=== PATIENT | female | born 1970 | race Caucasian/White ===

== ENCOUNTER → 2017-10-08 16:13 | Outpatient (CLI) | payer BC, SELFPAY ==
--- NOTE | 2017-10-08 16:16 | MM_ITS ---
MM Dig mamm DX BI implant CAD CAD Screening ORDERING PHYSICIAN : Robert Duke MD PATIENT AGE: 47 years GENDER: Female COMPARISON: Previous mammograms: July INDICATION: TECHNIQUE:. Corine technique utilized. CC & MLO images were obtained of the breast tissue overlying implant, as well as a second set of images including the breast implant. Mammography is inherently limited due to the implants is a could obscure areas of breast R2 CAD reviewed. FINDINGS: Moderate breast density overlying the implants appear stable. No significant new findings no change when compared to 2016 nor 2011 study. CAD computer review highlights no areas of concern either . Areas of mild asymmetry previously noted appear stable . Bilateral Breast Implants appear stable as well. Stable numerous moderate size axillary lymph nodes bilateral IMPRESSION: No significant new areas of concern Overall Stable bilateral mammogram. With Stable Bilateral breast implants.. BI-RADS Category: 2 Benign Finding(s) RECOMMENDED FOLLOW-UP: 1YR - 1 YEAR FOLLOW-UP (A letter has been sent to the patient regarding results of the study.)
== END ==
PROVIDERS: Family Provider Family Medicine; PCP Family Medicine; Visit Provider Nurse Practitioner Obstetrics & Gynecology
DX: Z12.13 Encounter for screening for malignant neoplasm of small intestine (principal)
CPT/HCPCS: 77066

== ENCOUNTER → 2018-07-06 15:05 | Outpatient (POV) | payer BC, SELFPAY | PROVIDERS: Visit Provider Dermatology | DX: Z00.00 Encounter for general adult medical examination without abnormal findings (principal) ==

== ENCOUNTER → 2019-06-06 15:50 | Outpatient (CLI) | payer BC, SELFPAY ==
--- NOTE | 2019-06-06 15:54 | MM_ITS ---
PROCEDURE: MM DIG SC MAMM IMPLANT BI CAD Patient Age:48Y CLINICAL INDICATION: SCREENING routine screening. Estradiol patch. No new complaints.. Family history.:. Sister with breast cancer age 52 Bilateral mammogram. Emanuel technique utilized due to breast implants COMPARISON: DIGMAMMS MAMMOGRAM SCREEN-ASSISTANT MANAGER QUALITY MANAGEMENT N/C from 08/08/2009 DIGMAMMDX MAMMOGRAM DX-ASSISTANT MANAGER QUALITY MANAGEMENT N/C from 08/21/2009 DMSI DIGITAL MAMM-SCREEN IMPLANT from 04/07/2012 DMSI DIG MAMM-SCREEN IMPLANT W/CAD from 08/18/2016 DMBAV DIG MAMM- JOLYNN ADD VIEWS W/CAD from 09/11/2016 BL US BREAST-LT COMPLETE W/AXILLA from 09/11/2016 DXIMPBI MM Dig mamm DX BI implant CAD from 10/08/2017 TECHNIQUE: . Emanuel technique utilized due to breast implants CC and MLO images were obtained both with and without implant included. The Emanuel images without implant images attempted image overlying breast tissue but however mammography is somewhat limited in the presence of implants is areas breast can be obscured. R2 CAD reviewed. FINDINGS: Moderately dense slightly heterogeneous asymmetric breast tissue seen overlying the bilateral breast implants . Right breast. No new areas of significant concern. Follow-up in 1 year recommended Left breast. Stable mild asymmetry no significant new findings but Left breast stable again noting area of mild asymmetric density at the inferior left breast. This is been noted on present since 2011 with no discrete change and can be followed. IMPRESSION: 1.Stable bilateral mammogram. No new areas of significant concern either breast. 2.Bilateral follow-up 1 year recommended; and self-breast examination may be of benefit 3..Bilateral Breast Implants/thus Emanuel technique utilized. The implants along moderately dense mild asymmetric and heterogeneous breast tissue does somewhat decrease sensitivity of mammography, but I see no significant new findings of concern.. Stable breast BI-RAD Category: 2 Benign Finding(s) FOLLOW-UP: 1YR 1 Year Follow-up (A letter has been sent to the patient regarding results of the study.) Dictated by: Harjinder Robledo MD 06/10/2019 13:39 Electronically signed by Harjinder Robledo MD in [place] 06/10/2019 13:39
== END ==
PROVIDERS: PCP Family Medicine; Visit Provider Obstetrics & Gynecology
DX: Z00.00 Encounter for general adult medical examination without abnormal findings (principal)
CPT/HCPCS: 77067

== ENCOUNTER → 2019-07-07 16:29 | Outpatient (CLI) | payer BC, SELFPAY ==
--- NOTE | 2019-07-07 16:33 | XR_ITS ---
PROCEDURE: XR FOOT WT BEARING RT 3V CLINICAL INDICATION: comparison views COMPARISON: FTR3 FOOT-RT-3 VIEWS from 12/04/2014 FINDINGS: No fracture or dislocation. No lytic or blastic change. There is normal mineralization. The joint spaces are well-preserved. No significant degenerative/arthritic changes. No erosive changes evident. Other findings:There is a prominent posterior talar process and there are mild hypertrophic changes at the base of the 1st metatarsal laterally. There is normal alignment. IMPRESSION: No acute findings. Dictated by: Geovani Anaya MD 07/07/2019 17:48 Electronically signed by Geovani Anaya MD in [place] 07/07/2019 17:48
--- NOTE | 2019-07-07 16:33 | XR_ITS ---
PROCEDURE: XR FOOT WT BEARING LT 3V CLINICAL INDICATION: painful knot on left foot. COMPARISON: FTR3 FOOT-RT-3 VIEWS from 12/04/2014 XR FOOT WT BEARING RT 3V from 07/07/2019 FINDINGS: No fracture or dislocation. No lytic or blastic change. There is normal mineralization. The joint spaces are well-preserved. No significant degenerative/arthritic changes. No erosive changes evident. There is mild soft tissue swelling along the dorsal aspect of the foot at the cuneiform region IMPRESSION: Mild soft tissue swelling along the dorsal aspect of the foot. No bony anomalies evident. Dictated by: Geovani Anaya MD 07/07/2019 17:50 Electronically signed by Geovani Anaya MD in [place] 07/07/2019 17:50
== END ==
PROVIDERS: PCP Family Medicine; Visit Provider Podiatrist
DX: M79.672 Pain in left foot (principal); M85.672 Other cyst of bone, left ankle and foot
CPT/HCPCS: 73630

== ENCOUNTER → 2019-11-22 14:44 | Outpatient (CLI) | payer BC, SELFPAY ==
--- NOTE | 2019-11-22 14:49 | XR_ITS ---
PROCEDURE: XR HIP RT 2-3V W/PELVIS CLINICAL INDICATION: RT HIP PAIN Recurrence right hip pain COMPARISON: No exams were available for comparison FINDINGS: No fracture or dislocation is evident. No significant degenerative change. No lytic or blastic change. Unremarkable soft tissues. Pain pump is present overlying the right lower quadrant IMPRESSION: No acute findings. Dictated by: Geovani Anaya MD 11/22/2019 15:10 Electronically signed by Geovani Anaya MD in [place] 11/22/2019 15:10
== END ==
PROVIDERS: PCP Family Medicine; Visit Provider Family Medicine
DX: M25.551 Pain in right hip (principal)
CPT/HCPCS: 73502

== ENCOUNTER → 2020-04-30 12:45 | Outpatient (CLI) | payer BC, SELFPAY ==
--- NOTE | 2020-04-30 12:45 | US_ITS ---
PROCEDURE: US EXTREMITY LT LIMITED CLINICAL INDICATION: Cyst of left foot. Follow-up drainage of foot cyst COMPARISON: No exams were available for comparison FINDINGS: A cystic areas present along the dorsal aspect of the foot corresponding to the palpable abnormality measuring 7 x 5 mm. There is some thickening of the posterior wall of this cyst. IMPRESSION: Complex cystic lesion dorsal aspect of foot 7 x 5 mm with posterior thickened wall corresponding to palpable abnormality Dictated by: Geovani Anaya MD 04/30/2020 18:19 Geovani Anaya MD in [place] 04/30/2020 18:19
== END ==
PROVIDERS: PCP Family Medicine; Visit Provider Podiatrist
DX: M67.472 Ganglion, left ankle and foot (principal)
CPT/HCPCS: 76882

== ENCOUNTER → 2020-07-06 16:24 | Outpatient (CLI) | payer BC, SELFPAY ==
--- NOTE | 2020-07-06 | XR_ITS ---
PROCEDURE: XR CHEST 2V CLINICAL HISTORY: COUGH COMPARISON: CR XR CHEST PORTABLE from 09/17/2019 FINDINGS: The cardiomediastinal silhouette and pulmonary vascularity are within normal limits. The lungs are clear without infiltrates, suspicious nodules, or pleural effusions. There is a neurostimulator electrode seen in the lower thoracic spinal canal. No acute bony abnormalities. IMPRESSION: No acute findings. Dictated by: Dr. Leonidas Yates MD 07/06/2020 19:16 Dr. Leonidas Yates MD in [place] 07/06/2020 19:16
[2020-07-06 18:06] LABS: Basophils # 0.1 K/mm3 (0-0.2); Basophils % 0.7 % (0.1-2.0); Eosinophils # 0.3 K/mm3 (0.0-0.4); Eosinophils % 2.2 % (0.1-12.0); Hematocrit 53.7 % (37.0-47.0); Hemoglobin 17.3 g/dL (12.2-16.2); Lymphocytes % 25.9 % (10-50); Mean Corpuscular HGB Conc 32.3 g/dL (31.8-35.4); Mean Corpuscular Hemoglobin 31.4 pg (27.0-31.2); Mean Corpuscular Volume 97.2 fl (81-99); Monocytes # 0.5 K/mm3 (0.1-1.0); Monocytes % 4.1 % (1.7-9.3); Neutrophils # 7.8 K/mm3 (1.8-7.8); Neutrophils % 67.1 % (37.0-80.0); Platelet Count 252 K/mm3 (142-424); Red Blood Count 5.52 M/mm3 (4.20-5.40); Red Cell Distribution Width 13.2 % (11.5-17.5); White Blood Count 11.7 K/mm3 (4.8-10.8)
[2020-07-06 18:38] LABS: Alanine Aminotransferase 20 U/L (12-78); Albumin Level 4.5 g/dl (3.5-5.0); Albumin/Globulin Ratio 1.7 (1.1-1.8); Alkaline Phosphatase 58 U/L (38-126); Anion Gap 11.6 mEq/L (5-15); Aspartate Amino Transferase 26 U/L (14-36); Bilirubin,Total 0.5 mg/dl (0.2-1.3); Blood Urea Nitrogen 13 mg/dl (7-17); Calcium 10.1 mg/dl (8.4-10.2); Carbon Dioxide 29 mmol/L (22.0-30.0); Chloride 101 mmol/L (98-107); Estimated Glomerular Filt Rate 88 ml/min (>60); GFR (African American) 107 ML/MIN (>60); Globulin 2.6 g/dL (1.3-3.2); Glucose 132 mg/dl (74-100); Potassium 4.6 mmoL/L (3.5-5.1); Sodium 137 mmol/L (136-145); Total Protein,Serum 7.1 g/dl (6.3-8.2)
== END ==
PROVIDERS: PCP Family Medicine; Visit Provider Podiatrist
DX: Z01.818 Encounter for other preprocedural examination (principal); M85.672 Other cyst of bone, left ankle and foot
CPT/HCPCS: 36415; 71046; 80053; 85025; 93005

== ENCOUNTER → 2020-07-12 11:03 | Outpatient (CLI) | payer BC, SELFPAY ==
[2020-07-12 13:19] LABS: Coronavirus 19 IgG Antibody Negative (Negative); Coronavirus 19 IgM Antibody Negative (Negative)
== END ==
PROVIDERS: Visit Provider Podiatrist
DX: Z01.812 Encounter for preprocedural laboratory examination (principal); Z11.52 Encounter for screening for COVID-19; M79.672 Pain in left foot; M67.472 Ganglion, left ankle and foot
CPT/HCPCS: 36415; 86328

== ENCOUNTER 2020-07-13 06:07 | Day surgery (SDC) | payer BC, SELFPAY ==
--- NOTE | 2020-07-06 16:39 | ECG_ITS ---
APPROVED REPORT Exam: Resting ECG HR:75 bpm ECG Measurements Heart Rate 75 AXES IL 144 P 71 QRSd 86 QRS 54 QT 382 T 67 QTc 426 Conclusion Normal sinus rhythm Normal ECG Electronically signed by : Alexander Michael, 07/06/2020 21:05:03
[2020-07-10 12:44] VITALS: BMI 27.7
[2020-07-13] VITALS (14 sets, daily range): BP systolic 125–156; BP diastolic 77–102; PULSE 85–107; RESP 12–20; TEMP 36.2–43; O2SAT 95–98
--- NOTE | 2020-07-13 06:58 | P.PN_ITS ---
[facility] Anesthesia Checklist - Patient Identification Patient Identification: Arm Band, Verbal (Name & ) - Structural Data Admitted From: Home Planned Operative Procedure/s: ex mass Consent for Planned Operative Procedure(s) Verified: Yes Verified Documents: History and Physical - NPO Status Verified Time NPO: 00:00 - Chart Verification Results Verified: CBC, BMP - Additional verifications Patient : No Anesthesia Reactions: No Hx Blood Transfusions: No Blood Transfusion Reaction: No Cephalosporin Allergy: No Previous Colonoscopy: No - Cardiovascular Assessment Heart Sounds: S1 & S2 Pulse Strength: Baseline Pulse Rhythm: Regular Peripheral Edema: No - Airway Assessment C-Spine Mobility Assessed: Yes TMJ Mobility Assessed: Yes Dentition: Good Dentition - Neurological Assessment Level of Consciousness: Awake, Alert, Appropriate Hx Seizures: No Numbness or tingling in extremities: No - Anesthesia Plan Anesthesia Risk discussed: Yes Anesthesia Plan: Verified ASA Class: III Anesthesia Type: General [facility] History I have reviewed the patient's past medical history: Yes Medical History: Reports:: Anxiety, Hypertension Denies:: Cancer, Diabetes Mellitus Type 1, Diabetes Mellitus Type 2, MRSA, Seizures *Have you ever received a pneumonia vaccine?: No *Have you received a flu vaccine this season?: No Other Medical History: Reports: Arthritis, Other. Denies: Blood Transfusion Reaction Anesthesia experience/problems:: none Other Surgeries: Yes: Cholecystectomy, Hysterectomy-Total, Other Amputation: No Fractures: No - *Social History Last grade of school completed: Some college Smoking Status: Current every day smoker Tobacco Type: cigarettes # Packs/Day (cigarettes): 1 Alcohol Intake: current Alcohol Intake Frequency:: holidays/special occasions only Substance Use Type: denies use *Occupational Status:: unemployed Housing: house Household Members: family *Travel in the last 8 weeks: None - Psychiatric History Pschychiatric History:: Reports:: Anxiety Family Hx:: Cancer, Hyperlipidemia, Hypertension
--- NOTE | 2020-07-13 08:15 | HMH.OPNOTE ---
Date of procedure: 07/13/20 Pre-op Diagnosis:: 1. Left foot exostosis 2. Left foot soft tissue mass (suspected ganglion cyst) Post-op Diagnosis:: Same Procedure performed:: 1. Left foot exostectomy 2. Left foot soft tissue mass excision Surgeon:: Rocio Berry DPM AIRFIELD ENGINEER OFFICER:: Alexander Correia Anesthesia: GETA, local (25cc 0.5% marcaine plain) Estimated blood loss (mL): 10 Clinical Note:: Ms. Dempsey is a 49-year-old female who presents with left dorsal foot pain and soft tissue mass overlying bone spur. Conservative treatment included ice, elevation, NSAIDs, strapping, taping, modification of shoe gear, and aspiration. It also included modification of shoe gear, modification of activity, steroid injections which did not help. Patient unable to get MRI due to spinal cord stimulator incompatibility. She had a left foot ultrasound 04/30/2020 which showed: Complex cystic lesion dorsal aspect of foot 7 x 5 mm with posterior thickened wall corresponding to palpable abnormality. Conservative treatment discussed but has been exhausted. We discussed surgery for excision of the soft tissue mass with exostectomy. Patient is having no pain to the bunion, will not address surgically at this time. All risks and benefits were discussed including but not limited to: recurrence of the mass, damage to blood vessels and nerves, bleeding, infection, wound complications, need for further surgery, prolonged swelling of the extremity, prolonged pain, RSD/CRPS, DVT, and anesthetic complications including . No guarantees were given. All questions fully answered. The patient verbalized understanding and agreed to proceed with surgery. Consent was obtained. Necessary labs and pre-op testing ordered: cbc, cmp, ekg, chest x-ray, covid. Patient is under the care of pain management. Will contact the [facility] regarding surgery. She takes Fellows and Nucynta for chronic back pain. She understands for the immediate post op period, she will need stronger meds due to her tolerance. Will need Rx Percocet, Zofran, Motrin, discussed Toradol. She will need fracture boot and crutches. Medical clearance per PCP-Dr. Carty. Operative findings:: Left foot dorsal midfoot soft tissue mass located over the second?third tarsometatarsal joint. Mass had generally more consistent with ganglion cyst and measured approximately 0.5 x 0.7 cm. No signs of malignancy or deep infection noted. Dorsal spurring under the mass over the TMT joints. Operative note:: On this date and time, the patient was deemed an appropriate surgical candidate. With informed consent signed, the patient was taken to the operating theater. The patient was positioned supine. General anesthesia was induced. Tourniquet was applied to the LEFT mid calf. The LEFT lower extremity was prepped and draped in normal sterile fashion. LEFT EXCISION OF GANGLION CYST/SOFT TISSUE MASS: The tourniquet was inflated at 225 mmHg. Attention was directed to the dorsal foot where the lazy S incision was mapped out extending over the 2-3rd tarsometatarsal joints. Dissection was carried through skin to subcutaneous tissue with care taken to maintain surgical hemostasis and safely retract neurovascular structures. The extensor tendons were visualized and soft tissue mass noted over the extensor just superior to the joint. The soft tissue mass suspected ganglion cyst was dissected and was approximately 0.5 x 0.7 cm, gently clear fluid noted. The ganglion cyst was excised and sent to pathology as a specimen. The wound was flushed with copious amounts normal sterile saline. LEFT FOOT EXOSTECTOMY: Dissection was then carried down to the level of the bone. Bony prominence noted over the 2-3rd metatarsal base and cuneiforms. Cartilage intact to the joints. Rondure was used to remove dorsal spur. Power reciprocating rasp then used to smooth down the area. Wound was flushed with copious amounts of normal sterile saline. 3-0 Vicryl was then used to reapproxima
--- NOTE | 2020-07-13 08:21 | HMH.ANESI ---
[facility] Anesthesia Record Part I Intake, IV Amount: 700 Estimated blood loss (mL): 5 Urine output (mL): 0 Blood Products used (#): none Blood Pressure: 137/89 SaO2: 95 Pulse Rate: 107 Respiratory Rate: 20 Temperature: 97.8 F Patient is:: Awake, Stable Stable to PACU at:: 08:16
--- NOTE | 2020-07-13 12:55 | P.PN_ITS ---
[facility] Anesthesia Record Part II Discharge Time: 08:46 Destination: Surgical Day Care (OP Surgery) PACU nurse assessment reviewed?: Yes Patient Condition:: Good Anesthesia Complications:: None Swallowing reflex intact?: Yes Cyanosis?: No Blood Pressure: 132/100 Pulse Rate: 94 Temperature: 97.2 F Mental Status: Alert & Oriented Pain level:: 3 Nausea and/or vomitting:: None Intake, IV Amount: 35
== END 2020-07-13 09:45 | disposition home or self-care (01) ==
LOC: OR 06:08
PROVIDERS: PCP Family Medicine; Visit Provider Podiatrist
PROC: (CPT 28090; principal; 2020-07-13 07:30)
DX: M25.775 Osteophyte, left foot (principal); M67.472 Ganglion, left ankle and foot; I10 Essential (primary) hypertension; M54.5 Low back pain; Z79.899 Other long term (current) drug therapy
CPT/HCPCS: 28090; 28104; 96374; J2405

== ENCOUNTER 2020-10-15 12:36 | Emergency (ER) | payer BC, SELFPAY ==
[2020-10-15 13:18] VITALS: RESP 16; TEMP 36.8; O2SAT 99; BMI 28.8
--- NOTE | 2020-10-15 13:19 | HMH.EDUTC ---
[facility] [place] Disposition Clinical Impression: At increased risk of exposure to COVID-19 virus Disposition: Home, Self-Care Condition on Discharge: Good Instructions: Preventing the Spread of Coronavirus Discharge Instructions Additional Instructions: Drink plenty of fluids. Take tylenol or ibuprofen for pain or fever. Follow up with your regular doctor. GO TO THE ER FOR ANY WORSENING SYMPTOMS Referrals: Zana Carty MD [Primary Care Provider] - Time of Disposition: 13:21 Medical Decision Making - Medical Records Medical records reviewed: No: I reviewed the patient's medical records. - Johann Inquiry Pt receiving controlled substance: No Vital Signs: 10/15/20 13:18 10/15/20 13:23 Temperature 98.2 F 98.2 F Temperature Source Oral Oral Pulse Rate 72 Respiratory Rate 16 16 Blood Pressure 147/88 H 02 Sat by Pulse Oximetry 99 Oxygen Delivery Method Room Air Room Air [facility] [place] HPI - General Stated complaint: covid test Time Seen by Provider: 10/15/20 13:19 - History of Present Illness Provider Complaint: She is here for a covid test. She has a medical procedure scheduled for 3 days from now and she need a negative covid test before having it done. She denies any symptoms. - Related Data Home Medications Medication Instructions Recorded Confirmed Hydrocodone/Acetaminophen 1 tab PO QIDP PRN 04/06/18 09/13/20 [Hydrocodone-Acetamin 7.5-325] estradioL [Estradiol (Twice 1 patch TRANSDERMA .biweekly 04/06/18 09/13/20 Weekly)] escitalopram oxalate 20 mg tablet 20 mg PO DAILY tab 04/10/20 09/13/20 omeprazole 40 mg capsule,delayed 40 mg PO DAILY PRN cap 04/10/20 09/13/20 release tapentadol 100 mg tablet,extended 100 mg PO BID tab 04/10/20 09/13/20 release,12 hr meloxicam 15 mg tablet 15 mg PO DAILY tab 05/10/20 09/13/20 lidocaine 5 % topical ointment 1 applic TOPICAL DAILY PRN g 06/14/20 09/13/20 lisinopril 20 mg tablet 20 mg PO DAILY tab 06/14/20 09/13/20 Previous Rx's Medication Instructions Recorded diclofenac sodium 1 % topical gel 4 g TOPICAL QID PRN 90 Days #100 g 05/10/20 ketorolac 10 mg tablet 10 mg PO Q6H PRN 5 Days #20 tab 07/12/20 ondansetron 4 mg disintegrating 4 mg PO Q6H PRN 7 Days #30 tab 07/12/20 tablet oxycodone-acetaminophen 7.5 mg-325 1 tab PO Q4-6H PRN 7 Days #40 tab 07/12/20 mg tablet triamcinolone acetonide 0.025 % 1 applic TOPICAL BID #15 g 08/02/20 topical ointment Allergies Allergy/AdvReac Type Severity Reaction Status Date / Time baclofen Allergy Verified 09/13/20 13:44 [facility] History - Hepatitis A Screen Attestation statement:: This patient has been screened for Hepatitis A risk factors. I have reviewed the patient's past medical history: Yes Medical History: Reports:: Anxiety, Hypertension Denies:: Cancer, Diabetes Mellitus Type 1, Diabetes Mellitus Type 2, MRSA, Seizures Other Medical History: Reports: Arthritis, Other. Denies: Blood Transfusion Reaction Other Surgeries: Yes: Cholecystectomy, Hysterectomy-Total, Other Amputation: No Fractures: No Comment: Bladder Enlargement. Neck Surgery. Cyst removed from her back - Social History Smoking Status: Current every day smoker Tobacco Type: cigarettes # Packs/Day (cigarettes): 1 Alcohol Intake: current Alcohol Intake Frequency:: holidays/special occasions only Substance Use Type: denies use Occupational Status: unemployed Housing: house Household Members: family - Psychiatric History Pschychiatric History:: Reports:: Anxiety Family Hx:: Cancer, Hyperlipidemia, Hypertension ROS Obtained: Yes All systems reviewed & no additional complaints - Constitutional Constitutional: Reports system reviewed and no additional complaints, except as docu - Eyes Eyes: Reports system reviewed and no additional complaints, except as docu - ENT Ears, Nose, Mouth, and Throat: Reports system reviewed and no additional complaints, except as docu - Cardiovascular Cardiovas
[2020-10-15 13:23] VITALS: BP 147/88; PULSE 72; RESP 16; TEMP 36.8; O2SAT 97
== END 2020-10-15 13:26 | disposition home or self-care (01) ==
PROVIDERS: Emergency Provider Nurse Practitioner Family; PCP Family Medicine
DX: Z11.52 Encounter for screening for COVID-19 (principal)
CPT/HCPCS: 99202; G0463; U0003

== ENCOUNTER → 2021-04-23 13:30 | Outpatient (CLI) | payer BC, SELFPAY ==
--- NOTE | 2021-04-23 13:33 | MM_ITS ---
PROCEDURE INFORMATION: Exam: MG Bilateral Screening 3D Mammography Exam date and time: 04/23/2021 1:33 PM Age: 50 years old Clinical indication: Screening mammogram TECHNIQUE: Imaging protocol: Bilateral screening tomosynthesis and 2D mammography including computer-aided detection (CAD) when performed. COMPARISON: 1. MG MM DIG SC MAMM IMPLANT BI CAD 06/06/2019 4:03 PM 2. MG DXIMPBI MM Dig mamm DX BI implant CAD 10/08/2017 4:25 PM 3. MG DMBAV DIG MAMM- JOLYNN ADD VIEWS W/CAD 09/11/2016 1:43 PM 4. MG DMSI DIG MAMM-SCREEN IMPLANT W/CAD 08/18/2016 9:45 AM FINDINGS: MAMMOGRAPHY: Breast composition: The breast tissue is heterogeneously dense, which may obscure small masses. Mass: Stable benign-appearing subcentimeter nodules are present in the bilateral breasts. No new or morphologically suspicious nodule has developed to suggest malignancy. Architectural distortion: No new or suspicious architectural distortion. Calcifications: No new or suspicious calcifications are present Asymmetric density: No new or suspicious asymmetric density is present Skin thickening: None. Axillary adenopathy: None. Implants: Subpectoral the augmentation implants are present. IMPRESSION: No mammographic evidence of malignancy. Recommend annual screening mammography unless otherwise clinically indicated. ASSESSMENT: BI-RADS category 2: Benign
== END ==
PROVIDERS: PCP Family Medicine; Visit Provider Family Medicine
DX: Z12.31 Encounter for screening mammogram for malignant neoplasm of breast (principal)
CPT/HCPCS: 77063; 77067

== ENCOUNTER → 2021-04-26 10:31 | Outpatient (CLI) | payer BC, SELFPAY | PROVIDERS: Visit Provider Orthopaedic Surgery Orthopaedic Surgery of the Spine | DX: Z01.818 Encounter for other preprocedural examination (principal); Z11.52 Encounter for screening for COVID-19 | CPT/HCPCS: C9803; U0003; U0005 ==

== ENCOUNTER 2021-08-21 14:04 | Emergency (ER) | payer BC, SELFPAY ==
[2021-08-21 14:26] VITALS: BP 166/102; PULSE 94; RESP 20; TEMP 36.7; O2SAT 97; BMI 28.6
--- NOTE | 2021-08-21 14:38 | HMH.EDUTC ---
[facility] Dis[place] Clinical Impression: Cellulitis and abscess of face Disposition: Home, Self-Care Condition on Discharge: Good Instructions: Clindamycin, Mupirocin, DI for Skin Abscess Additional Instructions: *Start antibiotic(s) immediately and be sure to take as ordered for the FULL length of time although you may be feeling better or start to see improvement in the next 24-48 hours *Monitor closely. Outlined redness so that you can monitor easier. Follow up immediately for new or worsening symptoms including but not limited to redness, swelling, streaking from site fever or chills. *Warm compress 15 minutes 3-4 times day *Never squeeze or pop these on your own. Seek immediate medical attention next time this occurs *Monitor Temp. Tylenol every 4 hours as needed and ibuprofen every 6 hours as needed (as long as your primary care doctor has told you that it is ok to take both. For fever, aches, pain. ER if no less that 101 despite Tylenol and ibuprofen Follow up with your family doctor/primary care physician in the next 48-72 hours if no improvement Prescriptions: Mupirocin [Bactroban 2% Ointment 22gm tube] 1 applicatio TP TID #22 gm Transmission Status: Pending to [facility] # clindamycin HCL [Cleocin HCl] 300 mg PO Q8H 7 Days #21 cap Transmission Status: Pending to [facility] # Referrals: Keshia Moy MD [Primary Care Provider] - As needed Time of Disposition: 14:46 Medical Decision Making - Johann Inquiry Pt receiving controlled substance: No Johann was queried for this patient: No Vital Signs: 08/21/21 14:26 Temperature 98.0 F Temperature Source Oral Pulse Rate [Right Brachial] 94 H Respiratory Rate 20 Blood Pressure [Right Arm] 166/102 H Blood Pressure Mean [Right Arm] 123 Blood Pressure Source [Right Arm] Automatic Cuff Blood Pressure Position [Right Arm] Sitting 02 Sat by Pulse Oximetry 97 Oxygen Delivery Method Room Air [facility] HPI - General Stated complaint: possible inf on face Time Seen by Provider: 08/21/21 14:38 Mode of Arrival: Ambulatory Source of Information: Patient Limitations: No Limitations Description of Symptoms (Recalled from Triage Doc. by RN): acne flar, swollen lymph node HEENT Symptoms (Recalled from RN notes): No Resp Symptoms (Recalled from RN notes): No Skin Symptoms (Recalled from RN notes): No MS Symptoms (Recalled from RN notes): No Functional Status (Recalled from RN notes): wnl - History of Present Illness Provider Complaint: Patient states that she started with a pimple on the left side of her nose and she busted it then she started having swelling on the left side of her face States that she thinks she may have infection in the left side of her face since the swelling has continued to get worse so she came in - Related Data Home Medications Medication Instructions Recorded Confirmed Hydrocodone/Acetaminophen 1 tab PO QIDP PRN 04/06/18 09/13/20 [Hydrocodone-Acetamin 7.5-325] estradioL [Estradiol (Twice 1 patch TRANSDERMA .biweekly 04/06/18 09/13/20 Weekly)] escitalopram oxalate 20 mg tablet 20 mg PO DAILY tab 04/10/20 09/13/20 omeprazole 40 mg capsule,delayed 40 mg PO DAILY PRN cap 04/10/20 09/13/20 release tapentadol 100 mg tablet,extended 100 mg PO BID tab 04/10/20 09/13/20 release,12 hr meloxicam 15 mg tablet 15 mg PO DAILY tab 05/10/20 09/13/20 lidocaine 5 % topical ointment 1 applic TOPICAL DAILY PRN g 06/14/20 09/13/20 lisinopril 20 mg tablet 20 mg PO DAILY tab 06/14/20 09/13/20 Previous Rx's Medication Instructions Recorded diclofenac sodium 1 % topical gel 4 g TOPICAL QID PRN 90 Days #100 g 05/10/20 ketorolac 10 mg tablet 10 mg PO Q6H PRN 5 Days #20 tab 07/12/20 ondansetron 4 mg disintegrating 4 mg PO Q6H PRN 7 Days #30 tab 07/12/20 tablet oxycodone-acetaminophen 7.5 mg-325 1 tab PO Q4-6H PRN 7 Days #40 tab 07/12/20 mg tablet triamcinolone acetonide 0.025 % 1 applic TOPICAL BID #15 g 02
[2021-08-21 14:51] VITALS: BP 166/102; PULSE 94; RESP 20; TEMP 36.7; O2SAT 97
== END 2021-08-21 14:51 | disposition home or self-care (01) ==
PROVIDERS: Emergency Provider Nurse Practitioner; PCP Family Medicine
DX: L03.211 Cellulitis of face (principal)
CPT/HCPCS: 99202; G0463

== ENCOUNTER → 2021-09-10 13:22 | Outpatient (POV) | payer BC, SELFPAY | PROVIDERS: Visit Provider Dermatology | DX: Z00.00 Encounter for general adult medical examination without abnormal findings (principal) ==

== ENCOUNTER → 2021-10-17 15:08 | Outpatient (CLI) | payer BC, SELFPAY ==
[2021-10-17 17:50] LABS: Anion Gap 10.6 mEq/L (5-15); Blood Urea Nitrogen 21 mg/dl (7-17); Carbon Dioxide 26 mmol/L (22.0-30.0); Chloride 104 mmol/L (98-107); Estimated Glomerular Filt Rate 88 ml/min (>60); GFR (African American) 106 ML/MIN (>60); Glucose 89 mg/dl (74-100); Potassium 5.6 mmoL/L (3.5-5.1); Sodium 135 mmol/L (136-145)
== END ==
PROVIDERS: Visit Provider Dermatology
DX: L70.0 Acne vulgaris (principal); Z79.899 Other long term (current) drug therapy
CPT/HCPCS: 36415; 80048

== ENCOUNTER → 2022-06-11 14:32 | Outpatient (CLI) | payer BC, SELFPAY ==
--- NOTE | 2022-06-11 14:34 | MM_ITS ---
PROCEDURE INFORMATION: Exam: MG Bilateral Screening 3D Mammography Exam date and time: 06/11/2022 2:25 PM Age: 51 years old Clinical indication: Screening examination TECHNIQUE: Imaging protocol: Bilateral Screening tomosynthesis and 2D mammography including computer-aided detection (CAD) when performed. COMPARISON: 1. MG MM DIG SC MAMM IMPLANT BI CAD 04/23/2021 1:45 PM 2. MG MM DIG SC MAMM IMPLANT BI CAD 06/06/2019 4:03 PM FINDINGS: MAMMOGRAPHY: Breast composition: The breasts are heterogeneously dense, which may obscure small masses. Mass: None. Architectural distortion: None. Calcifications: No suspicious calcifications. Asymmetric density: None. Skin thickening: None. Axillary adenopathy: None. Subpectoral silicone breast implants are present. The contours are smooth. IMPRESSION: No mammographic evidence of malignancy. Annual screening is recommended unless otherwise clinically indicated. ASSESSMENT: BI-RADS Category 1: Negative
== END ==
PROVIDERS: PCP Family Medicine; Visit Provider Family Medicine
DX: Z12.31 Encounter for screening mammogram for malignant neoplasm of breast (principal)
CPT/HCPCS: 77063; 77067

== ENCOUNTER 2022-11-10 16:42 | Emergency (ER) | payer BC, SELFPAY ==
[2022-11-10 16:50] VITALS: BP 181/103; PULSE 71; RESP 22; TEMP 36.7; O2SAT 96; BMI 27.7
--- NOTE | 2022-11-10 16:56 | EXP.UTC ---
Discharge Plan Disposition Patient Disposition: Home, Self-Care Condition: Good Prescriptions Prescriptions: New benzonatate [benzonatate] 100 mg capsule 100 mg PO TIDP PRN (Reason: Cough) Qty: 30 0RF methylprednisolone 4 mg Tablets,Dose Pack 4 mg PO DIRECTED Qty: 21 0RF amoxicillin-pot clavulanate 875-125 mg Tablet 1 tab PO Q12H Qty: 20 0RF No Action omeprazole 40 mg capsule,delayed release(DR/EC) 40 mg PO DAILY PRN (Reason: Acid Reflux) tapentadol 100 mg tablet extended release 12 hr 100 mg PO BID Label Comments: TAKE 1 TABLET BY MOUTH TWICE A DAY escitalopram oxalate 20 mg tablet 20 mg PO DAILY meloxicam 15 mg tablet 15 mg PO DAILY Label Comments: TAKE 1 TABLET BY MOUTH EVERY DAY diclofenac sodium [Voltaren Arthritis Pain] 1 % gel 4 g TOPICAL QID PRN (Reason: pain) 90 Days Qty: 100 2RF Rx Instructions: apply to single knee, ankle, foot; for foot includes sole/toes/top of foot lisinopril 20 mg tablet 20 mg PO DAILY lidocaine 5 % ointment 1 applic TOPICAL DAILY PRN (Reason: pain) Label Comments: APPLY TO THE AFFECTED AREAS DIRECTED oxycodone-acetaminophen 7.5-325 mg tablet 1 tab PO Q4-6H PRN (Reason: pain) 7 Days Qty: 40 0RF ondansetron 4 mg tablet,disintegrating 4 mg PO Q6H PRN (Reason: nausea and vomiting) 7 Days Qty: 30 2RF ketorolac 10 mg tablet 10 mg PO Q6H PRN (Reason: pain) 5 Days Qty: 20 0RF triamcinolone acetonide 0.025 % ointment 1 applic TOPICAL BID Qty: 15 0RF hydrocodone-acetaminophen 7.5-325 tablet 1 tab PO QIDP PRN (Reason: pain) estradiol 1 EACH patch semiweekly 1 patch TRANSDERMA .biweekly clindamycin HCl 300 MG capsule 300 mg PO Q8H 7 Days Qty: 21 0RF mupirocin 22 GM ointment 1 applicatio TP TID Qty: 22 0RF Rx Instructions: apply directly to lesion on side of nose as directed Referrals Follow up/Referrals: John Paul Hampton MD [Primary Care Provider] - See instructions Activity Restrictions/Add. Instructions Additional Instructions/Restrictions: Drink plenty of fluids. Take tylenol or ibuprofen for pain or fever. Take the medications as directed. Follow up with your regular doctor. GO TO THE ER FOR ANY WORSENING SYMPTOMS Don't start the oral steroids until tomorrow, since you had the shot here today. Clinical Impressions Clinical Impression: Sinusitis Instructions Patient Instructions: Sinusitis, DI for Sinusitis Discharge ED Provider[place] Alcides C[place] [facility] [place] General Stated complaint: runny nose, h/a, sore throat Time Seen by Provider: 11/10/22 16:56 History of Present Illness Provider Complaint: She states that for the past 1 week she has had sore throat, sinus congestion, and low grade fever. Related Data Home Medications Medication Instructions Recorded Confirmed estradiol 0.1 mg/24 hr semiweekly 1 patch transdermal .biweekly 04/06/18 09/13/20 transdermal patch hormones hydrocodone 7.5 mg-acetaminophen 1 tab PO QIDP PRN pain 04/06/18 09/13/20 325 mg tablet escitalopram oxalate 20 mg tablet 20 mg PO DAILY Depression 04/10/20 09/13/20 omeprazole 40 mg capsule,delayed 40 mg PO DAILY PRN Acid Reflux 04/10/20 09/13/20 release tapentadol 100 mg tablet,extended 100 mg PO BID * 04/10/20 09/13/20 release,12 hr meloxicam 15 mg tablet 15 mg PO DAILY Pain 05/10/20 09/13/20 lidocaine 5 % topical ointment 1 applic topical DAILY PRN pain 06/14/20 09/13/20 lisinopril 20 mg tablet 20 mg PO DAILY bp 06/14/20 09/13/20 Previous Rx's Medication Instructions Recorded diclofenac sodium 1 % topical gel 4 g topical QID PRN pain 90 days 05/10/20 (Voltaren Arthritis Pain) #100 grams ketorolac 10 mg tablet 10 mg PO Q6H PRN pain 5 days #20 07/12/20 tabs ondansetron 4 mg disintegrating 4 mg PO Q6H PRN nausea and 07/12/20 tablet vomiting 1 week #30 tabs oxycodone-acetaminophen 7.5 mg-325 1 tab PO Q4-6H PRN pain 1 week
[2022-11-10 17:05] LABS: UTC Strep Screen (Rapid) Negative (Negative)
[2022-11-10 17:29] VITALS: BP 181/103; PULSE 71; RESP 22; TEMP 36.7; O2SAT 96
== END 2022-11-10 17:38 | disposition home or self-care (01) ==
PROVIDERS: Emergency Provider Nurse Practitioner Family; PCP Family Medicine
DX: J01.90 Acute sinusitis, unspecified (principal); R07.0 Pain in throat; F17.210 Nicotine dependence, cigarettes, uncomplicated
CPT/HCPCS: 87880; 96372; 99212; 99214; G0463; J0696

== ENCOUNTER → 2023-01-30 10:44 | Outpatient (CLI) | payer BC, SELFPAY ==
[2023-02-02 20:25] LABS: Pancreatic Elastase, Fecal 266 (>200)
== END ==
PROVIDERS: PCP Family Medicine; Visit Provider Nurse Practitioner Family
DX: R10.11 Right upper quadrant pain (principal); R10.13 Epigastric pain; R11.0 Nausea; K21.9 Gastro-esophageal reflux disease without esophagitis; R19.4 Change in bowel habit; R15.2 Fecal urgency; R19.7 Diarrhea, unspecified; R15.0 Incomplete defecation; Z79.1 Long term (current) use of non-steroidal anti-inflammatories (NSAID)
CPT/HCPCS: 82656

== ENCOUNTER → 2023-02-17 15:37 | Outpatient (POV) | payer BC, SELFPAY | PROVIDERS: Visit Provider Dermatology | DX: Z00.00 Encounter for general adult medical examination without abnormal findings (principal) ==

== ENCOUNTER → 2023-03-07 10:41 | Outpatient (CLI) | payer BC, SELFPAY ==
[2023-03-11 16:29] LABS: Calprotectin, Fecal 17 ug/g (0-120)
== END ==
PROVIDERS: PCP Family Medicine; Visit Provider Internal Medicine Gastroenterology
DX: R10.11 Right upper quadrant pain (principal); R19.4 Change in bowel habit; R19.7 Diarrhea, unspecified
CPT/HCPCS: 83993

== ENCOUNTER 2023-04-29 15:06 | Emergency (ER) | payer BC, SELFPAY ==
[2023-04-29 15:15] VITALS: BP 152/99; PULSE 82; RESP 21; TEMP 36.8; O2SAT 97; BMI 27.7
--- NOTE | 2023-04-29 15:23 | EXP.UTC ---
Discharge Plan Disposition Patient Disposition: Home, Self-Care Condition: Good Prescriptions Prescriptions: No Action omeprazole 40 mg capsule,delayed release(DR/EC) 40 mg PO DAILY PRN (Reason: Acid Reflux) tapentadol 100 mg tablet extended release 12 hr 100 mg PO BID Patient Comments: TAKE 1 TABLET BY MOUTH TWICE A DAY escitalopram oxalate 20 mg tablet 20 mg PO DAILY meloxicam 15 mg tablet 15 mg PO DAILY Patient Comments: TAKE 1 TABLET BY MOUTH EVERY DAY diclofenac sodium [Voltaren Arthritis Pain] 1 % gel 4 g TOPICAL QID PRN (Reason: pain) 90 Days Qty: 100 2RF Rx Instructions: apply to single knee, ankle, foot; for foot includes sole/toes/top of foot lisinopril 20 mg tablet 20 mg PO DAILY lidocaine 5 % ointment 1 applic TOPICAL DAILY PRN (Reason: pain) Patient Comments: APPLY TO THE AFFECTED AREAS DIRECTED oxycodone-acetaminophen 7.5-325 mg tablet 1 tab PO Q4-6H PRN (Reason: pain) 7 Days Qty: 40 0RF ondansetron 4 mg tablet,disintegrating 4 mg PO Q6H PRN (Reason: nausea and vomiting) 7 Days Qty: 30 2RF ketorolac 10 mg tablet 10 mg PO Q6H PRN (Reason: pain) 5 Days Qty: 20 0RF triamcinolone acetonide 0.025 % ointment 1 applic TOPICAL BID Qty: 15 0RF hydrocodone-acetaminophen 7.5-325 tablet 1 tab PO QIDP PRN (Reason: pain) estradiol 1 EACH patch semiweekly 1 patch TRANSDERMA .biweekly clindamycin HCl 300 MG capsule 300 mg PO Q8H 7 Days Qty: 21 0RF mupirocin 22 GM ointment 1 applicatio TP TID Qty: 22 0RF Rx Instructions: apply directly to lesion on side of nose as directed benzonatate [benzonatate] 100 mg capsule 100 mg PO TIDP PRN (Reason: Cough) Qty: 30 0RF methylprednisolone 4 mg Tablets,Dose Pack 4 mg PO DIRECTED Qty: 21 0RF amoxicillin-pot clavulanate 875-125 mg Tablet 1 tab PO Q12H Qty: 20 0RF Referrals Follow up/Referrals: Zana Carty MD [Primary Care Provider] - See instructions Activity Restrictions/Add. Instructions Additional Instructions/Restrictions: *weight bearing as tolerated *RICE, Rest the extremity, Ice 15-20 minutes 3-4 times daily, Compress- wear the rey wrap as discussed as much as possible to help reduce swelling and pain, Elevate the extremity when at rest *Rey wrap is for support and help control swelling, use it except in the shower. Be sure that is not to tight but not to loose either *Elevate when resting? *Ibuprofen 600-800mg every 6-8 hours as needed for pain an inflammation. If need something more can take Tylenol in between doses of Ibuprofen to help Immediately follow up with your family doctor for new or worsening of symptoms, or no noticeable improvement over the next 3-5 days Clinical Impressions Clinical Impression: Ankle sprain Qualifiers: Encounter type: initial encounter Involved ligament of ankle: unspecified ligament Laterality: right Qualified Code(s): S93.401A - Sprain of unspecified ligament of right ankle, initial encounter Instructions Patient Instructions: Ankle Sprain, DI for Ankle Sprain, How To Perform RICE (Rest, Ice, Compress, Elevate) Discharge ED Provider: Gloria Hassan [facility] [place] HPI General Stated complaint: AO fall 04/29, right ankle pain Mode of Arrival: Ambulatory Source of Information: Patient and Spouse Limitations: No Limitations Time Seen by Provider: 04/29/23 15:23 Description of Symptoms (Recalled from Triage Doc. by RN): PATIENT STATES SHE FELL TODAY AND INJURED HER RIGHT ANKLE HEENT Symptoms (Recalled from RN notes): No Resp Symptoms (Recalled from RN notes): No Skin Symptoms (Recalled from RN notes): No MS Symptoms (Recalled from RN notes): Yes Functional Status (Recalled from RN notes): WNL History of Present Illness Provider Complaint: Patient states that she was walking down the steps today and she missed a step and rolled her right ankle States that she has been having man
--- NOTE | 2023-04-29 15:25 | XR_ITS ---
FINAL REPORT CLINICAL HISTORY: fall on steps, lateral pain FINDINGS: Right ankle Three views were obtained. There is no acute fracture or dislocation. The joint spaces appear normal. There is lateral soft tissue swelling. IMPRESSION: No acute process. Reviewed, Interpreted and Dictated by Omega Solorio III, MD Transcribed by Charley Sin Authenticated and [facility]
[2023-04-29 16:49] VITALS: BP 152/99; PULSE 82; RESP 21; TEMP 36.8; O2SAT 97
== END 2023-04-29 16:52 | disposition home or self-care (01) ==
PROVIDERS: Emergency Provider Nurse Practitioner; PCP Family Medicine
DX: S93.401A Sprain of unspecified ligament of right ankle, initial encounter (principal); F17.210 Nicotine dependence, cigarettes, uncomplicated; I10 Essential (primary) hypertension; E78.5 Hyperlipidemia, unspecified; J45.909 Unspecified asthma, uncomplicated; W10.8XXA Fall (on) (from) other stairs and steps, initial encounter
CPT/HCPCS: 73610; 99212; 99214; G0463

== ENCOUNTER → 2023-06-03 11:58 | Outpatient (CLI) | payer BC, SELFPAY ==
--- NOTE | 2023-06-03 12:02 | XR_ITS ---
FINAL REPORT CLINICAL HISTORY: Foot Pain COMPARISON: None FINDINGS: RIGHT FOOT: Three views of the right foot were obtained. There is no acute fracture or dislocation. The joint spaces are intact. There is no soft tissue abnormality. IMPRESSION: No acute bony abnormality. Reviewed, Interpreted and Dictated by Omega Solorio III, MD Transcribed by Mar Barber Authenticated and [facility]
--- NOTE | 2023-06-03 12:02 | XR_ITS ---
FINAL REPORT CLINICAL HISTORY: Foot Pain COMPARISON: None FINDINGS: LEFT FOOT: Three views of the left foot were obtained. There is no acute fracture or dislocation. The joint spaces are intact. There is no soft tissue abnormality. IMPRESSION: No acute bony abnormality. Reviewed, Interpreted and Dictated by Omega Solorio III, MD Transcribed by Mar Barber Authenticated and [facility]
--- NOTE | 2023-06-03 12:02 | XR_ITS ---
FINAL REPORT CLINICAL HISTORY: Ankle Pain -- Fall on April 29 COMPARISON: None FINDINGS: LEFT ANKLE: Three views of the left ankle were obtained. There is no acute fracture or dislocation. The joint spaces and mortise are intact. There is no soft tissue abnormality. IMPRESSION: No acute bony abnormality. Reviewed, Interpreted and Dictated by Omega Solorio III, MD Transcribed by Mar Barber Authenticated and [facility]
--- NOTE | 2023-06-03 12:02 | XR_ITS ---
FINAL REPORT CLINICAL HISTORY: Ankle Pain COMPARISON: None FINDINGS: RIGHT ANKLE: Three views of the right ankle were obtained. There is no acute fracture or dislocation. The joint spaces and mortise are intact. There is no soft tissue abnormality. IMPRESSION: No acute bony abnormality. Reviewed, Interpreted and Dictated by Omega Solorio III, MD Transcribed by Mar Barber Authenticated and [facility]
== END ==
PROVIDERS: PCP Family Medicine; Visit Provider Nurse Practitioner Family
DX: S93.401A Sprain of unspecified ligament of right ankle, initial encounter (principal); M79.671 Pain in right foot; M25.571 Pain in right ankle and joints of right foot; M79.672 Pain in left foot; M25.572 Pain in left ankle and joints of left foot
CPT/HCPCS: 73610; 73630

== ENCOUNTER 2023-09-24 07:52 | Outpatient (CLI) | payer BC, SELFPAY ==
--- NOTE | 2023-09-24 07:55 | US_ITS ---
FINAL REPORT CLINICAL HISTORY: ABD PAIN,ALTERED BOWEL FUNCTION,DYSPEPSIA COMPARISON: None FINDINGS: Sonographic images of the right upper quadrant were obtained. The pancreas is partially obscured.The liver has an unremarkable appearance. The gallbladder has been surgically resected. The common duct measures 8 mm, prominent however this may represent postsurgical change.. Multiple renal cysts are noted measuring up to 1.9 cm in greatest diameter. IMPRESSION: Common bile duct prominent, however post cholecystectomy this likely represents postoperative change. Multiple right renal cysts are present. Reviewed, Interpreted and Dictated by Mathew Odell MD Transcribed by Mar Barber Authenticated and [facility]
== END 2023-09-24 23:59 ==
LOC: RAD 07:52
PROVIDERS: PCP Nurse Practitioner Family; Visit Provider Nurse Practitioner Family
DX: R10.11 Right upper quadrant pain (principal); R19.4 Change in bowel habit; K30 Functional dyspepsia; K58.9 Irritable bowel syndrome, unspecified; R15.0 Incomplete defecation
CPT/HCPCS: 76705

== ENCOUNTER 2023-10-07 13:17 | Outpatient (CLI) | payer BC, SELFPAY ==
[2023-10-07 13:44] LABS: Basophils # 0.1 K/mm3 (0-0.2); Basophils % 1.6 % (0.1-2.0); Eosinophils # 0.3 K/mm3 (0.0-0.4); Hematocrit 53.3 % (37.0-47.0); Hemoglobin 17.1 g/dL (12.2-16.2); Lymphocytes # 2.4 K/mm3 (0.7-4.5); Lymphocytes % 28.3 % (10-50); Mean Corpuscular HGB Conc 32.1 g/dL (31.8-35.4); Mean Corpuscular Hemoglobin 32.1 pg (27.0-31.2); Mean Corpuscular Volume 99.9 fl (81-99); Mean Platelet Volume 8.2 fl (7.4-10.4); Monocytes # 0.5 K/mm3 (0.1-1.0); Monocytes % 5.4 % (1.7-9.3); Neutrophils # 5.1 K/mm3 (1.8-7.8); Neutrophils % 60.6 % (37.0-80.0); Platelet Count 224 K/mm3 (142-424); Red Blood Count 5.34 M/mm3 (4.20-5.40); Red Cell Distribution Width 13.1 % (11.5-17.5); White Blood Count 8.4 K/mm3 (4.8-10.8)
[2023-10-07 14:12] LABS: Alanine Aminotransferase 20 U/L (12-78); Albumin Level 4.5 g/dl (3.5-5.0); Alkaline Phosphatase 70 U/L (38-126); Amylase 43 U/L (30-110); Anion Gap 8.8 mEq/L (5-15); Aspartate Amino Transferase 26 U/L (14-36); Bilirubin,Total 0.4 mg/dl (0.2-1.3); Blood Urea Nitrogen 13 mg/dl (7-17); Calcium 10.1 mg/dl (8.4-10.2); Carbon Dioxide 27 mmol/L (22.0-30.0); Chloride 107 mmol/L (98-107); Estimated Glomerular Filt Rate 87 ml/min (>60); GFR (African American) 105 ML/MIN (>60); Globulin 2.3 g/dL (1.3-3.2); Glucose 106 mg/dl (74-100); Lipase 67 U/L (23-300); Potassium 4.8 mmoL/L (3.5-5.1); Sodium 138 mmol/L (136-145); Total Protein,Serum 6.8 g/dl (6.3-8.2)
== END 2023-10-07 23:59 | disposition home or self-care (01) ==
LOC: LAB 13:18
PROVIDERS: PCP Family Medicine; Visit Provider Nurse Practitioner Family
DX: R10.11 Right upper quadrant pain (principal); R19.4 Change in bowel habit; K30 Functional dyspepsia; K58.9 Irritable bowel syndrome, unspecified; R15.0 Incomplete defecation
CPT/HCPCS: 36415; 80053; 82150; 83690; 85025

== ENCOUNTER 2024-07-28 15:19 | Outpatient (CLI) | payer BC, SELFPAY ==
--- NOTE | 2024-07-28 15:30 | ECG_ITS ---
APPROVED REPORT Exam: Resting ECG HR:67 bpm ECG Measurements Heart Rate 67 AXES MN 155 P 39 QRSd 91 QRS 16 QT 398 T 72 QTc 413 Conclusion SINUS RHYTHM NONSPECIFIC T-WAVE ABNORMALITY BORDERLINE ECG UNCONFIRMED REPORT Electronically signed by : Alexander Michael MD 07/29/2024 15:16:25
[2024-07-28 15:58] LABS: Creatine Kinase 107 U/L (30-135)
[2024-07-28 16:09] LABS: CKMB Relative Index 0.5 U/L (0-4.0); Creatine Kinase MB 0.5 ng/ml (0.0-2.03)
[2024-07-28 16:12] LABS: Troponin I < 0.01 ng/ml (0.00-0.034)
[2024-07-28 16:35] LABS: Ferritin 35.2 ng/ml (11.1-264)
[2024-07-29 14:26] LABS: Transferrin 286 mg/dL (192-364)
== END 2024-07-28 23:59 | disposition home or self-care (01) ==
LOC: RT 15:21
PROVIDERS: PCP Family Medicine; Visit Provider Physician Assistant
DX: R07.9 Chest pain, unspecified (principal); Z83.49 Family history of other endocrine, nutritional and metabolic diseases
CPT/HCPCS: 36415; 82550; 82553; 82728; 84466; 84484; 93005

== ENCOUNTER 2025-05-08 14:50 | Outpatient (CLI) | payer BC, SELFPAY ==
--- OUTSIDE RECORDS SUMMARY | 2025-03-15 14:00 | XMS_ITS | Encounter Summary ---
Author Organization Healthcare Address [address] [place] [address] Care Team Providers Care Inspector Final Assembly Conveyor Line Name Role Phone Zana Carty MD Primary Care Provider [phone]- [phone] Reason for Referral * Consultation (Routine) - Authorized Specialty Diagnoses / Procedures Referred By Qing calhoun Referred To Contact Urology Diagnoses Interstitial cystitis Shaneka Joshi, SAJAN [address] [place] [address] Phone: tel: fax: [facility] [address] [place] [address] Phone: tel: fax: Referral ID Status Reason Start Date Expiration Date Visits Requested Visits Authorized [id number] Authorized Specialty Services Required 03/17/2025 09/16/2026 1 1 Reason for Visit * Reason Comments Annual Exam Pt consents to:Pelvi c/Pap +STD -Breast + control complete hystCycles no bleedingConcerns+ recent UTI, confirm resolve rt continued s/s+ needs refills on patch and valium Encounter Details Date Type Department Care Team (Late st Contact Info) Description 03/15/2025 3:00 PM EDT Office Visit Obstetrics & Gynecology [address] [place] [address] Shaneka Joshi, EXERCISE PHYSIOLOGIST [address] [place] [address] Urinary pain (Primary Dx); Encounter for gynecological [...] Urology; Future * Progress Notes - Shaneka Jsohi APRN - 03/15/2025 3:00 PM EDT Gynecology [...] nursing note reviewed. Exam conducted with a manga artist present. Assessment Assessment & Plan Encounter for [...] 1:30 PM EST Appointment [facility] [address] [place] [address] 07/05/2025 2:30 PM EST Office Visit [facility] [address] [place] [address] Jeannie Riddle, SAJAN [address] [facility] [facility] [address] [place] [address] Scheduled Referrals Name Type Priority Associated Diagnoses [...] skin ny present. 03/17/2025 8:11 AM EDT [facility] Urine Urine specimen obtained by clean catch procedure / Unknown Non-blood Collection / Unknown 03/15/2025 3:39 PM EDT 03/15/2025 7:07 PM EDT us Shaneka Joshi APRN LAB MICROBIOLOGY - GENERAL ORDERABLES Final Result [facility] [address] [place] [address] * POCT Urinalysis Dipstick (03/15/2025 3:23 PM EDT) POCT Urine Color Yellow POCT Urine Clarity Clear POCT Glucose Urine Negative Negative mg/dL POCT Bilirubin, Urine Negative Negative POCT Ketones, Urine Negative Negative mg/dL POCT Specific [place], Urine 1.010 POCT Blood, Urine Negative Negative POCT pH, Urine 7.0 5.0 to 8.0 POCT Protein, Urine Negative Negative mg/dL POCT Urobilinogen, Urine 0.2 0.2, 1 E.U./dL POCT Nitrite, Urine Negative Negative POCT Leukocyte Esterase, Urine Negative Negative Test Strip Lot Number [id number] Test Strip Lot Expiration 05/23 Urine Urine [...] documented as of this encounter Care Teams Inspector Final Assembly Conveyor Line Relationship Specialty Start Date End Date Zana Carty MD [address] [place] [address] PCP - General 11/09/20 documented as of this encounter
[2025-05-08 14:48] LABS: Microscopic, Urine URINE MICROSCOPIC (MICROSCOPIC)
--- OUTSIDE RECORDS SUMMARY | 2025-05-08 15:05 | XMS_ITS | Encounter Summary ---
Author Organization Healthcare Address [address] [place] [address] Care Team Providers Care Decator Operator Name Role Phone Zana Carty MD Primary Care Provider [phone]- [phone] Encounter Details Date Type Department Care Team (Late st Contact Info) Description 03/17/2025 Results Follow-Up Obstetrics & Gynecology [address] [place] [address] Shaneka Joshi, GRINDING WHEEL DRESSER [address] [place] [address] Social History Tobacco Use Types Packs/Day Years Used Date Smoking Tobacco: Every Day Cigarettes 1 9.9 Started: 2016 Smokeless Tobacco: Never Alcohol Use Standard Drinks/Week [...] on file documented as of this encounter Plan of Treatment Upcoming Encounters Date Type Department Care Team (Late st Contact Info) Description 07/05/2025 1:30 PM EST Appointment [facility] [address] [address] 07/05/2025 2:30 PM EST Office Visit [facility] [address] [facility] [place] [address] Jeannie Riddle, GRINDING WHEEL DRESSER [address] [facility] Zahra Qureshi [facility] [address] [place] [address] documented as of this encounter Visit Diagnoses Not on filedocumented in this encounter Additional Health Concerns Assessment Noted Time A fall risk assessment has been complete d for the patient 03/15/2025 3:14 PM EDT A Body Mass Index follow-up plan has been documented for the patient 03/17/2025 2:31 PM EDT documented as of this encounter Care Teams Decator Operator Relationship Specialty Start Date End Date Zana Carty MD [address] [place] [address] PCP - General 11/09/20 documented as of this encounter
--- OUTSIDE RECORDS SUMMARY | 2025-05-08 15:05 | XMS_ITS | Encounter Summary ---
Author Organization [facility] Address [address] [place] [address] Care Team Providers Care Professor Of Industrial Technology Name Role Phone Zana Carty MD Primary Care Provider +1- [phone] Encounter Details Date Type Department Care Team (Latest Contact Info) Description 03/15/2025 Travel Social History Tobacco Use Types Packs/Day Years [...] on file documented as of this encounter Functional Status * Over the past 2 weeks, how often have you been bothered by any of the following problems? Question Answer Date of Assessment Author Little interest or pleasure in doing things Not at all 03/15/2025 3:14 PM EDT Nelsy Bruce RN Feeling down, depressed, or hopeless Not at all 03/15/2025 3:14 PM JUSTUST Nelsy Bruce RN Patient Health Questionnaire -2 Score 0 03/15/2025 3:14 PM EDT Nelsy Bruce RN * How difficult have these problems made it for you to do your work, take care of things at home, or get along with other people? Answer Date of Assessment Author Not difficult at all 03/15/2025 3:14 PM EDT Stephani andrewse, Nelsy Milan, RN documented as of this encounter Plan of Treatment Upcoming Encounters Date Type Department Care Team (Late st Contact Info) Description 07/05/2025 1:30 PM EST Appointment [facility] [address]ah[address] Qureshi [facility] [address] [place] [address] 07/05/2025 2:30 PM EST Office Visit [facility] [address] [facility]nd [place] [address] Jeannie Riddle, SERVICE CONTROL OPERATOR [address] [facility] [address] [place] [address] documented as of this encounter Visit Diagnoses Not on filedocumented in this encounter Additional Health Concerns Assessment Noted Time A fall risk assessment has been complete d for the patient 03/15/2025 3:14 PM EDT A Body Mass Index follow-up plan has been documented for the patient 03/17/2025 2:31 PM EDT documented as of this encounter Care Teams Professor Of Industrial Technology Relationship Specialty Start Date End Date Zana Carty MD [address] [place] [address] PCP - General 11/09/20 documented as of this encounter
--- OUTSIDE RECORDS SUMMARY | 2025-05-08 15:05 | XMS_ITS | Encounter Summary ---
Author Organization [facility] Address [address] [place] [address] Care Team Providers Care Hydrogeology Professor Name Role Phone Zana Craty MD Primary Care Provider +1- [phone] Reason for Visit * Reason Comments Med Refill Encounter Details Date Type Department Care Team (Late st Contact Info) Description 07/17/2021 Refill [place] EYELET PUNCH OPERATOR [address] [place] [address] Lauren Morales, NURSING CLERK [address] [facility] [address] [place] [address] Social History Tobacco Use Types Packs/Day Years Used Date Smoking Tobacco: Every Day Cigarettes Smokeless Tobacco: Never Alcohol Use Standard Drinks/Week Comments Yes 0 (1 standard drink = 0.6 oz pur e alcohol) Social alcohol use Comments Unknown Sex and Gender Information Value Date Recorded Sex Assigned at Not on file Legal Sex Female 8:05 PM EDT Gender Identity Not on file Sexual Orientation Not on file documented as of this encounter Plan of Treatment Upcoming Encounters Date Type Department Care Team (Late st Contact Info) Description 07/05/2025 1:30 PM EST Appointment [facility] [place] [address] Zahra Greerrickson [facility] [address] [place] [address] 07/05/2025 2:30 PM EST Office Visit [facility] [address] [facility] [place] [address] Jeannie Riddle, NURSING CLERK [address] Yolanda Cabrera [facility] [address] [place] [address] documented as of this encounter Visit Diagnoses Not on filedocumented in this encounter Care Teams Hydrogeology Professor Relationship Specialty Start Date End Date Zana Carty MD [address] [place] [address] PCP - General 11/09/20 documented as of this encounter
--- OUTSIDE RECORDS SUMMARY | 2025-05-08 15:05 | XMS_ITS | Encounter Summary ---
Author Organization [facility] Address [address] [place] [address] Care Team Providers Care Information Resources Manager Name Role Phone Zana Carty MD Primary Care Provider +1- [phone] Reason for Visit * Reason Onset Date Comments Med Refill 04/20/2025 Encounter Details Date Type Department Care Team (Late st Contact Info) Description 04/20/2025 Refill Obstetrics & Gynecology [address] [place] [address] Anastasia Winters MD [address] [place] [address] Social History Tobacco Use Types [...] Info) Description 07/05/2025 1:30 PM EST Appointment [facility] Breast [facility] [address] [address] 07/05/2025 2:30 PM EST Office Visit [facility] [address] [facility]nd [place] [address] Jeannie Riddle, WHEEL CLEANER [address] [facility] Zahra Qureshi [facility] [address] [place] [address] documented as of this encounter Visit Diagnoses Not on filedocumented in this encounter Additional Health Concerns Assessment Noted Time A fall risk assessment has been complete d for the patient 03/15/2025 3:14 PM EDT A Body Mass Index follow-up plan has been documented for the patient 03/17/2025 2:31 PM EDT documented as of this encounter Care Teams Information Resources Manager Relationship Specialty Start Date End Date Zana Carty MD [address] [place] [address] PCP - General 11/09/20 documented as of this encounter
--- OUTSIDE RECORDS SUMMARY | 2025-05-08 15:05 | XMS_ITS | Encounter Summary ---
Author Organization [facility] Address [address] [place] [address] Care Team Providers Care Retouching Operator Name Role Phone Zana Carty MD Primary Care Provider +1- [phone] Reason for Visit * Reason Comments Med Refill Encounter Details Date Type Department Care Team ([facility] st Contact Info) Description 10/09/2021 Refill [place] FIELD MECHANIC [address] [place] [address] Lauren Morales S, GIN POLE OPERATOR [address] [facility] [address] [place] [address] Social History Tobacco Use Types [...] on file documented as of this encounter Miscellaneous Notes * Telephone Encounter - Radhika Vásquez RN - 10/10/2021 11:18 AM EDT Called pt on 10/10/21 at 1115. Spoke to pt. Informed pt that we cannot refill this medication for her because Lauren has not seen her since 2019; however, informed pt she could contact Adeola Jerez's office for refills since she did see her 01/2021. Pt agreed. Had no further questions or concerns. * Telephone Encounter - GuajardoRodney - 10/10/2021 11:03 AM EDT Patient Phone Message Reason for Call: pt is calling to get a refill on her estradiol Best contact number and optimal time of day to reach caller: Note: Please do not reply to this message. Follow-up communication and further actions as a result of this message need to be communicated with the patient directly, if the patient is not active onMyChart. If the patient is active on MyChart, they will receive notification of the communication/outcome via MyChart. documented in this encounter Plan of Treatment Upcoming Encounters Date Type Department Care Team (Late st Contact Info) Description 07/05/2025 1:30 PM EST Appointment [facility] [place] [facility] [place] [address] Zahra Qurehsi [facility] [address] [place] [address] 07/05/2025 2:30 PM EST Office Visit [facility] Breast [facility] [address] [facility], [address] [place] [address] Jeannie Riddle, GIN POLE OPERATOR [address] [facility] [address] [place] [address] documented as of this encounter Visit Diagnoses Not on filedocumented in this encounter Care Teams Retouching Operator Relationship Specialty Start Date End Date Zana Carty MD [address] [place] [address] PCP - General 11/09/20 documented as of this encounter
--- OUTSIDE RECORDS SUMMARY | 2025-05-08 15:05 | XMS_ITS | Clinical Summary ---
Author Organization [facility] Address [address] [place] [address] Care Team Providers Care Wheel Buffer Name Role Phone Zana Carty MD Primary Care Provider +1- [phone] Allergies Active Allergy Reactions Criticality Noted Date Comments Baclofen Unknown - Patient states they do not know rxn details Low 02/25/2023 Shiitake Mushroom (Obsolete) Unknown - Patient states they do not know rxn details Low 03/25/2023 Allergic to all mushrooms Medications escitalopram (Lexapro) 20 MG tablet Take 1 tablet (20 mg) by mouth 1 (one) time each day. 2 Active omeprazole (PriLOSEC) [address] capsule 2 Active lisinopril 20 MG tablet Take 1 tablet (20 mg) by mouth 1 (one) time each day. Active albuterol 108 (90 Base) MCG/ACT inhaler INHALE 2 PUFFS BY MOUTH EVERY 8 HOURS AND EVERY 2 HOURS IF NEEDED 3 Active HYDROcodone-miguel taminophen (Morris) 10-325 MG tablet TAKE 1 TABLET BY MOUTH FOUR TIMES A DAY NEEDED 3 Active Dicyclomine HCl (BENTYL PO) Take by mouth 3 (three) times a day if needed. Active naloxone (Narcan) 4 mg/0.1 mL nasal spray 1. Give 1 spray in nostril for no/slow breathing or cannot wake after opioid use 2. Call 911 3. Repeat in other nostril if symptoms continue 1 each 5 Active morphine CR (MS Contin) 15 MG 12 hr tablet 5 Active estradiol (Vivelle-DOT) 0.1 MG/24HRIndicati ons:Hormone replacement therapy (HRT) Place 1 patch on the skin 2 times a week. 24 patch 3 5 026 Active diazePAM (Valium) 2 MG tablet Diazepam/Lidoca ine 2mg 2% vaginal suppository 15 tablet 5 Active diazePAM (Valium) 2 MG tablet Diazepam/Lidoca ine 2mg 2% vaginal suppository 15 tablet 5 025 Discontin ued(Reord er) Active Problems Problem Noted Date Diagnosed Date Family history of breast cancer 02/25/2023 On hormone replacement therapy 02/24/2022 Vaginal dryness 02/07/2021 Anal irritation 02/07/2021 Encounter for gynecological examination without abnormal finding 02/07/2021 Assessment & Plan (03/17/2025 1:33 PM EDT): Post-menopausal bleeding 01/02/2020 Interstitial cystitis 02/15/2016 Assessment & Plan (03/17/2025 1:33 PM EDT): Orders: Ambulatory referral to Urology; Future Menopausal state 02/15/2016 Back pain, chronic 02/15/2016 Hip pain, chronic 02/15/2016 Resolved Problems Problem Noted Date Diagnosed Date Resolved Date Weight loss 03/14/2024 03/19/2025 Other fatigue 03/14/2024 03/19/2025 Tobacco use disorder 12/14/2023 024 Vaginal pain 02/07/2021 03/19/2025 Encounters Date Type Department Care Team Description 04/20/2025 Refill Obstetrics & Gynecology [address] [place] [address] Anastasia Winters MD 03/17/2025 Results Follow-Up Obstetrics & Gynecology [address] [place] [address] Shaneka Joshi APRN 03/15/2025 3:00 PM EDT Office Visit Obstetrics & Gynecology [address] [place] [address] Shaneka Joshi APRN Urinary pain (Primary Dx); Encounter for gynecological examination without abnormal finding; Interstitial cystitis; Dyspareunia in female; Hormone replacement therapy (HRT) 03/15/2025 Travel 03/08/2025 Orders Only Obstetrics & Gynecology [address] [place] [address] Anastasia Winters MD 03/08/2025 Telephone Obstetrics & Gynecology [address] [place] [address] Anastasia Winters MD 03/06/2025 Refill Obstetrics & Gynecology [address] [place] [address] Anastasia Winters MD from Last 3 Months Family History Medical History Relation Name Comments Thyroid disease Daughter Arthritis Father Conversions - Other Father Paget's bone disease Hyperlipidemia Father Hypertension Father Melanoma Father No Known Problems Father's Brother No Known Problems Maternal Grandfather No Known Problems Maternal Grandmother Arthritis Mother Breast cancer Mother Hyperlipidemia Mother Hypertension Mother Emphysema Mother's Brother 1 Heart disease Mother's Brother 1 Heart disease Mother's Brother 2 Diabetes Mother's Sister Heart disease Mother's Sister Rheum arthritis Mother's Sister No Known Problems Paternal Grandfather Cervical cancer Paternal Grandmother Breast cancer Sister Crohn's disease Sister Heart disease Sister Relation Name Status Comments Daughter Alive Father Alive Father's Brother Alive Maternal Grandfather Maternal Grandmother Mother Alive Mother's Brother 1 Alive Mother's Brother 2 Mother's Sister Other Paternal Grandfather Paternal Grandmother Sister Alive Social History Tobacco Use Types Packs/Day Years Used Date Smoking Tobacco: Every Day Cigarettes 1 9.9 Started: 2015 Smokeless Tobacco: Never Tobacco Cessation:Ready to Q uit: Not Asked; Counseling Given: Not Answered Alcohol Use Standard Drinks/Week Comments Yes 0 [...] on file Sexual Orientation Not on file Last Filed Vital Signs Vital Sign Reading Time Taken Comments Blood Pressure 138/84 03/15/2025 3:39 PM EDT Pulse 82 03/15/2025 3:12 PM EDT Temperature 36.6 C (97.8 F) 03/15/2025 3:12 PM EDT Respiratory Rate 17 01/11/2025 12:51 PM EDT Oxygen Saturation 96% 03/15/2025 3:12 PM EDT Inhaled Oxygen Concentration - - Weight 74.9 kg (165 lb 1.6 oz) 03/15/2025 3:12 P M EDT Height 162.6 cm (5' 4 ) 07/01/2024 2:19 PM EST Body Mass Index 28.34 07/01/2024 2:19 PM EST Plan of Treatment Upcoming Encounters Date Type Department Care Team (Late st Contact Info) Description 07/05/2025 1:30 PM EST Appointment [facility] [place] [address] [facility] [facility] [address] [place] [address] 07/05/2025 2:30 PM EST Office Visit [facility] Breast Care Center [address] [facility], 2nd [place] [address] Jeannie Riddle, DATA CONSULTANT [address] [facility] Zahra [facility]ures[facility] [address] [place] [address] Health Maintenance Due Date Last Done Comments [facility]-HIV Screening 1968 [facility]-Hepatitis C Screening 1968 [facility]-/Child/Adol SDOH Screenings 1968 [facility]- SDOH Screenings 1986 [facility]-Adult SDOH Screenings 1986 [facility]-DTaP,Tdap,and Td Vaccine s (1 - Tdap) 09/25/1987 [facility]-Hepatitis B Vaccines (1 of 3 - 19+ 3-dose series) 09/25/1987 [facility]-Pneumococcal Vaccine: 50 + Years (1 of 2 - PCV) 09/25/1987 [facility]-Zoster Vaccines (1 of 2) 09/25/1987 CT Colonography 2013 Colonoscopy 2013 FIT-DNA 2013 FIT 2013 FOBT 2013 Sigmoidoscopy 2013 [facility]-Colorectal Cancer Screening 2013 HNT-ODRTY-21 Vaccine (2 - Aliya risk series) 10/31/2020 10/03/2020 [facility]-Influenza Vaccine (#1) 2025 [facility]-Depression Screening 03/15/2026 03/15/2025 [facility]-Breast Cancer Screening 07/01/2026 07/01/2024 [facility]-Diabetes: Hemoglobin A1C Discontinued 03/14/2024 [facility]-Obesity Intervention Completed 025, 03/14/2024, 07/24/2023 HPV Vaccines Aged Out No longer eligi ble based on patient's age to complete this topic [facility]-HIB Vaccines Aged Out No longer e ligible based on patient's age to complete this topic [facility]-Hepatitis A Vaccines Aged Out No longer eligible based on patient's age to complete this topic [facility]-IPV Vaccines Aged Out No longer e ligible based on patient's age to complete this topic [facility]-Rotavirus Vaccines Aged Out No lo nger eligible based on patient's age to complete this topic Medical Devices Implanted Type Area Digital Media Analyst Device Identifier Shelf Expiration Date Model / Serial / Lot Breast Breast Bilateral: Breast Procedures Procedure Name Priority Date/Time Associated Diagnosis Comments URINE CULTURE Routine 03/15/2025 3:39 PM EDT Urinary pain POCT URINALYSIS DIPSTICK Routine 03/15/2025 3:23 PM EDT Urinary pain MAMMOGRAPHY BREAST SCREENING TOMOSYNTHESIS BILATERAL Routine 07/01/2024 1:03 PM EST Family history of breast cancer At high risk for breast cancer Screening mammogram, encounter for HEMOGLOBIN A1C Routine 03/14/2024 4:16 PM EDT Weight loss Other fatigue from Last 3 Months or Most Recently Relevant to Health Maintenance Results * Urine Culture (03/15/2025 3:39 PM EDT) Culture <10,000 CFU/mL Mixed urogenital, fecal, or skin ny present. 03/17/2025 8:11 AM EDT [facility] Urine Urine specimen obtained by clean catch procedure / Unknown Non-blood Collection / Unknown 03/15/2025 3:39 PM EDT 03/15/2025 7:07 PM EDT us Shaneka Joshi APRN LAB MICROBIOLOGY - GENERAL ORDERABLES Final Result [facility] [address] [place] [address] * POCT Urinalysis Dipstick (03/15/2025 3:23 PM EDT) POCT Urine Color Yellow POCT Urine Clarity Clear POCT Glucose Urine Negative Negative mg/dL POCT Bilirubin, Urine Negative Negative POCT Ketones, Urine Negative Negative mg/dL POCT Specific Hawkins, Urine 1.010 POCT Blood, Urine Negative Negative POCT pH, Urine 7.0 5.0 to 8.0 POCT Protein, Urine Negative Negative mg/dL POCT Urobilinogen, Urine 0.2 0.2, 1 E.U./dL POCT Nitrite, Urine Negative Negative POCT Leukocyte Esterase, Urine Negative Negative Test Strip Lot Number [id number] Test Strip Lot Expiration 05/23 Urine Urine specimen obtained by clean catch procedure / Unknown 03/15/2025 3:23 PM EDT us Shaneka Joshi APRN POINT OF CARE TEST ENTER/ED IT ORDERABLES Final Result * (ABNORMAL) Mammography Breast Screening Tomosynthesis Bilateral (07/01/2024 1:03 PM EST) Anatomical Region Laterality Modality Breast Bilateral Mammography Impressions 07/05/2024 4:03 PM EST Findings indicate additional imaging studies of the left breast are required for a complete evaluation. BI-RADS CATEGORY: Overall: 0 - Incomplete: Needs Additional Imaging Evaluation RECOMMENDATION: - Additional Imaging Diagnostic Mammogram with Possible Ultrasound. Patient Lifetime Risk Score of Breast Malignancy: 31.0% This risk assessment is calculated using the Ritu Risk Assessment model which may underestimate the lifetime risk of breast malignancy. COMMUNICATION: Computer-aided detection (CAD) and tomosynthesis were utilized by the radiologist in the interpretation of this examination. The results and recommendations will be sent to the patient in a printed lay language version of the imaging report. Narrative 07/05/2024 4:03 PM EST EXAM: Mammography Breast Screening with Tomosynthesis REASON FOR EXAM: Screening Mammogram HISTORY: Patient is 53 y.o. Family medical history includes breast cancer in 2 relatives (mother, sister) and no known problems in 4 relatives (father's brother, maternal grandfather, maternal grandmother, paternal grandfather). Hormone history includes other (estradiol). Surgical and procedural history include hysterectomy and bilateral breast enhancement/implants, 2010. COMPARISON STUDIES: Compared to: 06/06/2019 Mammography Outside Images Upload at [facility] 04/23/2021 Mammography Outside Images Upload at [facility] 06/11/2022 Mammography Outside Images Upload at [facility] 03/25/2023 Mammography Breast Diagnostic Tomosynthesis Left at [facility] 12/14/2023 Mammography Breast Diagnostic Tomosynthesis Left at [facility] BREAST COMPOSITION: The breasts are heterogeneously dense, which may obscure small masses. FINDINGS: RIGHT: No suspicious masses, microcalcifications or areas of architectural distortion are seen. LEFT: Finding 1, possible asymmetry, 12mm in the inferior region of the breast with a posterior depth 5 cm from the nipple. Referenced Soren slice(s) MLO#16 There are retro-pectoral implant(s) present in bilateral breasts. us Jeannie Riddle APRN IMG BI PROCEDURES Final Re sult * (ABNORMAL) Hemoglobin A1c (03/14/2024 4:16 PM EDT) Hemoglobin A1c 5.8(H) <5.7 % 03/14/2024 7:32 PM EDT [facility] Blood Venous blood specimen / Unknown Venipuncture / Unknown 03/14/2024 4:16 PM EDT 03/14/2024 6:15 PM EDT Narrative [facility] - 03/14/2024 7:32 PM EDT HA1C Interpretive Data: Diagnosis of Diabetes: Diabetic > or = 6.5% Pre-diabetic 5.7 to 6.4% Non-diabetic < or = 5.6% Glycemic Targets for Type I and Type II Diabetics: Non- Adults <7.0% Adults <6.0% Children and Adolescents <7.5% Source: [place] [employer]. Standards of medical care in diabetes,2017. Diabetes Care.2017:40 (suppl 1):S1-S135. HbA1c assay performed by an ion-exchange chromatography method that is certified traceable to the DCCT. us Anastasia Winters MD LAB BLOOD ORDERABLES Fin al Result [facility] [address] [place] [address] from Last 3 Months or Most Recently Relevant to Health Maintenance Insurance [address] [place] [id number] [facility] [place] [address] Care Teams Wheel Buffer Relationship Specialty Start Date End Date Zana Carty MD [address] [place] [address] PCP - General 11/09/20
--- OUTSIDE RECORDS SUMMARY | 2025-05-08 15:05 | XMS_ITS | Encounter Summary ---
Author Organization Healthcare Address [address] [place] [address] Care Team Providers Care Dev Ops Engineer Name Role Phone Zana Carty MD Primary Care Provider +1- [phone] Encounter Details Date Type Department Care Team (Late st Contact Info) Description 03/08/2025 Orders Only Obstetrics & Gynecology [facility] [place] [address] Anastasia Winters MD [address] [place] [address] Social History Tobacco Use Types Packs/Day Years Used Date Smoking Tobacco: Every Day Cigarettes 1 9.9 Started: 2015 Smokeless Tobacco: Never Alcohol Use Standard Drinks/Week Comments Yes 0 (1 standard drink = 0.6 oz pur e alcohol) Social alcohol use PHQ-2 Answer Date Recorded Patient Health Questionnaire-2 Score 0 07/01/2024 PHQ-2A Answer Date Recorded Patient Health Questionnaire-2 [...] [facility] [address] [address] 07/05/2025 2:30 PM EST Office Visit [facility] [address] [facility], [address]nd [place] [address] Jeannie Riddle, DONOR RELATIONS COORDINATOR [address] [facility] Zahra Qureshi [facility] [address] [place] [address] documented as of this encounter Visit Diagnoses Not on filedocumented in this encounter Additional Health Concerns Assessment Noted Time A fall risk assessment has been complete d for the patient 01/11/2025 12:51 PM EDT A Body Mass Index follow-up plan has been documented for the patient 03/14/2024 5:15 PM EDT documented as of this encounter Care Teams Dev Ops Engineer Relationship Specialty Start Date End Date Zana Carty MD [address] [place] [address] PCP - General 11/09/20 documented as of this encounter
--- OUTSIDE RECORDS SUMMARY | 2025-05-08 15:05 | XMS_ITS | Encounter Summary ---
Author Organization Healthcare Address [address] [place] [address] Care Team Providers Care Tub Operator Name Role Phone Zana Carty MD Primary Care Provider +1- [phone] Reason for Visit * Reason Comments Med Refill Encounter Details Date Type Department Care Team (Late st Contact Info) Description 01/31/2023 Refill Obstetrics & Gynecology [address] [place] [address] Adeola Jerez, JOB SETTER, [facility] [address] [place] [address] On hormone replacement therapy Social History Tobacco Use Types Packs/Day Years Used Date Smoking Tobacco: Every Day Cigarettes 1 7 Smokeless Tobacco: Never Alcohol Use Standard Drinks/Week Comments Yes 0 (1 standard drink = 0.6 oz pur e alcohol) Social alcohol use Comments No Sex and Gender Information Value [...] [facility] [place] [address] Zahra Greerrickson [facility] [address] [place] [address] 07/05/2025 2:30 PM EST Office Visit [facility] [address] [facility], [address]nd [place] [address] Jeannie Riddle, JOB SETTER [address] [facility] Zahra Qureshi [facility] [address] [place] [address] documented as of this encounter Visit Diagnoses Diagnosis On hormone replacement therapy documented in this encounter Care Teams Tub Operator Relationship Specialty Start Date End Date Zana Carty MD [address] [place] [address] PCP - General 11/09/20 documented as of this encounter
--- OUTSIDE RECORDS SUMMARY | 2025-05-08 15:05 | XMS_ITS | Encounter Summary ---
Author Organization [facility] Address [address] [place] [address] Care Team Providers Care Purchasing Coordinator Name Role Phone Zana Carty MD Primary Care Provider +1- [phone] Reason for Visit * Reason Comments Med Refill Encounter Details Date Type Department Care Team (Late st Contact Info) Description 01/30/2021 Refill [facility] [employer]ODUCTION GRIND[employer] [address] [place] [address] Lauren Morales, BUSINESS SUPPORT ASSOCIATE [address] [facility] [address] [place] [address] Social History Tobacco Use Types Packs/Day Years Used Date Smoking Tobacco: Every Day Alcohol Use Standard Drinks/Week Comments Yes 0 (1 standard drink = 0.6 oz pure alcohol) Alcoholic Drinks/day: Social alcohol use Comments Unknown Sex and [...] Breast Care [facility] [address] Zahra Qureshi [facility] [place] [address] [place] [address] 07/05/2025 2:30 PM EST Office Visit [facility] [address] [facility], [address]nd [place] [address] Jeannie Riddle, BUSINESS SUPPORT ASSOCIATE [address] [facility] Zahra Qureshi [facility] [address] [place] [address] documented as of this encounter Visit Diagnoses Not on filedocumented in this encounter Care Teams Purchasing Coordinator Relationship Specialty Start Date End Date Zana Carty MD [address] [place] [address] PCP - General 11/09/20 documented as of this encounter
--- OUTSIDE RECORDS SUMMARY | 2025-05-08 15:05 | XMS_ITS | Encounter Summary ---
Author Organization Healthcare Address [address] [place] [address] Care Team Providers Care Plush Cutter Name Role Phone Zana Carty MD Primary Care Provider +1- [phone] Encounter Details Date Type Department Care Team (Late Contact Info) Description 03/08/2025 Telephone Obstetrics & Gynecology [address] [place] [address] Anastasia Winters MD [address] [place] [address] Social History Tobacco Use Types [...] [facility] [address] [address] 07/05/2025 2:30 PM EST Office Visit [facility] [address] [facility], [address]nd [place] [address] Jeannie Riddle, NURSE MIDWIFE [address] [facility] Zahra Qureshi [facility] [address] [place] [address] documented as of this encounter Visit Diagnoses Not on filedocumented in this encounter Additional Health Concerns Assessment Noted Time A fall risk assessment has been complete d for the patient 01/11/2025 12:51 PM EDT A Body Mass Index follow-up plan has been documented for the patient 03/14/2024 5:15 PM EDT documented as of this encounter Care Teams Plush Cutter Relationship Specialty Start Date End Date Zana Carty MD [address] [place] [address] PCP - General 11/09/20 documented as of this encounter
[2025-05-08 15:49] LABS: Bilirubin,Urine Negative (Negative); Color,Urine YELLOW (Yellow); Glucose,Urine (UA) Negative (Negative); Ketones,Urine Negative (Negative); Leukocyte Esterase,Urine Negative (Negative); PH,Urine 6.5 (5.0-8.5); Protein,Urine Negative (Negative); Specific Gravity, Urine 1.010 (1.005-1.030); Urobilinogen,Urine 0.2 EU/dl (0.2)
[2025-05-08 23:03] LABS: Bacteria,Urine 3+ /lpf; RBC,Urine Occasional #/hpf (0-3); WBC,Urine Occasional #/hpf (0-3)
[2025-05-11 13:42] LABS: Atopobium vaginae NOTORDERABLE Low - 0 Score (.); BVAB2 Low - 0 Score (.); Candida albicans NAA Negative (Negative); Candida glabrata Positive (Negative); HSV 1 NAA Negative (Negative); HSV 2 NAA Negative (Negative)
== END 2025-05-08 23:59 | disposition home or self-care (01) ==
LOC: LAB.DROPOF 14:51
PROVIDERS: PCP Family Medicine; Visit Provider Urology
DX: N95.2 Postmenopausal atrophic vaginitis (principal); N39.0 Urinary tract infection, site not specified
CPT/HCPCS: 81001; 87086; 87491; 87529; 87563; 87591; 87661; 87798; 87801

== ENCOUNTER 2025-05-11 07:28 | Outpatient (CLI) | payer BC, SELFPAY ==
--- OUTSIDE RECORDS SUMMARY | 2023-12-15 11:30 | XMS_ITS ---
[facility] Address [address] [facility] [address] [place] [id number] Care Team Providers Care Retail Service Specialist Name Role Phone John Paul Hampton Primary Care Provider Mehrdad Carty [phone] Allergies Allergen (clinical drug ingredient) Drug/Non Drug Allergy documented on EMR Reaction Allergy Type Onset Date Status Penicillin Rash Drug Allergy Active REASON FOR VISIT earache Medications Medication SIG (Take, Route, Frequency, Duration) Notes Start Date End Date Status Cephalexin 500 MG 1 capsule Orally Two times a day 12/15/2023 Active Escitalopram Oxalate 20 mg TAKE 1 TABLET DAILY Active dexAMETHasone 2 MG 1 tablet Orally ever y 12 hrs 12/15/2023 Active Pantoprazole Sodium 40 MG 1 tab(s) orall y once a day; Duration: 30 day(s) 10/08/2022 Not-Taking Nucynta ER 100 MG 1 tab(s) orally 2 times a day; Duration: 30 day(s) Active Lisinopril 30 MG 1 tab(s) orally once a day; Duration: 30 day(s) Active Albuterol Sulfate HFA 108 (90 Base) MCG/ACT 2 puff(s) inhaled every 8 hours and q2h prn 06/30/2022 Active Methocarbamol 500 MG 1 tab Orally three times a day as needed 05/20/2023 Active Ofloxacin 0.3 % 5 drops into affecte d ear Otic Two times a day 12/15/2023 Active Medrol 4 MG as directed Orally 08/20/2023 Not-Taking Meloxicam 15 MG 1 tab(s) orally once a day, prn 12/28/2017 Not-Taking HYDROcodone-Acetaminophen 10-325 MG 1 tab(s) Orally qid Active Estradiol 0.1 MG/24HR 1 PATCH applied topically 2 times a week Active Problems Problem Type SNOMED Code ICD Code Onset Dates Problem Status W/U Status Risk Notes Problem Otitis externa (9670317) Otitis externa (H60.90) Active confirmed Vital Signs Weight 165.8 lbs 12/15/2023 Blood pressure systolic 154 mm Hg 12/15/19 24 Blood pressure diastolic 104 mm Hg 024 Heart Rate 76 /min 12/15/2023 Height 65 in 12/15/2023 BMI 27.59 kg/m2 12/15/2023 Encounters Encounter Location Date Provider Diagnosis [facility] [address] [place] [id number] 12/15/2023 Mehrdad Carty Otitis externa H60.9 0 Assessments Encounter Date Diagnosis (ICD Code) Assessment Notes Treatment Notes Treatment Clinical Notes Section Notes 12/15/2023 Otitis externa (ICD-10 - H60.90) Plan Of Treatment Medication Medication Name Sig Start Date Stop Date Notes Cephalexin 500 MG 1 capsule Orally Two times a day 024 dexAMETHasone 2 MG 1 tablet Orally every 12 hrs 12/15/2023 Ofloxacin 0.3 % 5 drops into affecte d ear Otic Two times a day 12/15/2023 Next Appt Details Follow Up: 1 Week, prn, Reas on: Progress Notes * SONYA HESSDOB:1970 ( 54 yo F)Acc No.[id number]:12/15/2023 Progress Notes Patient: SONYA KELLER Provider: Mehrdad Carty M.D. :1970 A ge:53 Y S ex:Female Date:12/15/2023 Address:[facility] [place] [id number] Pcp:John Paul Hampton Subjective: * Chief Complaints: * 1 . Earache. * HPI: E NT/respiratory: Pt presents today with c/o pain in the right ear. She started a few days ago with soreness around the external canal while she was in [place]. This morning she awoke with more severe pain and tenderness around the ear. No drainage. Denies : sore throat. D enies : cough. D enies : nasal congestion. D enies : Fever. * ROS: D ERMATOLOGY: no R kisha. n o H za. G ASTROENTEROLOGY: no N ausea. n o V omiting. U ROLOGY: no B lood in urine. n o F requent urination. ? * Medical History: A bdominal Adhesions, Chronic Abdominal Pain, Anxiety, Hypertriglyceridemia, Allergic Rhinitis, Hearing Loss, Endometriosis, Interstitial Cystitis. * Surgical History: H ysterectomy 1998, Cholecystectomy 1999, Adominal Adhesion Removal x 4 , Endoscopy 07/2006, ERCP 07/2007, Breast Augmentation 10/2009, [place] Teeth Extractions 08/2010, Cononoscopy, Banded Hemrrhiods 01/17/2011, Spinal Cord Stimulator 04/2011, Urethra Exploratory 04/16/2012, Cysto w/ Botox 09/16/2012, Bladder Expansion 02/2014, Nerve block 08/2015, Nerve Block 08/2017. * Hospitalization/Major Diagno stic Procedure: R t Arm Injury, Fall- [facility] ER 11/28/2007, Dizziness- [facility] 12/2016, Strep- [facility] 05/2017. * Family History: F ather: alive, HBP. M other: alive, HBP. 2 daughter(s) . . * Social History: C URRENT TOBACCO USE S moking Status: Patient does smoke, number of cigarettes per day: 2.?Caffeine: yes, frequency:. Exercise: no. Home smoke detector use: yes. Marital Status: . Past smoking status: yes, PPD: 1 ppd , years: 3 ,determination:,. Alcohol: no. * Medications: T aking HYDROcodone-Acetaminophen 10-325 MG Tablet 1 tab(s) Orally qid , Taking Estradiol 0.1 MG/24HR Patch Twice Weekly 1 PATCH applied topically 2 times a week , Taking Nucynta ER 100 MG Tablet Extended Release 12 Hour 1 tab(s) orally 2 times a day , Taking Lisinopril 30 MG Tablet 1 tab(s) orally once a day , Taking Albuterol Sulfate HFA 108 (90 Base) MCG/ACT Aerosol Solution 2 puff(s) inhaled every 8 hours and q2h prn , Taking Methocarbamol 500 MG Tablet 1 tab Orally three times a day as needed , Taking Escitalopram Oxalate 20 mg Tablet TAKE 1 TABLET DAILY , Not- Taking Pantoprazole Sodium 40 MG Tablet Delayed Release 1 tab(s) orally once a day , Not-Taking Medrol 4 MG Tablet Therapy Pack as directed Orally , Not-Taking Meloxicam 15 MG Tablet 1 tab(s) orally once a day, prn , Discontinued busPIRone HCl 5 MG Tablet 1 tablet Orally Twice a day , Medication List reviewed and reconciled with the patient * Allergies: P enicillin: Rash. Objective: * Vitals: W t:165.8, Temp:98.4, BP:154/104, HR:76, O2 Sat:96% on RA, Nurse:NADJA, Ht: 65, BMI:27.59. * Examination: E NT/Respiratory: Ears: T ragus of the right ear is swollen markedly tender.? Opening to the external canal is red and indurated. TM is normal.. ? Assessment: * Assessment: 1. O titis externa - H60.90 (Primary) Plan: * Treatment: * Procedure Codes: 9 4760 PULSE OX * Follow Up: 1 Week, prn * Images: Billing Information: * Visit Code: 66451 Office Visit, Est Pt., Level 3. * Procedure Codes: 60300 PULSE OX. * Electronic signature of Mehrdad Carty MD on 05/11/2025 at 07:31 AM EST Sign off status: Pending * Provider: Mehrdad Carty M.D. Date: 0 12/15/2023 Generated for Summer correa/Esther/eTransmitting on: 07/11/2024 07:31 AM EST History and Physical Notes * HPI (History of Present Illness) Category Sub-Category Detail Notes Category Not es ENT/respiratory sore throat cough Fever nasal congestion Examination Category Sub-Category Detail Notes Category Not es ENT/Respiratory Ears: Tragus of the ri ght ear is swollen markedly tender. Opening to the external canal is red and indurated. TM is normal.
--- OUTSIDE RECORDS SUMMARY | 2024-02-09 08:15 | XMS_ITS ---
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 Name Role Phone [place] John Paul Primary Care Provider Marlys Pearl [phone] Allergies Allergen (clinical drug ingredient) Drug/Non Drug Allergy documented on EMR Reaction Allergy Type Onset Date Status Penicillin Rash Drug Allergy Active Results Component Value Reference Range Notes Rapid Strep- Inhouse Reviewed date:02/09/2024 01:57:42 PM Interpretation:Positive Performing Lab: Notes/Report: Positive strep test pos REASON FOR VISIT possible strep Medications Medication SIG (Take, Route, Frequency, Duration) Notes Start Date End Date Status Pantoprazole Sodium 40 MG 1 tab(s) orall y once a day; Duration: 30 day(s) 10/08/2022 Not-Taking Cephalexin 500 MG 1 capsule Orally Two times a day 12/15/2023 Active Medrol 4 MG as directed Orally 08/20/2023 Not-Taking Meloxicam 15 MG 1 tab(s) orally once a day, prn 12/28/2017 Not-Taking Ofloxacin 0.3 % 5 drops into affecte d ear Otic Two times a day 12/15/2023 Active Amoxicillin 500 MG 1 capsule Orally darian ry 8 hrs; Duration: 10 day(s) 02/09/2024 Active Methocarbamol 500 MG 1 tab Orally three times a day as needed 05/20/2023 Active Escitalopram Oxalate 20 mg TAKE 1 TABLET DAILY Active Albuterol Sulfate HFA 108 (90 Base) MCG/ACT 2 puff(s) inhaled every 8 hours and q2h prn 06/30/2022 Active Nucynta ER 100 MG 1 tab(s) orally 2 times a day; Duration: 30 day(s) Active Lisinopril 30 MG 1 tab(s) orally once a day; Duration: 30 day(s) Active HYDROcodone-Acetaminophen 10-325 MG 1 tab(s) Orally qid Active Estradiol 0.1 MG/24HR 1 PATCH applied topically 2 times a week Active Vital Signs Weight 163.6 lbs 02/09/2024 Blood pressure systolic 118 mm Hg 02/09/20 24 Blood pressure diastolic 80 mm Hg 024 Heart Rate 70 /min 02/09/2024 Height 65 in 02/09/2024 BMI 27.22 kg/m2 02/09/2024 Encounters Encounter Location Date Provider Diagnosis [facility] [address], [place] [phone] 02/09/2024 Marlys Pearl Strep pharyngitis J02.0 Assessments Encounter Date Diagnosis (ICD Code) Assessment Notes Treatment Notes Treatment Clinical Notes Section Notes 02/09/2024 Strep pharyngitis (ICD-10 - J02.0) fluids, rest, supportive measures for fever/symptom relief, gargles q2h while awake with hot salt water, finish abx; gargle q2h prn; infectious precautions; change toothbrush in 3-4 days; good water intake with tylenol/motrin prn; brush teeth with water swish and spit x3 tid Plan Of Treatment Medication Medication Name Sig Start Date Stop Date Notes Amoxicillin 500 MG 1 capsule Orally darian ry 8 hrs; Duration: 10 day(s) 02/09/2024 Treatment Notes Assessment Notes Strep pharyngitis fluids, rest, suppor tive measures for fever/symptom relief, gargles q2h while awake with hot salt water, finish abx; gargle q2h prn; infectious precautions; change toothbrush in 3-4 days; good water intake with tylenol/motrin prn; brush teeth with water swish and spit x3 tid Next Appt Details Follow Up: prn, Reason: Progress Notes * DAV HESS:1970 ( 54 yo F)Acc No.[id number]:02/09/2024 Progress Notes Patient: SONYA KELLER Provider: ELZA Lewis :1970 A ge:53 Y S ex:Female Date:02/09/2024 Address:[place], [id number] Pcp:John Paul Hampton Subjective: * Chief Complaints: * 1 . Possible strep. * HPI: E NT/respiratory: 53 year old female presents with c/o sore throat P t presents today with c/o sore throat. Pt sts that she has a small cough. Pt sts that her throat has been hurting since Thursday. Pt sts that she does have some pain in her right ear as well. c/o cough?slight. c/o Fever. c/o ear pain r ight ear. c/o smoking ! PPD. Denies : nasal congestion. D enies : rhinorrhea. D enies : Short of Breath. D enies : headache. D enies : body aches. nausea ; motrin prn. L ower back: c/o Low Back Pain. c/o previous therapy. c/o previous pain clinic g oes to Pain clinic regularly. c/o sleeping well. has chronic cystitis as well; declines UA. * ROS: D ERMATOLOGY: no R kisha. n o H za. G ASTROENTEROLOGY: no N ausea. n o V omiting. n o D iarrhea.? U ROLOGY: no D ifficulty urinating. n o B lood in urine. * Medical History: A bdominal Adhesions, Chronic Abdominal Pain, Anxiety, Hypertriglyceridemia, Allergic Rhinitis, Hearing Loss, Endometriosis, Interstitial Cystitis. * Surgical History: H ysterectomy 1998, Cholecystectomy 1999, Adominal Adhesion Removal x 4 , Endoscopy 07/2006, ERCP 07/2007, Breast Augmentation 10/2009, [place] Teeth Extractions 08/2010, Cononoscopy, Banded Hemrrhiods 01/17/2011, Spinal Cord Stimulator 04/2011, Urethra Exploratory 04/16/2012, Cysto w/ Botox 09/16/2012, Bladder Expansion 02/2014, Nerve block 08/2015, Nerve Block 08/2017. * Hospitalization/Major Diagno stic Procedure: R t Arm Injury, Fall- [facility] 11/28/2007, Dizziness- [facility] 12/2016, Strep- [facility] 05/2017. * Family History: F ather: [...] mg Tablet TAKE 1 TABLET DAILY , Taking Ofloxacin 0.3 % Solution 5 drops into affected ear Otic Two times a day , Taking Cephalexin 500 MG Capsule 1 capsule Orally Two times a day , Not-Taking Pantoprazole Sodium 40 MG Tablet Delayed Release 1 tab(s) orally once a day , Not-Taking Medrol 4 MG Tablet Therapy Pack as directed Orally , Not-Taking Meloxicam 15 MG Tablet 1 tab(s) orally once a day, prn , Discontinued dexAMETHasone 2 MG Tablet 1 tablet Orally every 12 hrs , Medication List reviewed and reconciled with the patient * Allergies: P enicillin: Rash. Objective: * Vitals: W t:163.6, Temp:98.6, BP:118/80, HR:70, Nurse:NADJA, Ht: 65, BMI:27.22. * Examination: E NT/Respiratory: General Appearance: NAD, alert, active; hydrated. E yes: sclera and conjunctiva clear. E ars: auditory canals normal bilaterally, tympanic membranes normal bilaterally. O ral cavity : OP erythema. N nayely : supple, no cervical lymphadenopathy. H eart : RRR. L ungs: CTAB A&P. ? Assessment: * Assessment: 1. S trep pharyngitis - J02.0 (Primary) Plan: * Treatment: * Labs: * L ab: Rapid Strep- Inhouse (Collection Date & Time - 02/09/2024) P ositive Value Reference Range s trep test pos * Nancy Avila 02/09/2024 1:31 :36 PM >Provider reviewed results while patient in office.Marlys Pearl 02/09/2024 1:57:49 PM > * Procedure Codes: 8 7880 STREP A ASSAY W/OPTIC, Modifiers: QW * Follow Up: p rn * Images: Billing Information: * Visit Code: 59595 Office Visit, Est Pt., Level 3. * Procedure Codes: 52344 STREP A ASSAY W/OPTIC. Modifiers: QW * Electronic signature of Chasity Pearl APRN on 05/11/2025 at 07:31 AM EST Sign off status: Pending * Provider: ELZA Lewis Date: 0 02/09/2024 Generated for Summer correa/[place]/eTransmitting on: 1 07/11/2024 07:31 AM EST History and Physical Notes * HPI (History of Present Illness) Category Sub-Category Detail Notes Category Not es ENT/respiratory sore throat Pt presents toda y with c/o sore throat. Pt sts that she has a small cough. Pt sts that her throat has been hurting since Thursday. Pt sts that she does have some pain in her right ear as well nausea ; motrin prn ear pain right ear Short of Breath cough slight Fever headache rhinorrhea nasal congestion smoking ! PPD body aches Lower back Low Back Pain has chronic cy stitis as well; declines UA previous therapy previous pain clinic goes to Pain clinic regularly sleeping well Examination Category Sub-Category Detail Notes Category Not es ENT/Respiratory Oral cavity : OP erythema Ears: auditory canals norm al bilaterally, tympanic membranes normal bilaterally Neck : supple, no cervical lymphadenopathy Heart : RRR Lungs: CTAB A&P General Appearance: NAD, alert, active; hydrated Eyes: sclera and conjuncti va clear
--- OUTSIDE RECORDS SUMMARY | 2024-03-02 11:30 | XMS_ITS ---
Author Organization [facility] Address [address] [facility] [address] [place] [place] [id number] Care Team Providers Care Promotions Executive Producer Name Role Phone [place] John Paul Primary Care Provider Lise English Unavailable [phone] Allergies Allergen (clinical drug ingredient) Drug/Non Drug Allergy documented on EMR Reaction Allergy Type Onset Date Status Penicillin Rash Drug Allergy Active Results Component Value Reference Range Notes Influenza Screen (in house) Reviewed date:03/02/2024 04:58:08 PM Interpretation: Performing Lab: Notes/Report: results Neg CBC Fingerstick (in house) Reviewed date:03/02/2024 04:48:57 PM Interpretation: Performing Lab: Notes/Report: wbc 14.2 3.5 - 10 lym 30.2% 15 - 50 mid 7.8% 2 - 15 gran 62.0% 35 - 80 rbc 5.26 3.5 - 5.5 hgb 16.3 11.5 - 16.5 hct 50.1 35 - 55 mcv 95.1 75 - 100 mch 30.9 25 - 35 mchc 32.5 31 - 38 plat 220 100 - 400 Covid test (in house) Reviewed date:03/02/2024 04:58:00 PM Interpretation: Performing Lab: Notes/Report: Result: Neg REASON FOR VISIT possible bronchitis Medications Medication SIG (Take, Route, Frequency, Duration) Notes Start Date End Date Status HYDROcodone-Acetaminophen 10-325 MG 1 tab(s) Orally qid Active Estradiol 0.1 MG/24HR 1 PATCH applied topically 2 times a week Active Zithromax Z-Neto 250 MG 2 pills first day then one daily for 4 days orally as directed; Duration: 5 days 03/02/2024 Active Albuterol Sulfate HFA 108 (90 Base) MCG/ACT 1 puff Inhalation every 4 hrs, prn 03/02/2024 Active Meloxicam 15 MG 1 tab(s) orally once a day, prn 12/28/2017 Not-Taking Pantoprazole Sodium 40 MG 1 tab(s) orall y once a day; Duration: 30 day(s) 10/08/2022 Not-Taking Medrol 4 MG as directed Orally 08/20/2023 Not-Taking BENZONATATE 200 mg 1 cap(s) orally 3 times a day prn; Duration: 10 day(s) 05/06/2022 Active Medrol 4 MG as directed orally daily; Duration: 6 days 03/02/2024 Active Escitalopram Oxalate 20 mg TAKE 1 TABLET DAILY Active Albuterol Sulfate HFA 108 (90 Base) MCG/ACT 2 puff(s) inhaled every 8 hours and q2h prn 06/30/2022 Active Methocarbamol 500 MG 1 tab Orally three times a day as needed 05/20/2023 Active Nucynta ER 100 MG 1 tab(s) orally 2 times a day; Duration: 30 day(s) Active Lisinopril 30 MG 1 tab(s) orally once a day; Duration: 30 day(s) Active Vital Signs Weight 164.2 lbs 03/02/2024 Blood pressure systolic 142 mm Hg 03/02/20 24 Blood pressure diastolic 100 mm Hg 024 Heart Rate 77 /min 03/02/2024 Height 65 in 03/02/2024 BMI 27.32 kg/m2 03/02/2024 Encounters Encounter Location Date Provider Diagnosis [facility] [address] [facility] [address] [place], [place] [id number] 03/02/2024 Lise English Bronchitis J40 Assessments Encounter Date Diagnosis (ICD Code) Assessment Notes Treatment Notes Treatment Clinical Notes Section Notes 03/02/2024 Bronchitis (ICD-10 - J40) Plan Of Treatment Medication Medication Name Sig Start Date Stop Date Notes Zithromax Z-Neto 250 MG 2 pills first day then one daily for 4 days orally as directed; Duration: 5 days 03/02/2024 Albuterol Sulfate HFA 108 (9 0 Base) MCG/ACT 1 puff Inhalation every 4 hrs, prn 03/02/2024 Medrol 4 MG as directed orally d aily; Duration: 6 days 03/02/2024 Next Appt Details Follow Up: prn, Reason: Progress Notes * SONYA HESSDOB:1970 ( 54 yo F)Acc No.[id number]:03/02/2024 Progress Notes Patient: SONYA KELLER Provider: ZARIA Jiang :1970 A ge:53 Y S ex:Female Date:03/02/2024 Address:[address] [place] [address], [place], [id number] Pcp:John Paul Hampton Subjective: * Chief Complaints: * 1 . Possible bronchitis. * HPI: E NT/respiratory: The patient is here today with c/o cough, fever, and shortness of breath for about 3 weeks. Pt states her temp was 100.0. 53 year old female presents with c/o cough. c/o Fever.? c/o Short of Breath. Denies : sore throat. D enies : ear pain. D enies : Chest Pain. * ROS: D ERMATOLOGY: no R kisha. [...] Endoscopy 07/2006, ERCP 07/2007, Breast Augmentation 10/2009, [place] Teeth Extractions 08/2010, Cononoscopy, Banded Hemrrhiods 01/17/2011, Spinal Cord Stimulator 04/2011, Urethra Exploratory 04/16/2012, Cysto w/ Botox 09/16/2012, Bladder Expansion 02/2014, Nerve block 08/2015, Nerve Block 08/2017. * Hospitalization/Major Diagno stic Procedure: R t Arm Injury, Fall- [facility] ER 11/28/2007, Dizziness- [facility] 12/2016, Strep- [facility] 05/2017. * Family [...] Tablet TAKE 1 TABLET DAILY , Taking BENZONATATE 200 mg capsule 1 cap(s) orally 3 times a day prn , Not-Taking Pantoprazole Sodium 40 MG Tablet Delayed Release 1 tab(s) orally once a day , Not-Taking Medrol 4 MG Tablet Therapy Pack as directed Orally , Not-Taking Meloxicam 15 MG Tablet 1 tab(s) orally once a day, prn , Discontinued Ofloxacin 0.3 % Solution 5 drops into affected ear Otic Two times a day , Discontinued Cephalexin 500 MG Capsule 1 capsule Orally Two times a day , Discontinued Amoxicillin 500 MG Capsule 1 capsule Orally every 8 hrs , Medication List reviewed and reconciled with the patient * Allergies: P enicillin: Rash. Objective: * Vitals: W t:164.2, Temp:98.2, BP:142/100, HR:77, Nurse:JENNIFER, Ht: 65, BMI:27.32. * Examination: E NT/Respiratory: General Appearance: Does not appear to feel well. E ars: a uditory canals normal bilaterally, TM's WNL. N ose : turbinates red, congested.?Sinuses : non tender bilaterally. O ral cavity : n o erythema or exudate seen on pharynx. N nayely : n o cervical lymphadenopathy. H eart : R RR, normal S1 S2, no murmurs. L ungs: expiratory wheezes, no rales. Assessment: * Assessment: 1. B anjelica - J40 (Primary) Plan: * Treatment: Value Reference Range r esults Neg * Fallon Ellison 03/02/2024 4:51:56 PM > , Provider reviewed results while patient in office.Lise English 03/02/2024 4:58:06 PM > ?LAB: CBC Fingerstick (in house) (Collection Date & Time - 03/02/2024)* Value Reference Range w bc 14.2 3.5 - 10 * l ym 30.2% 15 - 50 * m id 7.8% 2 - 15 * g ran 62.0% 35 - 80 * r bc 5.26 3.5 - 5.5 * h gb 16.3 11.5 - 16.5 * h ct 50.1 35 - 55 * m cv 95.1 75 - 100 * m ch 30.9 25 - 35 * m chc 32.5 31 - 38 * p lat 220 100 - 400 * Fallon Ellison 03/02/2024 4:44:57 PM > , Provider reviewed results while patient in office.Lise English 03/02/2024 4:48:53 PM > ?LAB: Covid test (in house) (Collection Date & Time - 03/02/2024)* Value Reference Range R esult: Neg * Fallon Ellison 03/02/2024 4:52:17 PM > , Provider reviewed results while patient in office.Lise English 03/02/2024 4:57:57 PM > * Procedure Codes: 3 6416 CAPILLARY BLOOD DRAW, 42846 CBC WITH AUTO DIFF, 54944 Flu Test- Nasal Swab, Modifiers: QW , 18497 COVID TEST IN HOUSE, Modifiers: QW * Follow Up: p rn * Images: Billing Information: * Visit Code: 20262 Office Visit, Est Pt., Level 3. * Procedure Codes: 47079 CAPILLARY BLOOD DRAW. 18234 CBC WITH AUTO DIFF. 92249 Flu Test- Nasal Swab. Modifiers: QW 62486 COVID TEST IN HOUSE. Modifiers: QW * Electronic signature of ZARIA Wagner on 05/11/2025 at 07:31 AM EST Sign off status: Pending * Provider: ZARIA Jiang Date: 0 03/02/2024 Generated for Printi ng/Faxing/eTransmitting on: 1 07/11/2024 07:31 AM EST History and Physical Notes * HPI (History of Present Illness) Category Sub-Category Detail Notes Category Not es ENT/respiratory sore throat ear pain Short of Breath Chest Pain cough Fever Examination Category Sub-Category Detail Notes Category Not es ENT/Respiratory Oral cavity : no erythema or exudate s een on pharynx Sinuses : non tender bilateral ly Ears: auditory canals norm al bilaterally, TM's WNL Neck : no cervical lymphade nopathy Heart : RRR, normal S1 S2, n o murmurs Lungs: expiratory wheezes, no rales General Appearance: Does not appear to f eel well Nose : turbinates red, parisa ested
--- OUTSIDE RECORDS SUMMARY | 2024-07-28 09:30 | XMS_ITS ---
Author Organization [facility] Address [address] [place] [id number] Care Team Providers Care Associate Professor Of Psychology Name Role Phone VintondalePaolo tateian Primary Care Provider Lise English [phone] Allergies Allergen (clinical drug ingredient) Drug/Non Drug Allergy documented on EMR Reaction Allergy Type Onset Date Status Penicillin Rash Drug Allergy Active Results Component Value Reference Range Notes H-Ferritin Reviewed date:07/29/2024 10:03:35 AM Interpretation: Performing Lab: Notes/Report: KAYODE 35.2 11.1-264 ng/ml H-Transferrin Reviewed date:08/03/2024 02:57:45 PM Interpretation: Performing Lab: Notes/Report: TRANS 286 192-364 mg/dL Performed at: [address] [id number] Director Of Career Services: Fernando Palencia PhD, Phone: [phone] H-Cardiac Enzymes Reviewed date:07/29/2024 10:03:52 AM Interpretation: Performing Lab: Notes/Report: CK 107 30-135 U/L CKMB 0.5 0.0-2.03 ng/ml CKMB INDEX 0.5 0-4.0 U/L TROP < 0.01 0.00-0.034 ng/ml <0.012-0.034 ng/mL NORMAL 0.035 - >0.120 ng/mL ELEVATED* *Serial testing recommended. A rise and fall with peak greater than 0.6 ng/mL may indicate acute myocardial infarction, but is not independently diagnostic. Clinical correlation is necessary. *ALERT* High levels of Biotin can falsely depress Troponin results. Many dietary supplements promoted for hair, skin, and nail benefits contain biotin levels up to 650 times the recommended daily intake of biotin. In addition to dietary supplements, Biotin is occasionally prescribed for medical conditions. EKG with rhythm strip Reviewed date:08/03/2024 12:36:15 PM Interpretation: Performing Lab: Notes/Report: REASON FOR VISIT B/P running high Medications Medication SIG (Take, Route, Frequency, Duration) Notes Start Date End Date Status Methocarbamol 500 MG TAKE 1 TABLET BY [facility] THREE TIMES DAILY NEEDED; Duration: 10 Active Lisinopril 40 MG 1 tablet Orally Once a day; Duration: 30 day(s) 07/28/2024 Active HYDROcodone-Acetaminophen 10-325 MG 1 tab(s) Orally qid Active Albuterol Sulfate HFA 108 (90 Base) MCG/ACT 1 puff Inhalation every 4 hrs, prn 03/02/2024 Active Escitalopram Oxalate 20 mg 1 tablet Oral ly Once a day; Duration: 90 days Active Albuterol Sulfate HFA 108 (90 Base) MCG/ACT 2 puff(s) inhaled every 8 hours and q2h prn 06/30/2022 Active BENZONATATE 200 mg 1 cap(s) orally 3 ti mes a day prn; Duration: 10 day(s) 05/06/2022 Active Estradiol 0.1 MG/24HR 1 PATCH applied topically 2 times a week Active Nucynta ER 100 MG 1 tab(s) orally 2 ti mes a day; Duration: 30 day(s) Active Lisinopril 20 MG 1 tab(s) Orally once a day Active Vital Signs Weight 167.4 lbs 07/28/2024 Blood pressure systolic 120 mm Hg 07/28/19 25 Blood pressure diastolic 78 mm Hg 025 Heart Rate 76 /min 07/28/2024 Height 65 in 07/28/2024 BMI 27.85 kg/m2 07/28/2024 Encounters Encounter Location Date Provider Diagnosis [facility] [address] [facility] [address] [place], [place] [address], [place] [id number] 07/28/2024 Lise English Essential hypertensi on I10 ; FHx: hemochromatosis Z83.49 and Chest pain, unspecified type R07.9 Assessments Encounter Date Diagnosis (ICD Code) Assessment Notes Treatment Notes Treatment Clinical Notes Section Notes 07/28/2024 Essential hypertension (ICD-10 - I10) 07/28/2024 FHx: hemochromatosis (ICD-10 - Z83.49) 07/28/2024 Chest pain, unspecified type (ICD-10 - R07.9) EKG and enzymes showed nothing acute. Will increase BP medication. May need outpatient stress test if chest pain continues. Plan Of Treatment Medication Medication Name Sig Start Date Stop Date Notes Lisinopril 40 MG 1 tablet Orally Once a day; Duration: 30 day(s) 07/28/2024 Treatment Notes Assessment Notes Chest pain, unspecified type EKG and enz ymes showed nothing acute. Will increase BP medication. May need outpatient stress test if chest pain continues. Next Appt Details Follow Up: via phone to repo rt test results, Reason: Progress Notes * SONYA HESSDOB:1970 ( 54 yo F)Acc No.[id number]:07/28/2024 Progress Notes Patient: SONYA KELLER Provider: ZARIA Jiang :1970 A ge:53 Y S ex:Female Date:07/28/2024 Address:[facility] [address] [place], [id number] Pcp:John Paul Hampton Subjective: * Chief Complaints: * 1 . B/P running high. * HPI: C ardiology: 53 year old female presents with c/o Chest Pain H ad chest pain last night that went up into her neck, still has a dull ache in the chest today. c/o Blood Pressure Elevated P t sts her BP has been high recently. Pt sts she does check it at home and sts that she may need blood work done. * ROS: D ERMATOLOGY: no R kisha. [...] Endoscopy 07/2006, ERCP 07/2007, Breast Augmentation 10/2009, [place] Teeth Extractions 08/2010, Cononoscopy, Banded Hemrrhiods 01/17/2011, Spinal Cord Stimulator 04/2011, Urethra Exploratory 04/16/2012, Cysto w/ Botox 09/16/2012, Bladder Expansion 02/2014, Nerve block 08/2015, Nerve Block 08/2017. * Hospitalization/Major Diagno stic Procedure: R t Arm Injury, Fall- [facility] ER 11/28/2007, Dizziness- UTC 12/2016, Strep- [facility] 05/2017. * Family [...] 2 times a day , Taking Lisinopril 20 MG Tablet 1 tab(s) Orally once a day , Taking Albuterol Sulfate HFA 108 (90 Base) MCG/ACT Aerosol Solution 2 puff(s) inhaled every 8 hours and q2h prn , Taking BENZONATATE 200 mg capsule 1 cap(s) orally 3 times a day prn , Taking Albuterol Sulfate HFA 108 (90 Base) MCG/ACT Aerosol Solution 1 puff Inhalation every 4 hrs, prn , Taking Escitalopram Oxalate 20 mg Tablet 1 tablet Orally Once a day , Taking Methocarbamol 500 MG Tablet TAKE 1 TABLET BY MOUTH THREE TIMES DAILY NEEDED , Medication List reviewed and reconciled with the patient * Allergies: P enicillin: Rash. Objective: * Vitals: W t:167.4, Temp:98.4, BP:120/78, HR:76, Nurse:[facility], Ht: 65, Repeat BP:140/92, BMI:27.85. * Examination: G eneral Examination: General Appearance: N AD. H EENT: u nremarkable.?Oral cavity: n o lesions, mucosa moist and WNL, no erythema. N nayely: s upple, no lymphadenopathy. C hest: n ormal shape and expansion. H eart: R SR. L ungs: c lear to auscultation. A bdomen: bowel sounds present, soft and nontender, no organomegaly or masses, no guarding or rigidity. N eurologic Exam: I ntact, gait normal. S kin: n ormal, no rash. P eripheral pulses: n ormal (2+) bilaterally. E xtremities: n o leg edema. Assessment: * Assessment: 1. E ssential hypertension - I10 (Primary) 2 . F Hx: hemochromatosis - Z83.49 3 . C hest pain, unspecified type - R07.9 Plan: * Treatment: 2. F Hx: hemochromatosis L AB: H-Ferritin (Collection Date & Time - 07/28/2024 03:33 PM) Value Reference Range F ER 35.2 11.1-264 - ng/ml * Lise English 07/29/2024 10 :03:29 AM > discussed with patient ?LAB: H-Transferrin (Collection Date & Time - 07/28/2024 03:33 PM)* Value Reference Range T RANS 286 192-364 - mg/dL * Lise English 08/03/2024 12: 36:28 PM > please let patient know this was normalZahra Ribeiro 08/03/2024 2:57:38 PM > pt informed 3.?Chest pain, unspecified type?LAB: H-Cardiac Enzymes (Collection Date & Time - 07/28/2024 03:33 PM)* Value Reference Range C K 107 30-135 - U/L * C KMB 0.5 0.0-2.03 - ng/ml * C KMB INDEX 0.5 0-4.0 - U/L * T ROP < 0.01 0.00-0.034 - ng/ml * Lise English 07/29/2024 10 :03:46 AM > discussed with patient ?Imaging: EKG with rhythm strip (Performed Date - 07/28/2024)* Lise English 08/03/2024 12: 36:08 PM > already discussed with patient Notes: EKG and enzymes showed nothing acute. Will increase BP medication. May need outpatient stress test if chest pain continues.?? * Follow Up: v ia phone to report test results * Images: Billing Information: * Visit Code: 92978 Office Visit, Est Pt., Level 4. * Procedure Codes: * Electronic signature of ZARIA Wagner on 05/11/2025 at 07:32 AM EST Sign off status: Pending * Provider: ZARIA Jiang Date: 0 07/28/2024 Generated for Summer correa/Esther/eTransmitting on: 07/11/2024 07:32 AM EST History and Physical Notes * HPI (History of Present Illness) Category Sub-Category Detail Notes Category Not es Cardiology Chest Pain Had chest pain l ast night that went up into her neck, still has a dull ache in the chest today Blood Pressure Elevated Pt sts her BP alejandro s been high recently. Pt sts she does check it at home and sts that she may need blood work done Examination Category Sub-Category Detail Notes Category Not es General Examination HEENT: unremarkable Heart: RSR Lungs: clear to auscultatio n Abdomen: bowel sounds present , soft and nontender, no organomegaly or masses, no guarding or rigidity Extremities: no leg edema General Appearance: NAD Skin: normal, no rash Neurologic Exam: Intact, gait normal Neck: supple, no lymphaden opathy Oral cavity: no lesions, mucosa m oist and WNL, no erythema Peripheral pulses: normal (2+) bilatera lly Chest: normal shape and exp ansion
--- OUTSIDE RECORDS SUMMARY | 2024-09-05 08:15 | XMS_ITS ---
[facility] Address [address] [facility] [address] [place] [id number] Care Team Providers Care Microsoft Bi Consultant Name Role Phone Sunshine John Paul Primary Care Provider Marlys Pearl [phone] Allergies Allergen (clinical drug ingredient) Drug/Non Drug Allergy documented on EMR Reaction Allergy Type Onset Date Status Penicillin Rash Drug Allergy Active REASON FOR VISIT Hip Pain Medications Medication SIG (Take, Route, Frequency, Duration) Notes Start Date End Date Status Albuterol Sulfate HFA 108 (90 Base) MCG/ACT 2 puff(s) inhaled every 8 hours and q2h prn 06/30/2022 Active Lisinopril 20 MG 1 tab(s) Orally once a day Active Nucynta ER 100 MG 1 tab(s) orally 2 ti mes a day; Duration: 30 day(s) Active Estradiol 0.1 MG/24HR 1 PATCH applied topically 2 times a week Active Medrol 4 MG as directed orally daily; Duration: 6 days 09/05/2024 Active Doxycycline Hyclate 100 MG 1 capsule Ora lly Twice a day; Duration: 7 day(s) 09/05/2024 Active Escitalopram Oxalate 20 mg 1 tablet Oral ly Once a day; Duration: 90 days Active Methocarbamol 500 MG TAKE 1 TABLET BY [facility] THREE TIMES DAILY NEEDED; Duration: 10 Active HYDROcodone-Acetaminophen 10-325 MG 1 tab(s) Orally qid Active Lisinopril 40 MG 1 tablet Orally Once a day; Duration: 90 day(s) 07/28/2024 Active Albuterol Sulfate HFA 108 (90 Base) MCG/ACT 1 puff Inhalation every 4 hrs, prn 03/02/2024 Active BENZONATATE 200 mg 1 cap(s) orally 3 ti mes a day prn; Duration: 10 day(s) 05/06/2022 Active Problems Problem Type SNOMED Code ICD Code Onset Dates Problem Status W/U Status Risk Notes Problem Hypertension (65064869) HTN (hypertens ion) (I10) Active confirmed Vital Signs Weight 165.4 lbs 09/05/2024 Blood pressure systolic 120 mm Hg 09/06/19 25 Blood pressure diastolic 76 mm Hg 025 Heart Rate 87 /min 09/05/2024 Height 65 in 09/05/2024 BMI 27.52 kg/m2 09/05/2024 Encounters Encounter Location Date Provider Diagnosis [facility] [address] [facility] [address] [place] [id number] 09/05/2024 Marlys Pearl Hip pain, right M25.551 ; Acne L70.9 and HTN (hypertension) I10 Assessments Encounter Date Diagnosis (ICD Code) Assessment Notes Treatment Notes Treatment Clinical Notes Section Notes 09/05/2024 Hip pain, right (ICD-10 - M25.551) heat/cold application prn; OTC anti inflammatory creams prn may need PT 09/05/2024 Acne (ICD-10 - L70.9) face breaks out with any steriod RX 09/05/2024 HTN (hypertension) (ICD-10 - I10) has lab work done q 3months with pain management; have not reorts or access to; [facility] Plan Of Treatment Medication Medication Name Sig Start Date Stop Date Notes Medrol 4 MG as directed orally d aily; Duration: 6 days 09/05/2024 Doxycycline Hyclate 100 MG 1 capsule Ora lly Twice a day; Duration: 7 day(s) 09/05/2024 HYDROcodone-Acetaminophen 10-325 MG 1 tab(s) Orally qid Lisinopril 40 MG 1 tablet Orally Once a day; Duration: 90 day(s) 07/28/2024 Treatment Notes Assessment Notes Hip pain, right heat/cold application prn; OTC anti inflammatory creams prn may need PT Acne face breaks out with any steriod RX HTN (hypertension) has lab work done q 3months with pain management; have not reorts or access to; she states kidnety function has been good Next Appt Details Follow Up: prn, Reason: Medications Administered Medication Instructions Date of Administration Dosage Notes Depo- Medrol 40 mg/ml 09/05/2024 1 mL Progress Notes * SONYA HESSDOB:1970 ( 54 yo F)Acc No.[id number]:09/05/2024 Progress Notes Patient: SONYA KELLER Provider: ELZA Lewis :1970 A ge:53 Y S ex:Female Date:09/05/2024 Address:[facility] [address] , [place], [id number] Pcp:JohnP aul Hampton Subjective: * Chief Complaints: * 1 . Hip Pain. * HPI: H ip/Thigh: 53 year old female presents with c/o hip pain P t is here today for a c/o hip pain on the rt side. Pt sts the pain does stay in the hip area. Pt sts it has been hurting her for over a week off and on. Pt sts the pain is worse when sitting and walking or standing. * ROS: C ARDIOLOGY: no C hest pain. n o L eg edema. n o S hortness of breath. D ERMATOLOGY: no R kisha. n o [...] Endoscopy 07/2006, ERCP 07/2007, Breast Augmentation 10/2009, [place] Teeth Extractions 08/2010, Cononoscopy, Banded Hemrrhiods 01/17/2011, Spinal Cord Stimulator 04/2011, Urethra Exploratory 04/16/2012, Cysto w/ Botox 09/16/2012, Bladder Expansion 02/2014, Nerve block 08/2015, Nerve Block 08/2017. * Hospitalization/Major Diagno stic Procedure: R t Arm Injury, Fall- [facility] ER 11/28/2007, Dizziness- UTC 12/2016, Strep- [facility] [...] Inhalation every 4 hrs, prn , Taking Methocarbamol 500 MG Tablet TAKE 1 TABLET BY MOUTH THREE TIMES DAILY NEEDED , Taking Lisinopril 40 MG Tablet 1 tablet Orally Once a day , Taking Escitalopram Oxalate 20 mg Tablet 1 tablet Orally Once a day , Medication List reviewed and reconciled with the patient * Allergies: P enicillin: Rash. Objective: * Vitals: W t:165.4, Temp:98.5, BP:120/76, HR:87, O2 Sat:97% on RA, Nurse:yasmin, Ht: 65, BMI:27.52. * Examination: G eneral Examination: General Appearance: NAD, appears healthy, alert. H eart: RRR. L ungs: CTAB A&P. N eurologic Exam: alert and oriented. ? H ip / Thigh: Hip joint: r ight. I nspection: no effusion, ecchymosis or deformities. P alpation: tenderness on trochanteric bursa posterior. R bob of motion: normal flexion, extension & rotation. G ait: normal. Assessment: * Assessment: 1. H ip pain, right - M25.551 (Primary) 2 . A cne - L70.9 3 . H TN (hypertension) - I10 Plan: * Treatment: 2. A cne Start Doxycycline Hyclate Capsule, 100 MG, 1 capsule, Orally, Twice a day, 7 day(s), 14 Capsule.? Notes: face breaks out with any steriod RX 3. H TN (hypertension) Refill Lisinopril Tablet, 40 MG, 1 tablet, Orally, Once a day, 90 day(s), 90 Tablet, Refills 1.? Notes: has lab work done q 3months with pain management; have not reorts or access to; she states kidnety function has been good * Therapeutic Injections: Depo- Medrol 40 mg/ml : 1 mL (Route: Intramuscular) given by YASMIN Ontiveros on right gluteus (Hip pain, right) * Procedure Codes: J 1010 Inj, methylpred acetate 1 mg, 43249 ADMINISTRATION OF INJECTION, 3074F SYST BP LT 130 MM HG, 3078F DIAST BP < 80 MM HG * Follow Up: p rn * Images: Billing Information: * Visit Code: 59428 Office Visit, Est Pt., Level 3. Modifiers: 25 * Procedure Codes: J1010 Inj, methylpred acetate 1 mg. 76295 ADMINISTRATION OF INJECTION. 3074F SYST BP LT 130 MM HG. 3078F DIAST BP < 80 MM HG. * Electronic signature of Chasity Pearl APRN on 05/11/2025 at 07:33 AM EST Sign off status: Pending * Provider: ELZA Lewis Date: 0 09/05/2024 Generated for Summer correa/Esther/Deniz on: 07/11/2024 07:33 AM EST History and Physical Notes * HPI (History of Present Illness) Category Sub-Category Detail Notes Category Not es Hip/Thigh hip pain Pt is here today for a c/o hip pain on the rt side. Pt sts the pain does stay in the hip area. Pt sts it has been hurting her for over a week off and on. Pt sts the pain is worse when sitting and walking or standing Examination Category Sub-Category Detail Notes Category Not es General Examination Heart: RRR Lungs: CTAB A&P General Appearance: NAD, appears healthy , alert Neurologic Exam: alert and oriented Hip / Thigh Gait: normal Range of motion: normal flexion, exte nsion & rotation Hip joint: right Inspection: no effusion, ecchymo sis or deformities Palpation: tenderness on trocha nteric bursa posterior
--- OUTSIDE RECORDS SUMMARY | 2024-12-09 09:15 | XMS_ITS ---
Author Organization [facility] Address [address] [facility] [address] [place] [id number] Care Team Providers Care Communications Field Technician Name Role Phone [place] John Paul Primary Care Provider [phone] Lise English [phone] Allergies Allergen (clinical drug ingredient) Drug/Non Drug Allergy documented on EMR Reaction Allergy Type Onset Date Status Penicillin Rash Drug Allergy Active Results Component Value Reference Range Notes Urinalysis - Inhouse Reviewed date:12/11/2024 11:22:55 PM Interpretation: Performing Lab: Notes/Report: Color/Clarity yellow Leuk neg Nitrite neg Urobili 3.2 Protein neg pH 6.5 Blood neg Sp. Gr. 1.005 Ketone neg Bili neg Gluc neg TEN-UTI panel Reviewed date:12/13/2024 02:23:42 PM Interpretation:Negative Performing Lab: Notes/Report: Negative REASON FOR VISIT poos UTI or kidney stones Medications Medication SIG (Take, Route, Frequency, Duration) Notes Start Date End Date Status Medrol 4 MG as directed orally daily; Duration: 6 days 09/05/2024 Not-Taking Lisinopril 20 MG 1 tab(s) Orally once a day Active BENZONATATE 200 mg 1 cap(s) orally 3 times a day prn; Duration: 10 day(s) 05/06/2022 Active Albuterol Sulfate HFA 108 (90 Base) MCG/ACT 2 puff(s) inhaled every 8 hours and q2h prn 06/30/2022 Active Albuterol Sulfate HFA 108 (90 Base) MCG/ACT 1 puff Inhalation every 4 hrs, prn 03/02/2024 Active Nucynta ER 100 MG 1 tab(s) orally 2 times a day; Duration: 30 day(s) Active Estradiol 0.1 MG/24HR 1 PATCH applied topically 2 times a week Active Escitalopram Oxalate 20 mg 1 tablet Oral ly Once a day; Duration: 90 days Active Pyridium 200 MG 1 tablet after meals Orally Three times a day, prn 12/09/2024 Active Ondansetron 4 MG 1 tablet on the tong ue and allow to dissolve Orally 3 times a day, prn 12/09/2024 Active HYDROcodone-Acetaminophen 10-325 MG 1 tab(s) Orally qid Active Lisinopril 40 MG 1 tablet Orally Once a day; Duration: 90 day(s) 07/28/2024 Active Doxycycline Hyclate 100 MG 1 capsule Ora lly Twice a day; Duration: 7 day(s) 09/05/2024 Not-Taking Methocarbamol 500 MG TAKE 1 TABLET BY [facility] THREE TIMES DAILY NEEDED; Duration: 10 Active Vital Signs Weight 166.2 lbs 12/09/2024 Blood pressure systolic 140 mm Hg 12/10/19 25 Blood pressure diastolic 98 mm Hg 025 Heart Rate 74 /min 12/09/2024 Height 65 in 12/09/2024 BMI 27.65 kg/m2 12/09/2024 Encounters Encounter Location Date Provider Diagnosis [facility] [address], [place] [phone] 12/09/2024 Lise English Dysuria R30.0 Assessments Encounter Date Diagnosis (ICD Code) Assessment Notes Treatment Notes Treatment Clinical Notes Section Notes 12/09/2024 Dysuria (ICD-10 - R30.0) Plan Of Treatment Medication Medication Name Sig Start Date Stop Date Notes Pyridium 200 MG 1 tablet after meals Orally Three times a day, prn 12/09/2024 Ondansetron 4 MG 1 tablet on the tong ue and allow to dissolve Orally 3 times a day, prn 12/09/2024 Next Appt Details Follow Up: via phone to repo rt test results, Reason: Progress Notes * DAV HESS:1970 ( 54 yo F)Acc No.[id number]:12/09/2024 Progress Notes Patient: SONYA KELLER Provider: ZARIA Jiang :1970 A ge:54 Y S ex:Female Date:12/09/2024 Address:[place], [id number] Pcp:John Paul Hampton Subjective: * Chief Complaints: * 1 . poos UTI or kidney stones. * HPI: U rology: 54 year old female presents with c/o frequent urination P t sts her symptoms started on Thursday and sts they have gotten worse. Sts she has burning and difficulty urinating.. c/o urgency. c/o flank pain. * ROS: C ARDIOLOGY: no C hest [...] Endoscopy 07/2006, ERCP 07/2007, Breast Augmentation 10/2009, [place] Teeth Extractions 08/2010, Cononoscopy, Banded Hemrrhiods 01/17/2011, Spinal Cord Stimulator 04/2011, Urethra Exploratory 04/16/2012, Cysto w/ Botox 09/16/2012, Bladder Expansion 02/2014, Nerve block 08/2015, Nerve Block 08/2017. * Hospitalization/Major Diagno stic Procedure: R t Arm Injury, Fall- [facility] ER 11/28/2007, Dizziness- UTC 12/2016, Strep- [facility] [...] ,determination:,. Alcohol: no. * Medications: T aking Estradiol 0.1 MG/24HR Patch Twice Weekly 1 [...] Inhalation every 4 hrs, prn , Taking Lisinopril 40 MG Tablet 1 tablet Orally Once a day , Taking HYDROcodone-Acetaminophen 10-325 MG Tablet 1 tab(s) Orally qid , Taking Methocarbamol 500 MG Tablet TAKE 1 TABLET BY MOUTH THREE TIMES DAILY NEEDED , Taking Escitalopram Oxalate 20 mg Tablet 1 tablet Orally Once a day , Not-Taking Medrol 4 MG Tablet Therapy Pack as directed orally daily , Not-Taking Doxycycline Hyclate 100 MG Capsule 1 capsule Orally Twice a day , Medication List reviewed and reconciled with the patient * Allergies: P enicillin: Rash. Objective: * Vitals: W t: 166.2, Temp: 98.6, BP: 140/98, HR: 74, Nurse: [facility], Ht: 65, Repeat BP: 120/80, BMI:27.65. * Examination: G eneral Examination: General Appearance: N AD. O ral cavity: n o lesions, mucosa moist and WNL, no erythema. N nayely: s upple, no lymphadenopathy. C hest: n ormal shape and expansion. H eart: R SR. L ungs: c lear to auscultation. A bdomen: b owel sounds present, soft and nontender. B ack: m ild C VA tenderness on right.? Assessment: * Assessment: 1. D ysuria - R30.0 (Primary) Plan: * Treatment: Value Reference Range C olor/Clarity yellow * L euk neg * N itrite neg * U robili 3.2 * P rotein neg * p H 6.5 * B lood neg * S p. Gr. 1.005 * K etone neg * B apurva neg * G angel neg * Adelaide Garza 12/09/2024 02:2 4:54 PM EDT > Provider reviewed results while patient in office. ?LAB: TEN-UTI panel (Collection Date & Time - 12/09/2024)?Negative* Fallon Ellison 12/13/2024 02:22: 56 PM EDT > Pt informed * Procedure Codes: 8 1002 Urinalysis, no micro * Follow Up: v ia phone to report test results * Images: Billing Information: * Visit Code: 91218 Office Visit, Est Pt., Level 3. * Procedure Codes: 07800 Urinalysis, no micro. * Electronic signature of ZARIA Wagner on 05/11/2025 at 07:32 AM EST Sign off status: Pending * Provider: ZARIA Jiang Date: 0 12/09/2024 Generated for Lashauni madeline/Esther/eTransmitting on: 1 07/11/2024 07:32 AM EST History and Physical Notes * HPI (History of Present Illness) Category Sub-Category Detail Notes Category Not es Urology frequent urination Pt sts her sy mptoms started on Thursday and sts they have gotten worse. Sts she has burning and difficulty urinating. flank pain urgency Examination Category Sub-Category Detail Notes Category Not es General Examination Heart: RSR Lungs: clear to auscultatio n Abdomen: bowel sounds present , soft and nontender General Appearance: NAD Neck: supple, no lymphaden opathy Oral cavity: no lesions, mucosa m oist and WNL, no erythema Back: mild CVA tenderness on right Chest: normal shape and exp ansion
--- OUTSIDE RECORDS SUMMARY | 2025-02-28 10:00 | XMS_ITS ---
Author Organization [facility] Address [address] [facility] [address] [place] [id number] Care Team Providers Care Clinical Veterinarian Name Role Phone Paolo Hamptonian Primary Care Provider Mehrdad Carty [phone] Allergies Allergen (clinical drug ingredient) Drug/Non Drug Allergy documented on EMR Reaction Allergy Type Onset Date Status Penicillin Rash Drug Allergy Active Results Component Value Reference Range Notes Urinalysis - Inhouse Reviewed date:02/28/2025 09:54:27 PM Interpretation: Performing Lab: Notes/Report: Color/Clarity yellow Leuk neg Nitrite neg Urobili 3.2 Protein neg pH 6.0 Blood neg Sp. Gr. <=1.005 Ketone neg Bili neg Gluc neg REASON FOR VISIT poss.UTI Medications Medication SIG (Take, Route, Frequency, Duration) Notes Start Date End Date Status Estradiol 0.1 MG/24HR 1 PATCH applied topically 2 times a week Active Escitalopram Oxalate 20 mg 1 tablet Oral ly Once a day; Duration: 90 days Active Doxycycline Hyclate 100 MG 1 capsule Ora lly twice a day 02/28/2025 Active Ondansetron 4 MG 1 tablet on the tong ue and allow to dissolve Orally 3 times a day, prn 12/09/2024 Active Lisinopril 40 MG 1 tablet Orally Once a day; Duration: 90 days Active Methocarbamol 500 MG TAKE 1 TABLET BY [facility] THREE TIMES DAILY NEEDED; Duration: 10 Active Pyridium 200 MG 1 tablet after meals Orally Three times a day, prn 12/09/2024 Active HYDROcodone-Acetaminophen 10-325 MG 1 tab(s) Orally qid Active Lisinopril 20 MG 1 tab(s) Orally once a day Active Albuterol Sulfate HFA 108 (90 Base) MCG/ACT 2 puff(s) inhaled every 8 hours and q2h prn 06/30/2022 Active Nucynta ER 100 MG 1 tab(s) orally 2 ti mes a day; Duration: 30 day(s) Active BENZONATATE 200 mg 1 cap(s) orally 3 ti mes a day prn; Duration: 10 day(s) 05/06/2022 Active Albuterol Sulfate HFA 108 (90 Base) MCG/ACT 1 puff Inhalation every 4 hrs, prn 03/02/2024 Active Vital Signs Weight 167.6 lbs 02/28/2025 Blood pressure systolic 140 mm Hg 02/29/20 25 Blood pressure diastolic 90 mm Hg 025 Heart Rate 70 /min 02/28/2025 Height 65 in 02/28/2025 BMI 27.89 kg/m2 02/28/2025 Encounters Encounter Location Date Provider Diagnosis [facility] [address] [place] [id number] 02/28/2025 Mehrdad Carty Dysuria R30.0 Assessments Encounter Date Diagnosis (ICD Code) Assessment Notes Treatment Notes Treatment Clinical Notes Section Notes 02/28/2025 Dysuria (ICD-10 - R30.0) Symptoms are consistent with UTI although urinalysis is unremarkable. Plan Of Treatment Medication Medication Name Sig Start Date Stop Date Notes Doxycycline Hyclate 100 MG 1 capsule Orally twice a day Treatment Notes Assessment Notes Dysuria Symptoms are consist ent with UTI although urinalysis is unremarkable. Next Appt Details Follow Up: 2 - 3 Days,prn, Mehrdad villa: Progress Notes * SONYA HESSDOB:1970 ( 54 yo F)Acc No.[id number]:02/28/2025 Progress Notes Patient: SONYA KELLER Provider: Mehrdad Carty M.D. :1970 A ge:54 Y S ex:Female Date:02/28/2025 Address:[address] [place] [address], [place], [id number] Pcp:John Paul Hampton Subjective: * Chief Complaints: * 1 . poss.UTI. * HPI: U rology: Pt here for maybe UTI. Pt states the following symptoms since Thursday, and they are getting worse. 54 year old female presents with c/o frequent urination s mall amount but sometimes its large amount. c/o burning sensation a fter urination, before urination. c/o flank pain r ight-sided. c/o Pressure. Denies : fever. D enies : Urine Odor. D enies : Vaginal Itching. She has a history of interstitial cystitis but states her current symptoms feel different. No change in her bowel habits. No nausea or vomiting. * ROS: D ERMATOLOGY: no R kisha. [...] Endoscopy 07/2006, ERCP 07/2007, Breast Augmentation 10/2009, Dime Box Teeth Extractions 08/2010, Cononoscopy, Banded Hemrrhiods 01/17/2011, Spinal Cord Stimulator 04/2011, Urethra Exploratory 04/16/2012, Cysto w/ Botox 09/16/2012, Bladder Expansion 02/2014, Nerve block 08/2015, Nerve Block 08/2017. * Hospitalization/Major Diagno stic Procedure: R t Arm Injury, Fall- [facility] ER 11/28/2007, Dizziness- [facility] 12/2016, Strep- [...] Inhalation every 4 hrs, prn , Taking HYDROcodone-Acetaminophen 10-325 MG Tablet 1 tab(s) Orally qid , Taking Methocarbamol 500 MG Tablet TAKE 1 TABLET BY MOUTH THREE TIMES DAILY NEEDED , Taking Pyridium 200 MG Tablet 1 tablet after meals Orally Three times a day, prn , Taking Ondansetron 4 MG Tablet Disintegrating 1 tablet on the tongue and allow to dissolve Orally 3 times a day, prn , Taking Lisinopril 40 MG Tablet 1 tablet Orally Once a day , Taking Escitalopram Oxalate 20 mg Tablet 1 tablet Orally Once a day , Discontinued Medrol 4 MG Tablet Therapy Pack as directed orally daily , Discontinued Doxycycline Hyclate 100 MG Capsule 1 capsule Orally Twice a day , Medication List reviewed and reconciled with the patient * Allergies: P enicillin: Rash. Objective: * Vitals: W t: 167.6, Temp: 98.5, BP: 140/90, HR: 70, Nurse: ronnie, Ht: 65, BMI:27.89. * Examination: G eneral Examination: General Appearance: A ppears uncomfortable but no acute distress. A bdomen: s oft, not distended,no CVA tenderness. Mild suprapubic tenderness. Assessment: * Assessment: 1. D ysuria - R30.0 (Primary) Plan: * Treatment: * Labs: * L ab: Urinalysis - Inhouse (Collection Date & Time - 02/28/2025) Value Reference Range C olor/Clarity yellow * L euk neg * N itrite neg * U robili 3.2 * P rotein neg * p H 6.0 * B lood neg * S p. Gr. <=1.005 * K etone neg * B apurva neg * G angel neg * Anamaria Pollock 02/28/2025 03 :27:29 PM EDT > Provider reviewed results while patient in office. * Procedure Codes: 8 1002 Urinalysis, no micro * Follow Up: 2 - 3 Days,prn * Images: Billing Information: * Visit Code: 25527 Office Visit, Est Pt., Level 3. * Procedure Codes: 47489 Urinalysis, no micro. * Electronic signature of Mehrdad Carty MD on 05/11/2025 at 07:32 AM EST Sign off status: Pending * Provider: Mehrdad Carty M.D. Date: 0 02/28/2025 Generated for Summer correa/Esther/Deniz on: 07/11/2024 07:32 AM EST History and Physical Notes * HPI (History of Present Illness) Category Sub-Category Detail Notes Category Not es Urology frequent urination small amount but sometimes its large amount She has a history of interstitial cystitis but states her current symptoms feel different. No change in her bowel habits. No nausea or vomiting. burning sensation after urination, bef ore urination flank pain right-sided fever Urine Odor Vaginal Itching Pressure Examination Category Sub-Category Detail Notes Category Not es General Examination Abdomen: soft, not di stended, no CVA tenderness. Mild suprapubic tenderness General Appearance: Appears uncomfortabl e but no acute distress
--- OUTSIDE RECORDS SUMMARY | 2025-03-15 14:00 | XMS_ITS | Encounter Summary ---
Author Organization Healthcare Address [address] [place] [address] Care Team Providers Care Ham Sawyer Name Role Phone Zana Carty MD Primary Care Provider [phone] Reason for Referral * Consultation (Routine) - Authorized Specialty Diagnoses / Procedures Referred By Qing calhoun Referred To Contact Urology Diagnoses Interstitial cystitis Shaneka Joshi, SAJAN [address] [place] [address] Phone: tel: fax: [facility] [address] [place] [address] Phone: tel: fax: Referral ID Status Reason Start Date Expiration Date Visits Requested Visits Authorized [id number] Authorized Specialty Services Required 03/17/2025 09/16/2026 1 1 Reason for Visit * Reason Comments Annual Exam Pt consents to:Pelvi c/Pap +STD -Breast + control complete hystCycles no bleedingConcerns+ recent UTI, confirm resolve rt continued s/s+ needs refills on patch and valium Encounter Details Date Type Department Care Team (Late st Contact Info) Description 03/15/2025 3:00 PM EDT Office Visit Obstetrics & Gynecology [address] [place] [address] Shaneka Joshi, PATTERN MAKER [address] [place] [address] Urinary pain (Primary Dx); Encounter for gynecological examination without abnormal finding; Interstitial cystitis; Dyspareunia in female; Hormone replacement therapy (HRT) Social History Tobacco Use Types Packs/Day Years Used Date Smoking Tobacco: Every Day Cigarettes 1 9.9 Started: 2015 Smokeless Tobacco: Never Alcohol Use Standard Drinks/Week Comments Yes 0 (1 standard drink = 0.6 oz pur e alcohol) Social alcohol use PHQ-2 Answer Date Recorded Patient Health Questionnaire-2 Score 0 03/15/2025 PHQ-2A Answer Date Recorded Patient Health Questionnaire-2 Score 0 02/25/2023 Comments No Sex and Gender Information Value Date Recorded Sex Assigned at Not on file Legal Sex Female 8:05 PM EDT Gender Identity Not on file Sexual Orientation Not on file documented as of this encounter Last Filed Vital Signs Vital Sign Reading Time Taken Comments Blood Pressure 138/84 03/15/2025 3:39 PM EDT Pulse 82 03/15/2025 3:12 PM EDT Temperature 36.6 C (97.8 F) 03/15/2025 3:12 PM EDT Respiratory Rate - - Oxygen Saturation 96% 03/15/2025 3:12 PM EDT Inhaled Oxygen Concentration - - Weight 74.9 kg (165 lb 1.6 oz) 03/15/2025 3:12 P M EDT Height - - Body Mass Index 28.34 07/01/2024 2:19 PM EST documented in this encounter Functional Status * Over the past 2 weeks, how often have you been bothered by any of the following problems? Question Answer Date of Assessment Author Little interest or pleasure in doing things Not at all 03/15/2025 3:14 PM EDT Nelsy Bruce RN Feeling down, depressed, or hopeless Not at all 03/15/2025 3:14 PM EDT Nelsy Bruce RN Patient Health Questionnaire -2 Score 0 03/15/2025 3:14 PM EDT Nelsy Bruce RN * How difficult have these problems made it for you to do your work, take care of things at home, or get along with other people? Answer Date of Assessment Author Not difficult at all 03/15/2025 3:14 PM EDT Stephani hodge, Nelsy Milan RN documented as of this encounter Miscellaneous Notes * Assessment & Plan Note - Shaneka Joshi APRN - 03/15/2025 3:00 PM EDT Associated Problem(s): Encounter for gynecological examination without abnormal finding * Assessment & Plan Note - Shaneka Joshi APRN - 03/15/2025 3:00 PM EDT Associated Problem(s): Interstitial cystitis Orders: Ambulatory referral to Urology; Future * Progress Notes - Shaneka Joshi APRN - 03/15/2025 3:00 PM EDT Gynecology Health Maintenance Note Subjective Sophie Dempsey is a 54 y.o. here for a routine gynecology health maintenance visit. The following chart sections have been reviewed and updated: Allergies Meds OB Status Here today for annual exam. Denies history of abnormal pap smear screenings in the past. Denies breast concerns. Denies bowel/bladder issues. Denies vaginal concerns including itch/odor/burn/discharge. Declines STD screening today. Denies immediate family history of breast, ovarian, or uterine cancers. S/p hysterectomy w/ BSO in 1998 d/t endometriosis MMG: UTD Colon: UTD C/o dysuria. Denies urinary frequency, urgency, flank pain, and fever. Hx of IC- requests referral to urology. Uses vaginal valium prn for pain w/ intercourse and pain associated w/ IC- requests RF today. Doing well on HRT. Symptoms well controlled. Requests RF today. Denies hx of DVT/PE, uncontrolled HTN, migraines w/ aura, liver disease, and smoking. Review of Systems Constitutional: Negative. HENT: Negative. Eyes: Negative. Respiratory: Negative. Cardiovascular: Negative. Gastrointestinal: Negative. Endocrine: Negative. Genitourinary: Positive for dysuria and vaginal pain. Negative for frequency, urgency and vaginal discharge. Musculoskeletal: Negative. Skin: Negative. Allergic/Immunologic: Negative. Neurological: Negative. Hematological: Negative. Psychiatric/Behavioral: Negative. Objective Visit Vitals BP 138/84 Pulse 82 Temp 36.6 ??C (97.8 ??F) Body mass index is 28.34 kg/m??. Physical Exam Constitutional: Appearance: Normal appearance. Genitourinary: Vulva, bladder, rectum and urethral meatus normal. Right Labia: No rash, tenderness, lesions or skin changes. Left Labia: No tenderness, lesions, skin changes or rash. No vaginal discharge, tenderness or bleeding. Right Adnexa: not tender and no mass present. Left Adnexa: not tender and no mass present. Cervix is absent. Uterus is absent. Breasts: Right: Normal. Left: Normal. HENT: Head: Normocephalic and atraumatic. Right Ear: External ear normal. Left Ear: External ear normal. Nose: Nose normal. Cardiovascular: Rate and Rhythm: Normal rate. Pulmonary: Effort: Pulmonary effort is normal. Abdominal: General: Abdomen is flat. Palpations: Abdomen is soft. Musculoskeletal: General: Normal range of motion. Cervical back: Normal range of motion. Neurological: General: No focal deficit present. Mental Status: She is alert and oriented to person, place, and time. Skin: General: Skin is warm and dry. Psychiatric: Mood and Affect: Mood normal. Behavior: Behavior normal. Thought Content: Thought content normal. Judgment: Judgment normal. Vitals and nursing note reviewed. Exam conducted with a crane hoist or lift operator present. Assessment Assessment & Plan Encounter for gynecological examination without abnormal finding Urinary pain Orders: ??? POCT Urinalysis Dipstick ??? Urine Culture; Future Interstitial cystitis Orders: ??? Ambulatory referral to Urology; Future Dyspareunia in female Hormone replacement therapy (HRT) Orders: ??? estradiol (Vivelle-DOT) 0.1 MG/24HR; Place 1 patch on the skin 2 times a week. - Pap deferred. - MMG and colonoscopy UTD - HRT RF x1 year. ACHES. - UA WNL, culture sent for confirmation. Referral to Urology for further evaluation and management. - Reviewed health maintenance including diet, regular exercise, dietary supplementation and periodic exams. - Answered all patient questions. Agreeable to plan of care - RTC prn or annually. documented in this encounter Plan of Treatment Upcoming Encounters Date Type Department Care Team (Late st Contact Info) Description 07/05/2025 1:30 PM EST Appointment [facility] [address] [place] [address] 07/05/2025 2:30 PM EST Office Visit [facility] [address] [facility] [place] [address] Jeannie Riddle, SAJAN [address] [facility] [address] [place] [address] Scheduled Referrals Name Type Priority Associated Diagnoses Order Schedule Ambulatory referral to Urology Outpatient Referral Routine Interstitial cystitis Expected: 03/17/2025 (Approximate), Expires: 09/18/2026 documented as of this encounter Procedures Procedure Name Priority Date/Time Associated Diagnosis Comments URINE CULTURE Routine 03/15/2025 3:39 PM EDT Urinary pain POCT URINALYSIS DIPSTICK Routine 03/15/2025 3:23 PM EDT Urinary pain documented in this encounter Results * Urine Culture (03/15/2025 3:39 PM EDT) Culture <10,000 CFU/mL Mixed urogenital, fecal, or skin ny present. 03/17/2025 8:11 AM EDT [facility] Urine Urine specimen obtained by clean catch procedure / Unknown Non-blood Collection / Unknown 03/15/2025 3:39 PM EDT 03/15/2025 7:07 PM EDT us Shaneka Joshi APRN LAB MICROBIOLOGY - GENERAL ORDERABLES Final Result [facility] [address] [place] [address] * POCT Urinalysis Dipstick (03/15/2025 3:23 PM EDT) POCT Urine Color Yellow POCT Urine Clarity Clear POCT Glucose Urine Negative Negative mg/dL POCT Bilirubin, Urine Negative Negative POCT Ketones, Urine Negative Negative mg/dL POCT Specific [place], Urine 1.010 POCT Blood, Urine Negative Negative POCT pH, Urine 7.0 5.0 to 8.0 POCT Protein, Urine Negative Negative mg/dL POCT Urobilinogen, Urine 0.2 0.2, 1 E.U./dL POCT Nitrite, Urine Negative Negative POCT Leukocyte Esterase, Urine Negative Negative Test Strip Lot Number [id number] Test Strip Lot Expiration 05/23 Urine Urine specimen obtained by clean catch procedure / Unknown 03/15/2025 3:23 PM EDT Shaneka Joshi APRN POINT OF CARE TEST ENTER/ED IT ORDERABLES Final Result documented in this encounter Visit Diagnoses Diagnosis Urinary pain- Primary Renal colic Encounter for gynecological examination without abnormal finding Interstitial cystitis Chronic interstitial cystitis Dyspareunia in female Hormone replacement therapy (HRT) documented in this encounter Additional Health Concerns Assessment Noted Time A fall risk assessment has been complete d for the patient 03/15/2025 3:14 PM EDT A Body Mass Index follow-up plan has been documented for the patient 03/17/2025 2:31 PM EDT documented as of this encounter Care Teams Ham Sawyer Relationship Specialty Start Date End Date Zana Carty MD [address] [place] [address] PCP - General 11/09/20 documented as of this encounter
--- OUTSIDE RECORDS SUMMARY | 2025-05-01 11:00 | XMS_ITS ---
Author Organization [facility] Address [address] [facility] [address] [place] [id number] Care Team Providers Care Bark Scaler Name Role Phone John Paul Hampton Primary Care Provider Marlys Pearl [phone] Allergies Allergen (clinical drug ingredient) Drug/Non Drug Allergy documented on EMR Reaction Allergy Type Onset Date Status Penicillin Rash Drug Allergy Active Results Component Value Reference Range Notes Urinalysis - Inhouse Reviewed date:05/02/2025 07:10:57 PM Interpretation: Performing Lab: Notes/Report: Color/Clarity yellow Leuk neg Nitrite neg Urobili 3.2 Protein neg pH 7.0 Blood neg Sp. Gr. 1.010 Ketone neg Bili neg Gluc neg P-Culture, Urine Reviewed date:05/08/2025 01:35:42 PM Interpretation:no growth Performing Lab: Notes/Report: Test performed by [facility] [address] [place] [address] , [place] [address] Jeffrey Schwab MD, Applied Statistician CLIA: [id number] Specimen Source Urine - Void Culture, Urine See Below Final Report : No growth REASON FOR VISIT poss UTI or kidney stone Medications Medication SIG (Take, Route, Frequency, Duration) Notes Start Date End Date Status Ondansetron 4 MG 1 tablet on the tongue and allow to dissolve Orally every 8 hours As needed 05/01/2025 Active Lisinopril 40 MG 1 tablet Orally Once a day; Duration: 90 days Active Escitalopram Oxalate 20 mg 1 tablet Oral ly Once a day; Duration: 90 days Active Benzonatate 200 MG 1 capsule as needed Orally 3 times a day As needed 05/01/2025 Active Ondansetron 4 MG 1 tablet on the tong ue and allow to dissolve Orally 3 times a day, prn 12/09/2024 Active Albuterol Sulfate HFA 108 (90 Base) MCG/ACT 1 puff Inhalation every 4 hrs, prn 03/02/2024 Active HYDROcodone-Acetaminophen 10-325 MG 1 tab(s) Orally qid Active Methocarbamol 500 MG TAKE 1 TABLET BY [facility] THREE TIMES DAILY NEEDED; Duration: 10 Active Pyridium 200 MG 1 tablet after meals Orally Three times a day, prn 12/09/2024 Not-Taking Lisinopril 20 MG 1 tab(s) Orally once a day Active Sulfamethoxazole-Trimethop rim 800-160 MG 1 tablet Orally Twice a day; Duration: 7 days 05/01/2025 Active Albuterol Sulfate HFA 108 (90 Base) MCG/ACT 2 puff(s) inhaled every 8 hours and q2h prn 06/30/2022 Active Pyridium 200 MG 1 tablet after meals Orally 3 times a day As needed 05/01/2025 Active BENZONATATE 200 mg 1 cap(s) orally 3 times a day prn; Duration: 10 day(s) 05/06/2022 Active Estradiol 0.1 MG/24HR 1 PATCH applied topically 2 times a week Active Nucynta ER 100 MG 1 tab(s) orally 2 times a day; Duration: 30 day(s) Active Problems Problem Type SNOMED Code ICD Code Onset Dates Problem Status W/U Status Risk Notes Problem Chronic cystitis (33666810) Other chronic cystitis without hematuria (N30.20) Active confirmed Vital Signs Weight 164 lbs 05/01/2025 Blood pressure systolic 130 mm Hg 05/01/20 25 Blood pressure diastolic 80 mm Hg 025 Heart Rate 73 /min 05/01/2025 Height 65 in 05/01/2025 BMI 27.29 kg/m2 05/01/2025 Encounters Encounter Location Date Provider Diagnosis [facility] [address] [facility] [address] [place], [place] [id number] 05/01/2025 Marlys Pearl Acute cough R05.1 ; Bladder pain R39.89 ; Nausea 787.02 and Other chronic cystitis without hematuria N30.20 Assessments Encounter Date Diagnosis (ICD Code) Assessment Notes Treatment Notes Treatment Clinical Notes Section Notes 05/01/2025 Acute cough (ICD-10 - R05.1) 05/01/2025 Bladder pain (ICD-10 - R39.89) good water intake; encouraged to pursue urology appt for her chronic cystitis 05/01/2025 Nausea (ICD-10 - 787.02) 05/01/2025 Other chronic cystitis without hematuria (ICD-10 - N30.20) Plan Of Treatment Medication Medication Name Sig Start Date Stop Date Notes Ondansetron 4 MG 1 tablet on the tong ue and allow to dissolve Orally every 8 hours 05/01/2025 Benzonatate 200 MG 1 capsule as needed Orally 3 times a day 05/01/2025 Sulfamethoxazole-Trimethopri m 800-160 MG 1 tablet Orally Twice a day; Duration: 7 days 05/01/2025 Pyridium 200 MG 1 tablet after meals Orally 3 times a day 05/01/2025 Treatment Notes Assessment Notes Bladder pain good water intake; e ncouraged to pursue urology appt for her chronic cystitis Next Appt Details Follow Up: prn, Reason: Progress Notes * SONYA HESSDOB:1970 ( 54 yo F)Acc No.[id number]:05/01/2025 Progress Notes Patient: SONYA KELLER Provider: ELZA Lewis :1970 A ge:54 Y S ex:Female Date:05/01/2025 Address:[facility] [place] , [place], [id number] Pcp:John Paul Hampton Subjective: * Chief Complaints: * 1 . poss UTI or kidney stone. * HPI: U rology: Pt states these symptoms started Thursday and not getting no better; she has been most uncomfortable. 54 year old female presents with c/o burning sensation b efore urination, during urination, after urination. c/o flank pain b ilateral. c/o suprapubic pain. c/o Pressure. Denies : frequent urination. D enies : hematuria. D enies : fever. D enies : Urine Odor. D enies : Vaginal Itching. * ROS: D ERMATOLOGY: no R kisha. [...] Endoscopy 07/2006, ERCP 07/2007, Breast Augmentation 10/2009, [place] Teeth Extractions 08/2010, Cononoscopy, Banded Hemrrhiods 01/17/2011, Spinal Cord Stimulator 04/2011, Urethra Exploratory 04/16/2012, Cysto w/ Botox 09/16/2012, Bladder Expansion 02/2014, Nerve block 08/2015, Nerve Block 08/2017. * Hospitalization/Major Diagno stic Procedure: R t Arm Injury, Fall- [facility] ER 11/28/2007, Dizziness- [facility] 12/2016, [facility]rep- [facility] 05/2017. * Family History: F ather: [...] MOUTH THREE TIMES DAILY NEEDED , Taking Ondansetron 4 MG Tablet Disintegrating 1 tablet on the tongue and allow to dissolve Orally 3 times a day, prn , Taking Lisinopril 40 MG Tablet 1 tablet Orally Once a day , Taking Escitalopram Oxalate 20 mg Tablet 1 tablet Orally Once a day , Not-Taking Pyridium 200 MG Tablet 1 tablet after meals Orally Three times a day, prn , Discontinued Doxycycline Hyclate 100 MG Capsule 1 capsule Orally twice a day , Medication List reviewed and reconciled with the patient * Allergies: P enicillin: Rash. Objective: * Vitals: W t: 164, Temp: 98.0, BP: 130/80, HR: 73, Nurse: ronnie, Ht: 65, BMI:27.29. * Examination: G eneral Examination: General Appearance: N AD, appears healthy, alert, pleasant, well nourished and hydrated. H eart: R RR. L ungs: C TAB A&P. A bdomen:?bowel sounds present; generally mildly tender, no CVA tenderness. N eurologic Exam: a lert and oriented. Assessment: * Assessment: 1. A cute cough - R05.1 (Primary) 2 . B ladder pain - R39.89 ?3. N ausea - 787.02 4 . O ther chronic cystitis without hematuria - N30.20 Plan: * Treatment: 2. B ladder pain Start Sulfamethoxazole-Trimethoprim Tablet, 800-160 MG, 1 tablet, Orally, Twice a day, 7 days, 14 Tablet; S tart Pyridium Tablet, 200 MG, 1 tablet after meals, Orally, 3 times a day As needed, 30, Refills 1. L AB: P-Culture, Urine (Collection Date & Time - 05/01/2025 03:24 PM) n o growth Value Reference Range C ulture, Urine See Below - * S pecimen Source Urine - Void - * Marlys Pearl 5 01:35:42 PM EST > ?LAB: Urinalysis - Inhouse (Collection Date & Time - 05/01/2025)* Value Reference Range C olor/Clarity yellow * L euk neg * N itrite neg * U robili 3.2 * P rotein neg * p H 7.0 * B lood neg * S p. Gr. 1.010 * K etone neg * B apurva neg * G angel neg * Anamaria Pollock 05/01/2025 0 4:22:43 PM EST > Provider reviewed results while patient in office.Marlys Pearl 05/02/2025 07:10:54 PM EST > Notes: good water intake; encouraged to pursue [facility]rology appt for her chronic cystitis??3.?Nausea? Start Ondansetron Tablet Disintegrating, 4 MG, 1 tablet on the tongue and allow to dissolve, Orally, every 8 hours As needed, 20, Refills 1.?? * Procedure Codes: 8 1002 Urinalysis, no micro * Follow Up: p rn * Images: Billing Information: * Visit Code: 81361 Office Visit, Est Pt., Level 3. * Procedure Codes: 12016 Urinalysis, no micro. * Electronic signature of Chasity Pearl APRN on 05/11/2025 at 07:31 AM EST Sign off status: Pending * Provider: ELZA Lewis Date: 07/01/2024 Generated for Summer correa/Esther/Deniz on: 07/11/2024 07:31 AM EST History and Physical Notes * HPI (History of Present Illness) Category Sub-Category Detail Notes Category Not es Urology frequent urination burning sensation before urination, du ring urination, after urination flank pain bilateral suprapubic pain hematuria fever Urine Odor Vaginal Itching Pressure Examination Category Sub-Category Detail Notes Category Not es General Examination Heart: RRR Lungs: CTAB A&P Abdomen: bowel sounds present ; generally mildly tender, no CVA tenderness General Appearance: NAD, appears healthy , alert, pleasant, well nourished and hydrated Neurologic Exam: alert and oriented
--- OUTSIDE RECORDS SUMMARY | 2025-05-04 10:45 | XMS_ITS ---
Author Organization [facility] Address [address] [facility] [address] [place] [id number] Care Team Providers Care Category Planner Name Role Phone Paolo Hamptonian Primary Care Provider Mehrdad Carty [phone] Allergies Allergen (clinical drug ingredient) Drug/Non Drug Allergy documented on EMR Reaction Allergy Type Onset Date Status Penicillin Rash Drug Allergy Active Results Component Value Reference Range Notes Urinalysis - Inhouse Reviewed date:05/05/2025 03:56:48 PM Interpretation: Performing Lab: Notes/Report: Color/Clarity yellow Leuk neg Nitrite neg Urobili 3.2 Protein neg pH 6.5 Blood neg Sp. Gr. <1.005 Ketone neg Bili neg Gluc neg REASON FOR VISIT poss kidney stone Medications Medication SIG (Take, Route, Frequency, Duration) Notes Start Date End Date Status Ondansetron 4 MG 1 tablet on the tongue and allow to dissolve Orally every 8 hours As needed 05/01/2025 Active Pyridium 200 MG 1 tablet after meals Orally 3 times a day As needed 05/01/2025 Active Sulfamethoxazole-Trimethopri m 800-160 MG 1 tablet Orally Twice a day; Duration: 7 days 05/01/2025 Active Benzonatate 200 MG 1 capsule as needed Orally 3 times a day As needed 05/01/2025 Active Escitalopram Oxalate 20 mg 1 tablet Oral ly Once a day; Duration: 90 days Active Lisinopril 40 MG 1 tablet Orally Once a day; Duration: 90 days Active HYDROcodone-Acetaminophen 10-325 MG 1 tab(s) Orally qid Active Ondansetron 4 MG 1 tablet on the tong ue and allow to dissolve Orally 3 times a day, prn 12/09/2024 Active Methocarbamol 500 MG TAKE 1 TABLET BY [facility] THREE TIMES DAILY NEEDED; Duration: 10 Active Albuterol Sulfate HFA 108 (90 Base) MCG/ACT 1 puff Inhalation every 4 hrs, prn 03/02/2024 Active Lisinopril 20 MG 1 tab(s) Orally once a day Active Nucynta ER 100 MG 1 tab(s) orally 2 ti mes a day; Duration: 30 day(s) Active BENZONATATE 200 mg 1 cap(s) orally 3 ti mes a day prn; Duration: 10 day(s) 05/06/2022 Active Albuterol Sulfate HFA 108 (90 Base) MCG/ACT 2 puff(s) inhaled every 8 hours and q2h prn 06/30/2022 Active Estradiol 0.1 MG/24HR 1 PATCH applied topically 2 times a week Active Problems Problem Type SNOMED Code ICD Code Onset Dates Problem Status W/U Status Risk Notes Problem Chronic interstitial cystitis (272446278) Interstitial cystitis (chronic) with hematuria (N30.11) Active confirmed Vital Signs Weight 165 lbs 05/04/2025 Blood pressure systolic 124 mm Hg 05/04/20 25 Blood pressure diastolic 78 mm Hg 025 Heart Rate 81 /min 05/04/2025 Height 65 in 05/04/2025 BMI 27.45 kg/m2 05/04/2025 Encounters Encounter Location Date Provider [facility] [address] [facility] [address] [facility] [address] [place] [phone] 05/04/2025 R Helder Carty Gross hematuria R31. 0 and Interstitial cystitis (chronic) with hematuria N30.11 Assessments Encounter Date Diagnosis (ICD Code) Assessment Notes Treatment Notes Treatment Clinical Notes Section Notes 05/04/2025 Gross hematuria (ICD-10 - R31.0) 05/04/2025 Interstitial cystitis (chronic) with hematuria (ICD-10 - N30.11) Plan Of Treatment Pending Test Test Name Order Date CT Scan : Abd and Pelvis, stone protocol 05/04/2025 Next Appt Details Follow Up: prn, Reason: Progress Notes * DAV HESS:1970 ( 54 yo F)Acc No.[id number]:05/04/2025 Progress Notes Patient: SONYA KELLER Provider: Mehrdad Carty M.D. :1970 A ge:54 Y S ex:Female Date:05/04/2025 Address:[facility] [place], [id number] Pcp:John Paul Hampton Subjective: * Chief Complaints: * 1 . Poss kidney stone. * HPI: U rology: She returns with no improvement in her symptoms and in fact had an episode of gross hematuria yesterday x 1. No fever. 54 year old female presents with c/o burning sensation a fter urination, during urination, before urination. c/o flank pain b ilateral. c/o Pressure. Denies : frequent urination. D enies : Urine Odor. D enies : Vaginal Itching. She is scheduled to see Dr. Krishna on Thursday. * ROS: D ERMATOLOGY: no R kisha. [...] Endoscopy 07/2006, ERCP 07/2007, Breast Augmentation 10/2009, [place] Teeth Extractions 08/2010, Cononoscopy, Banded Hemrrhiods 01/17/2011, Spinal Cord Stimulator 04/2011, Urethra Exploratory 04/16/2012, Cysto w/ Botox 09/16/2012, Bladder Expansion 02/2014, Nerve block 08/2015, Nerve Block 08/2017. * Hospitalization/Major Diagno stic Procedure: R t Arm Injury, Fall- [facility] ER 11/28/2007, Dizziness- [facility] 12/2016, Strep- [...] tablet Orally Once a day , Taking Benzonatate 200 MG Capsule 1 capsule as needed Orally 3 times a day As needed, Taking Sulfamethoxazole-Trimethoprim 800-160 MG Tablet 1 tablet Orally Twice a day , Taking Pyridium 200 MG Tablet 1 tablet after meals Orally 3 times a day As needed, Taking Ondansetron 4 MG Tablet Disintegrating 1 tablet on the tongue and allow to dissolve Orally every 8 hours As needed, Discontinued Pyridium 200 MG Tablet 1 tablet after meals Orally Three times a day, prn , Medication List reviewed and reconciled with the patient * Allergies: P enicillin: Rash. Objective: * Vitals: W t: 165, Temp: 97.7, BP: 124/78, HR: 81, Nurse: ronnie, Ht: 65, BMI:27.45. * Examination: G eneral Examination: General Appearance: A ppears mildly uncomfortable. A bdomen: M ild suprapubic tenderness. No rebound. No CVA tenderness. ? Assessment: * Assessment: 1. G ross hematuria - R31.0 (Primary) 2 . I nterstitial cystitis (chronic) with hematuria - N30.11 Plan: * Treatment: * Labs: * L ab: Urinalysis - Inhouse (Collection Date & Time - 05/04/2025) Value Reference Range C olor/Clarity yellow * L euk neg * N itrite neg * U robili 3.2 * P rotein neg * p H 6.5 * B lood neg * S p. Gr. <1.005 * K etone neg * B apurva neg * G angel neg * Anamaria Pollock 05/04/2025 0 3:50:22 PM EST > Provider reviewed results while patient in office. * Procedure Codes: 8 1002 Urinalysis, no micro * Follow Up: p rn * Images: Billing Information: * Visit Code: 08245 Office Visit, Est Pt., Level 3. * Procedure Codes: 84890 Urinalysis, no micro. * Electronic signature of Mehrdad Carty MD on 05/11/2025 at 07:31 AM EST Sign off status: Pending * Provider: Mehrdad Carty M.D. Date: 07/04/2024 Generated for Summer correa/Esther/eTmichaelasmitting on: 07/11/2024 07:31 AM EST History and Physical Notes * HPI (History of Present Illness) Category Sub-Category Detail Notes Category Not es Urology frequent urination She is sc heduled to see Dr. Krishna on Thursday burning sensation after urination, dur ing urination, before urination flank pain bilateral Urine Odor Vaginal Itching Pressure Examination Category Sub-Category Detail Notes Category Not es General Examination Abdomen: Mild suprapu bic tenderness. No rebound. No CVA tenderness General Appearance: Appears mildly uncom fortable
--- OUTSIDE RECORDS SUMMARY | 2025-05-11 07:30 | XMS_ITS | Encounter Summary ---
Author Organization [facility] Address [address] [place] [address] Care Team Providers Care Curb And Gutter Laborer Name Role Phone Zana Carty MD Primary Care Provider +1- [phone] Reason for Visit * Reason Comments Med Refill Encounter Details Date Type Department Care Team ([facility] st Contact Info) Description 10/09/2021 Refill [place] ICE SCRAPER [address] [place] [address] Lauren Morales S, ENTRY LEVEL AUTOMOTIVE TECHNICIAN [address] [facility] [address] [place] [address] Social History Tobacco Use Types [...] 1:30 PM EST Appointment [facility] [place] [facility] [place] [address] Zahra Qureshi [facility] [address] [place] [address] 07/05/2025 2:30 PM EST Office Visit [facility] Breast [facility] [address] [facility], [address]nd [place] [address] Jeannie Riddle, ENTRY LEVEL AUTOMOTIVE TECHNICIAN [address] [facility] [address] [place] [address] documented as of this encounter Visit Diagnoses Not on filedocumented in this encounter Care Teams Curb And Gutter Laborer Relationship Specialty Start Date End Date Zana Carty MD [address] [place] [address] PCP - General 11/09/20 documented as of this encounter
--- OUTSIDE RECORDS SUMMARY | 2025-05-11 07:31 | XMS_ITS | Encounter Summary ---
Author Organization Healthcare Address [address] [place] [address] Care Team Providers Care Fieldwork Coordinator Name Role Phone Zana Carty MD Primary Care Provider [phone]- [phone] Reason for Visit * Reason Comments Med Refill Encounter Details Date Type Department Care Team (Late st Contact Info) Description 01/31/2023 Refill Obstetrics & Gynecology [address] [place] [address] Adeola Jerez, HAIRSPRING FABRICATION SUPERVISOR, [facility] [address] [place] [address] On hormone replacement therapy Social History Tobacco [...] [facility] [place] [address] Zahra Greerrickson [facility] [address] [place] [address] 07/05/2025 2:30 PM EST Office Visit [facility] [address] [facility], 2nd [place] [address] Jeannie Riddle, HAIRSPRING FABRICATION SUPERVISOR [address] [facility] Zahra Qureshi [facility] [place] [address] [place] [address] documented as of this encounter Visit Diagnoses Diagnosis On hormone replacement therapy documented in this encounter Care Teams Fieldwork Coordinator Relationship Specialty Start Date End Date Zana Carty MD [address] [place] [address] [place] [address] PCP - General 11/09/20 documented as of this encounter
--- OUTSIDE RECORDS SUMMARY | 2025-05-11 07:31 | XMS_ITS | Patient Health Record ---
Author Organization [facility] Address [address] [facility] [address] [place] [id number] Care Team Providers Care Ecologist Name Role Phone John Paul [place] Primary Care Provider Mehrdad Carty Unavailable [phone] Marlys Pearl Unavailable [phone] Lise English Unavailable [phone] Allergies Allergen (clinical drug ingredient) Drug/Non Drug Allergy documented on EMR Reaction Allergy Type Onset Date Status Penicillin Rash Drug Allergy Active Results Component Value Reference Range Notes TEN-UTI panel Reviewed date:12/13/2024 02:23:42 PM Interpretation:Negative Performing Lab: Notes/Report: Negative H-Transferrin Reviewed date:08/03/2024 02:57:45 PM Interpretation: Performing Lab: Notes/Report: TRANS 286 192-364 mg/dL Performed at: [address] [id number] Application Systems Engineer: Fernando Palencia PhD, Phone: [phone] H-Ferritin Reviewed date:07/29/2024 10:03:35 AM Interpretation: Performing Lab: Notes/Report: KAYODE 35.2 11.1-264 ng/ml Urinalysis - Inhouse Reviewed date:12/11/2024 11:22:55 PM Interpretation: Performing Lab: Notes/Report: Color/Clarity yellow Leuk neg Nitrite neg Urobili 3.2 Protein neg pH 6.5 Blood neg Sp. Gr. 1.005 Ketone neg Bili neg Gluc neg Urinalysis - Inhouse Reviewed date:05/05/2025 03:56:48 PM Interpretation: Performing Lab: Notes/Report: Color/Clarity yellow Leuk neg Nitrite neg Urobili 3.2 Protein neg pH 6.5 Blood neg Sp. Gr. <1.005 Ketone neg Bili neg Gluc neg EKG with rhythm strip Reviewed date:08/03/2024 12:36:15 PM Interpretation: Performing Lab: Notes/Report: H-Cardiac Enzymes Reviewed date:07/29/2024 10:03:52 AM Interpretation: [...] Biotin is occasionally prescribed for medical conditions. Urinalysis - Inhouse Reviewed date:02/28/2025 09:54:27 PM Interpretation: Performing Lab: Notes/Report: Color/Clarity yellow Leuk neg Nitrite neg Urobili 3.2 Protein neg pH 6.0 Blood neg Sp. Gr. <=1.005 Ketone neg Bili neg Gluc neg Urinalysis - Inhouse Reviewed date:05/02/2025 07:10:57 PM Interpretation: Performing Lab: Notes/Report: Color/Clarity yellow Leuk neg Nitrite neg Urobili 3.2 Protein neg pH 7.0 Blood neg Sp. Gr. 1.010 Ketone neg Bili neg Gluc neg P-Culture, Urine Reviewed date:05/08/2025 01:35:42 PM Interpretation:no growth Performing Lab: Notes/Report: CLIA: [id number] Jeffrey Schwab MD, [facility] [address] [place] [address] , [address], [place] [address] Test performed by [employer], [employer] Specimen Source Urine - Void Culture, Urine See Below Final Report : No growth Medications Medication SIG (Take, Route, Frequency, Duration) [...] Once a day; Duration: 90 days Active Sulfamethoxazole-Trimethopri m 800-160 MG 1 tablet Orally Twice a day; Duration: 7 days 05/01/2025 Active Estradiol 0.1 MG/24HR 1 PATCH applied topically 2 times a week Active Benzonatate 200 MG 1 capsule as needed Orally 3 times a day As needed 05/01/2025 Active HYDROcodone-Acetaminophen 10-325 MG 1 tab(s) Orally qid Active Albuterol Sulfate HFA 108 (90 Base) MCG/ACT 1 puff Inhalation every 4 hrs, prn 03/02/2024 Active Ondansetron 4 MG 1 tablet on the tong ue and allow to dissolve Orally 3 times a day, prn 12/09/2024 Active Methocarbamol 500 MG TAKE 1 TABLET BY [facility] THREE TIMES DAILY NEEDED; Duration: 10 Active Lisinopril 20 MG 1 tab(s) Orally once a day Active Nucynta ER 100 MG 1 tab(s) orally 2 ti mes a day; Duration: 30 day(s) Active BENZONATATE 200 mg 1 cap(s) orally 3 ti mes a day prn; Duration: 10 day(s) 05/06/2022 Active Albuterol Sulfate HFA 108 (90 Base) MCG/ACT 2 puff(s) inhaled every 8 hours and q2h prn 06/30/2022 Active Immunizations Vaccine Route Administration Date Status Comme nts COVID 19 Aliya Unknown 10/03/2020 Administered Problems Problem Type SNOMED Code ICD Code Onset Dates Problem Status W/U Status Risk Notes Problem Hypertension (54182305) HTN (hypertension) (I10) Active confirmed Problem Essential hypertension (11052762) Essential hypertension (I10) Active confirmed Problem Otitis externa (4098615) Otitis externa (H60.90) Active confirmed Problem Sciatic nerve lesion (897647995) Piriformis syndrome of right side (G57.01) Active confirmed Problem Sciatica (08063341) Lumbago with sciatica, right side (M54.41) Active confirmed Problem Generalized anxiety disorder (43306264) Generalized anxiety disorder (F41.1) Active confirmed Problem Sciatica (99884961) Lumbago with sciatica, left side (M54.42) Active confirmed Problem Chronic interstitial cystitis (323482412) Interstitial cystitis (chronic) with hematuria (N30.11) Active confirmed Problem Chronic cystitis (63030201) Other chronic cystitis without hematuria (N30.20) Active confirmed Problem Gastroesophageal reflux disease (318148878) Gastroesophageal reflux disease, esophagitis presence not specified (K21.9) Active confirmed Problem Peptic ulcer disease (60530639) Peptic ulcer disease (K27.9) Active confirmed Problem Allergic rhinitis (67228407) Allergic rhinitis, unspecified allergic rhinitis trigger, unspecified rhinitis seasonality (J30.9) Active confirmed Problem Pure hypercholesterolemia (140921664) Pure hypercholesterolemia (E78.00) Active confirmed Problem Tobacco use (666674702) Tobacco use disorder (F17.200) Active confirmed Problem Peptic ulcer disease (92536399) PUD (peptic ulcer disease) (K27.9) Active confirmed Problem Gastroesophageal reflux disease (400479475) Gastroesophageal reflux disease, unspecified whether esophagitis present (K21.9) Active confirmed Vital Signs Heart Rate 81 /min 05/04/2025 Blood pressure diastolic 78 mm Hg 05/04/2025 Height 65 in 05/04/2025 Blood pressure systolic 124 mm Hg 05/04/2025 Weight 165 lbs 05/04/2025 BMI 27.45 kg/m2 05/04/2025 Encounters Encounter Location Date Provider Diagnosis [facility] [address] [facility] [address] [place] [id number] 07/28/2024 Lise English Essential hypertensi on I10 ; FHx: hemochromatosis Z83.49 and Chest pain, unspecified type R07.9 [facility] [address] [facility] [address] [place] [id number] 09/05/2024 Marlys Pearl Hip pain, right M25. 551 ; Acne L70.9 and HTN (hypertension) I10 [facility] [address] [place], [place] [id number] 12/09/2024 Lise English Dysuria R30.0 [facility] [address] [facility] [address] [facility] [address] [place] [id number] 02/28/2025 R Helder Carty Dysuria R30.0 [facility] [address] [facility] [address] [facility] [address] [place] [id number] 05/01/2025 Marlys Pearl Acute cough R05.1 ; Bladder pain R39.89 ; Nausea 787.02 and Other chronic cystitis without hematuria N30.20 [facility] [address] [facility] 36 [facility] [address] [place], [place] [id number] 05/04/2025 R Helder [place]ight[place] Gross hematuria R31. 0 and Interstitial cystitis (chronic) with hematuria N30.11 [facility] [address] [facility] [address] [place], [place] [id number] 09/28/2024 John Paul [place] [facility] [address] [facility] [address] [place], [place] [id number] 12/20/2024 John Paul [place] Assessments Encounter Date Diagnosis (ICD Code) Assessment Notes Treatment Notes Treatment Clinical Notes Section Notes 05/01/2025 Bladder pain (ICD-10 - R39.89) good water intake; encouraged to pursue [facility] appt for her chronic cystitis 05/01/2025 Acute cough (ICD-10 - R05.1) 05/04/2025 Interstitial cystitis (chronic) with hematuria (ICD-10 - N30.11) 05/04/2025 Gross hematuria (ICD-10 - R31.0) 07/28/2024 FHx: hemochromatosis (ICD-10 - Z83.49) 09/05/2024 Acne (ICD-10 - L70.9) face breaks out with any steriod RX 09/05/2024 Hip pain, right (ICD-10 - M25.551) heat/cold application prn; OTC anti inflammatory creams prn may need PT 12/09/2024 Dysuria (ICD-10 - R30.0) 02/28/2025 Dysuria (ICD-10 - R30.0) Symptoms are consistent with UTI although urinalysis is unremarkable. 07/28/2024 Essential hypertension (ICD-10 - I10) 07/28/2024 Chest pain, unspecified type (ICD-10 - R07.9) EKG and enzymes showed nothing acute. Will increase BP medication. May need outpatient stress test if chest pain continues. 05/01/2025 Nausea (ICD-10 - 787.02) 09/05/2024 HTN (hypertension) (ICD-10 - I10) has lab work done q 3months with pain management; have not reorts or access to; she states kidnety function has been good 05/01/2025 Other chronic cystitis without hematuria (ICD-10 - N30.20) Plan Of Treatment Pending Test Test Name Order Date CT Scan : Abd and Pelvis, stone protocol 05/04/2025 Insurance Providers Payer Name Payer Address Payer Phone Subscriber Number Group Number Insured Name Patient Relationship to Insured Coverage Start Date Coverage End Date [facility] [employer] [address] [place] [address] [phone] [id number] LEAHY Self - patient is the insured Medications Administered Medication Instructions Date of Administration Dosage Notes Depo- Medrol 40 mg/ml 05/11/2019 1.5 mL Depo- Medrol 40 mg/ml 09/05/2024 1 mL Dexamethasone 06/04/2021 1 mL Medical (General) History Medical History History ICD Code Abdominal Adhesions Chronic Abdominal Pain Anxiety Hypertriglyceridemia Allergic Rhinitis Hearing Loss Endometriosis Interstitial Cystitis Surgical History Surgery Date(Month/Year) Hysterectomy 1998 Cholecystectomy 1999 Adominal Adhesion Removal x 4 Endoscopy 07/2006 ERCP 07/2007 Breast Augmentation 10/2009 [place] Teeth Extractions 08/2010 Cononoscopy, Banded Hemrrhiods 1 Spinal Cord Stimulator 04/2011 Urethra Exploratory 04/16/2012 Cysto w/ Botox 09/16/2012 Bladder Expansion 02/2014 Nerve block 08/2015 Nerve Block 08/2017 Hospitalization History Reason Date(Month/Year) Strep- [facility] 05/2017 Dizziness- [facility] 12/2016 Rt Arm Injury, Fall- [facility] ER 11/28/2007
--- NOTE | 2025-05-11 07:32 | CT_ITS ---
FINAL REPORT TECHNIQUE: Noncontrast exam This study was performed with techniques to keep radiation doses as low as reasonably achievable, (ALARA). Individualized dose reduction techniques using automated exposure control or adjustment of mA and/or kV according to the patient''s size were employed. CLINICAL HISTORY: GROSS HEMATURIA COMPARISON: 08/02/2012 FINDINGS: Abdomen: Lung bases are clear. There is a hypodense mass in the central liver measuring 19 mm, previously measured 8 mm. This is probably a cyst. Patient is status postcholecystectomy. The spleen, pancreas and adrenal glands have a normal CT appearance in their limited unenhanced state. There is an enlarging soft tissue density mass in the anterior right kidney measuring 22 mm, previously measured 6 mm. There is an 11 mm hypodense mass of the lower pole left kidney. There is a 14 mm hypodense mass in the posterior left mid kidney. Both are new since prior exam. Right perinephric stranding is identified without hydronephrosis or obstructing change. Perinephric stranding can be seen with recent obstruction or infection. No ureteral stones are present. Pelvis: No distal ureteral stones are seen. Note is made of hysterectomy. Bladder is unremarkable. No fluid collection or adenopathy is seen. IMPRESSION: Right perinephric stranding which is new since prior which can be seen with recently passed stone or infection. No active obstruction identified. Bilateral renal lesions. Further investigation is recommended with CT or MR using renal mass protocol. Reviewed, Interpreted and Dictated by Keshia English MD Transcribed by Charley Sin Authenticated and [facility]
--- OUTSIDE RECORDS SUMMARY | 2025-05-11 07:32 | XMS_ITS | Clinical Summary ---
Author Organization [facility] Address [address] [place] [address] Care Team Providers Care Disk Operator Name Role Phone Zana Carty MD Primary Care Provider +1- [phone] Allergies Active Allergy Reactions Criticality Noted Date [...] HOURS IF NEEDED 3 Active HYDROcodone-miguel taminophen (Broad Top) 10-325 MG tablet TAKE 1 TABLET BY [...] Refill Obstetrics & Gynecology [address] [place] [address] Anastasia Winters MD 03/17/2025 Results Follow-Up Obstetrics & Gynecology [address] [place] [address] Shaneka Joshi APRN 03/15/2025 3:00 PM EDT Office Visit Obstetrics & Gynecology [address] [place] [address] Shaneka Joshi APRN Urinary pain (Primary Dx); Encounter for gynecological examination without abnormal finding; Interstitial cystitis; Dyspareunia in female; Hormone replacement therapy (HRT) 03/15/2025 Travel 03/08/2025 Orders Only Obstetrics & Gynecology [address] [place] [address] Anastasia Winters MD 03/08/2025 Telephone Obstetrics & Gynecology [address] [place] [address] Anastasia Winters MD 03/06/2025 Refill Obstetrics & Gynecology [address] [place] [address] Anastasia Winters MD from Last [...] [facility] [place] [address] Zahra Qureshi [facility] [address] [place] [address] 07/05/2025 2:30 PM EST Office Visit [facility] [address] [facility], 2nd [place] [address] Jeannie Riddle, FACILITIES PAINTER [address] [facility] Zahra Qureshi [facility] [address] [place] [address] Health Maintenance Due Date Last Done Comments [...] 2013 Sigmoidoscopy 2013 [facility]-Colorectal Cancer Screening 2013 [id number] Vaccine (2 - Aliya risk series) 10/31/2020 [...] this topic Medical Devices Implanted Type Area Computer Programming Manager Device Identifier Shelf Expiration Date Model / [...] skin ny present. 03/17/2025 8:11 AM EDT [facility] Urine Urine specimen obtained by clean catch procedure / Unknown Non-blood Collection / Unknown 03/15/2025 3:39 PM EDT 03/15/2025 7:07 PM EDT us Shaneka Joshi APRN LAB MICROBIOLOGY - GENERAL ORDERABLES Final Result [facility] [address] [place] [address] * POCT Urinalysis Dipstick (03/15/2025 3:23 PM EDT) POCT Urine Color Yellow POCT Urine Clarity Clear POCT Glucose Urine Negative Negative mg/dL POCT Bilirubin, Urine Negative Negative POCT Ketones, Urine Negative Negative mg/dL POCT Specific [place], Urine 1.010 POCT Blood, Urine Negative Negative POCT pH, Urine 7.0 5.0 to 8.0 POCT Protein, Urine Negative Negative mg/dL POCT Urobilinogen, Urine 0.2 0.2, 1 E.U./dL POCT Nitrite, Urine Negative Negative POCT Leukocyte Esterase, Urine Negative Negative Test Strip Lot Number [id number] Test Strip Lot Expiration 05/23 Urine Urine [...] to: 06/06/2019 Mammography Outside Images Upload at [facility] 04/23/2021 Mammography Outside Images Upload at [facility] 06/11/2022 Mammography Outside Images Upload at [facility] 03/25/2023 Mammography Breast Diagnostic Tomosynthesis Left at [facility] 12/14/2023 Mammography Breast Diagnostic Tomosynthesis Left at [facility] BREAST COMPOSITION: The breasts are heterogeneously dense, [...] 5.8(H) <5.7 % 03/14/2024 7:32 PM EDT [facility] Blood Venous blood specimen / Unknown Venipuncture / Unknown 03/14/2024 4:16 PM EDT 03/14/2024 6:15 PM EDT Narrative [facility] - 03/14/2024 7:32 PM EDT HA1C Interpretive Data: Diagnosis of Diabetes: Diabetic > or = 6.5% Pre-diabetic 5.7 to 6.4% Non-diabetic < or = 5.6% Glycemic Targets for Type I and Type II Diabetics: Non- Adults <7.0% Adults <6.0% Children and Adolescents <7.5% Source: [place] [employer]. Standards of medical care in diabetes,2017. Diabetes Care.2017:40 (suppl 1):S1-S135. HbA1c assay performed by an ion-exchange chromatography method that is certified traceable to the DCCT. us Anastasia Winters MD LAB BLOOD ORDERABLES Fin al Result [facility] [address] [place] [address] from Last 3 Months or Most Recently Relevant to Health Maintenance Insurance [address] [place] [id number] [facility] [place] [address] Care Teams Disk Operator Relationship Specialty Start Date End Date Zana Carty MD [address] [place] [address] [place] [address] PCP - General 11/09/20
--- OUTSIDE RECORDS SUMMARY | 2025-05-11 07:32 | XMS_ITS | Continuity of Care Document ---
Author Organization [facility] [address] [facility] Address [address] [place] [id number] Care Team Providers Care Processor Inspector Name Role Phone ALPA RIDLEY Primary Care Provider Assessment Encounter Date Assessment Date Assessment LastModified by Organization Details LastModified Time 05/09/2025 05/09/2025 Discussed options with Ms. Dempsey. It appears her MSContin is wearing off after about 8 hours. Because of this I have agreed to increasing her dose to TID (Q8hrs) with concomitant reduction in her hydrocodone to TID prn. No other change. Meds allow patient to remain active despite pain and without significant side effects. Able to complete ADLs and interact with friends and family. [email or web address] Not available 05/09/2025 09:46:22 Plan of Treatment Reminders Order Date Submit Date Provider Last Modified By Organization Details Last Modified Time Details Appointments Office Visit15 2024 08:45A Megan Neal DNP [employer] Not available Not available Not available Office Visit15 2025 11:30A Megan Neal DNP [employer] Not available Not available Not available OV Ext 30 2025 11:30A Megan Becerra MD Not available Not available Not available Lab None recorded. Referral None recorded. Procedures None recorded. Surgeries None recorded. Imaging None recorded. Medication Orders morphine ER 15 mg tablet,ex tended release [address] [facility]/Pharmacy #[id number], [address] [facility], [place], [address], 05/09/2025 09:49:07 hydrocodo ne 10 mg-acetam inophen 325 mg tablet [address] [facility]/Pharmacy #[id number], [address] [place], [address], 05/09/2025 09:49:08 Patient TargetsNo targets recorded. Patient InstructionsNo instructions recorded. Reason for Referral None Reported. Problems Name Problem SNOMED Code Status Onset Date Resolution Date Notes Provider Name and Address Organization Details Recorded Time Osteoporo sis 94085271 Active 2014 (733.00)O STEOPOROS IS NOS Not Available [facility] 22:02:43 Disorder of bone and articular cartilage 120278421 Active 2014 (733.90)B ONE & CARTILAGE DIS NOS Not Available [facility] 2 22:02:43 Malaise and fatigue 146863942 Active 2014 (780.79)M ALAISE AND FATIGUE NEC Not Available [facility] 2 22:02:43 Hyperhidr osis 116540738 Active 2014 (780.8)Ge neralized Hyperhidr osis Not Available [facility] 22:02:43 Reduced libido 7497898 Active 2014 (799.81)D ecreased Libido Not Available [facility] 2 22:02:44 Chronic interstit ial cystitis 916825240 Active 2014 (595.1)Ch ronic Interstit ial Cystitis Not Available [facility] 2 22:02:43 Functiona l disorder of urinary bladder 035589518 Active 2014 (596.59)O ther Bladder Dysfuncti on Not Available [facility] 2 22:02:43 Depressio n screening Active 2014 (V79.0)Sp ecial Screening Examinati on for Depressio n Not Available [facility] 2 22:02:45 Abdominal pain 87420478 Active 2014 (789.00)A bdominal Pain Site Not Otherwise Specified Not Available [facility] 2 22:02:43 Pelvic and perineal pain 662232333 Active 2014 (R10.2)Pe lvic and perineal pain Not Available [facility] 2 22:02:45 Long-term current use of opiate analgesic drug 72728398852 4108 Active 2014 (Z79.891) manager bench (current) use of opiate analgesic Not Available [facility] 2 22:02:45 Trigemina l neuralgia 86003022 Active 2015 (G50.0)Tr igeminal neuralgia Not Available [facility] 2 22:02:44 Screening for osteoporo sis Active 2015 (V82.81)S pecial Screening Examinati on for Osteoporo sis Not Available [facility] 2 22:02:45 Cervical spondylos is without myelopath y 946934049 Active 2016 (M47.812) Spondylos is without myelopath y or radiculop athy, cervical region Not Available [facility] 2 22:02:44 Cervicocr anial syndrome 86193786 Active 2016 (M53.0)Ce rvicocran ial syndrome Not Available [facility] 2 22:02:44 Cervical radiculop athy 90031271 Active 2016 (M54.12)R adiculopa thy, cervical region Not Available [facility] 2 22:02:44 Cervical spondylos is with radiculop athy Active 2016 (M47.22)O ther spondylos is with radiculop athy, cervical region Not Available [facility] 2 22:02:44 Headache 58491652 Active 2016 (R51)Head ache Not Available [facility] 2 22:02:45 Screening for disorder Active 2016 (Z13.89)E ncounter for screening for other disorder Not Available [facility] 2 22:02:45 Generaliz ed anxiety disorder 76852428 Active 2018 (F41.1)Ge neralized anxiety disorder Not Available [facility] 2 22:02:44 Tobacco dependenc e caused by cigarette s 83037689480 850166 Active 2018 (F17.210) Nicotine dependenc e, cigarette s, uncomplic ated Not Available [facility] 2 22:02:44 Migraine 98463716 Active 2019 (G43.909) Migraine, unspecifi ed, not intractab le, without status migrainos us Not Available [facility] 2 22:02:44 Muscle pain 04837453 Active 2019 (M79.1)My algia Not Available [facility] 2 22:02:45 Spondylos is without myelopath y 23559887 Active 2020 (M47.816) Spondylos is without myelopath y or radiculop athy, lumbar region Not Available [facility] 2 22:02:44 Cervicoge adriana headache 154779650 Active 2021 (G44.86)C ervicogen ic headache Not Available [facility] 2 22:02:44 Problem Notes None recorded. Medical Equipment None Reported. Allergies Allergen ID Allergen Name Allergen Category Reaction Reaction Severity Criticality Documentation Date Start Date Code Code System Note Provider Name and Address Organization Details Recorded Time 78972 baclofen Not available Not available Not available Not available 10/29/20212014 1292 RxNorm Not Available [facility] 2 22:02:34 Medications Name Sig Start Date Stop Date Status Note LastModified by Organization Details LastModified Time diazepam lidocaine 2mg 2% supposito ry # INSERT 1 SUPPOSIT ORY VAGINALL Y EVERY EVENING AT BEDTIME NEEDED FOR PAIN active Not Available Not Available No t Available amoxicill in 500 mg capsule TAKE 1 CAPSULE BY MOUTH THREE TIMES DAILY FOR 10 DAYS 09/08 completed Not Available Not Available Not Available methocarb jose 500 mg tablet TAKE 1 TABLET BY MOUTH THREE TIMES DAILY NEEDED active Not Available Not Available No t Available doxycycli ne hyclate 100 mg capsule TAKE ONE CAPSULE BY MOUTH TWICE DAILY -- FINISH ALL MEDICINE -- active Not Available Not Available No t Available clindamyc in HCl 300 mg capsule TAKE 1 CAPSULE BY MOUTH THREE TIMES DAILY FOR 10 DAYS 09/08 completed Not Available Not Available Not Available trazodone 50 mg tablet 1 - 2 po QHS prn 05/24 completed Not Available Not Available Not Available Topamax 25 mg tablet 1-2 po qhs 06/11 completed Not Available Not Available Not Available azithromy xin 250 mg tablet TAKE 2 TABLETS BY MOUTH ON DAY 1, THEN TAKE 1 TABLET DAILY ON DAYS 2-5 09/08 completed Not Available Not Available Not Available Lidocaine Viscous 2 % mucosal solution Swish and spit 5cc BID prn oral pain 09/12 completed Not Available Not Available Not Available fluconazo le 150 mg tablet 02/24 completed Not Available Not Available Not Available benzonata te 200 mg capsule TAKE ONE CAPSULE BY MOUTH THREE TIMES DAILY NEEDED -SWALLOW WHOLE. DO NOT CRUSH OR CHEW- active Not Available Not Available No t Available doxepin 25 mg capsule Take 1 daily 09/16 completed Not Available Not Available Not Available hydrocodo ne 5 mg-acetam inophen 325 mg tablet TAKE 2 TABLETS BY MOUTH FOUR TIMES A DAY 07/13 completed Not Available Not Available Not Available meloxicam 15 mg tablet TAKE 1 TABLET BY MOUTH EVERY DAY 02/18 completed Not Available Not Available Not Available phenazopy ridine 200 mg tablet TAKE ONE TABLET BY MOUTH THREE TIMES DAILY AFTER MEALS NEEDED MAY CAUSE DISCOLOR ATION OF URINE active Not Available Not Available No t Available lisinopri l 20 mg tablet 02/24 completed Not Available Not Available Not Available ondansetr on HCl 4 mg tablet TAKE 1 TABLET BY MOUTH EVERY 8 HOURS NEEDED 02/21 completed Not Available Not Available Not Available prednison e 20 mg tablet TAKE 3 TABLETS ONCE A DAY FOR 5 DAYS 02/21 completed Not Available Not Available Not Available spironola ctone 100 mg tablet TAKE 1 TABLET BY MOUTH EVERY DAY 02/18 completed Not Available Not Available Not Available Pyridium 100 mg tablet TAKE 1 TABLET BY MOUTH THREE TIMES DAILY AFTER MEALS 02/24 completed Not Available Not Available Not Available estradiol 0.1 mg/24 hr semiweekl y transderm al patch PLACE 1 PATCH ON THE SKIN 2 TIMES A WEEK. active Not Available Not Available No t Available Elmiron 100 mg capsule Take 1 three times a day 11/18 completed Not Available Not Available Not Available phentermi ne 37.5 mg tablet Take 1 tablet every day by oral route. 09/08 completed Not Available Not Available Not Available sulfameth oxazole 800 mg-trimet hoprim 160 mg tablet TAKE ONE TABLET BY MOUTH TWICE DAILY -- FINISH ALL MEDICINE -- active Not Available Not Available No t Available hydrocodo ne 10 mg-acetam inophen 325 mg tablet Take 1 tablet every 8 hours by oral route as needed for 30 days, for pain. 2024 active Not Available Not Available Not Avai lable omeprazol e 40 mg capsule,d elayed release 05/26 completed Not Available Not Available Not Available tramadol 50 mg tablet Take 1 three times a day prn 09/16 completed done Not Available Not Available Not Available ondansetr on 8 mg disintegr ating tablet DISSOLVE 1 TABLET ON THE TONGUE EVERY 8 HOURS active Not Available Not Available No t Available oxycodone -acetamin ophen 5 mg-325 mg tablet TAKE 1 TO 2 TABLET BY MOUT EVERY 4 TO 6 HOURS IF NEEDED FOR PAIN 09/08 completed Not Available Not Available Not Available ofloxacin 0.3 % ear drops INSTILL 5 DROPS INTO AFFECTED EAR TWICE DAILY DIRECTED 09/08 completed Not Available Not Available Not Available amoxicill in 875 mg tablet 1 po BID - 3 week course 06/11 completed old rx Not Available Not Available Not Available Lipitor 40 mg tablet Take 1 daily 02/21 completed Not Available Not Available Not Available Lidoderm 5 % topical patch Apply to affected area q12 on q12 off 11/07 completed Old RX Not Available Not Available Not Available oxycodone -acetamin ophen 10 mg-325 mg tablet Take 1 every 6 hours 12/06 completed Not Available Not Available Not Available benzonata te 100 mg capsule TAKE 1 CAPSULE BY MOUTH THREE TIMES DAILY NEEDED FOR COUGH. SWALLOW WHOLE DO NOT CHEW 09/08 completed Not Available Not Available Not Available dexametha sone 2 mg tablet TAKE ONE TABLET BY MOUTH EVERY TWELVE HOURS --TAKE WITH FOOD-- 09/08 completed Not Available Not Available Not Available hydrocodo ne 7.5 mg-acetam inophen 325 mg tablet TAKE 1 TABLET BY MOUTH EVERY 6 HOURS 02/18 completed Not Available Not Available Not Available cephalexi n 500 mg capsule TAKE ONE CAPSULE BY MOUTH TWICE DAILY -- FINISH ALL MEDICINE -- 09/08 completed Not Available Not Available Not Available pantopraz ole 40 mg tablet,de layed release TAKE 1 TABLET BY MOUTH EVERY DAY active Not Available Not Available No t Available oseltamiv ir 75 mg capsule TAKE 1 CAPSULE BY MOUTH ONCE DAILY FOR 7 DAYS TO PREVENT FLU 09/08 completed Not Available Not Available Not Available Neurontin 100 mg capsule Take 2 three times a day prn 05/15 completed E-miguel haji to pharmacy , made her drugged Not Available Not Available Not Available dexametha sone 4 mg tablet TAKE 1 TABLET BY MOUTH TWICE DAILY FOR 5 DAYS 02/18 completed Not Available Not Available Not Available buspirone 10 mg tablet active Not Available Not Available Not Available lisinopri l 30 mg tablet TAKE ONE TABLET BY MOUTH EVERY DAY 09/08 completed Not Available Not Available Not Available morphine ER 15 mg tablet,ex tended release Take 1 tablet 3 times a day by oral route as needed for 30 days, for chronic pain. 2024 active Not Available Not Available Not Avai lable mupirocin 2 % topical ointment APPLY TOPICALL Y THREE TIMES DAILY TO LESION ON SIDE OF NOSE DIRECTED 02/24 completed Not Available Not Available Not Available cefuroxim e axetil 500 mg tablet TAKE 1 TABLET BY MOUTH TWICE DAILY FOR 7 DAYS 02/18 completed Not Available Not Available Not Available levofloxa xin 500 mg tablet 02/21 completed Not Available Not Available Not Available levofloxa xin 750 mg tablet TAKE 1 TABLET BY MOUTH EVERY DAY 02/18 completed Not Available Not Available Not Available methylpre dnisolone 4 mg tablets in a dose pack TAKE ACCORDIN G TO PACKAGE INSTRUCT IONS --TAKE WITH FOOD-- -- FINISH ALL MEDICINE -- 09/08 completed Not Available Not Available Not Available albuterol sulfate HFA 90 mcg/actua tion aerosol inhaler INHALE 1 PUFF BY MOUTH EVERY 4 HOURS NEEDED active Not Available Not Available No t Available lisinopri l 40 mg tablet TAKE ONE TABLET BY MOUTH EVERY DAY active Not Available Not Available No t Available ondansetr on 4 mg disintegr ating tablet DISSOLVE ONE TABLET UNDER THE TONGUE EVERY 8 HOURS NEEDED active Not Available Not Available No t Available colestipo l 1 gram tablet 09/08 completed Not Available Not Available Not Available dicyclomi ne 10 mg capsule TAKE 1 CAPSULE BY MOUTH EVERY 6 HOURS NEEDED FOR PAIN 09/08 completed Not Available Not Available Not Available diazepam 5 mg tablet 1 PO daily 06/11 completed old rx Not Available Not Available Not Available metoclopr amide 10 mg tablet TAKE 1 TABLET BY MOUTH 30 MINUTES BEFORE A MEAL AND AT BEDTIME 09/08 completed Not Available Not Available Not Available amoxicill in 875 mg-potass ium clavulana te 125 mg tablet TAKE 1 TABLET BY MOUTH EVERY 12 HOURS FOR 10 DAYS 02/18 completed Not Available Not Available Not Available oxycodone 5 mg tablet 1 po q 8 - 12 hours prn post procedur e pain 07/19 completed OLD RX/RR Not Available Not Available Not Available clindamyc in 1 % lotion APPLY TOPICALL Y TO THE AFFECTED AREA EVERY DAY 09/08 completed Not Available Not Available Not Available escitalop william 20 mg tablet Take one tablet once daily active Not Available Not Available No t Available calcium 500 mg (as carbonate )-D3 2.5 mcg (100 unit) chewable tablet 02/24 completed Not Available Not Available Not Available duloxetin e 30 mg capsule,d elayed release Take 1 daily 09/16 completed Not Available Not Available Not Available duloxetin e 60 mg capsule,d elayed release TAKE 1 CAPSULE BY MOUTH EVERY DAY 02/21 completed Not Available Not Available Not Available tizanidin e 4 mg capsule Take 1 three times a day 12/06 completed Not Available Not Available Not Available Lyrica 50 mg capsule Take 1 tablet(s ) by mouth three times a day 05/15 completed old rx Not Available Not Available Not Available amitripty line Take 1 at bedtime 09/16 completed Not Available Not Available Not Available tramadol ER 200 mg tablet,ex tended release 24 hr Take 1 daily 09/15 completed old Not Available Not Available Not Available tramadol ER 100 mg tablet,ex tended release 24hr mphase Take 1 daily 01/13 completed Disconti nued by system because copied to new Rx. Not Available Not Available Not Available estradiol 10 mcg vaginal tablet 09/08 completed Not Available Not Available Not Available diclofena c 1.5 % topical drops 02/24 completed Not Available Not Available Not Available Uribel 118 mg-10 mg-40.8 mg-36 mg capsule TAKE 1 PO PRN 02/21 completed Not Available Not Available Not Available tramadol ER 100 mg capsule 24h,exten ded release(2 5-75) Take 1 daily x 6 then Take 2 daily 03/10 completed old rx Not Available Not Available Not Available tramadol ER 200 mg capsule 24h,exten ded release(2 5-75) Take 1 daily 06/11 completed old rx Not Available Not Available Not Available Nucynta ER 100 mg tablet,ex tended release TAKE 1 TABLET BY MOUTH TWICE A DAY 09/12 completed Not Available Not Available Not Available Nucynta ER 50 mg tablet,ex tended release 1 po bid 05/24 completed Not Available Not Available Not Available lidocaine 5 % topical ointment PRN 02/21 completed Not Available Not Available Not Available Myrbetriq 25 mg tablet,ex tended release 1qh 11/18 completed Not Available Not Available Not Available naloxone 4 mg/actuat ion nasal spray TAKE 2 SPRAYS BY NASAL ROUTE DIRECTED , FOR SUSPECTE D OPIOID OVERDOSE . active Not Available Not Available No t Available Plenvu 140 gram-9 gram-5.2 gram powder packs USE DIRECTED PER PROVIDER 09/08 completed Not Available Not Available Not Available Flowflex COVID-19 Antigen Home Test kit active Not Available Not Available Not Available Paxlovid 300 mg (150 mg x 2)-100 mg tablets in a dose pack FOLLOW PACKAGE DIRECTIO NS 03/13 /2025 completed Not Available Not Available Not Available Vitals Date Recorded Body height Body mass index (BMI) Body weight Body temperature Heart rate Respiratory rate Oxygen saturation Oxygen saturation in Arterial blood by Pulse oximetry Systolic And Diastolic Provider Name and Address Organization Details Last Updated DateTime 5 165.1 cm 27.3 kg/m2 32214.1 5 g 97.9 [degF] 75 /min 16 /min 96 % 96 % 143/90 mm[Hg] [facility] 5 09:00:20 Social History Question Answer Notes LastModified by Organizat ion Details LastModified Time Tobacco Smoking Status Current Every Day Smoker Leila [facility] 12/24/2021 14:28:34 What Is Your Level Of Caffeine Consumption? Occasional 2 Cups Coffee [email or web address] Information not available 12/24/2021 What Is Your Current Pack Years? 10packyears 7 YEARS [email or web address] Information not available 01/21/2022 How Much Tobacco Do You Smoke? 1 PPD [email or web address] Information not available 12/24/2021 Sex: Female Functional Status Question Answer Note LastModified by Organizat ion Details LastModified Time What is your level of alcohol consumption? Occasional [email or web address] Information not available 12/24/2021 What is your occupation? Disabled [email or web address] Information not available 10/29/2021 Mental Status None recorded. Family History Nothing Reported. Medical History No medical history recorded. Gynecological HistoryNo gynecological history recorded. Obstetrics History GPAL:G 0 P 0 0 0 0 Immunizations Vaccine Type Date Status Note Provider Nam e and Address Organization Details Recorded Time SARS-COV-2 (COVID-19) vaccine, UNSPECIFIED 07/22/2022 completed [facility] 07/22/2022 17:09:01 Past Encounters Encounter ID Performer Location Encounter Start Date Encounter Closed Date Diagnosis/Indication Diagnosis SNOMED-CT Code Diagnosis ICD10 Code Diagnosis IMO Codes Diagnosis Note [id number] Aniceto Becerra MD [address] [place] [address] [place] [address] 05/09/2025 08:46:25 05/09/2025 09:50:28 Cervicocranial syndrome 78460524 M53.0 Cervical radiculopathy 26203581 M47.812 Chronic in terstitial cystitis 901885789 N30.10 Health Concerns Section Related Observation LastModified by Organization Detai ls LastModified Time None Recorded Concern Status LastModified by Organization Details LastModified Time None Recorded Payers Encounter Date Sequence Insurance Name Policy Number Policy Hair Covered Member ID Hair Member ID Guarantor Name 05/09/2025 1 [place] [id number] A Francisco J Dempsey [id number] Sophie Ke Notes Date Note Type Note Provider Name and Address Organization Details Recorded Time 05/09/2025 text/html Returns today stating that she has done better with MSContin, but has found that it is wearing off between doses which has resulted in increased bouts of neck pain with radiation into head and face. Also has d/w low back pain, but is managing on current regimen. Denies side effects to medications. Is also being evaluated for worsened interstitial cystitis symptoms - burning, pain with urination, frequency. Seeing urologist in regards to this. Aniceto Becerra MD [address] [facility], [place], [address], [facility] 05/09/2025 09:49:45 OBGyn Episode No OBEpisode recorded.
--- OUTSIDE RECORDS SUMMARY | 2025-05-11 07:33 | XMS_ITS | Continuity of Care Document ---
Author Organization [facility] Address [address] [place] [address] Care Team Providers Care Drum Reel Cutter Name Role Phone ALPA RIDLEY Primary Care Provider [phone] Assessment No assessment recorded. Plan of Treatment Reminders Order Date Submit Date Provider Last Modified By Organization Details Last Modified Time Details Appointments Office Visit15 2024 08:45A Megan Neal DNP MACHINE II CUTTER Not available Not available Not available Office Visit15 2025 11:30A Megan Neal DNP MACHINE II CUTTER Not available Not available Not available OV Ext 30 2025 11:30A M Aniceto Becerra MD Not available Not available Not available Lab None recorded. Referral None recorded. Procedures None recorded. Surgeries None recorded. Imaging None recorded. Medication Orders hydrocodo ne 10 mg-acetam inophen 325 mg tablet 2024 025 [facility]/Pharmacy #[id number], [address] [place] [address], [id number], 04/05/2025 12:46:41 morphine ER 15 mg tablet,ex tended release 2024 025 [facility]/Pharmacy #[id number], [address] [place], [address], 04/05/2025 12:46:42 Patient TargetsNo targets recorded. Patient Instructions Encounter Date Encounter Id Patient Instructions Last Modified By Organization Details Last Modified Time 04/05/2025 [id number] 1. continue healthy lifestyles 2. stretching/yoga/w alking as tolerated 3. take pain medications as prescribed 4. call with any concerns Not available 04/05/2025 12:36:09 Patient seen today incident to a physician s previously established diagnosis and plan of care. Follow-up care provided today under the plan of care of: Aniceto Becerra MD and supervision of: Velma Savage MD. Not available 04/05/2025 12:36:23 Reason for Referral None Reported. Results Created Date Observation Date Name Description Value Unit Range Abnormal Flag Note LastModifiedBy Organization Detail LastModifiedTime 03/09/2003/09/2025 MORPH INE SULFA TE abnormal status abnormal Not Available Caroline Becerra MD [facility] ([facility] House [facility]) [address] [place] [address], [address], 03/22/2025 14:50:58 03/09/2003/09/2025 MORPH INE SULFA TE abnormal status high Not Available Caroline Becerra MD [facility] ([facility]) [address] [place] [address], [address], 03/22/2025 14:50:58 03/09/2003/22/2025 OPIAT E DEFIN ITIVE PANEL LC/MS codeine 0.0 NG/mL <75.0 Not Available Marlin Becerra MD [facility] ([facility] House [facility]) [address] [place] [address], [address], 03/22/2025 14:50:57 03/09/2003/22/2025 OPIAT E DEFIN ITIVE PANEL LC/MS morphine >5000 NG/mL <75.0 abnormal Not Available Marlin Becerra MD [facility] (In House Lab) [address] [place] [address], [address], 03/22/2025 14:50:57 03/09/2003/22/2025 OPIAT E DEFIN ITIVE PANEL LC/MS 6-BALDO 0 NG/mL <15.0 Not Available Marlin Becerra MD [facility] (In House Lab) [address] [place] [address], [address], 03/22/2025 14:50:57 03/09/2023 0303/22/2025 OPIAT E DEFIN ITIVE PANEL LC/MS hydromorphon e 1212.6 NG/mL <75.0 abnormal Not Available Caroline Becerra MD [facility] (In House Lab) [address] [place] [address], [address], 03/22/2025 14:50:57 03/09/20 25 03/22/2025 OPIAT E DEFIN ITIVE PANEL LC/MS hydrocodone 3456.2 NG/mL <75.0 abnormal Not Available Taran Becerra MD [facility] (In House Lab) [address] [place] [address], [address], 03/22/2025 14:50:57 03/09/2003/22/2025 OPIAT E DEFIN ITIVE PANEL LC/MS norhydrocodo ne 3932.0 NG/mL <75.0 abnormal Not Available Caroline Becerra MD [facility] (In House Lab) [address] [place] [address], [address], 03/22/2025 14:50:57 03/09/20 25 03/09/2025 D-PRE SUMPT MIRANDA URINE DRUG REPOR T amphetamine NEGATI VE NG/mL <1000. 0 Not Available Marlin Becerra MD [facility] (In House Lab) [address] [place] [address], [address], 03/22/2025 14:50:56 03/09/20 25 03/09/2025 D-PRE SUMPT MIRANDA URINE DRUG REPOR T benzodiazepi ne 79.0 NG/mL <200.0 Curre nt metho d may not detec t low level s of Klono pin Not Available Marlin Becerra MD [facility] (In House Lab) [address] [place] [address], [address], 03/22/2025 14:50:56 03/09/20 25 03/09/2025 D-PRE SUMPT MIRANDA URINE DRUG REPOR T buprenorphin e NEGATI VE NG/mL <10.0 Not Available Marlin Becerra MD [facility] (In House Lab) [address] [place] [address], [address], 03/22/2025 14:50:56 03/09/20 25 03/09/2025 D-PRE SUMPT MIRANDA URINE DRUG REPOR T cannabinoid NEGATI VE NG/mL <50.0 Not Available Marlin Becerra MD [facility] (In House Lab) [address] [place], [address], 03/22/2025 14:50:56 03/09/20 25 03/09/2025 D-PRE SUMPT MIRANDA URINE DRUG REPOR T cocaine NEGATI VE NG/mL <300.0 Not Available Marlin Becerra MD [facility] (In House Lab) [address] [place] [address], [address], 03/22/2025 14:50:56 03/09/20 25 03/09/2025 D-PRE SUMPT MIRANDA URINE DRUG REPOR T ethanol NEGATI VE mg/dL <50.0 Not Available Marlin Becerra MD [facility] (In House Lab) [address] [place] [address], [address], 03/22/2025 14:50:56 03/09/20 25 03/09/2025 D-PRE SUMPT MIRANDA URINE DRUG REPOR T methadone 16.0 NG/mL <300.0 Not Available Marlin Becerra MD [facility] (In House Lab) [address] [place] [address], [address], 03/22/2025 14:50:56 03/09/20 25 03/09/2025 D-PRE SUMPT MIRANDA URINE DRUG REPOR T opiates 1365.0 NG/mL <300.0 high Opiat es inclu torres Codei ne,Mo rphin e, [place] morph one,H ydroc odone Not Available Marlin Becerra MD [facility] (In House Lab) [address] [place] [address], [address], 03/22/2025 14:50:56 03/09/20 25 03/09/2025 D-PRE SUMPT MIRANDA URINE DRUG REPOR T oxycodone 38.0 NG/mL <300.0 Not Available Marlin Becerra MD [facility] (In [facility]) [address] [place], [address], 03/22/2025 14:50:56 03/09/20 25 03/09/2025 D-PRE SUMPT MIRANDA URINE DRUG REPOR T urine creatinine (validity test) 97.9 mg/dL 20.0 - 300.0 Not Available Marlin Becerra MD [facility] ([facility]) [address] [place], [address], 03/22/2025 14:50:56 Result Notes None recorded. Problems Name Problem SNOMED Code Status Onset Date Resolution Date Notes Provider Name and Address Organization Details Recorded Time Osteoporo sis 47070945 Active 2014 (733.00)O STEOPOROS IS NOS Not Available [facility] 2 22:02:43 Disorder of bone and articular cartilage 478543446 Active 2014 (733.90)B ONE & CARTILAGE DIS NOS Not Available [facility] 2 22:02:43 Malaise and fatigue 665186096 Active 2014 (780.79)M ALAISE AND FATIGUE NEC Not Available [facility] 2 22:02:43 Hyperhidr osis 762239274 Active 2014 (780.8)Ge neralized Hyperhidr osis Not Available [facility] 2 22:02:43 Reduced libido 1933259 Active 2014 (799.81)D ecreased Libido Not Available [facility] 2 22:02:44 Chronic interstit ial cystitis 524482140 Active 2014 (595.1)Ch ronic Interstit ial Cystitis Not Available [facility] 2 22:02:43 Functiona l disorder of urinary bladder 957760173 Active 2014 (596.59)O ther Bladder Dysfuncti on Not Available [facility] 2 22:02:43 Depressio n screening Active 2014 (V79.0)Sp ecial Screening Examinati on for Depressio n Not Available [facility] 2 22:02:45 Abdominal pain 03878429 Active 2014 (789.00)A bdominal Pain Site Not Otherwise Specified Not Available [facility] 2 22:02:43 Pelvic and perineal pain 933502951 Active 2014 (R10.2)Pe lvic and perineal pain Not Available [facility] 2 22:02:45 Long-term current use of opiate analgesic drug 09268283939 4108 Active 2014 (Z79.891) long term (current) use of opiate analgesic Not Available [facility] 2 22:02:45 Trigemina l neuralgia 04281607 Active 2015 (G50.0)Tr igeminal neuralgia Not Available [facility] 2 22:02:44 Screening for osteoporo sis Active 2015 (V82.81)S pecial Screening Examinati on for Osteoporo sis Not Available [facility] 2 22:02:45 Cervical spondylos is without myelopath y 321355152 Active 2016 (M47.812) Spondylos is without myelopath y or radiculop athy, cervical region Not Available [facility] 2 22:02:44 Cervicocr anial syndrome 15295504 Active 2016 (M53.0)Ce rvicocran ial syndrome Not Available [facility] 2 22:02:44 Cervical radiculop athy 26897077 Active 2016 (M54.12)R adiculopa thy, cervical region Not Available [facility] 2 22:02:44 Cervical spondylos is with radiculop athy Active 2016 (M47.22)O ther spondylos is with radiculop athy, cervical region Not Available [facility] 2 22:02:44 Headache 07647475 Active 2016 (R51)Head ache Not Available [facility] 2 22:02:45 Screening for disorder Active 2016 (Z13.89)E ncounter for screening for other disorder Not Available [facility] 2 22:02:45 Generaliz ed anxiety disorder 32649435 Active 2018 (F41.1)Ge neralized anxiety disorder Not Available [facility] 2 22:02:44 Tobacco dependenc e caused by cigarette s 02894529855 859426 Active 2018 (F17.210) Nicotine dependenc e, cigarette s, uncomplic ated Not Available [facility] 2 22:02:44 Migraine 58866508 Active 2019 (G43.909) Migraine, unspecifi ed, not intractab le, without status migrainos us Not Available [facility] 2 22:02:44 Muscle pain 67119589 Active 2019 (M79.1)My algia Not Available [facility] 2 22:02:45 Spondylos is without myelopath y 94030906 Active 2020 (M47.816) Spondylos is without myelopath y or radiculop athy, lumbar region Not Available [facility] 2 22:02:44 Cervicoge adriana headache 250929241 Active 2021 (G44.86)C ervicogen ic headache Not Available [facility] 2 22:02:44 Problem Notes None recorded. Medical Equipment None Reported. Allergies Allergen ID Allergen Name Allergen Category Reaction Reaction Severity Criticality Documentation Date Start Date Code Code System Note Provider Name and Address Organization Details Recorded Time 15160 baclofen Not available Not available Not available Not available 10/29/20212014 1292 RxNorm Not Available [facility] 2 22:02:34 Medications Name Sig Start Date [...] 2024 active Not Available Not Available Not Juarezai wesley mupirocin 2 % topical ointment APPLY TOPICALL [...] mg tablets in a dose pack TAKE ESSENCE Yousif TO PACKAGE INSTRUCT IONS --TAKE WITH FOOD-- [...] a dose pack FOLLOW PACKAGE DIRECTIO NS 09/08 completed Not Available Not Available Not Available Vitals Date Recorded Body height Respiratory rate Body mass index (BMI) Body weight Body temperature Heart rate Systolic And Diastolic Provider Name and Address Organization Details Last Updated DateTime 5 165.1 cm 16 /min 27.1 kg/m2 12613.5 6 g 98.2 [degF] 74 /min 154/87 mm[Hg] Naz Molina-Prasad eet [facility] 5 12:25:41 Social History Question Answer Notes LastModified by [employer] Details LastModified Time Tobacco Smoking Status Current Every Day Smoker [facility] 12/24/2021 14:28:34 What Is Your Level Of Caffeine Consumption? Occasional 2 Cups Coffee [email or web address] Information not available 12/24/2021 What Is Your Current Pack Years? 10packyears 7 YEARS [email or web address] Information not available 01/21/2022 How Much Tobacco Do You Smoke? 1 PPD [email or web address] Information not available 12/24/2021 Sex: Female Functional Status Question Answer Note LastModified by [employer] Details LastModified Time What is your level of alcohol consumption? Occasional [email or web address] Information not available 12/24/2021 What is your occupation? Disabled [email or web address] Information not available 10/29/2021 Mental Status None [...] ICD10 Code Diagnosis IMO Codes Diagnosis Note [id number] Jennifer Neal DNP MACHINE II CUTTER [address] [place] [address] 03/09/2025 09:08:35 03/09/2025 10:01:45 Long-term current use of opiate analgesic drug 4582169389 21865 Z79.891 Diagnostic /Lab: Order Presumptiv e UDT (necessary for rapid results) with Definitive confirmati on for chronic pain patient, to define treatment and reinforce therapeuti c compliance ; the following apply: [Presumpti ve UDT includes: (Amp, Rena, Heber, Bup, THC, HANNAH, ETOH, Meth, Opi, Oxy )] *-Patient is receiving controlled medication s. *-Presumpt miranda UDT to identify presence of illicit/no n-prescrib ed substance( s) - Confirm positive for ongoing safe prescribin g of controlled substances . *-Presumpt miranda UDT to identify presence of licit/pres cribed substance( s)-Confirm unexpected results, identify specific drug(s) in large class and ensure appropriat e use of prescribed medication (s). *-Definiti ve UDT inadequate ly detected by Presumptiv e UDT (gabapenti n, pregabalin , tramadol, fentanyl, tapentadol and carisoprod ol). Cervicocra nial syndrome 80844329 M53.0 Cervical s pondylosis with radiculopathy 894229423 M47.22 Cervical s pondylosis without myelopathy 361538991 M47.812 Cervical radiculopathy 91279319 M47.812 Global Risk Assessment Score:High Risk.High Risk Assessment : Multiple Opioid Medication Medication Regimen (>2 controlled substances ) High Doses of Opioids to Manage Pain (>30 mg Morphine or equivalent ) Abnormal UDMs (including presence of licit/illi cit meds not prescribed Abnormal PC/DS Abnormal PDMP Physical symptoms suggesting substance abuse-misu se at OV's Behavioral /psycholog ical symptoms suggesting substane abuse-misu se at OV's History of legal or illegal substane use including treatments for abuse or dependence Personal History of alcoholism , illicit drug abuse/dive rsion, ALC abuse/phys ical abuse Moderate Risk Assessment : Multiple Pain or Medical Conditions (i.e., back, head and fibromyalg ia) Multiple Physicians treating patients' conditions History of early refills History of previous pain clinics History of legal or illegal substance use by first degree relatives, including treatments for abuse or dependence History/Di agnosis of Mental Health/Psy chiatric illnesses that may impact the patient's treatment with controlled substances History/Di agnosis of Mental Health/Psy chiatric illnesses that may impact the patient's treatment with controlled substances Non [place] resident Difficulty in contacting the patient ( i.e. multiple residences , multiple phone numbers/no phone, frequent out of town travel/out -of-state work) ORT Score:Risk Score: Date of ORT: . Lab work reviewed:U DS of 01/06/2025 reviewed and is appropriat sapphire CANNON (prescript ion drug monitoring report):As of 03/09/2025 reviewed and is appropriat e Last fill 02/09/2025 Inappropri ate due to: . [id number] Jennifer Neal DNP MACHINE II CUTTER [address] [address] 04/05/2025 12:02:10 04/14/2025 10:31:57 Cervicocranial syndrome 06940414 M53.0 Cervical s pondylosis without myelopathy 648464163 M47.812 Cervicogenic headache 27 6479989 G44.86 Trigeminal neuralgia 316 15675 G50.0 Cervical radiculopathy 56260796 M47.812 Global Risk Assessment Score:High Risk.High Risk Assessment : Multiple Opioid Medication Medication Regimen (>2 controlled substances ) High Doses of Opioids to Manage Pain (>30 mg Morphine or equivalent ) Abnormal UDMs (including presence of licit/illi cit meds not prescribed Abnormal PC/DS Abnormal PDMP Physical symptoms suggesting substance abuse-misu se at OV's Behavioral /psycholog ical symptoms suggesting substane abuse-misu se at OV's History of legal or illegal substane use including treatments for abuse or dependence Personal History of alcoholism , illicit drug abuse/dive rsion, ALC abuse/phys ical abuse Moderate Risk Assessment : Multiple Pain or Medical Conditions (i.e., back, head and fibromyalg ia) Multiple Physicians treating patients' conditions History of early refills History of previous pain clinics History of legal or illegal substance use by first degree relatives, including treatments for abuse or dependence History/Di agnosis of Mental Health/Psy chiatric illnesses that may impact the patient's treatment with controlled substances History/Di agnosis of Mental Health/Psy chiatric illnesses that may impact the patient's treatment with controlled substances Non [place] resident Difficulty in contacting the patient ( i.e. multiple residences , multiple phone numbers/no phone, frequent out of town travel/out -of-state work) ORT Score:Risk Score: Date of ORT: . Lab work reviewed:U DS of 01/06/2025 reviewed and is appropriat e. DAVIS (prescript ion drug monitoring report):As of 03/09/2025 reviewed and is appropriat e Last fill 02/09/2025 Inappropri ate due to: . Health Concerns Section Related Observation LastModified by Organization Detai ls LastModified Time None Recorded Concern Status LastModified by Organization Details LastModified Time None Recorded Payers Encounter Date Sequence Insurance Name Policy Number Policy Hair Covered Member ID Hair Member ID Guarantor Name 04/05/2025 1 [place] [employer] [facility] [id number] A Francisco J Dempsey [id number] Sophie Dempsey Notes Date Note Type Note Provider Name and Address Organization Details Recorded Time 04/05/2025 text/html ROS as noted in the HPI Patient RTC for the management of her chronic cervical and trigeminal pain.Patient states has been about the same since last visit. Quality: throbbing, burning type pain.Improves with the pain medsAggravating factors: housework Patient is here for med refills today, reports compliance, states use of medication gives some relief and allows more physical function. Patient reports tolerating the medication well and denies any adverse effects including toxic effects, respiratory sedation, driving problems, or GI problems. Jennifre Neal, JANINE MACHINE II CUTTER [address] [facility], [place], [address], [facility] 04/10/2025 07:33:58 OBGyn Episode No OBEpisode recorded.
--- OUTSIDE RECORDS SUMMARY | 2025-05-11 07:33 | XMS_ITS | Encounter Summary ---
Author Organization Healthcare Address [address] [place] [address] Care Team Providers Care Retail Tire Sales Manager Name Role Phone Zana Carty MD Primary Care Provider [phone]- [phone] Encounter Details Date Type Department Care Team (Late st Contact Info) Description 03/08/2025 Orders Only Obstetrics & Gynecology [facility] [place] [address] Anastasia Winters MD [address] [place] [address] Social History Tobacco Use Types [...] [facility] [address] [address] 07/05/2025 2:30 PM EST Office Visit [facility] [address] [facility], [address] [place] [address] Jeannie Riddle, SYSTEMS DESIGN ENGINEER [address] Zahra Qureshi [facility] [address] [place] [address] documented as of this encounter Visit Diagnoses Not on filedocumented in this encounter Additional Health Concerns Assessment Noted Time A fall risk assessment has been complete d for the patient 01/11/2025 12:51 PM EDT A Body Mass Index follow-up plan has been documented for the patient 03/14/2024 5:15 PM EDT documented as of this encounter Care Teams Retail Tire Sales Manager Relationship Specialty Start Date End Date Zana Carty MD [address] [place] [address] PCP - General 11/09/20 documented as of this encounter
--- OUTSIDE RECORDS SUMMARY | 2025-05-11 07:33 | XMS_ITS | Encounter Summary ---
Author Organization [facility] Address [address] [place] [address] Care Team Providers Care Offset Lithographic Press Setter Name Role Phone Zana Carty MD Primary Care Provider [phone]- [phone] Reason for Visit * Reason Comments Med Refill Encounter Details Date Type Department Care Team (Late st Contact Info) Description 01/30/2021 Refill [place] MECHANICAL SPREADER OPERATOR [address] [place] [address] Lauren Morales, SET UP MECHANIC STAMPING MACHINES [address] [facility] [address] [place] [address] Social History Tobacco Use Types [...] [facility] [address] Zahra Qureshi [facility] [address] [place] [address] 07/05/2025 2:30 PM EST Office Visit [facility] [address] [facility] [place] [address] Jeannie Riddle, SET UP MECHANIC STAMPING MACHINES [address] [facility] Zahra Qureshi [facility] [address] [place] [address] documented as of this encounter Visit Diagnoses Not on filedocumented in this encounter Care Teams Offset Lithographic Press Setter Relationship Specialty Start Date End Date Zana Carty MD [address] [place] [address] PCP - General 11/09/20 documented as of this encounter
--- OUTSIDE RECORDS SUMMARY | 2025-05-11 07:33 | XMS_ITS | Encounter Summary ---
Author Organization [facility] Address [address] [place] [address] Care Team Providers Care Construction Rep Name Role Phone Zana Carty MD Primary Care Provider [phone]- [phone] Reason for Visit * Reason Onset Date Comments Med Refill 04/20/2025 Encounter Details Date Type Department Care Team (Late st Contact Info) Description 04/20/2025 Refill Obstetrics & Gynecology [address] [place] [address] Anastasia Winters MD [address] [place] [address] Social History Tobacco Use Types [...] Info) Description 07/05/2025 1:30 PM EST Appointment [facility] [address] [address] 07/05/2025 2:30 PM EST Office Visit [facility] [address] [facility], [address] [place] [address] Jeannie Riddle, FAST FOOD SUPERVISOR [address] [facility] Zahra Qrueshi [facility] [address] [place] [address] documented as of this encounter Visit Diagnoses Not on filedocumented in this encounter Additional Health Concerns Assessment Noted Time A fall risk assessment has been complete d for the patient 03/15/2025 3:14 PM EDT A Body Mass Index follow-up plan has been documented for the patient 03/17/2025 2:31 PM EDT documented as of this encounter Care Teams Construction Rep Relationship Specialty Start Date End Date Zana Carty MD [address] [place] [address] PCP - General 11/09/20 documented as of this encounter
--- OUTSIDE RECORDS SUMMARY | 2025-05-11 07:33 | XMS_ITS | Data Portability ---
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 Site Not Otherwise Specified Not Available [facility] 2 22:02:43 Pelvic and perineal pain 208368847 Active 2014 (R10.2)Pe lvic and perineal pain Not Available [facility] 2 22:02:45 Long-term current use of opiate analgesic drug 85520507902 4108 Active 2014 (Z79.891) 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 Not Available [facility] 2 22:02:45 Trigemina l neuralgia 77427476 Active 2015 (G50.0)Tr igeminal neuralgia Not Available [facility] 2 22:02:44 Screening for osteoporo sis Active 2015 (V82.81)S pecial Screening Examinati on for Osteoporo sis Not Available [facility] 2 22:02:45 Cervical spondylos is without myelopath y 099778512 Active 2016 (M47.812) Spondylos is without myelopath y or radiculop athy, cervical region Not Available [facility] 2 22:02:44 Cervicocr anial syndrome 71321263 Active 2016 (M53.0)Ce rvicocran ial syndrome Not Available [facility] 2 22:02:44 Cervical radiculop athy 83178427 Active 2016 (M54.12)R adiculopa thy, cervical region Not Available [facility] 2 22:02:44 Cervical spondylos is with radiculop athy Active 2016 (M47.22)O ther spondylos is with radiculop athy, cervical region Not Available [facility] 2 22:02:44 Headache 63627763 Active 2016 (R51)Head ache Not Available [facility] 2 22:02:45 Screening for disorder Active 2016 (Z13.89)E ncounter for screening for other disorder Not Available [facility] 2 22:02:45 Generaliz ed anxiety disorder 48286675 Active 2018 (F41.1)Ge neralized anxiety disorder Not Available [facility], [facility] 2 22:02:44 Tobacco dependenc e caused by cigarette s 72734414610 016408 Active 2018 (F17.210) Nicotine dependenc e, cigarette s, uncomplic ated Not Available [facility] 2 22:02:44 Migraine 46077276 Active 2019 (G43.909) Migraine, unspecifi ed, not intractab le, without status migrainos us Not Available [facility], [facility] 2 22:02:44 Muscle pain 50806776 Active 2019 (M79.1)My algia Not Available [facility], [facility] 2 22:02:45 Spondylos is without myelopath y 52995259 Active 2020 (M47.816) Spondylos is without myelopath y or radiculop athy, lumbar region Not Available [facility], [facility] 2 22:02:44 Cervicoge adriana headache 601620988 Active 2021 (G44.86)C ervicogen ic headache Not Available [facility], [facility] 2 22:02:44 Problem Notes None recorded. Medical Equipment None Reported. Allergies Allergen ID Allergen Name Allergen Category Reaction Reaction Severity Criticality Documentation Date Start Date Code Code System Note Provider Name and Address Organization Details Recorded Time 75279 baclofen Not available Not available Not available Not available 10/29/20212014 1292 RxNorm Not Available [facility], [facility] 2 22:02:34 Medications Name Sig Start Date [...] active Not Available Not Available Not Avai wesley mupirocin 2 % topical ointment APPLY [...] height Body mass index (BMI) Body weight Respiratory rate Body temperature Heart rate Systolic And Diastolic Provider Name and Address Organization Details Last Updated DateTime 165.1 cm 27.1 kg/m2 03839.5 6 g 16 /min 97.6 [degF] 68 /min 125/82 mm[Hg] [facility] 08:41:33 Date Recorded Body height Body mass index (BMI) Body weight Body temperature Respiratory rate Pain severity - 0-10 verbal numeric rating [Score] - Reported Heart rate Systolic And Diastolic Provider Name and Address Organization Details Last Updated DateTime 165.1 cm 27.1 kg/m2 28854.5 6 g 98.7 [degF] 16 /min 6 60 /min 148/80 mm[Hg] Jeannie [facility] 13:09:23 Date Recorded Pain severity - 0-10 verbal numeric rating [Score] - Reported Heart rate Body temperature Systolic And Diastolic Provider Name and Address Organization Details Last Updated DateTime 03/09/2025 7 84 /min 97.8 [degF] 162/94 mm[Hg] Naz [facility] 03/09/2025 09:12:27 Date Recorded Body height Body mass index (BMI) Body weight Respiratory rate Provider Name and Address Organization Details Last Updated DateTime 03/09/2025 165.1 cm 27.1 kg/m2 47712.56 g 16 /min Megan [facility] 03/09/2025 09:10:26 Date Recorded Body height Respiratory rate Body mass index (BMI) Body weight Body temperature Heart rate Systolic And Diastolic Provider Name and Address Organization Details Last Updated DateTime 5 165.1 cm 16 /min 27.1 kg/m2 05414.5 6 g 98.2 [degF] 74 /min 154/87 mm[Hg] Nazguido [facility] 5 12:25:41 Date Recorded Body height Body mass index (BMI) Body weight Body temperature Heart rate Respiratory rate Oxygen saturation Oxygen saturation in Arterial blood by Pulse oximetry Systolic And Diastolic Provider Name and Address Organization Details Last Updated DateTime 5 165.1 cm 27.3 kg/m2 36557.1 5 g 97.9 [degF] 75 /min 16 /min 96 % 96 % 143/90 mm[Hg] Darrel Eganole [facility] 5 09:00:20 Social History Question Answer Notes LastModified by [employer] Details LastModified Time Tobacco Smoking Status Current Every Day Smoker [facility]ANGEL [facility] 12/24/2021 14:28:34 What Is Your Level Of Caffeine Consumption? Occasional 2 Cups Coffee [email or web address] Information not available 12/24/2021 What Is Your Current Pack Years? 10packyears 7 YEARS Information not available 01/21/2022 How Much Tobacco Do You Smoke? 1 PPD [email or web address] Information not available 12/24/2021 Sex: Female Functional Status Question Answer Note LastModified by [employer] Details LastModified Time What is your level of alcohol consumption? Occasional [email or web address] Information not available 12/24/2021 What is your occupation? Disabled [email or web address] Information not available 10/29/2021 Mental Status None [...] ICD10 Code Diagnosis IMO Codes Diagnosis Note [id number] Anastasia Sharma APRN [address] [address] 11/28/2021 16:39:17 12/05/2021 15:44:33 Chronic pain 67690034 G89.29 [id number] Anastasia Sharma APRN [address] [address] 12/24/2021 14:01:49 12/25/2021 09:43:05 Cervicocranial syndrome 24459330 M53.0 Chronic in terstitial cystitis 087387901 N30.10 Long-term current use of opiate analgesic drug 4165384976 19024 Z79.891 Diagnostic /Lab: Order Presumptiv e UDT (necessary for rapid results) with Definitive confirmati on for chronic pain patient, to define treatment and reinforce therapeuti c compliance ; the following apply:*Pat ient is receiving controlled medication s.Presumpt miranda UDT to identify presence of illicit/no n-prescrib ed substance( s) - Confirm positive for ongoing safe prescribin g of controlled substances .*Presumpt miranda UDT to identify presence of licit/pres cribed substance( s)-Confirm unexpected results, identify specific drug(s) in large class and ensure appropriat e use of prescribed medication (s).*Defin itive UDT inadequate ly detected by Presumptiv e UDT (gabapenti n, pregabalin , tramadol, fentanyl, tapentadol and carisoprod ol). Drug Classes: (Amp, Rena, Heber, Bup, THC, HANNAH, ETOH, Meth, Op, Oxy, U-Creat) [id number] Anastasia Sharma APRN [address] [address] 01/21/2022 09:47:23 01/22/2022 10:30:07 Cervicocranial syndrome 24404995 M53.0 [id number] Anastasia Sharma APRN [address] [address] 02/25/2022 10:20:54 02/27/2022 11:13:15 Cervicocranial syndrome 56644097 M53.0 Long-term current use of opiate analgesic drug 8989350354 15322 Z79.891 Diagnostic /Lab: Order Presumptiv e UDT (necessary for rapid results) with Definitive confirmati on for chronic pain patient, to define treatment and reinforce therapeuti c compliance ; the following apply:*Pat ient is receiving controlled medication s.Presumpt miranda UDT to identify presence of illicit/no n-prescrib ed substance( s) - Confirm positive for ongoing safe prescribin g of controlled substances .*Presumpt miranda UDT to identify presence of licit/pres cribed substance( s)-Confirm unexpected results, identify specific drug(s) in large class and ensure appropriat e use of prescribed medication (s).*Defin itive UDT inadequate ly detected by Presumptiv e UDT (gabapenti n, pregabalin , tramadol, fentanyl, tapentadol and carisoprod ol). Drug Classes: (Amp, Rena, Heber, Bup, THC, HANNAH, ETOH, Meth, Op, Oxy, U-Creat) Chronic pain syndrome 37 4436275 G89.4 [id number] Anastasia Sharma APRN [address] [place] [address] 4 03/27/2022 07:40:30 03/27/2022 13:47:39 Cervicocranial syndrome 87110028 M53.0 Cervical s pondylosis without myelopathy 633419100 M47.379 [id number] Anastasia Sharma APRN [address] [place] [address] 04/24/2022 13:45:14 04/24/2022 14:42:21 Long-term current use of opiate analgesic drug 1862897914 20447 Z79.891 HP1 (CBC/Renal /Hepatic/G GT) CBC - ordered to monitor the effects of prescribed medication s. Renal/Hepa tic/GGT - ordered to monitor toxicity of renal hepatic function due to medication . Chronic pain syndrome 37 9601502 G89.4 [id number] Anastasia Sharma APRN [address] [address] 05/27/2022 07:23:45 06/09/2022 08:50:59 Chronic pain syndrome 101711684 G89.4 [id number] Anastasia Sharma APRN [address] [address] 06/19/2022 13:20:41 06/27/2022 10:33:28 Long-term current use of opiate analgesic drug 1788180226 78766 Z79.891 Diagnostic /Lab: Order Presumptiv e UDT [...] , tramadol, fentanyl, tapentadol and carisoprod ol). HP1 (CBC/Renal /Hepatic/G GT) CBC - ordered to monitor the effects of prescribed medication s. Renal/Hepa tic/GGT - ordered to monitor toxicity of renal hepatic function due to medication . Chronic pain syndrome 37 1311626 G89.4 [id number] Anastasia Sharma APRN [address] [address] 07/23/2022 13:26:51 08/06/2022 12:10:10 Chronic pain syndrome 217668258 G89.4 Cervicocra nial syndrome 23500437 M53.0 [id number] Anastasia Sharma APRN [address] [address] 08/20/2022 13:39:30 09/03/2022 14:51:10 Chronic pain syndrome 313503889 G89.4 [id number] Anastasia Sharma, JAIL OFFICER [address] [place] [address] 09/15/2022 14:59:34 09/26/2022 15:50:02 Chronic pain syndrome 867347532 G89.4 [id number] Anastasia Sharma, JAIL OFFICER [address] 4 10/22/2022 12:27:18 10/23/2022 09:35:40 Long-term current use of opiate analgesic drug 5922713252 16865 Z79.891 Diagnostic /Lab: Order Presumptiv e UDT [...] , tramadol, fentanyl, tapentadol and carisoprod ol). HP1 (CBC/Renal /Hepatic/G GT) CBC - ordered to monitor the effects of prescribed medication s. Renal/Hepa tic/GGT - ordered to monitor toxicity of renal hepatic function due to medication . Chronic pain syndrome 37 6266206 G89.4 [id number] Anastasia Sharma, JAIL OFFICER [address] [place] [address] 4 11/19/2022 13:34:36 11/19/2022 15:18:59 Chronic pain syndrome 217342843 G89.4 [id number] Anastasia Sharma, JAIL OFFICER [address] [place] [address] 4 12/18/2022 13:59:28 12/22/2022 13:24:47 Cervicocranial syndrome 01182926 M53.0 Chronic pain syndrome 37 9160324 G89.4 [id number] Mariza Gutierrez RN [address] [place] [address] 4 01/19/2023 15:02:01 01/22/2023 11:36:21 Degeneration of cervical intervertebral disc 35888633 M50.30 Chronic pain syndrome 37 0583634 G89.4 [id number] Anastasia Sharma, JAIL OFFICER [address] [place] [address] 4 02/18/2023 13:53:01 02/26/2023 14:27:17 Long-term current use of opiate analgesic drug 5286130032 70357 Z79.891 Diagnostic /Lab: Order Presumptiv e UDT (necessary for rapid results) with Definitive confirmati on for chronic pain patient, to define treatment and reinforce therapeuti c compliance ; the following apply:[Pre sumptive UDT includes: (Amp, Rena, Heber, Bup, THC, HANNAH, ETOH, Meth, Opi, Oxy )]*-Patien t is receiving controlled medication s.*-Presum ptive UDT to identify presence of illicit/no n-prescrib ed substance( s) - Confirm positive for ongoing safe prescribin g of controlled substances .*-Presump tive UDT to identify presence of licit/pres cribed substance( s)-Confirm unexpected results, identify specific drug(s) in large class and ensure appropriat e use of prescribed medication (s). _*-Definit miranda UDT inadequate ly detected by Presumptiv e UDT (gabapenti n, pregabalin , tramadol, fentanyl, tapentadol and carisoprod ol). HP1 (CBC/Renal /Hepatic/G GT) CBC - ordered to monitor the effects of prescribed medication s. Renal/Hepa tic/GGT - ordered to monitor toxicity of renal hepatic function due to medication . Diagnostic /Lab: Order Presumptiv e UDT (necessary for rapid results) with Definitive confirmati on for chronic pain patient, to define treatment and reinforce therapeuti c compliance ; the following apply:[Pre sumptive UDT includes: (Amp, Rena, Heber, Bup, THC, HANNAH, ETOH, Meth, Opi, Oxy )]*-Patien t is receiving controlled medication s.*-Presum ptive UDT to identify presence of illicit/no n-prescrib ed substance( s) - Confirm positive for ongoing safe prescribin g of controlled substances .*-Presump tive UDT to identify presence of licit/pres cribed substance( s)-Confirm unexpected results, identify specific drug(s) in large class and ensure appropriat e use of prescribed medication (s). _*-Definit miranda UDT inadequate ly detected by Presumptiv e UDT (gabapenti n, pregabalin , tramadol, fentanyl, tapentadol and carisoprod ol). HP1 (CBC/Renal /Hepatic/G GT) CBC - ordered to monitor the effects of prescribed medication s. Renal/Hepa tic/GGT - ordered to monitor toxicity of renal hepatic function due to medication . Chronic pain syndrome 37 2841251 G89.4 [id number] Anastasia Sharma APRN [address] [place] [address] 03/19/2023 07:13:42 03/24/2023 13:47:52 Chronic pain syndrome 155971171 G89.4 [id number] Anastasia Sharma APRN [address] [place] [address] 04/16/2023 08:29:54 04/16/2023 09:11:19 Long-term current use of opiate analgesic drug 1456154876 97134 Z79.891 Diagnostic /Lab: Order Presumptiv e UDT (necessary for rapid results) with Definitive confirmati on for chronic pain patient, to define treatment and reinforce therapeuti c compliance ; the following apply:[Pre sumptive UDT includes: (Amp, Rena, Heber, Bup, THC, HANNAH, ETOH, Meth, Opi, Oxy )]*-Patien t is receiving controlled medication s.*-Presum ptive UDT to identify presence of illicit/no n-prescrib ed substance( s) - Confirm positive for ongoing safe prescribin g of controlled substances .*-Presump tive UDT to identify presence of licit/pres cribed substance( s)-Confirm unexpected results, identify specific drug(s) in large class and ensure appropriat e use of prescribed medication (s). _*-Definit miranda UDT inadequate ly detected by Presumptiv e UDT (gabapenti n, pregabalin , tramadol, fentanyl, tapentadol and carisoprod ol). HP1 (CBC/Renal /Hepatic/G GT) CBC - ordered to monitor the effects of prescribed medication s. Renal/Hepa tic/GGT - ordered to monitor toxicity of renal hepatic function due to medication . Chronic pain syndrome 37 5234880 G89.4 [id number] Anastasia Sharma, JAIL OFFICER [address] [place] [address] 05/12/2023 08:56:39 05/12/2023 10:34:58 Chronic pain syndrome 818704026 G89.4 [id number] Tawana Powell, JAIL OFFICER [address] [place] [address] 4 06/11/2023 09:41:52 06/11/2023 10:41:32 Long-term current use of opiate analgesic drug 6164517389 68350 Z79.891 Diagnostic /Lab: Order Presumptiv e UDT [...] , tramadol, fentanyl, tapentadol and carisoprod ol). Cervical radiculopathy 41323738 M54.12 Cervical s pondylosis without myelopathy 244023371 M47.812 Cervicocra nial syndrome 04622205 M53.0 Long-term drug therapy 353522939 Z79.899 Malaise and fatigue 2717 46902 R53.81 Osteoporosis 09191210 M8 1.0 Spondylosi s without myelopathy 82410164 M47.816 Chronic pain syndrome 37 7966983 G89.4 [id number] ZARIA Lira [address] [place] [address] 07/13/2023 13:05:10 07/13/2023 13:41:31 Abdominal pain 99680373 R10.9 Chronic pain syndrome 37 0077493 G89.4 [id number] Anastasia Sharma APRN [address] [place], [place] [address] 4 08/13/2023 13:49:49 08/14/2023 14:39:53 Long-term current use of opiate analgesic drug 8979252206 58012 Z79.891 Diagnostic /Lab: Order Presumptiv e UDT (necessary for rapid results) with Definitive confirmati on for chronic pain patient, to define treatment and reinforce therapeuti c compliance ; the following apply:[Pre sumptive UDT includes: (Amp, Rena, Heber, Bup, THC, HANNAH, ETOH, Meth, Opi, Oxy )]*-Patien t is receiving controlled medication s.*-Presum ptive UDT to identify presence of illicit/no n-prescrib ed substance( s) - Confirm positive for ongoing safe prescribin g of controlled substances .*-Presump tive UDT to identify presence of licit/pres cribed substance( s)-Confirm unexpected results, identify specific drug(s) in large class and ensure appropriat e use of prescribed medication (s). _*-Definit miranda UDT inadequate ly detected by Presumptiv e UDT (gabapenti n, pregabalin , tramadol, fentanyl, tapentadol and carisoprod ol). Chronic pain syndrome 37 8859065 G89.4 [id number] Aniceto Saini MD [address] [place] [address] 4 09/21/2023 09:11:40 09/30/2023 08:48:50 Long-term current use of opiate analgesic drug 2767616628 13102 Z79.891 Cervicocra nial syndrome 78871355 M53.0 Cervical s pondylosis without myelopathy 369048443 M47.606 [id number] Anastasia Sharma APRN [address] [place] [address] 4 10/20/2023 14:09:58 10/21/2023 17:44:08 Long-term current use of opiate analgesic drug 1415871356 08207 Z79.891 Diagnostic /Lab: Order Presumptiv e UDT (necessary for rapid results) with Definitive confirmati on for chronic pain patient, to define treatment and reinforce therapeuti c compliance ; the following apply:[Pre sumptive UDT includes: (Amp, Rena, Heber, Bup, THC, HANNAH, ETOH, Meth, Opi, Oxy )]*-Patien t is receiving controlled medication s.*-Presum ptive UDT to identify presence of illicit/no n-prescrib ed substance( s) - Confirm positive for ongoing safe prescribin g of controlled substances .*-Presump tive UDT to identify presence of licit/pres cribed substance( s)-Confirm unexpected results, identify specific drug(s) in large class and ensure appropriat e use of prescribed medication (s). _*-Definit miranda UDT inadequate ly detected by Presumptiv e UDT (gabapenti n, pregabalin , tramadol, fentanyl, tapentadol and carisoprod ol). Cervicocra nial syndrome 52401865 M53.0 [id number] Anastasia Sharma APRN [address] [address] 11/11/2023 08:45:37 11/12/2023 14:40:35 Cervicocranial syndrome 67224136 M53.0 [id number] Anastasia Sharma, JAIL OFFICER [address] [place] [address] 12/15/2023 10:16:17 12/15/2023 11:27:38 Cervicocranial syndrome 23089095 M53.0 [id number] Anastasia Sharma, JAIL OFFICER [address] [place] [address] 01/11/2024 08:11:29 01/11/2024 08:42:30 Cervicocranial syndrome 08616954 M53.0 [id number] Anastasia Sharma, JAIL OFFICER [address] [address] 02/11/2024 08:09:28 02/15/2024 11:20:20 Long-term current use of opiate analgesic drug 6760922303 39695 Z79.891 Diagnostic /Lab: Order Presumptiv e UDT [...] , tramadol, fentanyl, tapentadol and carisoprod ol). HP1 (CBC/Renal /Hepatic/G GT) CBC - ordered to monitor the effects of prescribed medication s. Renal/Hepa tic/GGT - ordered to monitor toxicity of renal hepatic function due to medication . Cervicocra nial syndrome 96511563 M53.0 [id number] Anastasia DownsDc Sharma, JAIL OFFICER [address] [place] [address] 03/11/2024 14:31:15 03/15/2024 13:06:05 Cervicocranial syndrome 82761700 M53.0 [id number] Jennifer Neal DNP J[employer] OFFICER [address] [place] [address] 04/07/2024 13:36:29 04/08/2024 09:15:22 Abdominal pain 56365220 R10.9 Cervical s pondylosis without myelopathy 281391019 M47.812 Cervicocra nial syndrome 10081109 M53.0 Muscle pain 54459336 M79 .12 Trigeminal neuralgia 316 17937 G50.0 [id number] Jennifer Neal DNP JAIL OFFICER [address] [facility] [address] [place] [address] 05/10/2024 12:02:29 05/10/2024 12:57:37 Long-term current use of opiate analgesic drug 9979018712 41951 Z79.891 Diagnostic /Lab: Order Presumptiv e UDT [...] , tramadol, fentanyl, tapentadol and carisoprod ol). Cervical radiculopathy 42959455 M54.12 Cervical s pondylosis without myelopathy 214177672 M47.812 Cervicogenic headache 27 7423834 G44.86 Trigeminal neuralgia 316 48148 G50.0 Cervicocra nial syndrome 79386001 M53.0 Global Risk Assessment Score:High Risk. High Risk Assessment : Multiple Opioid Medication Medication [...] ORT: . Lab work reviewed:U DS of 02/11/2024 reviewed and is appropriat sapphire CANNON (prescript ion drug monitoring report):As of 05/10/2024 reviewed and is appropriat e Last fill 04/16/2024 Inappropri ate due to: . [id number] Jennifer Neal DNP JAIL OFFICER [address] [facility] [address] [place] [address] 06/09/2024 09:05:26 06/15/2024 11:24:28 Cervical radiculopathy 88104807 M54.12 Cervical s pondylosis without myelopathy 841016450 M47.812 Disorder o f bone and articular cartilage 743207704 M24.10 Pelvic and perineal pain 645042719 R10.2 Trigeminal neuralgia 316 91709 G50.0 Cervicocra nial syndrome 01317200 M53.0 Global Risk Assessment Score:High Risk.High Risk Assessment [...] ORT: . Lab work reviewed:U DS of 02/11/2024 reviewed and is appropriat eDc CANNON (prescript ion drug monitoring report):As of 06/09/2024 reviewed and is appropriat e Last fill 05/16/2024 Inappropri ate due to: . [id number] Jennifer Neal DNP JAIL OFFICER [address] [place] [address] 07/11/2024 12:16:55 07/18/2024 08:16:56 Long-term current use of opiate analgesic drug 1431087488 54555 Z79.891 Diagnostic /Lab: Order Presumptiv e UDT (necessary for rapid results) with Definitive confirmati on for chronic pain patient, to define treatment and reinforce therapeuti c compliance ; the following apply:[Pre sumptive UDT includes: (Amp, Rena, Heber, Bup, THC, HANNAH, ETOH, Meth, Opi, Oxy )]*-Patien t is receiving controlled medication s.*-Presum ptive UDT to identify presence of illicit/no n-prescrib ed substance( s) - Confirm positive for ongoing safe prescribin g of controlled substances .*-Presump tive UDT to identify presence of licit/pres cribed substance( s)-Confirm unexpected results, identify specific drug(s) in large class and ensure appropriat e use of prescribed medication (s). _*-Definit miranda UDT inadequate ly detected by Presumptiv e UDT (gabapenti n, pregabalin , tramadol, fentanyl, tapentadol and carisoprod ol).HP1 (CBC/Renal /Hepatic/G GT) CBC - ordered to monitor the effects of prescribed medication s. Renal/Hepa tic/GGT - ordered to monitor toxicity of renal hepatic function due to medication . Cervical radiculopathy 34524492 M54.12 [id number] Global Risk Assessment Score:High Risk. High Risk Assessment : Multiple Opioid Medication Medication [...] ORT: . Lab work reviewed:U DS of 05/10/2024 reviewed and is appropriat sapphire CANNON (prescript ion drug monitoring report):As of 07/11/2024 reviewed and is appropriat e Last fill 06/15/2024 Inappropri ate due to: . Cervical s pondylosis without myelopathy 702968100 M47.812 Muscle pain 92670976 M79 .12 Trigeminal neuralgia 316 02878 G50.0 [id number] Jennifer Neal DNP JAIL OFFICER [address] [facility] [address] [place] [address] 08/11/2024 13:00:04 08/11/2024 13:20:49 Cervical radiculopathy 81944321 M54.12 Global Risk Assessment Score:High Risk.High Risk Assessment [...] ORT: . Lab work reviewed:U DS of 07/11/2024 reviewed and is appropriat sapphire CANNON (prescript ion drug monitoring report):As of 08/11/2024 reviewed and is appropriat e Last fill 07/25/2024 Inappropri ate due to: . Cervicocra nial syndrome 53575661 M53.0 I Muscle pain 57729890 M79 .12 Trigeminal neuralgia 316 82566 G50.0 [id number] Aniceto Saini MD [address] [facility] [address] [place] [address] 09/12/2024 13:52:03 09/28/2024 09:10:47 Cervicocranial syndrome 87180641 M53.0 Cervical s pondylosis without myelopathy 224666177 M47.812 Long-term current use of opiate analgesic drug 9483924146 55743 Z79.891 Cervical radiculopathy 71275257 M47.812 Trigeminal neuralgia 316 43641 G50.0 [id number] Jennifer Neal DNP JAIL OFFICER [address] [address] 10/10/2024 12:30:15 10/10/2024 12:55:19 Cervical radiculopathy 75485631 M47.812 Global Risk Assessment Score:High Risk.High Risk [...] ORT: . Lab work reviewed:U DS of 09/12/2024 reviewed and is appropriat eDc CANNON (prescript ion drug monitoring report):As of 10/10/2024 reviewed and is appropriat e Last fill 09/12/2024 Inappropri ate due to: . Cervical s pondylosis without myelopathy 967004001 M47.812 Cervicocra nial syndrome 09461525 M53.0 [id number] Aniceto Saini MD [address] [address] 11/07/2024 12:39:18 11/17/2024 14:50:20 Cervical spondylosis without myelopathy 836406067 M47.812 Cervicocra nial syndrome 75329659 M53.0 Long-term current use of opiate analgesic drug 8354148265 70596 Z79.891 Diagnostic /Lab: Order Presumptiv e UDT [...] , tramadol, fentanyl, tapentadol and carisoprod ol). Cervicogenic headache 27 4112033 G44.86 Spondylosi s without myelopathy 04632096 M47.816 Cervical radiculopathy 40166599 M47.546 [id number] Jennifer Neal DNP JAIL OFFICER [address] [address] 12/07/2024 11:48:54 12/19/2024 11:03:11 Abdominal pain 17228328 R10.9 Cervical radiculopathy 24579959 M47.812 Global Risk Assessment Score:High Risk.High Risk [...] ORT: . Lab work reviewed:U DS of 11/07/2024 reviewed and is appropriat sapphire CANNON (prescript ion drug monitoring report):As of 12/07/2024 reviewed and is appropriat e Last fill 11/11/2024 Inappropri ate due to: . Cervical s pondylosis without myelopathy 091179146 M47.368 [id number] Jennifer Neal DNP JAIL OFFICER [address] [facility] [address] [place] [address] 02/01/2025 12:58:51 02/01/2025 14:00:39 Long-term current use of opiate analgesic drug 2959922440 27826 Z79.891 Diagnostic /Lab: Order Presumptiv e UDT (necessary for rapid results) with Definitive confirmati on for chronic pain patient, to define treatment and reinforce therapeuti c compliance ; the following apply:[Pre sumptive UDT includes: (Amp, Rena, Heber, Bup, THC, HANNAH, ETOH, Meth, Opi, Oxy )]*-Patien t is receiving controlled medication s.*-Presum ptive UDT to identify presence of illicit/no n-prescrib ed substance( s) - Confirm positive for ongoing safe prescribin g of controlled substances .*-Presump tive UDT to identify presence of licit/pres cribed substance( s)-Confirm unexpected results, identify specific drug(s) in large class and ensure appropriat e use of prescribed medication (s). _*-Definit miranda UDT inadequate ly detected by Presumptiv e UDT (gabapenti n, pregabalin , tramadol, fentanyl, tapentadol and carisoprod ol).HP1 (CBC/Renal /Hepatic/G GT) CBC - ordered to monitor the effects of prescribed medication s. Renal/Hepa tic/GGT - ordered to monitor toxicity of renal hepatic function due to medication . Cervicocra nial syndrome 90624321 M53.0 Cervical s pondylosis without myelopathy 700804780 M47.812 Cervicogenic headache 27 8295978 G44.86 Trigeminal neuralgia 316 09294 G50.0 Cervical radiculopathy 39730824 M47.812 Global Risk Assessment Score:High Risk.High Risk [...] DS of 01/06/2025 reviewed and is appropriat eDc CANNON (prescript ion drug monitoring report):As of 02/01/2025 reviewed and is appropriat e Last fill 01/10/2025 Inappropri ate due to: . [id number] Jackelyn Pereyra, JAIL OFFICER [address] [address] 01/06/2025 08:30:27 01/06/2025 11:13:50 Long-term current use of opiate analgesic drug 1259986434 73684 Z79.891 406161 Diagnostic /Lab: Order Presumptiv e UDT (necessary [...] , tramadol, fentanyl, tapentadol and carisoprod ol). Cervical radiculopathy 91103643 M47.812 Spondylosi s without myelopathy 72353818 M47.816 Cervical s pondylosis without myelopathy 104002564 M47.739 [id number] Jennifer NealJANINE JAIL OFFICER [address] [facility] [address] [place] [address] 03/09/2025 09:08:35 03/09/2025 10:01:45 Long-term current use of opiate analgesic drug 2049966817 56306 Z79.891 Diagnostic /Lab: Order Presumptiv e UDT [...] tapentadol and carisoprod ol). Cervicocra nial syndrome 06523364 M53.0 Cervical s pondylosis with radiculopathy 815071753 M47.22 Cervical s pondylosis without myelopathy 850746218 M47.812 Cervical radiculopathy 38995858 M47.812 Global Risk Assessment Score:High Risk.High Risk [...] fill 02/09/2025 Inappropri ate due to: . [id number] Jennifer Neal DNP JAIL OFFICER [facility] [address] 04/05/2025 12:02:10 04/14/2025 10:31:57 Cervicocranial syndrome 65391024 M53.0 Cervical s pondylosis without myelopathy 813766619 M47.812 Cervicogenic headache 27 2231052 G44.86 Trigeminal neuralgia 316 31581 G50.0 Cervical radiculopathy 35133154 M47.812 Global Risk Assessment Score:High Risk.High Risk [...] the patient's treatment with controlled substances Non [place] resident Difficulty in contacting the patient ( i.e. multiple residences , multiple phone numbers/no phone, frequent out of town travel/out -of-state work) ORT Score:Risk Score: Date of ORT: . Lab work reviewed:U DS of 01/06/2025 reviewed and is appropriat eDc CANNON (prescript ion drug monitoring report):As of 03/09/2025 reviewed and is appropriat e Last fill 02/09/2025 Inappropri ate due to: . [id number] Aniceto Saini MD [address] [facility] [address] [place] [address] 05/09/2025 08:46:25 05/09/2025 09:50:28 Cervicocranial syndrome 99162684 M53.0 Cervical radiculopathy 10824767 M47.812 Chronic in terstitial cystitis 779326626 N30.10 Health Concerns Section Related Observation LastModified by Organization Detai ls LastModified Time None Recorded Concern Status LastModified by Organization Details LastModified Time None Recorded Advance Directives Directive None Recorded Payers Insurance Date Sequence Insurance Name Policy Number Policy Hair Covered Member ID Hair Member ID Guarantor Name 05/06/2025 1 [place] [employer] [employer] [facility] [id number] Guido Dempsey [id number] Sophie Dempsey Notes Date Note Type Note Provider Name and Address Organization Details Recorded Time 01/06/2025 text/html Her pain is stable today. It is constant but varies in intensity. Pain is aggravated by over-exertion, lifting, pushing/pulling, reaching, twisting, flexion, and repetitive movements.Denies N/TShe is active around the house and independent w/ ADLsDenies SE to meds Jackelyn Pereyra, JAIL OFFICER [address] [facility], [place], [address], [facility] 01/10/2025 15:44:43 02/01/2025 text/html ROS as noted in the [facility] Patient RTC for the management of her chronic cervical and trigeminal neuralgia.Patient states since last visit her chronic pain issues have been about the same since last visit. Qualityburning, throbbing, shooting, sharp and heavyImproves somewhat with the pain medsaggravating factors: activity Patient is here for med refills today, reports compliance, states use of medication gives some relief and allows more physical function. Patient reports tolerating the medication well and denies any adverse effects including toxic effects, respiratory sedation, driving problems, or GI problems. Jennifer Neal DNP APRN [address], [place], [address], [facility] 02/02/2025 07:30:56 03/09/2025 text/html ROS as noted in the [facility] Patient RTC for the management of her chronic cervical pain .Patient states has been about the same since last visit. quality: burning, aching, pullingImproves somewhat with the pain medsAggravating factors: activity Patient is here for med refills today, reports compliance, states use of medication gives some relief and allows more physical function. Patient reports tolerating the medication well and denies any adverse effects including toxic effects, respiratory sedation, driving problems, or GI problems. Jennifer Neal DNP APRN [address] [place], [address], [facility] 03/09/2025 16:36:52 04/05/2025 text/html ROS as noted in the [facility] Patient RTC for the management of her [...] respiratory sedation, driving problems, or GI problems. Jennifer Neal DNP APRN [address] [place], [address], [place] [facility] 04/10/2025 07:33:58 05/09/2025 text/html Returns today stating that she [...] Seeing urologist in regards to this. Aniceto Saini MD [address], [place], [address], [facility] 05/09/2025 09:49:45 OBGyn Episode No OBEpisode recorded.
--- OUTSIDE RECORDS SUMMARY | 2025-05-11 07:33 | XMS_ITS | Encounter Summary ---
Author Organization [facility] Address [address] [place] [address] Care Team Providers Care Restaurant Hospitality Manager Name Role Phone Zana Carty MD Primary Care Provider +1- [phone] Reason for Visit * Reason Comments Med Refill Encounter Details Date Type Department Care Team (Late st Contact Info) Description 07/17/2021 Refill [place] TESTING AND REGULATING TECHNICIAN [address] [place] [address] Lauren Morales, ANTIQUE JEWELRY REPAIRER [address] [facility] [address] [place] [address] Social History Tobacco Use Types [...] [facility] [place] [address] Zahra Greerrickson [facility] [address] [place] [address] 07/05/2025 2:30 PM EST Office Visit [facility] [address] [facility], 2nd [place] [address] Jeannie Riddle, ANTIQUE JEWELRY REPAIRER [address] [facility] [address] [place] [address] documented as of this encounter Visit Diagnoses Not on filedocumented in this encounter Care Teams Restaurant Hospitality Manager Relationship Specialty Start Date End Date Zana Carty MD [address] [place] [address] [place] [address] PCP - General 11/09/20 documented as of this encounter
--- OUTSIDE RECORDS SUMMARY | 2025-05-11 07:33 | XMS_ITS | Encounter Summary ---
Author Organization Healthcare Address [address] [place] [address] Care Team Providers Care Nodulizer Name Role Phone Zana Carty MD Primary Care Provider +1- [phone] Encounter Details Date Type Department Care Team (Late st Contact Info) Description 03/17/2025 Results Follow-Up Obstetrics & Gynecology [address] [place] [address] Shaneka Joshi, LEGAL WRITING PROFESSOR [address] [place] [address] Social History Tobacco Use Types [...] [facility] [address] [address] 07/05/2025 2:30 PM EST Office Visit [facility] [address] [facility], 2nd [place] [address] Jeannie Riddle, LEGAL WRITING PROFESSOR [address] [facility] Zahra Qureshi [facility] [address] [place] [address] documented as of this encounter Visit Diagnoses Not on filedocumented in this encounter Additional Health Concerns Assessment Noted Time A fall risk assessment has been complete d for the patient 03/15/2025 3:14 PM EDT A Body Mass Index follow-up plan has been documented for the patient 03/17/2025 2:31 PM EDT documented as of this encounter Care Teams Nodulizer Relationship Specialty Start Date End Date Zana Carty MD [address] [place] [address] PCP - General 11/09/20 documented as of this encounter
--- OUTSIDE RECORDS SUMMARY | 2025-05-11 07:33 | XMS_ITS | Encounter Summary ---
Author Organization [facility] Address [address] [place] [address] Care Team Providers Care Auxiliary Power Equipment Operator Name Role Phone Zana Carty MD Primary Care Provider +1- [phone] Encounter Details Date Type Department Care Team [...] [facility] [address] Zahra Qureshi [facility] [address] [place] [address] 07/05/2025 2:30 PM EST Office Visit [facility] [address] [facility], [address]nd [place] [address] Jeannie Riddle, PICK UP WORKER [address] [facility] [address] [place] [address] documented as of this encounter Visit Diagnoses Not on filedocumented in this encounter Additional Health Concerns Assessment Noted Time A fall risk assessment has been complete d for the patient 03/15/2025 3:14 PM EDT A Body Mass Index follow-up plan has been documented for the patient 03/17/2025 2:31 PM EDT documented as of this encounter Care Teams Auxiliary Power Equipment Operator Relationship Specialty Start Date End Date Zana Carty MD [address] [place] [address] [place] [address] PCP - General 11/09/20 documented as of this encounter
== END 2025-05-11 23:59 | disposition home or self-care (01) ==
LOC: RAD 07:29
PROVIDERS: PCP Family Medicine; Visit Provider Family Medicine
DX: N28.9 Disorder of kidney and ureter, unspecified (principal); R93.421 Abnormal radiologic findings on diagnostic imaging of right kidney; R31.0 Gross hematuria
CPT/HCPCS: 74176

== ENCOUNTER 2025-05-29 15:41 | Outpatient (CLI) | payer BC, SELFPAY ==
--- OUTSIDE RECORDS SUMMARY | 2025-05-29 15:45 | XMS_ITS | Encounter Summary ---
Author Organization [facility] Address [address] [place] [address] Care Team Providers Care Diesel Electrician Name Role Phone Zana Carty MD Primary Care Provider +1- [phone] Reason for Visit * Reason Comments Med Refill Encounter Details Date Type Department Care Team ([facility] st Contact Info) Description 10/09/2021 Refill [place] DEMOLITIONIST [address] [place] [address] Lauren Morales S, RIM BUSTER [address] [facility] [address] [place] [address] Social History Tobacco Use Types [...] 1:30 PM EST Appointment [facility] [place] [facility] [place] [address] Zahra Qureshi [facility] [address] [place] [address] 07/05/2025 2:30 PM EST Office Visit [facility] Breast [facility] [address] [facility], [address]nd [place] [address] Jeannie Riddle, RIM BUSTER [address] [facility] [address] [place] [address] documented as of this encounter Visit Diagnoses Not on filedocumented in this encounter Care Teams Diesel Electrician Relationship Specialty Start Date End Date Zana Carty MD [address] [place] [address] PCP - General 11/09/20 documented as of this encounter
--- OUTSIDE RECORDS SUMMARY | 2025-05-29 15:45 | XMS_ITS | Encounter Summary ---
Author Organization Healthcare Address [address] [place] [address] Care Team Providers Care Masking Machine Operator Name Role Phone Zana Carty MD Primary Care Provider +1- [phone] Reason for Visit * Reason Comments Med Refill Encounter Details Date Type Department Care Team (Late st Contact Info) Description 01/31/2023 Refill Obstetrics & Gynecology [address] [place] [address] Adeola Jerez, CASHIER CHECKER, [facility] [address] [place] [address] On hormone replacement therapy Social History Tobacco [...] [facility] [place] [address] Zahra Greerrickson [facility] [address] [place] [address] 07/05/2025 2:30 PM EST Office Visit [facility] [address] [facility], [address]nd [place] [address] Jeannie Riddle, CASHIER CHECKER [address] [facility] Zahra Qureshi [facility] [address] [place] [address] documented as of this encounter Visit Diagnoses Diagnosis On hormone replacement therapy documented in this encounter Care Teams Masking Machine Operator Relationship Specialty Start Date End Date Zana Carty MD [address] [place] [address] [place] [address] PCP - General 11/09/20 documented as of this encounter
--- OUTSIDE RECORDS SUMMARY | 2025-05-29 15:45 | XMS_ITS | Continuity of Care Document ---
Author Organization [facility] [address] [place] [address] [place] [address] Care Team Providers Care Adult Parole Officer Name Role Phone ALPA RIDLEY Primary Care Provider Assessment No assessment recorded. Plan of Treatment Reminders Order Date Submit Date Provider Last Modified By Organization Details Last Modified Time Details Appointments Office Visit15 2024 08:45A Megan Neal DNP MOBILE SERVICE RV TECHNICIAN Not available Not available Not available Office Visit15 2025 11:30A Megan Neal DNP MOBILE SERVICE RV TECHNICIAN Not available Not available Not available OV Ext 30 2025 11:30A Megan Becerra MD Not available Not available Not available Lab drug screen, urine - Meds: hydrocodo ne morphine ss 2024 025 SHERIDAN Becerra MD [facility] ([facility]), [address] [place] [address], [id number], 03/22/2025 14:50:56 Referral None recorded. Procedures None recorded. Surgeries None recorded. Imaging None recorded. Medication Orders hydrocodo ne 10 mg-acetam inophen 325 mg tablet 2024 025 [facility]acy #[id number], [address] [place], [address], 03/09/2025 11:01:53 morphine ER 15 mg tablet,ex tended release 2024 025 [facility]/Pharmacy #[id number], [address] [place], [address], 03/09/2025 11:01:54 Patient TargetsNo targets recorded. Patient Instructions Encounter Date Encounter Id Patient Instructions Last Modified By Organization Details Last Modified Time 03/09/2025 [id number] 1. continue healthy lifestyles 2. stretching/yoga/w alking as tolerated 3. take pain medications as prescribed 4. call with any concerns [email or web address] Not available 03/09/2025 09:54:51 Patient seen today incident to a physician s previously established diagnosis and plan of care. Follow-up care provided today under the plan of care of: Aniceto Becerra MD and supervision of: Manuel Lyn MD. [email or web address] Not available 03/09/2025 09:55:00 Reason for Referral None Reported. Results Created Date Observation Date Name Description Value Unit Range Abnormal Flag Note LastModifiedBy Organization Detail LastModifiedTime 03/09/2003/09/2025 MORPH INE SULFA TE abnormal status abnormal Not Available Caroline Becerra MD [facility] ([facility]) [address] [place] [address], [id number], 03/22/2025 14:50:58 03/09/20 25 03/09/2025 MORPH INE SULFA TE abnormal status high Not Available Caroline Becerra MD [facility] ([facility]) [address] [place] [address], [id number], 03/22/2025 14:50:58 03/09/2003/22/2025 OPIAT E DEFIN ITIVE PANEL LC/MS codeine 0.0 NG/mL <75.0 Not Available Marlin Becerra MD [facility] ([facility]) [address] [place] [address], [address], 03/22/2025 14:50:57 03/09/2003/22/2025 OPIAT E DEFIN ITIVE PANEL LC/MS morphine >5000 NG/mL <75.0 abnormal Not Available Marlin Becerra MD [facility] ([facility]) [address] [place] [address], [address], 03/22/2025 14:50:57 03/09/20 25 03/22/2025 OPIAT E DEFIN ITIVE PANEL LC/MS 6-BALDO 0 NG/mL <15.0 Not Available Marlin Becerra MD [facility] (In House Lab) [address] [place] [address], [address], 03/22/2025 14:50:57 03/09/2003/22/2025 OPIAT E DEFIN ITIVE PANEL LC/MS hydromorphon e 1212.6 NG/mL <75.0 abnormal Not Available Caroline Becerra MD [facility] (In House Lab) [address] [place] [address], [address], 03/22/2025 14:50:57 03/09/2003/22/2025 OPIAT E DEFIN ITIVE PANEL LC/MS hydrocodone 3456.2 NG/mL <75.0 abnormal Not Available Taran Becerra MD [facility] (In House Lab) [address] [place] [address], [address], 03/22/2025 14:50:57 03/09/2003/22/2025 OPIAT E DEFIN ITIVE PANEL LC/MS norhydrocodo ne 3932.0 NG/mL <75.0 abnormal Not Available Caroline Becerra MD [facility] (In House Lab) [address] [place] [address], [address], 03/22/2025 14:50:57 03/09/2003/09/2025 D-PRE SUMPT MIRANDA URINE DRUG REPOR T amphetamine NEGATI VE NG/mL <1000. 0 Not Available Marlin Becerra MD [facility] (In House Lab) [address] [place] [address], [id number], 03/22/2025 14:50:56 03/09/2003/09/2025 D-PRE SUMPT MIRANDA URINE DRUG REPOR T benzodiazepi ne 79.0 NG/mL <200.0 Curre nt metho d may not detec t low level s of Klono pin Not Available Marlin Becerra MD [facility] (In House Lab) [address] [place] [address], [address], 03/22/2025 14:50:56 03/09/20 25 03/09/2025 D-PRE SUMPT MIRANDA URINE DRUG REPOR T buprenorphin e NEGATI VE NG/mL <10.0 Not Available Marlin Becerra MD [facility] (In House Lab) [address] [place] [address], [address], 03/22/2025 14:50:56 03/09/20 25 03/09/2025 D-PRE SUMPT MIRANDA URINE DRUG REPOR T cannabinoid NEGATI VE NG/mL <50.0 Not Available Marlin Becerra MD [facility] (In House Lab) [address] [place] [address], [address], 03/22/2025 14:50:56 03/09/20 25 03/09/2025 D-PRE SUMPT MIRANDA URINE DRUG REPOR T cocaine NEGATI VE NG/mL <300.0 Not Available Marlin Becerra MD [facility] (In House [facility]) [address] [place] [address], [address], 03/22/2025 14:50:56 03/09/20 25 03/09/2025 D-PRE SUMPT MIRANDA URINE DRUG REPOR T ethanol NEGATI VE mg/dL <50.0 Not Available Marlin Becerra MD [facility] (In House Lab) [address] [place] [address], [address], 03/22/2025 14:50:56 03/09/20 25 03/09/2025 D-PRE SUMPT MIRANDA URINE DRUG REPOR T methadone 16.0 NG/mL <300.0 Not Available Marlin Becerra MD [facility] (In House Lab) [address] [place] [address], [address], 03/22/2025 14:50:56 03/09/20 25 03/09/2025 D-PRE SUMPT MIRANDA URINE DRUG REPOR T opiates 1365.0 NG/mL <300.0 high Opiat es inclu torres Codei ne,Mo rphin e, [place] morph one,H ydroc odone Not Available Marlin Becerra MD [facility] ([facility]) [address] [place] [address], [address], 03/22/2025 14:50:56 03/09/20 25 03/09/2025 D-PRE SUMPT MIRANDA URINE DRUG REPOR T oxycodone 38.0 NG/mL <300.0 Not Available Marlin Becerra MD [facility] ([facility]) [address] [place], [address], 03/22/2025 14:50:56 03/09/20 25 03/09/2025 D-PRE SUMPT MIRANDA URINE DRUG REPOR T urine creatinine (validity test) 97.9 mg/dL 20.0 - 300.0 Not Available Marlin Becerra MD [facility] ([facility]) [address] [place], [address], 03/22/2025 14:50:56 Result Notes None recorded. Problems Name Problem SNOMED Code Status Onset Date Resolution Date Notes Provider Name and Address Organization Details Recorded Time Osteoporo sis 59989594 Active 2014 (733.00)O STEOPOROS IS NOS Not Available [facility] 2 22:02:43 Disorder of bone and articular cartilage 599970632 Active 2014 (733.90)B ONE & CARTILAGE DIS NOS Not Available [facility] 2 22:02:43 Malaise and fatigue 970647382 Active 2014 (780.79)M ALAISE AND FATIGUE NEC Not Available [facility] 2 22:02:43 Hyperhidr osis 206679514 Active 2014 (780.8)Ge neralized Hyperhidr osis Not Available [facility] 2 22:02:43 Reduced libido 8372102 Active 2014 (799.81)D ecreased Libido Not Available [facility] 2 22:02:44 Chronic interstit ial cystitis 159705958 Active 2014 (595.1)Ch ronic Interstit ial Cystitis Not Available [facility] 2 22:02:43 Functiona l disorder of urinary bladder 611911227 Active 2014 (596.59)O ther Bladder Dysfuncti on Not Available [facility] 2 22:02:43 Depressio n screening Active 2014 (V79.0)Sp ecial Screening Examinati on for Depressio n Not Available [facility] 2 22:02:45 Abdominal pain 15870012 Active 2014 (789.00)A bdominal Pain Site Not Otherwise Specified Not Available [facility] 2 22:02:43 Pelvic and perineal pain 500499126 Active 2014 (R10.2)Pe lvic and perineal pain Not Available [facility] 2 22:02:45 Long-term current use of opiate analgesic drug 64114904310 4108 Active 2014 (Z79.891) 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 Not Available [facility] 2 22:02:45 Trigemina l neuralgia 37271861 Active 2015 (G50.0)Tr igeminal neuralgia Not Available [facility] 2 22:02:44 Screening for osteoporo sis Active 2015 (V82.81)S pecial Screening Examinati on for Osteoporo sis Not Available [facility] 2 22:02:45 Cervical spondylos is without myelopath y 573985307 Active 2016 (M47.812) Spondylos is without myelopath y or radiculop athy, cervical region Not Available [facility] 2 22:02:44 Cervicocr anial syndrome 30381553 Active 2016 (M53.0)Ce rvicocran ial syndrome Not Available [facility] 2 22:02:44 Cervical radiculop athy 48829143 Active 2016 (M54.12)R adiculopa thy, cervical region Not Available [facility] 2 22:02:44 Cervical spondylos is with radiculop athy Active 2016 (M47.22)O ther spondylos is with radiculop athy, cervical region Not Available [facility] 2 22:02:44 Headache 05242146 Active 2016 (R51)Head ache Not Available [facility] 2 22:02:45 Screening for disorder Active 2016 (Z13.89)E ncounter for screening for other disorder Not Available [facility] 2 22:02:45 Generaliz ed anxiety disorder 63198375 Active 2018 (F41.1)Ge neralized anxiety disorder Not Available [facility] 2 22:02:44 Tobacco dependenc e caused by cigarette s 10656669260 150256 Active 2018 (F17.210) Nicotine dependenc e, cigarette s, uncomplic ated Not Available [facility] 2 22:02:44 Migraine 93824842 Active 2019 (G43.909) Migraine, unspecifi ed, not intractab le, without status migrainos us Not Available [facility] 2 22:02:44 Muscle pain 95183592 Active 2019 (M79.1)My algia Not Available [facility] 2 22:02:45 Spondylos is without myelopath y 24213977 Active 2020 (M47.816) Spondylos is without myelopath y or radiculop athy, lumbar region Not Available [facility] 2 22:02:44 Cervicoge adriana headache 744989909 Active 2021 (G44.86)C ervicogen ic headache Not Available [facility] 2 22:02:44 Problem Notes None recorded. Medical Equipment None Reported. Allergies Allergen ID Allergen Name Allergen Category Reaction Reaction Severity Criticality Documentation Date Start Date Code Code System Note Provider Name and Address Organization Details Recorded Time 24876 baclofen Not available Not available Not available Not available 10/29/20212014 1292 RxNorm Not Available [facility] 2 22:02:34 Medications Name Sig Start [...] three times a day prn 05/15 completed E-scribavni haji to pharmacy , made her drugged [...] Not Available Not Available Vitals Date Recorded Pain severity - 0-10 verbal numeric rating [Score] - Reported Heart rate Body temperature Systolic And Diastolic Provider Name and Address Organization Details Last Updated DateTime 03/09/2025 7 84 /min 97.8 [degF] 162/94 mm[Hg] [facility] 03/09/2025 09:12:27 Date Recorded Body height Body mass index (BMI) Body weight Respiratory rate Provider Name and Address Organization Details Last Updated DateTime 03/09/2025 165.1 cm 27.1 kg/m2 94989.56 g 16 /min Megan [facility] 03/09/2025 09:10:26 Social History Question Answer Notes LastModified by [employer] Details LastModified Time Tobacco Smoking Status Current Every Day Smoker [facility] 12/24/2021 14:28:34 What Is Your Level Of Caffeine Consumption? Occasional 2 Cups Coffee [email or web address] Information not available 12/24/2021 What Is Your Current Pack Years? 10packyears 7 YEARS [email or web address] Information not available 01/21/2022 How Much Tobacco Do You Smoke? 1 PPD [email or web address] Information not available 12/24/2021 Sex: Female Functional Status Question Answer Note LastModified by [employer] Details LastModified Time What is your level of alcohol consumption? Occasional [email or web address] Information not available 12/24/2021 What is your occupation? Disabled [email or web address] Information not available 10/29/2021 Mental Status None [...] ICD10 Code Diagnosis IMO Codes Diagnosis Note [id number] Jennifer Neal DNP MOBILE SERVICE RV TECHNICIAN [address] [facility] [address] [place] [address] 03/09/2025 09:08:35 03/09/2025 10:01:45 Long-term current use of opiate analgesic drug 4240174269 15769 Z79.891 Diagnostic /Lab: Order Presumptiv e UDT [...] tapentadol and carisoprod ol). Cervicocra nial syndrome 08769103 M53.0 Cervical s pondylosis with radiculopathy 267751993 M47.22 Cervical s pondylosis without myelopathy 264338647 M47.812 Cervical radiculopathy 44982252 M47.812 Global Risk Assessment Score:High Risk.High Risk [...] Member ID Hair Member ID Guarantor Name 03/09/2025 1 GUCCI-IA: [facility] [id number] Himanshu Dempsey [id number] Sophie Dempsey Notes Date Note Type Note Provider Name and Address Organization Details Recorded Time 03/09/2025 text/html ROS as noted in the HPI [...] sedation, driving problems, or GI problems. Jennifer Neal, JANINE MOBILE SERVICE RV TECHNICIAN [address] [facility], [place], [address], [facility] 03/09/2025 16:36:52 OBGyn Episode No OBEpisode recorded.
--- OUTSIDE RECORDS SUMMARY | 2025-05-29 15:45 | XMS_ITS | Encounter Summary ---
Author Organization [facility] Address [address] [place] [address] Care Team Providers Care [employer] Weapon System Operator Name Role Phone Zana Carty MD Primary Care Provider [phone] Reason for Visit * Reason Onset Date Comments Med Refill 05/17/2025 Encounter Details Date Type Department Care Team (Late st Contact Info) Description 05/17/2025 Refill Obstetrics & Gynecology [address] [place] [address] Anastasia Winters MD [address] [place] [address] Social History Tobacco Use Types [...] Info) Description 07/05/2025 1:30 PM EST Appointment [facility] [address] [address] 07/05/2025 2:30 PM EST Office Visit [facility] [address] [facility] [place] [address] Jeannie Riddle, DIE STORAGE WORKER [address] [facility] Zahra Qureshi [facility] [address] [place] [address] documented as of this encounter Visit Diagnoses Not on filedocumented in this encounter Additional Health Concerns Assessment Noted Time A fall risk assessment has been complete d for the patient 03/15/2025 3:14 PM EDT A Body Mass Index follow-up plan has been documented for the patient 03/17/2025 2:31 PM EDT documented as of this encounter Care Teams [employer] We[employer] System Operator Relationship Specialty Start Date End Date Zana Carty MD [address] [place] [address] PCP - General 11/09/20 documented as of this encounter
--- OUTSIDE RECORDS SUMMARY | 2025-05-29 15:46 | XMS_ITS | Continuity of Care Document ---
Author Organization [facility] Address [address] [place] [address] Care Team Providers Care Keel Press Operator Name Role Phone ALPA RIDLEY Primary Care Provider Assessment No assessment recorded. Plan of Treatment Reminders Order Date Submit Date Provider Last Modified By Organization Details Last Modified Time Details Appointments Office Visit15 2024 08:45A Megan Neal DNP BOOK SHELVER Not available Not available Not available Office Visit15 2025 11:30A Megan Neal DNP BOOK SHELVER Not available Not available Not available OV Ext 30 2025 11:30A M Aniceto Becerra MD Not available Not available Not available Lab None recorded. Referral None recorded. Procedures None recorded. Surgeries None recorded. Imaging None recorded. Medication Orders hydrocodo ne 10 mg-acetam inophen 325 mg tablet 2024 025 [facility]Pharmacy #[id number], [address] [place] [address], [address], 04/05/2025 12:46:41 morphine ER 15 mg tablet,ex tended release 2024 025 [facility]/Pharmacy #[id number], [address] [place], [address], 04/05/2025 12:46:42 Patient TargetsNo targets recorded. Patient Instructions Encounter Date Encounter Id Patient Instructions Last Modified By Organization Details Last Modified Time 04/05/2025 [id number] 1. continue healthy lifestyles 2. stretching/yoga/w alking as tolerated 3. take pain medications as prescribed 4. call with any concerns [email or web address] Not available 04/05/2025 12:36:09 Patient seen today incident to a physician s previously established diagnosis and plan of care. Follow-up care provided today under the plan of care of: Aniceto Becerra MD and supervision of: Velma Savage MD. [email or web address] Not available 04/05/2025 12:36:23 Reason for Referral None Reported. Results Created Date Observation Date Name Description Value Unit Range Abnormal Flag Note LastModifiedBy Organization Detail LastModifiedTime 03/09/2003/09/2025 MORPH INE SULFA TE abnormal status abnormal Not Available Caroline Becerra MD [facility] (In House [facility]) [address] [place] [address], [address], 03/22/2025 14:50:58 03/09/2003/09/2025 MORPH INE SULFA TE abnormal status high Not Available Caroline Becerra MD [facility] (In [facility]) [address] [place] [address], [address], 03/22/2025 14:50:58 03/09/2003/22/2025 OPIAT E DEFIN ITIVE PANEL LC/MS codeine 0.0 NG/mL <75.0 Not Available Marlin Becerra MD [facility] (In House [facility]) [address] [place] [address], [address], 03/22/2025 14:50:57 03/09/2003/22/2025 OPIAT E DEFIN ITIVE PANEL LC/MS morphine >5000 NG/mL <75.0 abnormal Not Available Marlin Becerra MD [facility] (In House [facility]) [address] [place] [address], [address], 03/22/2025 14:50:57 03/09/2003/22/2025 OPIAT E DEFIN ITIVE PANEL LC/MS 6-BALDO 0 NG/mL <15.0 Not Available Marlin Becerra MD [facility] (In House Lab) [address] [place] [address], [address], 03/22/2025 14:50:57 03/09/2023 0303/22/2025 OPIAT E DEFIN ITIVE PANEL LC/MS hydromorphon e 1212.6 NG/mL <75.0 abnormal Not Available Caroline Becerra MD [facility] (In House Lab) [address] [place] [address], [address], 03/22/2025 14:50:57 03/09/20 25 03/22/2025 OPIAT E DEFIN ITIVE PANEL LC/MS hydrocodone 3456.2 NG/mL <75.0 abnormal Not Available Taran Becerra MD [facility] (In House Lab) [address] [place] [address], [address], 03/22/2025 14:50:57 03/09/2003/22/2025 OPIAT E DEFIN ITIVE PANEL LC/MS norhydrocodo ne 3932.0 NG/mL <75.0 abnormal Not Available Caroline Becerra MD [facility] (In House Lab) [address] [place] [address], [address], 03/22/2025 14:50:57 03/09/20 25 03/09/2025 D-PRE SUMPT MIRANDA URINE DRUG REPOR T amphetamine NEGATI VE NG/mL <1000. 0 Not Available Marlin Becerra MD [facility] (In House Lab) [address] [place] [address], [address], 03/22/2025 14:50:56 03/09/20 25 03/09/2025 D-PRE SUMPT MIRANDA URINE DRUG REPOR T benzodiazepi ne 79.0 NG/mL <200.0 Curre nt metho d may not detec t low level s of Klono pin Not Available Marlin Becerra MD [facility] (In House Lab) [address] [place] [address], [address], 03/22/2025 14:50:56 03/09/20 25 03/09/2025 D-PRE SUMPT MIRANDA URINE DRUG REPOR T buprenorphin e NEGATI VE NG/mL <10.0 Not Available Marlin Becerra MD [facility] (In House Lab) [address] [place] [address], [address], 03/22/2025 14:50:56 03/09/20 25 03/09/2025 D-PRE SUMPT MIRANDA URINE DRUG REPOR T cannabinoid NEGATI VE NG/mL <50.0 Not Available Marlin Becerra MD [facility] (In House Lab) [address] [place], [address], 03/22/2025 14:50:56 03/09/20 25 03/09/2025 D-PRE SUMPT MIRANDA URINE DRUG REPOR T cocaine NEGATI VE NG/mL <300.0 Not Available Marlin Becerra MD [facility] (In House Lab) [address] [place] [address], [address], 03/22/2025 14:50:56 03/09/20 25 03/09/2025 D-PRE SUMPT MIRANDA URINE DRUG REPOR T ethanol NEGATI VE mg/dL <50.0 Not Available Marlin Becerra MD [facility] (In House Lab) [address] [place] [address], [address], 03/22/2025 14:50:56 03/09/20 25 03/09/2025 D-PRE SUMPT MIRANDA URINE DRUG REPOR T methadone 16.0 NG/mL <300.0 Not Available Marlin Becerra MD [facility] (In House Lab) [address] [place] [address], [address], 03/22/2025 14:50:56 03/09/20 25 03/09/2025 D-PRE SUMPT MIRANDA URINE DRUG REPOR T opiates 1365.0 NG/mL <300.0 high Opiat es inclu torres Codei ne,Mo rphin e, Hutto morph one,H ydroc odone Not Available Marlin Becerra MD [facility] (In House Lab) [address] [place] [address], [address], 03/22/2025 14:50:56 03/09/20 25 03/09/2025 D-PRE SUMPT MIRANDA URINE DRUG REPOR T oxycodone 38.0 NG/mL <300.0 Not Available Marlin Becerra MD [facility] (In House Lab) [address] [place], [address], 03/22/2025 14:50:56 03/09/20 25 03/09/2025 D-PRE SUMPT MIRANDA URINE DRUG REPOR T urine creatinine (validity test) 97.9 mg/dL 20.0 - 300.0 Not Available Marlin Becerra MD [facility] (In House Lab) [address] [place], [address], 03/22/2025 14:50:56 Result Notes None recorded. Problems Name Problem SNOMED Code Status Onset Date Resolution Date Notes Provider Name and Address Organization Details Recorded Time Osteoporo sis 57497621 Active 2014 (733.00)O STEOPOROS IS NOS Not Available [facility] 2 22:02:43 Disorder of bone and articular cartilage 221887575 Active 2014 (733.90)B ONE & CARTILAGE DIS NOS Not Available [facility] 2 22:02:43 Malaise and fatigue 301591578 Active 2014 (780.79)M ALAISE AND FATIGUE NEC Not Available [facility] 2 22:02:43 Hyperhidr osis 380166734 Active 2014 (780.8)Ge neralized Hyperhidr osis Not Available [facility] 2 22:02:43 Reduced libido 6630430 Active 2014 (799.81)D ecreased Libido Not Available [facility] 2 22:02:44 Chronic interstit ial cystitis 074979822 Active 2014 (595.1)Ch ronic Interstit ial Cystitis Not Available [facility] 2 22:02:43 Functiona l disorder of urinary bladder 255440052 Active 2014 (596.59)O ther Bladder Dysfuncti on Not Available [facility] 2 22:02:43 Depressio n screening Active 2014 (V79.0)Sp ecial Screening Examinati on for Depressio n Not Available [facility] 2 22:02:45 Abdominal pain 32665387 Active 2014 (789.00)A bdominal Pain Site Not Otherwise Specified Not Available [facility] 2 22:02:43 Pelvic and perineal pain 942183602 Active 2014 (R10.2)Pe lvic and perineal pain Not Available [facility] 2 22:02:45 Long-term current use of opiate analgesic drug 32300013412 4108 Active 2014 (Z79.891) terminal gauger (current) use of opiate analgesic Not Available [facility] 2 22:02:45 Trigemina l neuralgia 76989950 Active 2015 (G50.0)Tr igeminal neuralgia Not Available [facility] 2 22:02:44 Screening for osteoporo sis Active 2015 (V82.81)S pecial Screening Examinati on for Osteoporo sis Not Available [facility] 2 22:02:45 Cervical spondylos is without myelopath y 770096587 Active 2016 (M47.812) Spondylos is without myelopath y or radiculop athy, cervical region Not Available [facility] 2 22:02:44 Cervicocr anial syndrome 24057869 Active 2016 (M53.0)Ce rvicocran ial syndrome Not Available [facility] 2 22:02:44 Cervical radiculop athy 32706178 Active 2016 (M54.12)R adiculopa thy, cervical region Not Available [facility] 2 22:02:44 Cervical spondylos is with radiculop athy Active 2016 (M47.22)O ther spondylos is with radiculop athy, cervical region Not Available [facility] 2 22:02:44 Headache 54176657 Active 2016 (R51)Head ache Not Available [facility] 2 22:02:45 Screening for disorder Active 2016 (Z13.89)E ncounter for screening for other disorder Not Available [facility] 2 22:02:45 Generaliz ed anxiety disorder 92034187 Active 2018 (F41.1)Ge neralized anxiety disorder Not Available [facility] 2 22:02:44 Tobacco dependenc e caused by cigarette s 98210272425 155318 Active 2018 (F17.210) Nicotine dependenc e, cigarette s, uncomplic ated Not Available [facility] 2 22:02:44 Migraine 76609873 Active 2019 (G43.909) Migraine, unspecifi ed, not intractab le, without status migrainos us Not Available [facility] 2 22:02:44 Muscle pain 18825709 Active 2019 (M79.1)My algia Not Available [facility] 2 22:02:45 Spondylos is without myelopath y 25646732 Active 2020 (M47.816) Spondylos is without myelopath y or radiculop athy, lumbar region Not Available [facility] 2 22:02:44 Cervicoge adriana headache 332374746 Active 2021 (G44.86)C ervicogen ic headache Not Available [facility] 2 22:02:44 Problem Notes None recorded. Medical Equipment None Reported. Allergies Allergen ID Allergen Name Allergen Category Reaction Reaction Severity Criticality Documentation Date Start Date Code Code System Note Provider Name and Address Organization Details Recorded Time 21523 baclofen Not available Not available Not available Not available 10/29/20212014 1292 RxNorm Not Available [facility] 2 22:02:34 Medications Name Sig Start [...] 5 165.1 cm 16 /min 27.1 kg/m2 76199.5 6 g 98.2 [degF] 74 /min 154/87 mm[Hg] Naz Molina-Prasad eet [facility] 5 12:25:41 Social History Question Answer Notes LastModified by [email or web address] Details LastModified Time Tobacco Smoking Status Current Every Day Smoker [facility] 12/24/2021 14:28:34 What Is Your Level Of Caffeine Consumption? Occasional 2 Cups Coffee [email or web address] Information not available 12/24/2021 What Is Your Current Pack Years? 10packyears 7 YEARS [email or web address] Information not available 01/21/2022 How Much Tobacco Do You Smoke? 1 PPD Information not available 12/24/2021 Sex: Female Functional Status Question Answer Note LastModified by [employer] Details LastModified Time What is your level of alcohol consumption? Occasional [email or web address] Information not available 12/24/2021 What is your occupation? Disabled [email or web address] Information not available 10/29/2021 Mental Status None [...] ICD10 Code Diagnosis IMO Codes Diagnosis Note [id number] Jennifer Neal DNP BOOK SHELVER [address] [place] [address] 03/09/2025 09:08:35 03/09/2025 10:01:45 Long-term current use of opiate analgesic drug 2432157517 25971 Z79.891 Diagnostic /Lab: Order Presumptiv e UDT [...] tapentadol and carisoprod ol). Cervicocra nial syndrome 10949516 M53.0 Cervical s pondylosis with radiculopathy 589343432 M47.22 Cervical s pondylosis without myelopathy 537604193 M47.812 Cervical radiculopathy 26763634 M47.812 Global Risk Assessment Score:High Risk.High Risk [...] fill 02/09/2025 Inappropri ate due to: . [id number] Jennifer Neal DNP BOOK SHELVER [address] [address] 04/05/2025 12:02:10 04/14/2025 10:31:57 Cervicocranial syndrome 39910457 M53.0 Cervical s pondylosis without myelopathy 006732707 M47.812 Cervicogenic headache 27 1839037 G44.86 Trigeminal neuralgia 316 96364 G50.0 Cervical radiculopathy 03287779 M47.812 Global Risk Assessment Score:High Risk.High Risk [...] the patient's treatment with controlled substances Non [place] resident Difficulty in contacting the patient ( [...] Hair Member ID Guarantor Name 04/05/2025 1 [place]: [place] [facility] [facility] [id number] A Francisco J Dempsey [id number] Sophie Dempsey Notes Date Note Type [...] problems, or GI problems. Jennifer Neal, JANINE BOOK SHELVER [address] [facility], [place], [address], [facility] 04/10/2025 07:33:58 OBGyn Episode No OBEpisode recorded.
--- OUTSIDE RECORDS SUMMARY | 2025-05-29 15:46 | XMS_ITS | Continuity of Care Document ---
Author Organization [facility] [address] [facility] Address [facility] [place] [address] Care Team Providers Care Tire Assembler Name Role Phone ALPA RIDLEY Primary Care Provider [phone] Assessment Encounter Date Assessment Date Assessment LastModified [...] ADLs and interact with friends and family. [email or web address] Not available 05/09/2025 09:46:22 Plan of Treatment Reminders Order Date Submit Date Provider Last Modified By Organization Details Last Modified Time Details Appointments Office Visit15 2024 08:45A Megan Neal DNP CAUL DRESSER Not available Not available Not available Office Visit15 2025 11:30A Megan Neal DNP CAUL DRESSER Not available Not available Not available OV Ext 30 2025 11:30A Megan Becerra MD Not available Not available Not available Lab None recorded. Referral None recorded. Procedures None recorded. Surgeries None recorded. Imaging None recorded. Medication Orders morphine ER 15 mg tablet,ex tended release 2024 025 [facility]/Pharmacy #[id number], [address] [facility], [place], [address], 05/09/2025 09:49:07 hydrocodo ne 10 mg-acetam inophen 325 mg tablet 2024 025 [facility]/Pharmacy #[id number], [address] [place], [address], 05/09/2025 09:49:08 Patient TargetsNo targets recorded. Patient InstructionsNo instructions recorded. Reason for Referral None Reported. Problems Name Problem SNOMED Code Status Onset Date Resolution Date Notes Provider Name and Address Organization Details Recorded Time Osteoporo sis 63893682 Active 2014 (733.00)O STEOPOROS IS NOS Not Available [facility] 22:02:43 Disorder of bone and articular cartilage 602735607 Active 2014 (733.90)B ONE & CARTILAGE DIS NOS Not Available [facility] 2 22:02:43 Malaise and fatigue 304811741 Active 2014 (780.79)M ALAISE AND FATIGUE NEC Not Available [facility] 2 22:02:43 Hyperhidr osis 571372914 Active 2014 (780.8)Ge neralized Hyperhidr osis Not Available [facility] 22:02:43 Reduced libido 0596389 Active 2014 (799.81)D ecreased Libido Not Available [facility] 2 22:02:44 Chronic interstit ial cystitis 683966846 Active 2014 (595.1)Ch ronic Interstit ial Cystitis Not Available [facility] 2 22:02:43 Functiona l disorder of urinary bladder 557683163 Active 2014 (596.59)O ther Bladder Dysfuncti on Not Available [facility] 2 22:02:43 Depressio n screening Active 2014 (V79.0)Sp ecial Screening Examinati on for Depressio n Not Available [facility] 2 22:02:45 Abdominal pain 70945011 Active 2014 (789.00)A bdominal Pain Site Not Otherwise Specified Not Available [facility] 2 22:02:43 Pelvic and perineal pain 495587913 Active 2014 (R10.2)Pe lvic and perineal pain Not Available [facility] 2 22:02:45 Long-term current use of opiate analgesic drug 16891920791 4108 Active 2014 (Z79.891) half-way (current) use of opiate analgesic Not Available [facility] 2 22:02:45 Trigemina l neuralgia 96202271 Active 2015 (G50.0)Tr igeminal neuralgia Not Available [facility] 2 22:02:44 Screening for osteoporo sis Active 2015 (V82.81)S pecial Screening Examinati on for Osteoporo sis Not Available [facility] 2 22:02:45 Cervical spondylos is without myelopath y 786447392 Active 2016 (M47.812) Spondylos is without myelopath y or radiculop athy, cervical region Not Available [facility] 2 22:02:44 Cervicocr anial syndrome 67162662 Active 2016 (M53.0)Ce rvicocran ial syndrome Not Available [facility] 2 22:02:44 Cervical radiculop athy 06701847 Active 2016 (M54.12)R adiculopa thy, cervical region Not Available [facility] 2 22:02:44 Cervical spondylos is with radiculop athy Active 2016 (M47.22)O ther spondylos is with radiculop athy, cervical region Not Available [facility] 2 22:02:44 Headache 59659400 Active 2016 (R51)Head ache Not Available [facility] 2 22:02:45 Screening for disorder Active 2016 (Z13.89)E ncounter for screening for other disorder Not Available [facility] 2 22:02:45 Generaliz ed anxiety disorder 33239400 Active 2018 (F41.1)Ge neralized anxiety disorder Not Available [facility] 2 22:02:44 Tobacco dependenc e caused by cigarette s 89433617994 034192 Active 2018 (F17.210) Nicotine dependenc e, cigarette s, uncomplic ated Not Available [facility] 2 22:02:44 Migraine 85295495 Active 2019 (G43.909) Migraine, unspecifi ed, not intractab le, without status migrainos us Not Available [facility] 2 22:02:44 Muscle pain 57582703 Active 2019 (M79.1)My algia Not Available [facility] 2 22:02:45 Spondylos is without myelopath y 48879090 Active 2020 (M47.816) Spondylos is without myelopath y or radiculop athy, lumbar region Not Available [facility] 2 22:02:44 Cervicoge adriana headache 566133426 Active 2021 (G44.86)C ervicogen ic headache Not Available [facility] 2 22:02:44 Problem Notes None recorded. Medical Equipment None Reported. Allergies Allergen ID Allergen Name Allergen Category Reaction Reaction Severity Criticality Documentation Date Start Date Code Code System Note Provider Name and Address Organization Details Recorded Time 39736 baclofen Not available Not available Not available Not available 10/29/20212014 1292 RxNorm Not Available [facility] 2 22:02:34 Medications Name Sig [...] temperature Heart rate Respiratory rate Oxygen saturation Systolic And Diastolic Provider Name and Address Organization Details Last Updated DateTime 5 165.1 cm 27.3 kg/m2 98155.1 5 g 97.9 [degF] 75 /min 16 /min 96 % 143/90 mm[Hg] [facility] 5 09:00:20 Social History Question Answer Notes LastModified by [employer] Details LastModified Time Tobacco Smoking Status Current Every Day Smoker [facility] 12/24/2021 14:28:34 What Is Your Level Of Caffeine Consumption? Occasional 2 Cups Coffee Information not available 12/24/2021 What Is Your Current Pack Years? 10packyears 7 YEARS [email or web address] Information not available 01/21/2022 How Much Tobacco Do You Smoke? 1 PPD [email or web address] Information not available 12/24/2021 Sex: Female Functional Status Question Answer Note LastModified by [facility] [email or web address] Details LastModified Time What is your level of alcohol consumption? Occasional [email or web address] Information not available 12/24/2021 What is your occupation? Disabled [email or web address] Information not available 10/29/2021 Mental Status None [...] ICD10 Code Diagnosis IMO Codes Diagnosis Note [id number] Aniceto Becerra MD [address] [place] [address] 05/09/2025 08:46:25 05/09/2025 09:50:28 Cervicocranial syndrome 08625953 M53.0 Cervical radiculopathy 49511126 M47.812 Chronic in terstitial cystitis 026488983 N30.10 Health Concerns Section Related Observation LastModified by Organization Detai ls LastModified Time None Recorded Concern Status LastModified by Organization Details LastModified Time None Recorded Payers Encounter Date Sequence Insurance Name Policy Number Policy Hair Covered Member ID Hair Member ID Guarantor Name 05/09/2025 1 [place] [id number] A Francisco J Dempsey [id number] Sophie Dempsey Notes Date Note Type [...] in regards to this. Aniceto Becerra MD [address] [facility], [place], [address], [facility] 05/09/2025 09:49:45 OBGyn Episode No OBEpisode recorded.
--- OUTSIDE RECORDS SUMMARY | 2025-05-29 15:46 | XMS_ITS | Encounter Summary ---
Author Organization [facility] Address [address] [place] [address] Care Team Providers Care Still Cleaner Name Role Phone Zana Carty MD Primary Care Provider [phone]- [phone] Reason for Visit * Reason Onset Date Comments Med Refill 04/20/2025 Encounter Details Date Type Department Care Team (Late st Contact Info) Description 04/20/2025 Refill Obstetrics & Gynecology [address] [place] [address] Anastasia Winters MD [address] [place] [address] Social History Tobacco Use Types [...] Info) Description 07/05/2025 1:30 PM EST Appointment [facility] [address] [address] 07/05/2025 2:30 PM EST Office Visit [facility] [address] [facility] [place] [address] Jeannie Riddle, PILLOWCASE FOLDER [address] [facility] Zahra Qureshi [facility] [address] [place] [address] documented as of this encounter Visit Diagnoses Not on filedocumented in this encounter Additional Health Concerns Assessment Noted Time A fall risk assessment has been complete d for the patient 03/15/2025 3:14 PM EDT A Body Mass Index follow-up plan has been documented for the patient 03/17/2025 2:31 PM EDT documented as of this encounter Care Teams Still Cleaner Relationship Specialty Start Date End Date Zana Carty MD [address] [place] [address] PCP - General 11/09/20 documented as of this encounter
--- OUTSIDE RECORDS SUMMARY | 2025-05-29 15:46 | XMS_ITS | Encounter Summary ---
Author Organization [facility] Address [address] [place] [address] Care Team Providers Care Recruiting Coordinator Name Role Phone Zana Carty MD Primary Care Provider [phone]- [phone] Reason for Visit * Reason Comments Med Refill Encounter Details Date Type Department Care Team (Late st Contact Info) Description 01/30/2021 Refill [place] [employer] [address] [place] [address] Lauren Morales, LPN RN HOSPICE [address] [facility] [address] [place] [address] Social History Tobacco Use Types [...] Breast Care [facility] [address] Zahra Qureshi [facility] [address] [place] [address] 07/05/2025 2:30 PM EST Office Visit [facility] [address] [facility] [place] [address] Jeannie Riddle, LPN RN HOSPICE [address] [facility] Zahra Qureshi [facility] [address] [place] [address] documented as of this encounter Visit Diagnoses Not on filedocumented in this encounter Care Teams Recruiting Coordinator Relationship Specialty Start Date End Date Zana Carty MD [address] [place] [address] PCP - General 11/09/20 documented as of this encounter
--- OUTSIDE RECORDS SUMMARY | 2025-05-29 15:46 | XMS_ITS | Encounter Summary ---
Author Organization Healthcare Address [address] [place] [address] Care Team Providers Care Rotary Bar Operator Name Role Phone Zana Carty MD Primary Care Provider +1- [phone] Encounter Details Date Type Department Care Team (Late st Contact Info) Description 03/17/2025 Results Follow-Up Obstetrics & Gynecology [address] [place] [address] Shaneka Joshi, OFFICE BOOKKEEPER [address] [place] [address] Social History Tobacco Use Types [...] [facility] [address] [address] 07/05/2025 2:30 PM EST Office Visit [facility] [address] [facility]nd [place] [address] Jeannie Riddle, OFFICE BOOKKEEPER [address] [facility] Zahra Qureshi [facility] [address] [place] [address] documented as of this encounter Visit Diagnoses Not on filedocumented in this encounter Additional Health Concerns Assessment Noted Time A fall risk assessment has been complete d for the patient 03/15/2025 3:14 PM EDT A Body Mass Index follow-up plan has been documented for the patient 03/17/2025 2:31 PM EDT documented as of this encounter Care Teams Rotary Bar Operator Relationship Specialty Start Date End Date Zana Carty MD [address] [place] [address] PCP - General 11/09/20 documented as of this encounter
--- OUTSIDE RECORDS SUMMARY | 2025-05-29 15:46 | XMS_ITS | Encounter Summary ---
Author Organization [facility] Address [address] [place] [address] Care Team Providers Care Art Glass Setter Name Role Phone Zana Carty MD Primary Care Provider +1- [phone] Reason for Visit * Reason Comments Med Refill Encounter Details Date Type Department Care Team (Late st Contact Info) Description 07/17/2021 Refill [facility] [employer] DES[employer] [address] [place] [address] Lauren Morales, PICCOLOIST [address] [facility] [address] [place] [address] Social History Tobacco Use Types [...] [facility] [place] [address] Zahra [address] [facility] [address] [place] [address] 07/05/2025 2:30 PM EST Office Visit [facility] [address] [facility]nd [place] [address] Jeannie Riddle, PICCOLOIST [address] [facility] [address] [place] [address] documented as of this encounter Visit Diagnoses Not on filedocumented in this encounter Care Teams Art Glass Setter Relationship Specialty Start Date End Date Zana Carty MD [address] [place] [address] PCP - General 11/09/20 documented as of this encounter
--- OUTSIDE RECORDS SUMMARY | 2025-05-29 15:46 | XMS_ITS | Clinical Summary ---
Author Organization [facility] Address [address] [place] [address] Care Team Providers Care Development Spec Name Role Phone Zana Carty MD Primary Care Provider +1- [phone] Allergies Active Allergy Reactions Criticality Noted Date [...] HOURS IF NEEDED 3 Active HYDROcodone-miguel taminophen ([place]) 10-325 MG tablet TAKE 1 TABLET BY [...] Encounters Date Type Department Care Team Description 05/17/2025 Refill Obstetrics & Gynecology [address] [place] [address] Anastasia Winters MD 04/20/2025 Refill Obstetrics & Gynecology [address] [place] [address] Anastasia Winters MD 03/17/2025 Results Follow-Up Obstetrics & Gynecology [address] [place] [address] Shaneka Joshi APRN 03/15/2025 3:00 PM EDT Office Visit Obstetrics & Gynecology [address] [place] [address] Shaneka Joshi, SAJAN Urinary pain (Primary Dx); Encounter for gynecological examination without abnormal finding; Interstitial cystitis; Dyspareunia in female; Hormone replacement therapy (HRT) 03/15/2025 Travel 03/08/2025 Orders Only Obstetrics & Gynecology [address] [place] [address] Anastasia Winters MD 03/08/2025 Telephone Obstetrics & Gynecology [address] [place] [address] Anastasia Winters MD 03/06/2025 Refill Obstetrics & Gynecology [address] [place] [address] Anastasia Winters MD from Last 3 Months [...] [facility] [place] [address] Zahra Qureshi [facility] [address] [place] [address] 07/05/2025 2:30 PM EST Office Visit [facility] [address] [facility] [place] [address] Jeannie Riddle, CABLE RIGGER [address] [facility] [address] [address] Health Maintenance Due Date Last Done Comments [...] 2013 Sigmoidoscopy 2013 [facility]-Colorectal Cancer Screening 2013 [id number] Vaccine (2 - Aliya risk series) 10/31/2020 [...] this topic Medical Devices Implanted Type Area Cloth Washer Back Tender Device Identifier Shelf Expiration Date Model / [...] skin ny present. 03/17/2025 8:[address] [facility] Urine Urine specimen obtained by clean catch procedure / Unknown Non-blood Collection / Unknown 03/15/2025 3:39 PM EDT 03/15/2025 7:07 PM EDT us Shaneka Joshi APRN LAB MICROBIOLOGY - GENERAL ORDERABLES Final Result [facility] [address] [place] [address] * POCT Urinalysis Dipstick (03/15/2025 3:23 PM EDT) POCT Urine Color Yellow POCT Urine Clarity Clear POCT Glucose Urine Negative Negative mg/dL POCT Bilirubin, Urine Negative Negative POCT Ketones, Urine Negative Negative mg/dL POCT Specific [place], Urine 1.010 POCT Blood, Urine Negative Negative POCT pH, Urine 7.0 5.0 to 8.0 POCT Protein, Urine Negative Negative mg/dL POCT Urobilinogen, Urine 0.2 0.2, 1 E.U./dL POCT Nitrite, Urine Negative Negative POCT Leukocyte Esterase, Urine Negative Negative Test Strip Lot Number [id number] Test Strip Lot Expiration 05/23 Urine Urine [...] to: 06/06/2019 Mammography Outside Images Upload at [facility] 04/23/2021 Mammography Outside Images Upload at [facility] 06/11/2022 Mammography Outside Images Upload at [facility] 03/25/2023 Mammography Breast Diagnostic Tomosynthesis Left at [facility] 12/14/2023 Mammography Breast Diagnostic Tomosynthesis Left at [facility] BREAST COMPOSITION: The breasts are heterogeneously dense, which may obscure small masses. FINDINGS: RIGHT: No suspicious masses, microcalcifications or areas of architectural distortion are seen. LEFT: Finding 1, possible asymmetry, 12mm in the inferior region of the breast with a posterior depth 5 cm from the nipple. Referenced Soren slice(s) MLO#[id number] There are retro-pectoral implant(s) present in bilateral breasts. us Jeannie Riddle CABLE RIGGER IMG BI PROCEDURES Final Re sult * (ABNORMAL) Hemoglobin A1c (03/14/2024 4:16 PM EDT) Hemoglobin A1c 5.8(H) <5.7 % 03/14/2024 7:[address] [facility] Blood Venous blood specimen / Unknown Venipuncture / Unknown 03/14/2024 4:16 PM EDT 03/14/2024 6:[address] [facility] - 03/14/2024 7:32 PM EDT HA1C Interpretive Data: Diagnosis of Diabetes: Diabetic > or = 6.5% Pre-diabetic 5.7 to 6.4% Non-diabetic < or = 5.6% Glycemic Targets for Type I and Type II Diabetics: Non- Adults <7.0% Adults <6.0% Children and Adolescents <7.5% Source: [place] [employer]. Standards of medical care in diabetes,2017. Diabetes Care.2017:40 (suppl 1):S1-S135. HbA1c assay performed by an ion-exchange chromatography method that is certified traceable to the DCCT. us Anastasia Winters MD LAB BLOOD ORDERABLES Fin al Result [facility] [address] [place] [address] from Last 3 Months or Most Recently Relevant to Health Maintenance Insurance [facility]LY [facility] MEDICARE Care Teams Development Spec Relationship Specialty Start Date End Date Zana Carty MD [address] [place] [address] PCP - General 11/09/20
--- OUTSIDE RECORDS SUMMARY | 2025-05-29 15:46 | XMS_ITS | Data Portability ---
Author Organization [facility] [employer] - Marlin Saini MD [facility] Address [address] [place] [id number] Care Team Providers Care Medical Assembly Name Role Phone ALPA RIDLEY Primary Care Provider [phone] Assessment Encounter Date Assessment Date Assessment LastModified [...] ADLs and interact with friends and family. [email or web address] Not available 05/09/2025 09:46:22 Plan of Treatment Reminders Order Date Submit Date Provider Last Modified By Organization Details Last Modified Time Details Appointments Office Visit15 2024 08:45A Megan Neal DNP [employer] Not available Not available Not available Office Visit15 2025 11:30A Megan Neal DNP [employer] Not available Not available Not available OV Ext 30 2025 11:30A Megan Saini MD Not available Not available Not available Lab drug screen, urine - Meds: hydrocodo ne morphine ss 2024 025 SHERIDAN Saini MD [facility] ([facility]), [address] [facility], [place], [address], 03/22/2025 14:50:56 CBC w/ auto diff 2024 025 SHERIDAN Saini MD [facility] ([facility] House [facility]), [address] [place], [address], 02/01/2025 17:17:21 hepatic function panel, serum 2024 025 SHERIDAN Saini MD [facility] ([facility]), [address] [place], [address], 02/01/2025 17:17:22 gamma-glu tamyl transfera se (ggt), serum 2024 025 SHERIDAN Saini MD [facility] ([facility]), [address] [place], [address], 02/01/2025 17:17:23 venipunct ure 2024 025 SHERIDAN Saini MD [facility] ([facility]), [address] [place], [address], 02/01/2025 17:17:21 drug screen, urine - Meds: HYDROCODO NE AND NUCYNTA 2024 025 SHERIDAN Saini MD [facility] ([facility]), [address] [place] [address], [address], 01/20/2025 09:13:08 Referral None recorded. Procedures None recorded. Surgeries None recorded. Imaging None recorded. Medication Orders morphine ER 15 mg tablet,ex tended release 2024 025 [facility][id number], [address] [place] [address], [address], 05/09/2025 09:49:07 hydrocodo ne 10 mg-acetam inophen 325 mg tablet 2024 025 [facility], [address] [place] [address], [address], 05/09/2025 09:49:08 hydrocodo ne 10 mg-acetam inophen 325 mg tablet 2024 025 [facility], [address] [place] [address], [address], 04/05/2025 12:46:41 morphine ER 15 mg tablet,ex tended release 2024 025 [facility], [address] [place] [address], [address], 04/05/2025 12:46:42 hydrocodo ne 10 mg-acetam inophen 325 mg tablet 2024 025 [facility], [address] [place] [address], [address], 03/09/2025 11:01:53 morphine ER 15 mg tablet,ex tended release 2024 025 [facility], [address] [place] [address], [address], 03/09/2025 11:01:54 hydrocodo ne 10 mg-acetam inophen 325 mg tablet 2024 025 [facility], [address] [place] [address], [address], 02/01/2025 13:45:19 morphine ER 15 mg tablet,ex tended release 2024 025 [facility], [address] [place] [address], [address], 02/01/2025 13:45:19 hydrocodo ne 10 mg-acetam inophen 325 mg tablet 2024 025 [facility], [address] [place] [address], [address], 01/09/2025 22:02:23 morphine ER 15 mg tablet,ex tended release 2024 025 [facility]32, [address] [place], [address], 01/09/2025 22:02:23 Patient TargetsNo targets recorded. Patient Instructions Encounter Date Encounter Id Patient Instructions Last Modified By Organization Details Last Modified Time 01/06/2025 [id number] 1. Continue current medications 2. Encourage light [...] Lyn MD. Not available 01/06/2025 08:57:27 02/01/2025 [id number] 1. continue healthy lifestyles 2. stretching/yoga/w alking as tolerated 3. take pain medications as prescribed 4. call with any concerns [email or web address] Not available 02/01/2025 13:45:19 Patient seen today incident to a physician s previously established diagnosis and plan of care. Follow-up care provided today under the plan of care of: Aniceto Saini MD and supervision of: Debi Marquez MD. [email or web address] Not available 02/01/2025 13:45:51 03/09/2025 [id number] 1. continue healthy lifestyles 2. stretching/yoga/w alking as tolerated 3. take pain medications as prescribed 4. call with any concerns [email or web address] Not available 03/09/2025 09:54:51 Patient seen today incident to a physician s previously established diagnosis and plan of care. Follow-up care provided today under the plan of care of: Aniceto Saini MD and supervision of: Manuel Lyn MD. Not available 03/09/2025 09:55:00 04/05/2025 [id number] 1. continue healthy lifestyles 2. stretching/yoga/w alking as tolerated 3. take pain medications as prescribed 4. call with any concerns [email or web address] Not available 04/05/2025 12:36:09 Patient seen today incident to a physician s previously established diagnosis and plan of care. Follow-up care provided today under the plan of care of: Aniceto Saini MD and supervision of: Velma Savage MD. [email or web address] Not available 04/05/2025 12:36:23 Reason for Referral None Reported. Results Created Date Observation Date Name Description Value Unit Range Abnormal Flag Note LastModifiedBy Organization Detail LastModifiedTime 01/07/2001/06/2025 TAPEN TADOL abnormal status abnormal Not Available Caroline Saini MD [facility] ([facility]) [address] [place] [address], [address], 01/20/2025 09:13:11 01/07/2001/06/2025 TAPEN TADOL abnormal status high Not Available Caroline Saini MD [facility] ([facility]) [address] [place] [address], [address], 01/20/2025 09:13:11 01/07/2001/19/2025 TAPEN TADOL DEFIN ITIVE PANEL -LC/M S tapentadol 0 NG/mL <75.0 Not Available Marlin Saini MD [facility] ([facility]) [address] [place] [address], [address], 01/20/2025 09:13:09 01/07/2001/19/2025 OPIAT E DEFIN ITIVE PANEL LC/MS codeine 0.0 NG/mL <75.0 Not Available Marlin Saini MD [facility] ([facility]) [address] [place] [address], [address], 01/20/2025 09:13:09 01/07/2001/19/2025 OPIAT E DEFIN ITIVE PANEL LC/MS morphine >5000 NG/mL <75.0 abnormal Not Available Marlin Saini MD [facility] ([facility]) [address] [place] [address], [address], 01/20/2025 09:13:09 01/07/2001/19/2025 OPIAT E DEFIN ITIVE PANEL LC/MS 6-BALDO 0 NG/mL <15.0 Not Available Marlin Saini MD [facility] ([facility]) [address] [place] [address], [address], 01/20/2025 09:13:09 01/07/2001/19/2025 OPIAT E DEFIN ITIVE PANEL LC/MS hydromorphon e 350.0 NG/mL <75.0 abnormal Not Available Caroline Saini MD [facility] ([facility]) [address] [place] [address], [address], 01/20/2025 09:13:09 01/07/2001/19/2025 OPIAT E DEFIN ITIVE PANEL LC/MS hydrocodone 2881.4 NG/mL <75.0 abnormal Not Available Taran Saini MD [facility] ([facility]) [address] [place] [address], [address], 01/20/2025 09:13:09 01/07/2001/19/2025 OPIAT E DEFIN ITIVE PANEL LC/MS norhydrocodo ne 2059.8 NG/mL <75.0 abnormal Not Available Caroline Saini MD [facility] ([facility]) [address] [place] [address], [address], 01/20/2025 09:13:09 01/07/2001/06/2025 D-PRE SUMPT MIRANDA URINE DRUG REPOR T amphetamine NEGATI VE NG/mL <1000. 0 Not Available Marlin Saini MD [facility] ([facility]) [address] [place] [address], [address], 01/20/2025 09:13:08 01/07/2001/06/2025 D-PRE SUMPT MIRANDA URINE DRUG REPOR T benzodiazepi ne 5.0 NG/mL <200.0 Curre nt metho d may not detec t low level s of Klono pin Not Available Marlin Saini MD [facility] ([facility]) [address] [place] [address], [address], 01/20/2025 09:13:08 01/07/2001/06/2025 D-PRE SUMPT MIRANDA URINE DRUG REPOR T buprenorphin e NEGATI VE NG/mL <10.0 Not Available Marlin Saini MD [facility] ([facility]) [address] [place], [address], 01/20/2025 09:13:08 01/07/2001/06/2025 D-PRE SUMPT MIRANDA URINE DRUG REPOR T cannabinoid NEGATI VE NG/mL <50.0 Not Available Marlin Saini MD [facility] ([facility]) [address] [place] [address], [address], 01/20/2025 09:13:08 01/07/2001/06/2025 D-PRE SUMPT MIRANDA URINE DRUG REPOR T cocaine NEGATI VE NG/mL <300.0 Not Available Marlin Saini MD [facility] ([facility]) [address] [place] [address], [address], 01/20/2025 09:13:08 01/07/2001/06/2025 D-PRE SUMPT MIRANDA URINE DRUG REPOR T ethanol NEGATI VE mg/dL <50.0 Not Available Marlin Saini MD [facility] ([facility]) [address] [place] [address], [address], 01/20/2025 09:13:08 01/07/2001/06/2025 D-PRE SUMPT MIRANDA URINE DRUG REPOR T methadone 18.0 NG/mL <300.0 Not Available Marlin Saini MD [facility] ([facility]) [address] [place] [address], [address], 01/20/2025 09:13:08 01/07/2001/06/2025 D-PRE SUMPT MIRANDA URINE DRUG REPOR T opiates 1273.0 NG/mL <300.0 high Opiat es inclu torres Codei ne,Mo rphin e, [place] morph one,H ydroc odone Not Available Marlin Saini MD [facility] ([facility]) [address] [place] [address], [address], 01/20/2025 09:13:08 01/07/2001/06/2025 D-PRE SUMPT MIRANDA URINE DRUG REPOR T oxycodone 16.0 NG/mL <300.0 Not Available Marlin Saini MD [facility] ([facility]) [address] [place], [address], 01/20/2025 09:13:08 01/07/2001/06/2025 D-PRE SUMPT MRIANDA URINE DRUG REPOR T urine creatinine (validity test) 47.3 mg/dL 20.0 - 300.0 Not Available Marlin Saini MD [facility] ([facility]) [address] [place] [address], [address], 01/20/2025 09:13:08 02/02/20 25 02/01/2025 GGT abnormal status high Not Available Caroline Saini MD [facility] ([facility]) [address] [place] [address], [address], 02/01/2025 17:17:23 02/02/20 25 02/01/2025 RENAL FUNCT ION PANEL /HEPA TIC PANEL glucose 125.0 mg/dL 74.0 - 110.0 high Not Available Marlin Saini MD [facility] ([facility]) [address] [place] [address], [address], 02/01/2025 17:17:22 02/02/20 25 02/01/2025 RENAL FUNCT ION PANEL /HEPA TIC PANEL BUN 12.0 mg/dL 4.0 - 25.0 Not Available Marlin Saini MD [facility] ([facility]) [address] [place] [address], [address], 02/01/2025 17:17:22 02/02/20 25 02/01/2025 RENAL FUNCT ION PANEL /HEPA TIC PANEL creatinine 0.7 mg/dL 0.6 - 1.8 Not Available Marlin Saini MD [facility] ([facility]) [address] [place] [address], [address], 02/01/2025 17:17:22 02/02/20 25 02/01/2025 RENAL FUNCT ION PANEL /HEPA TIC PANEL sodium 137 mEq/L 133 - 145 Not Available Marlin Saini MD [facility] ([facility]) [address] [place], [address], 02/01/2025 17:17:22 02/02/20 25 02/01/2025 RENAL FUNCT ION PANEL /HEPA TIC PANEL potassium 4.4 mEq/L 3.4 - 5.1 Not Available Marlin Saini MD [facility] ([facility]) [address] [place], [address], 02/01/2025 17:17:22 02/02/20 25 02/01/2025 RENAL FUNCT ION PANEL /HEPA TIC PANEL chloride 101.2 mEq/L 93.0 - 106.0 Not Available Marlin Saini MD [facility] ([facility]) [address] [place] [address], [address], 02/01/2025 17:17:22 02/02/20 25 02/01/2025 RENAL FUNCT ION PANEL /HEPA TIC PANEL eco2 30.0 mEq/L 24.6 - 35.8 Not Available Marlin Saini MD [facility] ([facility]) [address] [place] [address], [address], 02/01/2025 17:17:22 02/02/20 25 02/01/2025 RENAL FUNCT ION PANEL /HEPA TIC PANEL calcium 10.1 mg/dL 8.3 - 10.1 Not Available Marlin Saini MD [facility] ([facility]) [address] [place] [address], [address], 02/01/2025 17:17:22 02/02/20 25 02/01/2025 RENAL FUNCT ION PANEL /HEPA TIC PANEL phosphorus 4.0 mg/dL 2.3 - 4.8 Not Available Marlin Saini MD [facility] ([facility]) [address] [place] [address], [address], 02/01/2025 17:17:22 02/02/20 25 02/01/2025 RENAL FUNCT ION PANEL /HEPA TIC PANEL total protein 6.7 g/dL 6.0 - 8.5 Not Available Marlin Saini MD [facility] ([facility]) [address] [place], [address], 02/01/2025 17:17:22 02/02/20 25 02/01/2025 RENAL FUNCT ION PANEL /HEPA TIC PANEL albumin 4.5 g/dL 3.3 - 4.9 Not Available Marlin Saini MD [facility] ([facility]) [address] [place], [address], 02/01/2025 17:17:22 02/02/20 25 02/01/2025 RENAL FUNCT ION PANEL /HEPA TIC PANEL ALP 49.0 U/L 46.0 - 116.0 Not Available Marlin Saini MD [facility] ([facility]) [address] [place] [address], [address], 02/01/2025 17:17:22 02/02/20 25 02/01/2025 RENAL FUNCT ION PANEL /HEPA TIC PANEL AST 15 U/L 6 - 40 Not Available Marlin Saini MD [facility] ([facility]) [address] [place] [address], [address], 02/01/2025 17:17:22 02/02/20 25 02/01/2025 RENAL FUNCT ION PANEL /HEPA TIC PANEL ALT 21 U/L 5 - 30 Not Available Marlin Saini MD [facility] ([facility]) [address] [place] [address], [address], 02/01/2025 17:17:22 02/02/20 25 02/01/2025 RENAL FUNCT ION PANEL /HEPA TIC PANEL total bilirubin 0.37 mg/dL 0.00 - 1.00 Not Available Marlin Saini MD [facility] ([facility]) [address] [place] [address], [address], 02/01/2025 17:17:22 02/02/20 25 02/01/2025 RENAL FUNCT ION PANEL /HEPA TIC PANEL direct bilirubin 0.05 mg/dL 0.00 - 0.40 Not Available Marlin Saini MD [facility] ([facility]) [address] [place] [address], [address], 02/01/2025 17:17:22 02/02/20 25 02/01/2025 CBC WITH DIFFE RENTI AL/PL ATELE T WBC 8.9 10 4.0 - 11.0 Not Available Marlin Saini MD [facility] ([facility]) [address] [place], [address], 02/01/2025 17:17:21 02/02/20 25 02/01/2025 CBC WITH DIFFE RENTI AL/PL ATELE T RBC 5.73 10 3.72 - 5.52 high Not Available Marlin Saini MD [facility] ([facility]) [address] [place] [address], [address], 02/01/2025 17:17:21 02/02/20 25 02/01/2025 CBC WITH DIFFE RENTI AL/PL ATELE T HGB 18.0 g/dL 11.0 - 16.6 high Not Available Marlin Saiin MD [facility] ([facility]) [address] [place] [address], [address], 02/01/2025 17:17:21 02/02/2002/01/2025 CBC WITH DIFFE RENTI AL/PL ATELE T HCT 54.6 % 34.0 - 49.0 high Not Available Marlin Saini MD [facility] ([facility]) [address] [place] [address], [address], 02/01/2025 17:17:21 02/02/2002/01/2025 CBC WITH DIFFE RENTI AL/PL ATELE T MCV 95.3 fL 79.5 - 101.0 Not Available Marlin Saini MD [facility] ([facility]) [address] [place] [address], 60[address], 02/01/2025 17:17:21 02/02/2002/01/2025 CBC WITH DIFFE RENTI AL/PL ATELE T MCH 31.4 pg 26.2 - 34.0 Not Available Marlin Saini MD [facility] ([facility]) [address] [place] [address], [address], 02/01/2025 17:17:21 02/02/20 25 02/01/2025 CBC WITH DIFFE RENTI AL/PL ATELE T MCHC 33.0 g/dL 31.3 - 36.0 Not Available Marlin Saini MD [facility] ([facility]) [address] [place] [address], 87[address], 02/01/2025 17:17:21 02/02/20 25 02/01/2025 CBC WITH DIFFE RENTI AL/PL ATELE T plt 225 10 115 - 421 Not Available Marlin Saini MD [facility] ([facility]) [address] [place] [address], [address], 02/01/2025 17:17:21 02/02/20 25 02/01/2025 CBC WITH DIFFE RENTI AL/PL ATELE T RDW-CV 13.3 % 11.3 - 16.1 Not Available Marlin Saini MD [facility] ([facility]) [address] [place] [address], 99[address], 02/01/2025 17:17:21 02/02/20 25 02/01/2025 CBC WITH DIFFE RENTI AL/PL ATELE T neut# 5.10 10 0.81 - 9.65 Not Available Marlin Saini MD [facility] ([facility]) [address] [place] [address], 49025, 02/01/2025 17:17:21 02/02/20 25 02/01/2025 CBC WITH DIFFE RENTI AL/PL ATELE T lymph# 2.76 10 0.65 - 4.81 Not Available Marlin Saini MD [facility] ([facility]) [address] [place] [address], 92808, 02/01/2025 17:17:21 02/02/20 25 02/01/2025 CBC WITH DIFFE RENTI AL/PL ATELE T mono# 0.75 10 0.10 - 1.13 Not Available Marlin Saini MD [facility] ([facility]) [address] [place] [address], 53386, 02/01/2025 17:17:21 02/02/20 25 02/01/2025 CBC WITH DIFFE RENTI AL/PL ATELE T eo# 0.27 10 0.00 - 0.50 Not Available Marlin Saini MD [facility] ([facility]) [address] [place] [address], 71180, 02/01/2025 17:17:21 02/02/20 25 02/01/2025 CBC WITH DIFFE RENTI AL/PL ATELE T baso# 0.03 10 0.00 - 0.09 Not Available Marlin Saini MD [facility] ([facility]) [address] [place] [address], 088[address], 02/01/2025 17:17:21 02/02/20 25 02/01/2025 CBC WITH DIFFE RENTI AL/PL ATELE T neut% 57.3 % 37.2 - 78.0 Not Available Marlin Saini MD [facility] ([facility]) [address] [place] [address], 45706, 02/01/2025 17:17:21 02/02/2002/01/2025 CBC WITH DIFFE RENTI AL/PL ATELE T lymph% 31.0 % 13.4 - 50.2 Not Available Marlin Saini MD [facility]) [address] [place] [address], 65758, 02/01/2025 17:17:21 02/02/2002/01/2025 CBC WITH DIFFE RENTI AL/PL ATELE T mono% 8.4 % 3.4 - 12.0 Not Available Marlin Saini MD [facility] ([facility]) [address] [place] [address], 61310, 02/01/2025 17:17:21 02/02/20 25 02/01/2025 CBC WITH DIFFE RENTI AL/PL ATELE T eo% 3.0 % 0.0 - 7.0 Not Available Marlin Saini MD [facility] ([facility]) [address] [place], [address], 02/01/2025 17:17:21 02/02/2002/01/2025 CBC WITH DIFFE RENTI AL/PL ATELE T baso% 0.3 % 0.0 - 3.0 Not Available Marlin Saini MD [facility] ([facility]) [address] [place] [address], 01534, 02/01/2025 17:17:21 03/09/20 25 03/09/2025 MORPH INE SULFA TE abnormal status abnormal Not Available Caroline Saini MD [facility] ([facility]) [address] [place] [address], 61205, 03/22/2025 14:50:58 03/09/2003/09/2025 MORPH INE SULFA TE abnormal status high Not Available Caroline Saini MD [facility] ([facility]) [address] [place] [address], 41708, 03/22/2025 14:50:58 03/09/20 25 03/22/2025 OPIAT E DEFIN ITIVE PANEL LC/MS codeine 0.0 NG/mL <75.0 Not Available Marlin Saini MD [facility] ([facility]) [address] [place] [address], 32694, 03/22/2025 14:50:57 03/09/20 25 03/22/2025 OPIAT E DEFIN ITIVE PANEL LC/MS morphine >5000 NG/mL <75.0 abnormal Not Available Marlin Saini MD [facility] ([facility]) [address] [place] [address], 52013, 03/22/2025 14:50:57 03/09/2003/22/2025 OPIAT E DEFIN ITIVE PANEL LC/MS 6-BALDO 0 NG/mL <15.0 Not Available Marlin Saini MD [facility] ([facility]) [address] [place] [address], 33838, 03/22/2025 14:50:57 03/09/20 25 03/22/2025 OPIAT E DEFIN ITIVE PANEL LC/MS hydromorphon e 1212.6 NG/mL <75.0 abnormal Not Available Caroline Saini MD [facility] ([facility]) [address] [place] [address], 46517, 03/22/2025 14:50:57 03/09/20 25 03/22/2025 OPIAT E DEFIN ITIVE PANEL LC/MS hydrocodone 3456.2 NG/mL <75.0 abnormal Not Available Taran Saini MD [facility] ([facility]) [address] [place] [address], 23000, 03/22/2025 14:50:57 03/09/20 25 03/22/2025 OPIAT E DEFIN ITIVE PANEL LC/MS norhydrocodo ne 3932.0 NG/mL <75.0 abnormal Not Available Caroline Saini MD [facility] ([facility]) [address] [place] [address], 80694, 03/22/2025 14:50:57 03/09/20 25 03/09/2025 D-PRE SUMPT MIRANDA URINE DRUG REPOR T amphetamine NEGATI VE NG/mL <1000. 0 Not Available Marlin Saini MD [facility] ([facility]) [address] [place] [address], 19772, 03/22/2025 14:50:56 03/09/20 25 03/09/2025 D-PRE SUMPT MIRANDA URINE DRUG REPOR T benzodiazepi ne 79.0 NG/mL <200.0 Curre nt metho d may not detec t low level s of Klono pin Not Available Marlin Saini MD [facility] ([facility]) [address] [place] [address], 80751, 03/22/2025 14:50:56 03/09/20 25 03/09/2025 D-PRE SUMPT MIRANDA URINE DRUG REPOR T buprenorphin e NEGATI VE NG/mL <10.0 Not Available Marlin Saini MD [facility] ([facility]) [address] [place] [address], 42669, 03/22/2025 14:50:56 03/09/20 25 03/09/2025 D-PRE SUMPT MIRANDA URINE DRUG REPOR T cannabinoid NEGATI VE NG/mL <50.0 Not Available Marlin Saini MD [facility] ([facility]) [address] [place], [address], 03/22/2025 14:50:56 03/09/20 25 03/09/2025 D-PRE SUMPT MIRANDA URINE DRUG REPOR T cocaine NEGATI VE NG/mL <300.0 Not Available Marlin Saini MD [facility] ([facility]) [address] [place] [address], 23514, 03/22/2025 14:50:56 03/09/20 25 03/09/2025 D-PRE SUMPT MIRANDA URINE DRUG REPOR T ethanol NEGATI VE mg/dL <50.0 Not Available Marlin Saini MD [facility] ([facility]) [address] [place] [address], 80871, 03/22/2025 14:50:56 03/09/20 25 03/09/2025 D-PRE SUMPT MIRANDA URINE DRUG REPOR T methadone 16.0 NG/mL <300.0 Not Available Marlin Saini MD [facility] ([facility]) [address] [place] [address], 21728, 03/22/2025 14:50:56 03/09/20 25 03/09/2025 D-PRE SUMPT MIRANDA URINE DRUG REPOR T opiates 1365.0 NG/mL <300.0 high Opiat es inclu torres Codei ne,Mo rphin e, [place] morph one,H ydroc odone Not Available Marlin Saini MD [facility] ([facility]) [address] [place] [address], 45348, 03/22/2025 14:50:56 03/09/20 25 03/09/2025 D-PRE SUMPT MIRANDA URINE DRUG REPOR T oxycodone 38.0 NG/mL <300.0 Not Available Marlin Saini MD [facility] ([facility]) [address] [place], [address], 03/22/2025 14:50:56 03/09/20 25 03/09/2025 D-PRE SUMPT MIRANDA URINE DRUG REPOR T urine creatinine (validity test) 97.9 mg/dL 20.0 - 300.0 Not Available Marlin Saini MD [facility] ([facility]) [address] [place], [address], 03/22/2025 14:50:56 Result Notes None recorded. Problems Name Problem SNOMED Code Status Onset Date Resolution Date Notes Provider Name and Address Organization Details Recorded Time Osteoporo sis 79047086 Active 2014 (733.00)O STEOPOROS IS NOS Not Available Pending sale to [facility] 2 22:02:43 Disorder of bone and articular cartilage 093997058 Active 2014 (733.90)B ONE & CARTILAGE DIS NOS Not Available Pending sale to [facility] 2 22:02:43 Malaise and fatigue 834399105 Active 2014 (780.79)M ALAISE AND FATIGUE NEC Not Available [facility] 2 22:02:43 Hyperhidr osis 421864160 Active 2014 (780.8)Ge neralized Hyperhidr osis Not Available Pending sale to [facility] 2 22:02:43 Reduced libido 6223799 Active 2014 (799.81)D ecreased Libido Not Available [facility] 2 22:02:44 Chronic interstit ial cystitis 119362354 Active 2014 (595.1)Ch ronic Interstit ial Cystitis Not Available [facility] 2 22:02:43 Functiona l disorder of urinary bladder 801770537 Active 2014 (596.59)O ther Bladder Dysfuncti on Not Available Pending sale to [facility] 2 22:02:43 Depressio n screening Active 2014 (V79.0)Sp ecial Screening Examinati on for Depressio n Not Available Pending sale to [facility] 2 22:02:45 Abdominal pain 46642900 Active 2014 (789.00)A bdominal Pain Site Not Otherwise Specified Not Available [facility] 2 22:02:43 Pelvic and perineal pain 636825266 Active 2014 (R10.2)Pe lvic and perineal pain Not Available [facility] 2 22:02:45 Long-term current use of opiate analgesic drug 26863824983 4108 Active 2014 (Z79.891) shelter (current) use of opiate analgesic Not Available [facility] 2 22:02:45 Trigemina l neuralgia 99427155 Active 2015 (G50.0)Tr igeminal neuralgia Not Available [facility] 2 22:02:44 Screening for osteoporo sis Active 2015 (V82.81)S pecial Screening Examinati on for Osteoporo sis Not Available [facility] 2 22:02:45 Cervical spondylos is without myelopath y 992343640 Active 2016 (M47.812) Spondylos is without myelopath y or radiculop athy, cervical region Not Available [facility] 2 22:02:44 Cervicocr anial syndrome 21200289 Active 2016 (M53.0)Ce rvicocran ial syndrome Not Available [facility] 2 22:02:44 Cervical radiculop athy 68605776 Active 2016 (M54.12)R adiculopa thy, cervical region Not Available [facility] 2 22:02:44 Cervical spondylos is with radiculop athy Active 2016 (M47.22)O ther spondylos is with radiculop athy, cervical region Not Available [facility] 2 22:02:44 Headache 99470996 Active 2016 (R51)Head ache Not Available [facility] 2 22:02:45 Screening for disorder Active 2016 (Z13.89)E ncounter for screening for other disorder Not Available [facility] 2 22:02:45 Generaliz ed anxiety disorder 38015364 Active 2018 (F41.1)Ge neralized anxiety disorder Not Available Pending sale to [facility] 2 22:02:44 Tobacco dependenc e caused by cigarette s 05649194568 263308 Active 2018 (F17.210) Nicotine dependenc e, cigarette s, uncomplic ated Not Available [facility] 2 22:02:44 Migraine 66389913 Active 2019 (G43.909) Migraine, unspecifi ed, not intractab le, without status migrainos us Not Available [facility] 2 22:02:44 Muscle pain 76496485 Active 2019 (M79.1)My algia Not Available Pending sale to [facility] 2 22:02:45 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 Medical Equipment None Reported. Allergies Allergen ID Allergen Name Allergen Category Reaction Reaction Severity Criticality Documentation Date Start Date Code Code System Note Provider Name and Address Organization Details Recorded Time 49261 baclofen Not available Not available Not available Not available 10/29/20212014 1292 RxNorm Not Available Pending sale to [facility] 2 22:02:34 Medications Name Sig Start [...] active Not Available Not Available Not Avai labvalarie mupirocin 2 % topical ointment APPLY TOPICALL [...] Details Last Updated DateTime 5 165.1 cm 27.1 kg/m2 44863.5 6 g 16 /min 97.6 [degF] 68 /min 125/82 mm[Hg] [facility]rel [facility] 08:41:33 Date Recorded Body height Body mass index (BMI) Body weight Body temperature Respiratory rate Pain severity - 0-10 verbal numeric rating [Score] - Reported Heart rate Systolic And Diastolic Provider Name and Address Organization Details Last Updated DateTime 5 165.1 cm 27.1 kg/m2 73272.5 6 g 98.7 [degF] 16 /min 6 [...] Updated DateTime 03/09/2025 165.1 cm 27.1 kg/m2 15195.56 g 16 /min Megan [facility] 03/09/2025 09:10:26 Date Recorded Body height Respiratory rate Body mass index (BMI) Body weight Body temperature Heart rate Systolic And Diastolic Provider Name and Address Organization Details Last Updated DateTime 5 165.1 cm 16 /min 27.1 kg/m2 16106.5 6 g 98.2 [degF] 74 /min 154/87 mm[Hg] Nazguido [facility] 5 12:25:41 Date Recorded Body height Body mass index (BMI) Body weight Body temperature Heart rate Respiratory rate Oxygen saturation Systolic And Diastolic Provider Name and Address Organization Details Last Updated DateTime 5 165.1 cm 27.3 kg/m2 76935.1 5 g 97.9 [degF] 75 /min 16 /min 96 % 143/90 mm[Hg] Darrel Waters [facility]EL [facility] 09:00:20 Social History Question Answer Notes LastModified by [employer] Details LastModified Time Tobacco Smoking Status Current Every Day Smoker [facility] 12/24/2021 14:28:34 What Is Your Level Of Caffeine Consumption? Occasional 2 Cups Coffee [email or web address] Information not available 12/24/2021 What Is Your Current Pack Years? 10packyears 7 YEARS [email or web address] Information not available 01/21/2022 How Much Tobacco Do You Smoke? 1 PPD [email or web address] Information not available 12/24/2021 Sex: Female Functional Status Question Answer Note LastModified by [employer] Details LastModified Time What is your level of alcohol consumption? Occasional [email or web address] Information not available 12/24/2021 What is your occupation? Disabled [email or web address] Information not available 10/29/2021 Mental Status None [...] ICD10 Code Diagnosis IMO Codes Diagnosis Note [id number] Anastasia Sharma, [employer]ANT [address] [address] 11/28/2021 16:39:17 12/05/2021 15:44:33 Chronic pain 48744015 G89.29 [id number] Anastasia Sharma, [employer]ANT [address] [place] [address] 4 12/24/2021 14:01:49 12/25/2021 09:43:05 Cervicocranial syndrome 63065319 M53.0 Chronic in terstitial cystitis 586023236 N30.10 Long-term current use of opiate analgesic drug 5248999459 60052 Z79.891 Diagnostic /Lab: Order Presumptiv e UDT [...] THC, HANNAH, ETOH, Meth, Op, Oxy, U-Creat) [id number] Anastasia Sharma, [employer]ANT [address] [address] 01/21/2022 09:47:23 01/22/2022 10:30:07 Cervicocranial syndrome 62330028 M53.0 [id number] Anastasia Sharma, [employer]ANT [address] [address] 02/25/2022 10:20:54 02/27/2022 11:13:15 Cervicocranial syndrome 41098916 M53.0 Long-term current use of opiate analgesic drug 0335860606 79672 Z79.891 Diagnostic /Lab: Order Presumptiv e UDT [...] Op, Oxy, U-Creat) Chronic pain syndrome 37 5135397 G89.4 [id number] Anastasia Sharma APRN [facility] [place] [address] 4 03/27/2022 07:40:30 03/27/2022 13:47:39 Cervicocranial syndrome 14251487 M53.0 Cervical s pondylosis without myelopathy 665015751 M47.492 [id number] Anastasia Sharma APRN [facility] [place] [address] 4 04/24/2022 13:45:14 04/24/2022 14:42:21 Long-term current use of opiate analgesic drug 0207343049 46413 Z79.891 HP1 (CBC/Renal /Hepatic/G GT) CBC - ordered to monitor the effects of prescribed medication s. Renal/Hepa tic/GGT - ordered to monitor toxicity of renal hepatic function due to medication . Chronic pain syndrome 37 5705098 G89.4 [id number] Anastasia Sharma APRN [facility] [place] [address] 4 05/27/2022 07:23:45 06/09/2022 08:50:59 Chronic pain syndrome 530297639 G89.4 [id number] Anastasia Sharma, [employer] [address] [address] 06/19/2022 13:20:41 06/27/2022 10:33:28 Long-term current use of opiate analgesic drug 7039018914 78970 Z79.891 Diagnostic /Lab: Order Presumptiv e UDT [...] to medication . Chronic pain syndrome 37 7530034 G89.4 [id number] Anastasia Sharma, [employer]SULTANT [address] [place] [address] 07/23/2022 13:26:51 08/06/2022 12:10:10 Chronic pain syndrome 463001584 G89.4 Cervicocra nial syndrome 58432610 M53.0 [id number] Anastasia Sharma, [employer] [address] [address] 4 08/20/2022 13:39:30 09/03/2022 14:51:10 Chronic pain syndrome 574706409 G89.4 [id number] Anastasia Sharma, [employer]ANT [address] [place] [address] 4 09/15/2022 14:59:34 09/26/2022 15:50:02 Chronic pain syndrome 956694264 G89.4 [id number] Anastasia Sharma, [employer]ANT [address] [place] [address] 4 10/22/2022 12:27:18 10/23/2022 09:35:40 Long-term current use of opiate analgesic drug 6884268460 90064 Z79.891 Diagnostic /Lab: Order Presumptiv e UDT [...] to medication . Chronic pain syndrome 37 3329703 G89.4 [id number] Anastasia Sharma, [employer] [address] [address] 4 11/19/2022 13:34:36 11/19/2022 15:18:59 Chronic pain syndrome 401855342 G89.4 [id number] Anastasia Sharma, [employer]ANT [address] [facility] [address] [place] [address] 12/18/2022 13:59:28 12/22/2022 13:24:47 Cervicocranial syndrome 44439435 M53.0 Chronic pain syndrome 37 6680953 G89.4 [id number] Mariza Gutierrez RN [address] [address] 01/19/2023 15:02:01 01/22/2023 11:36:21 Degeneration of cervical intervertebral disc 78973841 M50.30 Chronic pain syndrome 37 8359610 G89.4 [id number] Anastasia Sharma, [employer] [address] [address] 4 02/18/2023 13:53:01 02/26/2023 14:27:17 Long-term current use of opiate analgesic drug 9839657368 90667 Z79.891 Diagnostic /Lab: Order Presumptiv e UDT [...] to medication . Chronic pain syndrome 37 2703416 G89.4 [id number] Anastasia Sharma, [employer]ANT [address] [place] [address] 03/19/2023 07:13:42 03/24/2023 13:47:52 Chronic pain syndrome 468351908 G89.4 [id number] Anastasia Sharma, [employer] SAL[employer] CONSULTANT [facility] [address] [address] 04/16/2023 08:29:54 04/16/2023 09:11:19 Long-term current use of opiate analgesic drug 4314685124 03643 Z79.891 Diagnostic /Lab: Order Presumptiv e UDT [...] to medication . Chronic pain syndrome 37 2447216 G89.4 [id number] Anastasia Sharma, [employer]ANT [address] [place] [address] 4 05/12/2023 08:56:39 05/12/2023 10:34:58 Chronic pain syndrome 288568609 G89.4 [id number] Tawana Powell, [employer] CONSULTANT [address] [place] [address] 4 06/11/2023 09:41:52 06/11/2023 10:41:32 Long-term current use of opiate analgesic drug 7534539388 60035 Z79.891 Diagnostic /Lab: Order Presumptiv e UDT [...] fentanyl, tapentadol and carisoprod ol). Cervical radiculopathy 93259282 M54.12 Cervical s pondylosis without myelopathy 745660590 M47.812 Cervicocra nial syndrome 82137275 M53.0 Long-term drug therapy 014203067 Z79.899 Malaise and fatigue 2717 72436 R53.81 Osteoporosis 05472337 M8 1.0 Spondylosi s without myelopathy 59075956 M47.816 Chronic pain syndrome 37 7876114 G89.4 [id number] ZARIA Lira [address] [place] [address] 4 07/13/2023 13:05:10 07/13/2023 13:41:31 Abdominal pain 38892257 R10.9 Chronic pain syndrome 37 1905544 G89.4 [id number] Anastasia Sharma APRN [address] [place] [address] 4 08/13/2023 13:49:49 08/14/2023 14:39:53 Long-term current use of opiate analgesic drug 7497483378 94976 Z79.891 Diagnostic /Lab: Order Presumptiv e UDT [...] and carisoprod ol). Chronic pain syndrome 37 8064029 G89.4 [id number] Aniceto Saini MD [address] [address] 4 09/21/2023 09:11:40 09/30/2023 08:48:50 Long-term current use of opiate analgesic drug 3385869868 86918 Z79.891 Cervicocra nial syndrome 83194524 M53.0 Cervical s pondylosis without myelopathy 385963022 M47.874 [id number] Anastasia Sharma, [employer] SAL[employer] CONSULTANT [facility] [address] 10/20/2023 14:09:58 10/21/2023 17:44:08 Long-term current use of opiate analgesic drug 8782140760 43883 Z79.891 Diagnostic /Lab: Order Presumptiv e UDT [...] tapentadol and carisoprod ol). Cervicocra nial syndrome 19996255 M53.0 [id number] Anastasia Sharma, [employer]ANT [address] [address] 4 11/11/2023 08:45:37 11/12/2023 14:40:35 Cervicocranial syndrome 47788629 M53.0 [id number] Anastasia Sharma, [employer]ANT [address]16 [facility] [address] [place] [address] 12/15/2023 10:16:17 12/15/2023 11:27:38 Cervicocranial syndrome 67598342 M53.0 [id number] Anastasia Sharma, [employer] CONS[employer]ANT [address] [place] [address] 01/11/2024 08:11:29 01/11/2024 08:42:30 Cervicocranial syndrome 00300528 M53.0 [id number] Anastasia Sharma, [employer]ANT [address] [place] [address] 02/11/2024 08:09:28 02/15/2024 11:20:20 Long-term current use of opiate analgesic drug 7165123355 46853 Z79.891 Diagnostic /Lab: Order Presumptiv e UDT [...] due to medication . Cervicocra nial syndrome 11831716 M53.0 [id number] Anastasia Sharma, [employer] CONSULTANT [address] [place] [address] 4 03/11/2024 14:31:15 03/15/2024 13:06:05 Cervicocranial syndrome 32295914 M53.0 [id number] Jennifer Neal DNP [employer] [address] [place] [address] 04/07/2024 13:36:29 04/08/2024 09:15:22 Abdominal pain 05217180 R10.9 Cervical s pondylosis without myelopathy 118890939 M47.812 Cervicocra nial syndrome 06340922 M53.0 Muscle pain 75679352 M79 .12 Trigeminal neuralgia 316 53014 G50.0 [id number] Jennifer Neal DNP [employer]ANT 2416 [facility] [address] [place] [address] 05/10/2024 12:02:29 05/10/2024 12:57:37 Long-term current use of opiate analgesic drug 6420837413 58571 Z79.891 Diagnostic /Lab: Order Presumptiv e UDT [...] fentanyl, tapentadol and carisoprod ol). Cervical radiculopathy 35396683 M54.12 Cervical s pondylosis without myelopathy 034491983 M47.812 Cervicogenic headache 27 2816449 G44.86 Trigeminal neuralgia 316 66672 G50.0 Cervicocra nial syndrome 50590088 M53.0 Global Risk Assessment Score:High Risk. High [...] fill 04/16/2024 Inappropri ate due to: . [id number] Jennifer Neal DNP [employer] 2416 [facility] [address] [place] [address] 06/09/2024 09:05:26 06/15/2024 11:24:28 Cervical radiculopathy 68967341 M54.12 Cervical s pondylosis without myelopathy 794792964 M47.812 Disorder o f bone and articular cartilage 562747821 M24.10 Pelvic and perineal pain 066477953 R10.2 Trigeminal neuralgia 316 [address]16 G50.0 Cervicocra nial syndrome 25200481 M53.0 Global Risk Assessment Score:High Risk.High Risk [...] fill 05/16/2024 Inappropri ate due to: . [id number] Jennifer Neal DNP [employer]ANT [address] [place] [address] 07/11/2024 12:16:55 07/18/2024 08:16:56 Long-term current use of opiate analgesic drug 1289433788 62374 Z79.891 Diagnostic /Lab: Order Presumptiv e UDT [...] function due to medication . Cervical radiculopathy 12879330 M54.12 [id number] Global Risk Assessment Score:High Risk. High Risk [...] to: . Cervical s pondylosis without myelopathy 745348558 M47.812 Muscle pain 56849416 M79 .12 Trigeminal neuralgia 316 49533 G50.0 [id number] Jennifer Ángel, JANINE [employer]ANT [address] [facility] [address] [place] [address] 08/11/2024 13:00:04 08/11/2024 13:20:49 Cervical radiculopathy 52973056 M54.12 Global Risk Assessment Score:High Risk.High Risk [...] ate due to: . Cervicocra nial syndrome 96428988 M53.0 I Muscle pain 51091218 M79 .12 Trigeminal neuralgia 316 41228 G50.0 [id number] Aniceto Saini MD 2416 [facility] [address] [place] [address] 09/12/2024 13:52:03 09/28/2024 09:10:47 Cervicocranial syndrome 93764135 M53.0 Cervical s pondylosis without myelopathy 795478447 M47.812 Long-term current use of opiate analgesic drug 2752840766 91184 Z79.891 Cervical radiculopathy 49783893 M47.812 Trigeminal neuralgia 316 73138 G50.0 [id number] Jennifer Neal DNP [employer] [address] [address] 10/10/2024 12:30:15 10/10/2024 12:55:19 Cervical radiculopathy 20631594 M47.812 Global Risk Assessment Score:High Risk.High Risk [...] DS of 09/12/2024 reviewed and is appropriat e. DAVIS (prescript ion drug monitoring report):As of 10/10/2024 reviewed and is appropriat e Last fill 09/12/2024 Inappropri ate due to: . Cervical s pondylosis without myelopathy 387517892 M47.812 Cervicocra nial syndrome 61121097 M53.0 [id number] Aniceto Saini MD [address] [address] 11/07/2024 12:39:18 11/17/2024 14:50:20 Cervical spondylosis without myelopathy 583403605 M47.812 Cervicocra nial syndrome 35842595 M53.0 Long-term current use of opiate analgesic drug 0855972480 06687 Z79.891 Diagnostic /Lab: Order Presumptiv e UDT [...] tapentadol and carisoprod ol). Cervicogenic headache 27 0977071 G44.86 Spondylosi s without myelopathy 12777188 M47.816 Cervical radiculopathy 12764834 M47.058 [id number] Jenniefr Neal DNP [employer] [address] [address] 12/07/2024 11:48:54 12/19/2024 11:03:11 Abdominal pain 11439306 R10.9 Cervical radiculopathy 83873967 M47.812 Global Risk Assessment Score:High Risk.High Risk [...] to: . Cervical s pondylosis without myelopathy 685230848 M47.560 [id number] Jennifer Neal DNP [employer]ANT 2416 [facility] [address] [place] [address] 02/01/2025 12:58:51 02/01/2025 14:00:39 Long-term current use of opiate analgesic drug 3892921414 54862 Z79.891 Diagnostic /Lab: Order Presumptiv e UDT [...] due to medication . Cervicocra nial syndrome 33370517 M53.0 Cervical s pondylosis without myelopathy 065679382 M47.812 Cervicogenic headache 27 0927836 G44.86 Trigeminal neuralgia 316 68900 G50.0 Cervical radiculopathy 15242909 M47.812 Global Risk Assessment Score:High Risk.High Risk [...] fill 01/10/2025 Inappropri ate due to: . [id number] Jackelyn Pereyra, [employer] CONSULTANT [address] [place] [address] 01/06/2025 08:30:27 01/06/2025 11:13:50 Long-term current use of opiate analgesic drug 4423211794 27882 Z79.891 [id number] Diagnostic /Lab: Order Presumptiv e UDT (necessary [...] fentanyl, tapentadol and carisoprod ol). Cervical radiculopathy 39843245 M47.812 Spondylosi s without myelopathy 50160404 M47.816 Cervical s pondylosis without myelopathy 525154818 M47.867 [id number] Jennifer Neal DNP [employer]ANT 2416 [facility] [address] [place] [address] 03/09/2025 09:08:35 03/09/2025 10:01:45 Long-term current use of opiate analgesic drug 8047416197 73065 Z79.891 Diagnostic /Lab: Order Presumptiv e UDT [...] tapentadol and carisoprod ol). Cervicocra nial syndrome 07599168 M53.0 Cervical s pondylosis with radiculopathy 583529313 M47.22 Cervical s pondylosis without myelopathy 756924200 M47.812 Cervical radiculopathy 65604072 M47.812 Global Risk Assessment Score:High Risk.High Risk [...] fill 02/09/2025 Inappropri ate due to: . [id number] Jennifer Neal DNP [employer] CONSULTANT [address] [facility] [address] [place] [address] 04/05/2025 12:02:10 04/14/2025 10:31:57 Cervicocranial syndrome 03038864 M53.0 Cervical s pondylosis without myelopathy 811024562 M47.812 Cervicogenic headache 27 2621005 G44.86 Trigeminal neuralgia 316 51930 G50.0 Cervical radiculopathy 28714246 M47.812 Global Risk Assessment Score:High Risk.High Risk [...] the patient's treatment with controlled substances Non [place] resident Difficulty in contacting the patient ( i.e. multiple residences , multiple phone numbers/no phone, frequent out of town travel/out -of-state work) ORT Score:Risk Score: Date of ORT: . Lab work reviewed:U DS of 01/06/2025 reviewed and is appropriat sapphire CANNON (prescript ion drug monitoring report):As of 03/09/2025 reviewed and is appropriat e Last fill 02/09/2025 Inappropri ate due to: . [id number] Aniceto Saini MD [address] [facility] [address] [place] [address] 05/09/2025 08:46:25 05/09/2025 09:50:28 Cervicocranial syndrome 50432893 M53.0 Cervical radiculopathy 96675517 M47.812 Chronic in terstitial cystitis 969865201 N30.10 Health Concerns Section Related Observation LastModified by Organization Detai ls LastModified Time None Recorded Concern Status LastModified by Organization Details LastModified Time None Recorded Advance Directives Directive None Recorded Payers Insurance Date Sequence Insurance Name Policy Number Policy Hair Covered Member ID Hair Member ID Guarantor Name 05/06/2025 1 [place] [id number] A Francisco J Dempsey [id number] Sophie Dempsey Notes Date Note Type Note Provider Name and Address Organization Details Recorded Time 01/06/2025 text/html Her pain is stable today. It is constant but varies in intensity. Pain is aggravated by over-exertion, lifting, pushing/pulling, reaching, twisting, flexion, and repetitive movements.Denies N/TShe is active around the house and independent w/ ADLsDenies SE to sindy Pereyra, [employer] SALES CONSULTANT [address] [facility], [place], [address], [facility] 01/10/2025 15:44:43 02/01/2025 text/html ROS as noted in the [facility] Patient RTC for the management of her [...] problems, or GI problems. Jennifer Neal DNP [employer] CONSULTANT [address], [place], [address], [facility] 02/02/2025 07:30:56 03/09/2025 text/html ROS as noted in the [facility] Patient RTC for the management of her [...] Jennifer Neal DNP APRN [address], [place], [address], [facility] 03/09/2025 16:36:52 04/05/2025 text/html ROS as noted in the [facility] Patient RTC for the management of her [...] problems, or GI problems. Jennifer Neal DNP [employer] CONSULTANT [address], [place], [address], [place] [facility] 04/10/2025 07:33:58 05/09/2025 text/html Returns [...] in regards to this. Aniceto Saini MD [address] [facility], [place], [address], [facility] 05/09/2025 09:49:45 OBGyn Episode No OBEpisode recorded.
[2025-05-29 16:23] LABS: Blood Urea Nitrogen 10 mg/dl (7-17); Creatinine,Serum 0.70 mg/dl (0.52-1.04); Estimated Glomerular Filt Rate 87 ml/min (>60); GFR (African American) 105 ML/MIN (>60)
== END 2025-05-29 23:59 | disposition home or self-care (01) ==
LOC: LAB 15:44
PROVIDERS: PCP Family Medicine; Visit Provider Family Medicine
DX: R93.5 Abnormal findings on diagnostic imaging of other abdominal regions, including retroperitoneum (principal)
CPT/HCPCS: 36415; 82565; 84520

== ENCOUNTER 2025-05-31 07:53 | Outpatient (CLI) | payer BC, SELFPAY ==
--- OUTSIDE RECORDS SUMMARY | 2025-05-31 07:56 | XMS_ITS | Encounter Summary ---
Author Organization [facility] Address [address] [place] [address] Care Team Providers Care Stereo Plotter Operator Name Role Phone Zana Carty MD Primary Care Provider [phone]- [phone] Reason for Visit * Reason Onset Date Comments Med Refill 05/17/2025 Encounter Details Date Type Department Care Team (Late st Contact Info) Description 05/17/2025 Refill Obstetrics & Gynecology [address] [place] [address] Anastasia Winters MD [address] [place] [address] Social History Tobacco Use Types [...] Info) Description 07/05/2025 1:30 PM EST Appointment [facility] [address] [address] 07/05/2025 2:30 PM EST Office Visit [facility] [address] [facility]nd [place] [address] Jeannie Riddle, OIL REFINERY OPERATOR [address] [facility] Zahra Qureshi [facility] [address] [place] [address] documented as of this encounter Visit Diagnoses Not on filedocumented in this encounter Additional Health Concerns Assessment Noted Time A fall risk assessment has been complete d for the patient 03/15/2025 3:14 PM EDT A Body Mass Index follow-up plan has been documented for the patient 03/17/2025 2:31 PM EDT documented as of this encounter Care Teams Stereo Plotter Operator Relationship Specialty Start Date End Date Zana Carty MD [address] [place] [address] PCP - General 11/09/20 documented as of this encounter
--- OUTSIDE RECORDS SUMMARY | 2025-05-31 07:56 | XMS_ITS | Encounter Summary ---
Author Organization [facility] Address [address] [place] [address] Care Team Providers Care Billing Supervisor Name Role Phone Zana Carty MD Primary Care Provider [phone]- [phone] Reason for Visit * Reason Onset Date Comments Med Refill 04/20/2025 Encounter Details Date Type Department Care Team (Late st Contact Info) Description 04/20/2025 Refill Obstetrics & Gynecology [address] [place] [address] Anastasia Winters MD [address] [place] [address] Social History Tobacco Use Types [...] Info) Description 07/05/2025 1:30 PM EST Appointment [facility] Breast [facility] Center [facility] [address] [address] 07/05/2025 2:30 PM EST Office Visit [facility] [address] [facility] [place] [address] Jeannie Riddle, ORCHID SUPERINTENDENT [address] [facility] Zahra Qureshi [facility] [address] [place] [address] documented as of this encounter Visit Diagnoses Not on filedocumented in this encounter Additional Health Concerns Assessment Noted Time A fall risk assessment has been complete d for the patient 03/15/2025 3:14 PM EDT A Body Mass Index follow-up plan has been documented for the patient 03/17/2025 2:31 PM EDT documented as of this encounter Care Teams Billing Supervisor Relationship Specialty Start Date End Date Zana Carty MD [address] [place] [address] PCP - General 11/09/20 documented as of this encounter
--- OUTSIDE RECORDS SUMMARY | 2025-05-31 07:56 | XMS_ITS | Encounter Summary ---
Author Organization [facility] Address [address] [place] [address] Care Team Providers Care Education Sales Consultant Name Role Phone Zana Carty MD Primary Care Provider +1- [phone] Reason for Visit * Reason Comments Med Refill Encounter Details Date Type Department Care Team (Late st Contact Info) Description 01/30/2021 Refill [place] [facility] [address] [place] [address] Lauren Morales, HEREDITARY CANCER PROGRAM COORDINATOR [address] [facility] [address] [place] [address] Social History Tobacco Use Types [...] [facility] [address] Zahra Qureshi [facility] [address] [place] [address] 07/05/2025 2:30 PM EST Office Visit [facility] [address] [facility], 2nd [place] [address] Jeannie Riddle, HEREDITARY CANCER PROGRAM COORDINATOR [address] [facility] Zahra Qureshi [facility] [address] [place] [address] documented as of this encounter Visit Diagnoses Not on filedocumented in this encounter Care Teams Education Sales Consultant Relationship Specialty Start Date End Date Zana Carty MD [address] [place] [address] PCP - General 11/09/20 documented as of this encounter
--- OUTSIDE RECORDS SUMMARY | 2025-05-31 07:56 | XMS_ITS | Continuity of Care Document ---
Author Organization [facility] [address] [place] [address] [place] [address] Care Team Providers Care Steam Trap Worker Name Role Phone ALPA RIDLEY Primary Care Provider [phone] Assessment No assessment recorded. Plan of Treatment Reminders Order Date Submit Date Provider Last Modified By Organization Details Last Modified Time Details Appointments Office Visit15 2024 08:45A Megan Neal DNP [facility] JUSTICE Not available Not available Not available Office Visit15 2025 11:30A Megan Neal DNP [facility] JUSTICE Not available Not available Not available OV Ext 30 2025 11:30A Megan Becerra MD Not available Not available Not available Lab drug screen, urine - Meds: hydrocodo ne morphine ss 2024 025 SHERIDAN Becerra MD [facility] ([facility]), [address] [place] [address], [address], 03/22/2025 14:50:56 Referral None recorded. Procedures None recorded. Surgeries None recorded. Imaging None recorded. Medication Orders hydrocodo ne 10 mg-acetam inophen 325 mg tablet 2024 025 [facility]/Pharmacy #[id number], [address] [place], [address], 03/09/2025 11:01:53 morphine ER 15 mg tablet,ex tended release 2024 025 [facility]/Pharmacy #[id number], [address] [place], [address], 03/09/2025 11:01:54 Patient TargetsNo targets recorded. Patient Instructions Encounter Date Encounter Id Patient Instructions Last Modified By Organization Details Last Modified Time 03/09/2025 [id number] 1. continue healthy lifestyles 2. stretching/yoga/w alking as tolerated 3. take pain medications as prescribed 4. call with any concerns [email or web address] Not available 03/09/2025 09:54:51 Patient seen today incident to a physician s previously established diagnosis and plan of care. Follow-up care provided today under the plan of care of: Aniceto Becerra MD and supervision of: Manuel Lyn MD. Not available 03/09/2025 09:55:00 Reason for Referral None Reported. Results Created Date Observation Date Name Description Value Unit Range Abnormal Flag Note LastModifiedBy Organization Detail LastModifiedTime 03/09/2003/09/2025 MORPH INE SULFA TE abnormal status abnormal Not Available Caroline Becerra MD [facility] ([facility]) [address] [place] [address], [address], 03/22/2025 14:50:58 03/09/20 25 03/09/2025 MORPH INE SULFA TE abnormal status high Not Available Caroline Becerra MD [facility] ([facility]) [address] [place] [address], [address], 03/22/2025 14:50:58 03/09/2003/22/2025 OPIAT E DEFIN ITIVE PANEL LC/MS codeine 0.0 NG/mL <75.0 Not Available Marlin Becerra MD [facility] ([facility]) [address] [place] [address], [address], 03/22/2025 14:50:57 03/09/2003/22/2025 OPIAT E DEFIN ITIVE PANEL LC/MS morphine >5000 NG/mL <75.0 abnormal Not Available Marlin Becerra MD [facility] ([facility]) [address] [place] [address], [address], 03/22/2025 14:50:57 03/09/20 25 03/22/2025 OPIAT E DEFIN ITIVE PANEL LC/MS 6-BALDO 0 NG/mL <15.0 Not Available Marlin Becerra MD [facility] (In House Lab) [address] [place] [address], [address], 03/22/2025 14:50:57 03/09/2003/22/2025 OPIAT E DEFIN ITIVE PANEL LC/MS hydromorphon e 1212.6 NG/mL <75.0 abnormal Not Available Caroline Becerra MD [facility] (In House Lab) [address] [place] [address], [address], 03/22/2025 14:50:57 03/09/2003/22/2025 OPIAT E DEFIN ITIVE PANEL LC/MS hydrocodone 3456.2 NG/mL <75.0 abnormal Not Available Taran Becerra MD [facility] (In House Lab) [address] [place] [address], [address], 03/22/2025 14:50:57 03/09/2003/22/2025 OPIAT E DEFIN ITIVE PANEL LC/MS norhydrocodo ne 3932.0 NG/mL <75.0 abnormal Not Available Caroline Becerra MD [facility] (In House Lab) [address] [place] [address], [address], 03/22/2025 14:50:57 03/09/2003/09/2025 D-PRE SUMPT MIRANDA URINE DRUG REPOR T amphetamine NEGATI VE NG/mL <1000. 0 Not Available Marlin Becerra MD [facility] (In House Lab) [address] [place] [address], [address], 03/22/2025 14:50:56 03/09/2003/09/2025 D-PRE SUMPT MIRANDA URINE DRUG REPOR T benzodiazepi ne 79.0 NG/mL <200.0 Curre nt metho d may not detec t low level s of Klono pin Not Available Marlin Becerra MD [facility] (In House [facility]) [address] [place] [address], [address], 03/22/2025 14:50:56 03/09/20 25 03/09/2025 D-PRE SUMPT MIRANDA URINE DRUG REPOR T buprenorphin e NEGATI VE NG/mL <10.0 Not Available Marlin Becerra MD [facility] (In House Lab) [address] [place] [address], [address], 03/22/2025 14:50:56 03/09/20 25 03/09/2025 D-PRE SUMPT MIRANDA URINE DRUG REPOR T cannabinoid NEGATI VE NG/mL <50.0 Not Available Marlin Becerra MD [facility] (In House [facility]) [address] [place] [address], [address], 03/22/2025 14:50:56 03/09/20 25 03/09/2025 D-PRE SUMPT MIRANDA URINE DRUG REPOR T cocaine NEGATI VE NG/mL <300.0 Not Available Marlin Becerra MD [facility] (In House [facility]) [address] [place] [address], [address], 03/22/2025 14:50:56 03/09/20 25 03/09/2025 D-PRE SUMPT MIRANDA URINE DRUG REPOR T ethanol NEGATI VE mg/dL <50.0 Not Available Marlin Becerra MD [facility] (In House [facility]) [address] [place] [address], [address], 03/22/2025 14:50:56 03/09/20 25 03/09/2025 D-PRE SUMPT MIRANDA URINE DRUG REPOR T methadone 16.0 NG/mL <300.0 Not Available Marlin Becerra MD [facility] (In House [facility]) [address] [place] [address], [address], 03/22/2025 14:50:56 03/09/20 25 03/09/2025 D-PRE SUMPT MIRANDA URINE DRUG REPOR T opiates 1365.0 NG/mL <300.0 high Opiat es inclu torres Codei ne,Mo rphin e, [place] morph one,H ydroc odone Not Available Marlin Becerra MD [facility] ([facility]) [address] [place] [address], [address], 03/22/2025 14:50:56 03/09/20 25 03/09/2025 D-PRE SUMPT MIRANDA URINE DRUG REPOR T oxycodone 38.0 NG/mL <300.0 Not Available Marlin Becerra MD [facility] ([facility]) [address] [place], [address], 03/22/2025 14:50:56 03/09/20 25 03/09/2025 D-PRE SUMPT MIRANDA URINE DRUG REPOR T urine creatinine (validity test) 97.9 mg/dL 20.0 - 300.0 Not Available Marlin Becerra MD [facility] ([facility]) [address] [place], [address], 03/22/2025 14:50:56 Result Notes None recorded. Problems Name Problem SNOMED Code Status Onset Date Resolution Date Notes Provider Name and Address Organization Details Recorded Time Osteoporo sis 17454207 Active 2014 (733.00)O STEOPOROS IS NOS Not Available [facility] 2 22:02:43 Disorder of bone and articular cartilage 545762345 Active 2014 (733.90)B ONE & CARTILAGE DIS NOS Not Available [facility] 2 22:02:43 Malaise and fatigue 686459801 Active 2014 (780.79)M ALAISE AND FATIGUE NEC Not Available [facility] 2 22:02:43 Hyperhidr osis 570195743 Active 2014 (780.8)Ge neralized Hyperhidr osis Not Available [facility] 2 22:02:43 Reduced libido 9425781 Active 2014 (799.81)D ecreased Libido Not Available [facility] 2 22:02:44 Chronic interstit ial cystitis 189946829 Active 2014 (595.1)Ch ronic Interstit ial Cystitis Not Available [facility] 2 22:02:43 Functiona l disorder of urinary bladder 732848510 Active 2014 (596.59)O ther Bladder Dysfuncti on Not Available [facility] 2 22:02:43 Depressio n screening Active 2014 (V79.0)Sp ecial Screening Examinati on for Depressio n Not Available [facility] 2 22:02:45 Abdominal pain 32100941 Active 2014 (789.00)A bdominal Pain Site Not Otherwise Specified Not Available [facility] 2 22:02:43 Pelvic and perineal pain 495603792 Active 2014 (R10.2)Pe lvic and perineal pain Not Available [facility] 2 22:02:45 Long-term current use of opiate analgesic drug 95750470981 4108 Active 2014 (Z79.891) intermediate teacher (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) use of 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 analgesic Not Available [facility] 2 22:02:45 Trigemina l neuralgia 39856742 Active 2015 (G50.0)Tr igeminal neuralgia Not Available [facility] 2 22:02:44 Screening for osteoporo sis Active 2015 (V82.81)S pecial Screening Examinati on for Osteoporo sis Not Available [facility] 2 22:02:45 Cervical spondylos is without myelopath y 613189272 Active 2016 (M47.812) Spondylos is without myelopath y or radiculop athy, cervical region Not Available [facility] 2 22:02:44 Cervicocr anial syndrome 85081935 Active 2016 (M53.0)Ce rvicocran ial syndrome Not Available [facility] 2 22:02:44 Cervical radiculop athy 51303642 Active 2016 (M54.12)R adiculopa thy, cervical region Not Available [facility] 2 22:02:44 Cervical spondylos is with radiculop athy Active 2016 (M47.22)O ther spondylos is with radiculop athy, cervical region Not Available [facility] 2 22:02:44 Headache 11555163 Active 2016 (R51)Head ache Not Available [facility] 2 22:02:45 Screening for disorder Active 2016 (Z13.89)E ncounter for screening for other disorder Not Available [facility] 2 22:02:45 Generaliz ed anxiety disorder 68808453 Active 2018 (F41.1)Ge neralized anxiety disorder Not Available [facility] 2 22:02:44 Tobacco dependenc e caused by cigarette s 93075653796 075809 Active 2018 (F17.210) Nicotine dependenc e, cigarette s, uncomplic ated Not Available [facility] 2 22:02:44 Migraine 02207606 Active 2019 (G43.909) Migraine, unspecifi ed, not intractab le, without status migrainos us Not Available [facility] 2 22:02:44 Muscle pain 40499556 Active 2019 (M79.1)My algia Not Available [facility] 2 22:02:45 Spondylos is without myelopath y 49996888 Active 2020 (M47.816) Spondylos is without myelopath y or radiculop athy, lumbar region Not Available [facility] 2 22:02:44 Cervicoge adriana headache 503174360 Active 2021 (G44.86)C ervicogen ic headache Not Available [facility] 2 22:02:44 Problem Notes None recorded. Medical Equipment None Reported. Allergies Allergen ID Allergen Name Allergen Category Reaction Reaction Severity Criticality Documentation Date Start Date Code Code System Note Provider Name and Address Organization Details Recorded Time 40374 baclofen Not available Not available Not available Not available 10/29/20212014 1292 RxNorm Not Available [facility] 2 22:02:34 Medications Name Sig Start Date [...] Updated DateTime 03/09/2025 165.1 cm 27.1 kg/m2 32196.56 g 16 /min Megan [facility] 03/09/2025 09:10:26 Social History Question Answer Notes LastModified by [employer] Details LastModified Time Tobacco Smoking Status Current Every Day Smoker [facility] 12/24/2021 14:28:34 What Is Your Level Of Caffeine Consumption? Occasional 2 Cups Coffee [email or web address] Information not available 12/24/2021 What Is Your Current Pack Years? 10packyears 7 YEARS [email or web address] Information not available 01/21/2022 How Much Tobacco Do You Smoke? 1 PPD [email or web address] Information not available 12/24/2021 Sex: Female Functional Status Question Answer Note LastModified by [employer] Details LastModified Time What is your level of alcohol consumption? Occasional [email or web address] Information not available 12/24/2021 What is your occupation? Disabled [email or web address] Information not available 10/29/2021 Mental Status None [...] ICD10 Code Diagnosis IMO Codes Diagnosis Note [id number] Jennifer Neal DNP [facility] JUSTICE [address] [facility] [address] [place] [address] 03/09/2025 09:08:35 03/09/2025 10:01:45 Long-term current use of opiate analgesic drug 5055059796 19631 Z79.891 Diagnostic /Lab: Order Presumptiv e UDT [...] tapentadol and carisoprod ol). Cervicocra nial syndrome 14655771 M53.0 Cervical s pondylosis with radiculopathy 946045735 M47.22 Cervical s pondylosis without myelopathy 297353163 M47.812 Cervical radiculopathy 44724349 M47.812 Global Risk Assessment Score:High Risk.High Risk [...] Hair Member ID Guarantor Name 03/09/2025 1 [place]: [facility] [id number] Himanshu Dempsey [id number] Sophie Dempsey Notes Date Note Type [...] problems, or GI problems. Jennifer Neal, JANINE [facility] JUSTICE [address] [facility], [place], [address], [facility] 03/09/2025 16:36:52 OBGyn Episode No OBEpisode recorded.
--- OUTSIDE RECORDS SUMMARY | 2025-05-31 07:56 | XMS_ITS | Encounter Summary ---
Author Organization Healthcare Address [address] [place] [address] Care Team Providers Care Spool Sander Name Role Phone Zana Carty MD Primary Care Provider +1- [phone] Encounter Details Date Type Department Care Team (Late st Contact Info) Description 03/17/2025 Results Follow-Up Obstetrics & Gynecology [address] [place] [address] Shaneka Joshi, BUSINESS TRANSFORMATION MANAGER [address] [place] [address] Social History Tobacco Use Types [...] [facility] [address] [address] 07/05/2025 2:30 PM EST Office Visit [facility] [address] [facility], 2nd [place] [address] Jeannie Riddle, BUSINESS TRANSFORMATION MANAGER [address] [facility] Zahra Qureshi [facility] [address] [place] [address] documented as of this encounter Visit Diagnoses Not on filedocumented in this encounter Additional Health Concerns Assessment Noted Time A fall risk assessment has been complete d for the patient 03/15/2025 3:14 PM EDT A Body Mass Index follow-up plan has been documented for the patient 03/17/2025 2:31 PM EDT documented as of this encounter Care Teams Spool Sander Relationship Specialty Start Date End Date Zana Carty MD [address] [place] [address] PCP - General 11/09/20 documented as of this encounter
--- OUTSIDE RECORDS SUMMARY | 2025-05-31 07:56 | XMS_ITS | Encounter Summary ---
Author Organization Healthcare Address [address] [place] [address] Care Team Providers Care Oracle Wms Consultant Name Role Phone Zana Carty MD Primary Care Provider +1- [phone] Reason for Visit * Reason Comments Med Refill Encounter Details Date Type Department Care Team (Late st Contact Info) Description 01/31/2023 Refill Obstetrics & Gynecology [address] [place] [address] Adeola Jerez, GENERAL OFFICE ASSISTANT, [facility] [address] [place] [id number] On hormone replacement therapy Social History Tobacco [...] [facility] [place] [address] Zahra Greerrickson [facility] [address] [place] [address] 07/05/2025 2:30 PM EST [facility] [address] [facility] 2nd [place] [address] Jeannie Riddle, GENERAL OFFICE ASSISTANT [address] [facility] Zahra Qureshi [facility] [address] [place] [address] documented as of this encounter Visit Diagnoses Diagnosis On hormone replacement therapy documented in this encounter Care Teams Oracle Wms Consultant Relationship Specialty Start Date End Date Zana Carty MD [address] Kristi MIGUELANGEL [address] PCP - General 11/09/20 documented as of this encounter
--- OUTSIDE RECORDS SUMMARY | 2025-05-31 07:56 | XMS_ITS | Encounter Summary ---
Author Organization [facility] Address [address] [place] [address] Care Team Providers Care Avionics Mechanic Name Role Phone Zana Carty MD Primary Care Provider +1- [phone] Reason for Visit * Reason Comments Med Refill Encounter Details Date Type Department Care Team (Late st Contact Info) Description 07/17/2021 Refill [place] [facility] [address] [place] [address] Lauren Morales, MACHINE FOLDER [address] [facility] [address] [place] [address] Social History Tobacco Use Types [...] [facility] [place] [address] Zahra Greerrickson [facility] [address] [place] [address] 07/05/2025 2:30 PM EST Office Visit [facility] [address] [facility], 2nd [place] [address] Jeannie Riddle, MACHINE FOLDER [address] [facility] [address] [place] [address] documented as of this encounter Visit Diagnoses Not on filedocumented in this encounter Care Teams Avionics Mechanic Relationship Specialty Start Date End Date Zana Carty MD [address] [place] [address] PCP - General 11/09/20 documented as of this encounter
--- OUTSIDE RECORDS SUMMARY | 2025-05-31 07:56 | XMS_ITS | Continuity of Care Document ---
Author Organization [facility] [address] [facility] Address [address] [place] [address] Care Team Providers Care Software Performance Engineer Name Role Phone ALPA RIDLEY Primary Care [...] ADLs and interact with friends and family. [email or web address] Not available 05/09/2025 09:46:22 Plan of Treatment Reminders Order Date Submit Date Provider Last Modified By Organization Details Last Modified Time Details Appointments Office Visit15 2024 08:45A Megan Neal DNP [employer] Not available Not available Not available Office Visit15 2025 11:30A Megan Neal DNP [employer] Not available Not available Not available OV Ext 30 2025 11:30A Megan Becerra MD Not available Not available Not available Lab None recorded. Referral None recorded. Procedures None recorded. Surgeries None recorded. Imaging None recorded. Medication Orders morphine ER 15 mg tablet,ex tended release 2024 025 [facility]/Pharmacy #[id number], [address] [facility], [place], [address], 05/09/2025 09:49:07 hydrocodo ne 10 mg-acetam inophen 325 mg tablet 2024 025 [facility]/Pharmacy #[id number], [address] [place], [address], 05/09/2025 09:49:08 Patient TargetsNo targets recorded. Patient InstructionsNo instructions recorded. Reason for Referral None Reported. Problems Name Problem SNOMED Code Status Onset Date Resolution Date Notes Provider Name and Address Organization Details Recorded Time Osteoporo sis 16763533 Active 2014 (733.00)O STEOPOROS IS NOS Not Available [facility] 22:02:43 Disorder of bone and articular cartilage 075022666 Active 2014 (733.90)B ONE & CARTILAGE DIS NOS Not Available [facility] 2 22:02:43 Malaise and fatigue 719805222 Active 2014 (780.79)M ALAISE AND FATIGUE NEC Not Available [facility] 2 22:02:43 Hyperhidr osis 057317072 Active 2014 (780.8)Ge neralized Hyperhidr osis Not Available [facility] 22:02:43 Reduced libido 4353198 Active 2014 (799.81)D ecreased Libido Not Available [facility] 2 22:02:44 Chronic interstit ial cystitis 356594138 Active 2014 (595.1)Ch ronic Interstit ial Cystitis Not Available [facility] 2 22:02:43 Functiona l disorder of urinary bladder 404160477 Active 2014 (596.59)O ther Bladder Dysfuncti on Not Available [facility] 2 22:02:43 Depressio n screening Active 2014 (V79.0)Sp ecial Screening Examinati on for Depressio n Not Available [facility] 2 22:02:45 Abdominal pain 45769473 Active 2014 (789.00)A bdominal Pain Site Not Otherwise Specified Not Available [facility] 2 22:02:43 Pelvic and perineal pain 447581256 Active 2014 (R10.2)Pe lvic and perineal pain Not Available [facility] 2 22:02:45 Long-term current use of opiate analgesic drug 93224979025 4108 Active 2014 (Z79.891) prison (current) use of opiate analgesic Not Available [facility] 2 22:02:45 Trigemina l neuralgia 59643254 Active 2015 (G50.0)Tr igeminal neuralgia Not Available [facility] 2 22:02:44 Screening for osteoporo sis Active 2015 (V82.81)S pecial Screening Examinati on for Osteoporo sis Not Available [facility] 2 22:02:45 Cervical spondylos is without myelopath y 611265509 Active 2016 (M47.812) Spondylos is without myelopath y or radiculop athy, cervical region Not Available [facility] 2 22:02:44 Cervicocr anial syndrome 92029327 Active 2016 (M53.0)Ce rvicocran ial syndrome Not Available [facility] 2 22:02:44 Cervical radiculop athy 54443523 Active 2016 (M54.12)R adiculopa thy, cervical region Not Available [facility] 2 22:02:44 Cervical spondylos is with radiculop athy Active 2016 (M47.22)O ther spondylos is with radiculop athy, cervical region Not Available [facility] 2 22:02:44 Headache 75464891 Active 2016 (R51)Head ache Not Available [facility] 2 22:02:45 Screening for disorder Active 2016 (Z13.89)E ncounter for screening for other disorder Not Available [facility] 2 22:02:45 Generaliz ed anxiety disorder 82134668 Active 2018 (F41.1)Ge neralized anxiety disorder Not Available [facility] 2 22:02:44 Tobacco dependenc e caused by cigarette s 42875679294 759431 Active 2018 (F17.210) Nicotine dependenc e, cigarette s, uncomplic ated Not Available [facility] 2 22:02:44 Migraine 46461114 Active 2019 (G43.909) Migraine, unspecifi ed, not intractab le, without status migrainos us Not Available [facility] 2 22:02:44 Muscle pain 09100279 Active 2019 (M79.1)My algia Not Available [facility] 2 22:02:45 Spondylos is without myelopath y 21172732 Active 2020 (M47.816) Spondylos is without myelopath y or radiculop athy, lumbar region Not Available [facility] 2 22:02:44 Cervicoge adriana headache 144144099 Active 2021 (G44.86)C ervicogen ic headache Not Available [facility] 2 22:02:44 Problem Notes None recorded. Medical Equipment None Reported. Allergies Allergen ID Allergen Name Allergen Category Reaction Reaction Severity Criticality Documentation Date Start Date Code Code System Note Provider Name and Address Organization Details Recorded Time 97029 baclofen Not available Not available Not available Not available 10/29/20212014 1292 RxNorm Not Available [facility] 2 22:02:34 Medications Name Sig [...] Updated DateTime 5 165.1 cm 27.3 kg/m2 13715.1 5 g 97.9 [degF] 75 /min 16 /min 96 % 143/90 mm[Hg] [facility] 5 09:00:20 Social History Question Answer Notes LastModified by [employer] Details LastModified Time Tobacco Smoking Status Current Every Day Smoker [facility] 12/24/2021 14:28:34 What Is Your Level Of Caffeine Consumption? Occasional 2 Cups Coffee [email or web address] Information not available 12/24/2021 What Is Your Current Pack Years? 10packyears 7 YEARS [email or web address] Information not available 01/21/2022 How Much Tobacco Do You Smoke? 1 PPD [email or web address] Information not available 12/24/2021 Sex: Female Functional Status Question Answer Note LastModified by [employer] Details LastModified Time What is your level of alcohol consumption? Occasional [email or web address] Information not available 12/24/2021 What is your occupation? Disabled [email or web address] Information not available 10/29/2021 Mental Status None [...] ICD10 Code Diagnosis IMO Codes Diagnosis Note [id number] Aniceto Becerra MD [address] [place] [phone] 05/09/2025 08:46:25 05/09/2025 09:50:28 Cervicocranial syndrome 57238590 M53.0 Cervical radiculopathy 53006955 M47.812 Chronic in terstitial cystitis 419895136 N30.10 Health Concerns Section Related Observation LastModified by Organization Detai ls LastModified Time None Recorded Concern Status LastModified by Organization Details LastModified Time None Recorded Payers Encounter Date Sequence Insurance Name Policy Number Policy Hair Covered Member ID Hair Member ID Guarantor Name 05/09/2025 1 [place] [id number] A Francisco J Dempsey [id number] Sophie Dempsey Notes Date Note Type [...] in regards to this. Aniceto Becerra MD [address] [facility], [place], [address], [facility] 05/09/2025 09:49:45 OBGyn Episode No OBEpisode recorded.
--- OUTSIDE RECORDS SUMMARY | 2025-05-31 07:56 | XMS_ITS | Encounter Summary ---
Author Organization [facility] Address [address] [place] [address] Care Team Providers Care Visual Artist Name Role Phone Zana Carty MD Primary Care Provider [phone]- [phone] Reason for Visit * Reason Comments Med Refill Encounter Details Date Type Department Care Team ([facility] st Contact Info) Description 10/09/2021 Refill [employer] ARCHITECTURE TECHNICIAN [address] [place] [address] Lauren Morales S, NEIGHBORHOOD AIDE [address] [facility] [address] [place] [address] Social History Tobacco Use Types [...] 1:30 PM EST Appointment [facility] [place] [address] Zahra Qureshi [facility] [address] [place] [address] 07/05/2025 2:30 PM EST Office Visit [facility] Breast [facility] [address] [facility]nd [place] [address] Jeannie Riddle, NEIGHBORHOOD AIDE [address] [facility] [address] [place] [address] documented as of this encounter Visit Diagnoses Not on filedocumented in this encounter Care Teams Visual Artist Relationship Specialty Start Date End Date Zana Carty MD [address] [place] [place] [address] PCP - General 11/09/20 documented as of this encounter
--- OUTSIDE RECORDS SUMMARY | 2025-05-31 07:56 | XMS_ITS | Clinical Summary ---
Author Organization [facility] Address [address] [place] [address] Care Team Providers Care Telecommunications Field Engineer Name Role Phone Zana Carty MD Primary Care Provider [phone]- [phone] Allergies Active Allergy Reactions Criticality Noted Date [...] HOURS IF NEEDED 3 Active HYDROcodone-miguel taminophen ([place]) 10-325 MG tablet TAKE 1 TABLET BY [...] Refill Obstetrics & Gynecology [address] [place] [address] Anastasia Winters MD 04/20/2025 Refill Obstetrics & Gynecology [address] [place] [address] Anastasia Winters MD 03/17/2025 Results Follow-Up Obstetrics & Gynecology [address] [place] [address] Shaneka Joshi APRN 03/15/2025 3:00 PM EDT Office Visit Obstetrics & Gynecology [address] [place] [address] Shaneka Joshi, SAJAN Urinary pain (Primary Dx); Encounter for gynecological examination without abnormal finding; Interstitial cystitis; Dyspareunia in female; Hormone replacement therapy (HRT) 03/15/2025 Travel 03/08/2025 Orders Only Obstetrics & Gynecology [address] [place] [address] Anastasia Winters MD 03/08/2025 Telephone Obstetrics & Gynecology [address] [place] [address] Anastasia Winters MD 03/06/2025 Refill Obstetrics & Gynecology [address] [place] [address] Anastasia Winters MD from Last 3 Months [...] [facility] [place] [address] Zahra Qureshi [facility] [address] [place] [address] 07/05/2025 2:30 PM EST Office Visit [facility] [address] [facility]nd [place] [address] Jeannie Rdidle, EMAIL DEPLOYMENT SPECIALIST [address] [facility] [address] [address] Health Maintenance Due Date Last [...] 2013 Sigmoidoscopy 2013 [facility]-Colorectal Cancer Screening 2013 [id number] Vaccine (2 - Aliya risk series) 10/31/2020 [...] this topic Medical Devices Implanted Type Area Macroeconomics Professor Device Identifier Shelf Expiration Date Model / [...] skin ny present. 03/17/2025 8:11 AM EDT [facility] Urine Urine specimen obtained by clean catch procedure / Unknown Non-blood Collection / Unknown 03/15/2025 3:39 PM EDT 03/15/2025 7:07 PM EDT us Shaneka Joshi APRN LAB MICROBIOLOGY - GENERAL ORDERABLES Final Result [facility] [address] [place] [address] * POCT Urinalysis Dipstick (03/15/2025 3:23 PM EDT) POCT Urine Color Yellow POCT Urine Clarity Clear POCT Glucose Urine Negative Negative mg/dL POCT Bilirubin, Urine Negative Negative POCT Ketones, Urine Negative Negative mg/dL POCT Specific Dendron, Urine 1.010 POCT Blood, Urine Negative Negative POCT pH, Urine 7.0 5.0 to 8.0 POCT Protein, Urine Negative Negative mg/dL POCT Urobilinogen, Urine 0.2 0.2, 1 E.U./dL POCT Nitrite, Urine Negative Negative POCT Leukocyte Esterase, Urine Negative Negative Test Strip Lot Number [id number] Test Strip Lot Expiration 05/23 Urine Urine [...] to: 06/06/2019 Mammography Outside Images Upload at [facility] 04/23/2021 Mammography Outside Images Upload at [facility] 06/11/2022 Mammography Outside Images Upload at [facility] 03/25/2023 Mammography Breast Diagnostic Tomosynthesis Left at [facility] 12/14/2023 Mammography Breast Diagnostic Tomosynthesis Left at [facility] BREAST COMPOSITION: The breasts are heterogeneously dense, which may obscure small masses. FINDINGS: RIGHT: No suspicious masses, microcalcifications or areas of architectural distortion are seen. LEFT: Finding 1, possible asymmetry, 12mm in the inferior region of the breast with a posterior depth 5 cm from the nipple. Referenced Soren slice(s) MLO#16 There are retro-pectoral implant(s) present in bilateral breasts. us Jeannie Riddle EMAIL DEPLOYMENT SPECIALIST IMG BI PROCEDURES Final Re sult * (ABNORMAL) Hemoglobin A1c (03/14/2024 4:16 PM EDT) Hemoglobin A1c 5.8(H) <5.7 % 03/14/2024 7:32 PM EDT [facility] Blood Venous blood specimen / Unknown Venipuncture / Unknown 03/14/2024 4:16 PM EDT 03/14/2024 6:15 PM EDT Narrative [facility] - 03/14/2024 7:32 PM EDT HA1C Interpretive Data: Diagnosis of Diabetes: Diabetic > or = 6.5% Pre-diabetic 5.7 to 6.4% Non-diabetic < or = 5.6% Glycemic Targets for Type I and Type II Diabetics: Non- Adults <7.0% Adults <6.0% Children and Adolescents <7.5% Source: [place] [employer]. Standards of medical care in diabetes,2017. Diabetes Care.2017:40 (suppl 1):S1-S135. HbA1c assay performed by an ion-exchange chromatography method that is certified traceable to the DCCT. us Anastasia Winters MD LAB BLOOD ORDERABLES Fin al Result [facility] [address] [place] [address] from Last 3 Months or Most Recently Relevant to Health Maintenance Insurance [facility] MEDICARE Care Teams Telecommunications Field Engineer Relationship Specialty Start Date End Date Znaa Carty MD [address] [place] [address] [place] [place] [address] PCP - General 11/09/20
--- NOTE | 2025-05-31 07:57 | CT_ITS ---
FINAL REPORT TECHNIQUE: Pre-and postcontrast axial imaging of the abdomen and pelvis was obtained.This study was performed with techniques to keep radiation doses as low as reasonably achievable, (ALARA). Individualized dose reduction technique using automated exposure control or adjustment of mA and/or kV according to the patient's size were employed. CLINICAL HISTORY: ABNORMAL ABD CT COMPARISON: 05/11/2025 FINDINGS: The lung bases are clear. There is a hypodense lesion in the caudate lobe of the liver, favor cyst. There is also a small hypodense lesion in the right lobe also likely a cyst. There is mild intra and extrahepatic biliary ductal dilatation likely related to cholecystectomy. The spleen, adrenal glands, and pancreas are unremarkable. Bilateral renal lesions are seen. A hyperdense lesion in the anterior right kidney measures 43 Hounsfield units on noncontrast imaging and 58 Hounsfield units on postcontrast imaging which is indeterminant. The 2, new hypodense lesions in the left kidney seen on recent exam are again identified. More posterior lesion does not enhance and is consistent with a cyst. The more inferior lesion is indeterminate with Hounsfield units increasing from 9 on noncontrast imaging to 23 on postcontrast imaging. This is small and favored to be related to volume averaging. On precontrast imaging, no renal stones are identified. There is no lymphadenopathy or ascites. Urinary bladder is unremarkable. There is no evidence of bowel obstruction. There are multiple small bowel loops and proximal colon containing fluid. Mild enterocolitis not excluded. Appendix is normal. Uterus is absent. There is a small fat-containing umbilical hernia. No acute osseous abnormality. IMPRESSION: 1. Indeterminant bilateral renal lesions. Left renal lesion favored to represent cyst with very mild enhancement, likely related to volume averaging. Right indeterminant renal lesion should be followed up with repeat exam in 6-12 months. 2. Fluid-filled small bowel and proximal colon which could be related to enterocolitis. Reviewed, Interpreted and Dictated by Vanessa Kimbrough MD Transcribed by Rosana Jean Authenticated and [facility]
[2025-05-31] MEDS: IOPAMIDOL-370 (76%);100ML BOTTLE 75 ML IV (08:13)
[2025-05-31] MEDS: SODIUM CHLORIDE 0.9% 10ML SYR (RAD ONLY) 10 ML IV (08:13)
== END 2025-05-31 23:59 | disposition home or self-care (01) ==
LOC: RAD 07:54
PROVIDERS: PCP Family Medicine; Visit Provider Family Medicine
DX: N28.9 Disorder of kidney and ureter, unspecified (principal); R93.5 Abnormal findings on diagnostic imaging of other abdominal regions, including retroperitoneum; R93.3 Abnormal findings on diagnostic imaging of other parts of digestive tract
CPT/HCPCS: 74178; Q9967